=== PATIENT | female | born 1985 | race African-American/Black ===

== ENCOUNTER 2017-02-10 21:28 | Inpatient (IN) | payer SELFPAY ==
[2017-02-10] MEDS ORDERED: Ondansetron HCl/PF 4 MG/2 ML Vial ONE ×2 (21:55→22:58)
[2017-02-10 22:05] LABS: #Lymphocytes 1.9 thou/uL (1.20-3.40); #Monocytes 0.3 thou/uL (0.11-0.59); #Neutrophils 9.6 thou/uL (1.40-6.50); %Basophils 0.4 % (0.0-1.0); %Eosinophils 0.2 % (0.0-10.0); %Lymphocytes 15.8 % (21.0-51.0); %Monocytes 2.4 % (0.0-10.0); Hematocrit 43.2 % (36.0-47.0); Mean Platelet Volume 8.8 fL (7.4-10.4); White Blood Cell (WBC) Count 11.8 thou/uL (4.8-10.8)
[2017-02-10 22:34] LABS: Lactic Acid - Sepsis 1.8 mmol/L (0.5-2.2)
[2017-02-10 22:40] LABS: ALT (SGPT) 11 U/L (8-55); AST (SGOT) 12 U/L (5-34); Alkaline Phosphatase 147 U/L (40-150); Anion Gap 19 mmol/L (10-20); BUN (Urea Nitrogen) 19 mg/dL (7.0-18.7); Bilirubin, Total 0.5 mg/dL (0.2-1.2); Calc. Creatinine Clearance 0 mL/min (70-130); Calcium 10.4 mg/dL (7.8-10.44); Carbon Dioxide 27 mmol/L (22-29); Chloride 93 mmol/L (98-107); Estimated GFR-MDRD 40; Globulin 4.2 g/dL (2.4-3.5); Protein, Total 8.5 g/dL (6.0-8.3)
[2017-02-10 22:55] LABS: Bilirubin Negative (Negative); Blood, Urine Trace (Negative); Glucose, Urine (Dipstick) >=1000 mg/dL (Negative); Ketone, Urine 15 mg/dL (Negative); Nitrite Negative (Negative); Protein, Urine (Dipstick) 300 mg/dL (Neg-Trace); Urobilinogen 0.2 mg/dL (0.2-1.0)
[2017-02-10 22:57] LABS: Bacteria/HPF 4+ HPF (None Seen); Hyaline Casts/LPF 0-3 HYALINE CAST LPF (0-3 Hyaline); RBC/HPF 0-3 HPF (0-3); Squamous Epithelial 0-3 HPF (0-3)
[2017-02-10] MEDS ORDERED: Potassium Chloride 20 MEQ TAB ONE (22:58)
[2017-02-10 22:59] LABS: Anion Gap 7 mmol/L (-14-95); Critical Call POC Critical Value; T. Carbon Dioxide 31.2 mmol/L (1.0-85.0); pH (Venous) 7.448 (7.35-7.45); vO2 Saturation-calc 77.2 % (0.0-100.0)
[2017-02-10 23:11] LABS: Amphetamine Detected (NotDetected); Methadone Not Detected (NotDetected); Methamphetamine Detected (NotDetected)
[2017-02-10] MEDS ORDERED: Promethazine HCl 25 MG/ML VIAL ONE (23:43)
[2017-02-10] MEDS ORDERED: cefTRIAXone\\ROCEPHIN 1 GM, Syringe 0.4 ML in Sterile Water 9.6 ML SLOW IVP SCH (23:45)
[2017-02-10] MEDS ORDERED: NS 0.9% w/ 20 MEQ KCL 1,000 ML IV SCH (23:59)
[2017-02-11] MEDS ORDERED: Labetalol HCl 100 MG/20 ML VIAL ONE (00:34)
[2017-02-11] MEDS ORDERED: Lorazepam 2 MG/ML VIAL ONE (01:11)
[2017-02-11] MEDS ORDERED: Insulin Regular 300 UNITS/3 ML VIAL ONE (01:12)
[2017-02-11] MEDS ORDERED: hydrALAZINE 20 MG/ML VIAL ONE (01:46)
[2017-02-11] MEDS ORDERED: Nitroglycerin 2% Ointment 1 INCH/1 GM Packet ONE (02:37)
[2017-02-11] MEDS ORDERED: cloNIDine 0.1 MG TAB ONE (03:40)
[2017-02-11] MEDS ORDERED: Ondansetron ODT 4 MG TAB PO PRN (04:42)
[2017-02-11] MEDS ORDERED: HYDROcodone/Acetaminophen 5/325 mg Tablet PO PRN (04:42)
[2017-02-11] MEDS ORDERED: Labetalol HCl 100 MG/20 ML VIAL SLOW IVP PRN (04:42)
[2017-02-11] MEDS ORDERED: Ondansetron HCl/PF 4 MG/2 ML Vial IVP PRN (04:42)
[2017-02-11] MEDS ORDERED: Enoxaparin Sodium 30 MG/0.3 ML SYRINGE SC SCH (04:42)
[2017-02-11] MEDS ORDERED: HumaLOG 300 UNITS/3 ML VIAL SC PRN ×2 (04:42→12:18)
[2017-02-11] MEDS ORDERED: NS 0.9% w/ 20 MEQ KCL 1,000 ML/1,000 ML BAG IV SCH (04:42)
[2017-02-11] MEDS ORDERED: HYDROcodone/Acetaminophen 10/325 mg Tablet PO PRN (04:42)
[2017-02-11] MEDS ORDERED: Dextrose 50% Abboject 50 ML SYRINGE SLOW IVP PRN ×2 (04:42)
[2017-02-11] MEDS ORDERED: Dextrose 5% in Water 1,000 ML IV PRN (04:42)
[2017-02-11] MEDS ORDERED: Acetaminophen 325 MG TAB PO PRN (04:42)
--- NOTE | 2017-02-11 07:05 | HP ---
DATE OF ADMISSION: 02/11/2017 TIME OF SERVICE: 0113 hours CHIEF COMPLAINT: Intractable nausea and vomiting. HISTORY OF PRESENT ILLNESS: Ms. Green is a 31-year-old -Citizen Of [place] female, looks much older t salguero her stated age, who has had multiple admissions as recently as November of this year for hyperte nsive urgency and polysubstance abuse. The patient came in with intractable vomiting after using marijuana. She has been using meth, mariju elissa for the last couple of days. Per the ER note, she is not taking her medications and thus on a presentation, her blood pressure was extremely high in the 220s/160s. Her multiple doses of labetalol with some effect. She denies any chest pain, no shortness of breath. I did attempt to get her nausea under control, but she has been intolerant of any oral. She is going to be admitted for IV fluids, blood pressure control, and nause a control. The patient is very somnolent after medications and is difficult to arouse to get more information fr om. PAST MEDICAL HISTORY: 1. Diabetes mellitus type 2. 2. Medical noncompliance. 3. Hyperlipidemia. 4. Hypertension. 5. Polysubstance abuse with least methamphetamines, marijuana, and tobacco. PAST SURGICAL HISTORY: Includes; 1. 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 2. Tonsillectomy. 3. x3, remotely. 4. Appendectomy, remotely. HOME MEDICATIONS: Unclear. Per the chart, in the last few months, she has been on; 1. Procardia-XL 90 mg daily. 2. Metoprolol tartrate 50 mg p.o. b.i.d. 3. Insulin either Lantus b.i.d. or 70/30 with Humalog. 4. Labetalol 200 mg p.o. b.i.d. ALLERGIES: NKDA. FAMILY HISTORY: Unknown. Per prior notes, there is no history of premature coronary artery disease, history of immune system dysfunction, or hematologic disorders. SOCIAL HISTORY: The patient does continue to smoke. She also uses marijuana and methamphetamines pe r her urine drug screen. She is unable to wake up enough to give me further history. REVIEW OF SYSTEMS: Not obtainable due to decreased mental status. PHYSICAL EXAMINATION: VITAL SIGNS: Temperature current 97.5, pulse 113, blood pressure 225/163, respiratory rate 20, satti ng 100% on room air. GENERAL: She is sleeping. She arouses by opening her eyes with verbal stimuli, but quickly falls ba ck asleep. She is in no distress. HEENT: Normocephalic, atraumatic. Pupils are equal and reactive. Teeth are in horrible repair. Mu cous membranes are moist without lesions or thrush. NECK: Supple. There is no lymphadenopathy, JVD, or thyromegaly. LUNGS: Clear posteriorly. There are no wheezes, rales, or rhonchi. The patient is not taking deep breaths on command to get a better exam. CARDIOVASCULAR: She is tachycardic, but regular. She has a normal S1, S2. She does have an S4. No S3. No audible murmurs. ABDOMEN: Soft, nontender with good bowel sounds. EXTREMITIES: Show no signs of clubbing, no edema. SKIN: Warm, dry, and well perfused. There is no rash or lesions noted. NEUROLOGIC: Not testable. MUSCULOSKELETAL: Normal to inspection. There is no inflamed joints and no palpable joint effusions. LABORATORY DATA: CMP showed sodium 136, potassium low at 3.0, chloride 93, bicarbonate 27, BUN 19, c reatinine 1.78, baseline 0.89. Calcium was normal 10.4, glucose elevated at 371. Liver functions ar e normal. CBC showed white count 11.8, hemoglobin 14.5, hematocrit 43.2, platelets 420,000. She had 81% granulocytosis. RADIOGRAPHIC STUDIES: None. ASSESSMENT AND PLAN: 1. Hypertensive urgency. Blood pressures in the 220s/160s. P.r.n. labetalol. We will try to get h er back on Procardia and metoprolol tartrate. She may need to be on labetalol, we will get a better history when she is more awake. Placed on telemetry and expect to be more than 2 midnights. We will make her full admit. 2. Cannabis hyperemesis: The patient continues to smoke marijuana. We will treat symptoms. 3. Diabetes mellitus type 2 with hyperglycemia, she has some underlying underlying kidney defects. We will use a moderate sliding scale. She has been on insulin regimen before, but is unsure which on e she has been on most recently. 4. Hyperlipidemia. 5. Polysubstance abuse. 6. Acute kidney injury: Creatinine 1.78, has been less than 1 most recently. Suspect secondary to dehydration. We will give IV fluids with normal saline with 20 of KCl per liter at 125 an hour. We will follow her potassium very closely. We will recheck labs in the morning with CBC, BMP, and magnesium and replace as needed.
[2017-02-11] MEDS: NIFEdipine XL 90 MG TAB PO SCH (08:21)
[2017-02-11] MEDS: Famotidine 20 MG TAB PO SCH ×2 (08:21→21:14)
[2017-02-11] MEDS ORDERED: Carvedilol 6.25 MG TAB PO SCH ×2 (08:30→17:00)
[2017-02-11] MEDS ORDERED: Metoprolol Tartrate 50 MG TAB PO SCH (09:00)
[2017-02-11] MEDS ORDERED: FLU VACC QS2017-18 36 mo. & older 0.5 ML SYRINGE IM ONE (09:00)
[2017-02-11] MEDS ORDERED: cloNIDine 0.1 MG TAB PO PRN ×2 (09:24→12:19)
[2017-02-11] MEDS ORDERED: hydrALAZINE 20 MG/ML VIAL SLOW IVP PRN (09:25)
[2017-02-11] MEDS: NS 0.9% w/ 20 MEQ KCL 1,000 ML/1,000 ML BAG IV SCH ×2 (10:04→21:14)
[2017-02-11] MEDS ORDERED: Clopidogrel Bisulfate 75 MG TAB ONE ×4 (10:13→17:54)
--- NOTE | 2017-02-11 12:21 | PDOC.PN ---
- Subjective Encounter Start Date: 02/11/17 Encounter Start Time: 10:15 Patient seen and examined. Some nausea. Mentation slowly improving. Follows verbal commands - Somnolent. No overnight events. - Objective Resuscitation Status: Resuscitation Status FULL:Full Resuscitation MAR Reviewed: Yes Vital Signs & Weight: Vital Signs (12 hours) Temp Pulse Resp BP BP Pulse Ox 02/11/17 10:01 188/122 H 02/11/17 08:21 113 H 190/115 H 02/11/17 08:07 98.5 F 113 H 18 100 02/11/17 07:50 98.5 F 113 H 18 190/115 H 100 02/11/17 04:42 98.3 F 109 H 18 100 02/11/17 04:30 98.3 F 109 H 18 168/110 H 100 Weight Weight 130 lb 14.4 oz I&O: 02/10/17 02/11/17 02/12/17 06:59 06:59 06:59 Intake Total 125 Output Total 0 Balance 125 Result Diagrams: 02/10/17 21:53 02/10/17 21:53 Additional Labs: Accuchecks 02/11/17 02/11/17 11:02 05:32 POC Glucose 139 H 324 H Laboratory Tests 02/10/17 02/10/17 21:53 22:41 Ur Amphetamines Screen Detected H U Methamphetamines Scrn Detected H U Cannabinoids Screen Detected H B-Hydroxybutyrate 2.79 H EKG Reviewed by me: Yes (Tele SR) Phys Exam - Physical Examination Constitutional: NAD Respiratory: no wheezing, no rhonchi Cardiovascular: RRR, no rub Gastrointestinal: soft, no distention, positive bowel sounds mild gen tenderness Musculoskeletal: no edema Neurological: non-focal, normal sensation, moves all 4 limbs Psychiatric: A&O x 3 Deviation from normal: somnolent - easily arousable Dx/Plan - Plan DVT proph w/SCDs IMPRESSION: 1. Toxic Metabolic Encephalopathy - multifactorial 2. HTN crisis - prob due to med noncompliance/polysubstance abuse 3. DM 2 with DKA 4. Polysubstance abuse 5. NIRAJ 6. Hypokalemia 7. UTI PLAN: * Recheck labs today * Change Metoprolol to Coreg * AM labs * Change IVF to 50 ml due to uncontrolled BP * Counselled on drug abuse/med compliance * Add Clonidine PRN due to uncontrolled BP * Avoid benzos due to somnolence * Ketone level in AM * Add urine culture * Hold Atbx for now Review of Systems - Review of Systems Respiratory: negative: Cough, Dry, Shortness of Breath, Hemoptysis, SOB with Excertion, Pleuritic Pain, Sputum, Wheezing Cardiovascular: negative: Chest Pain, Palpitations, Orthopnea, Paroxysmal Noc. Dyspnea, Edema, Light Headedness Gastrointestinal: Nausea, Abdominal Pain (gen.). negative: Vomiting, Diarrhea, Constipation, Melena, Hematochezia - Medications/Allergies Allergies/Adverse Reactions: Allergies Allergy/AdvReac Type Severity Reaction Status Date / Time No Known Drug Allergies Allergy Verified 07/13/16 05:41 Medications: Current Medications Acetaminophen (Tylenol) 650 mg PO Q4H PRN PRN Reason: Headache/Fever or Pain Hydrocodone Bitart/Acetaminophen ([place] 5/325) 1 tab PO Q4H PRN PRN Reason: Moderate Pain (4-6) Carvedilol (Coreg) 25 mg PO BID[facility] Clonidine (Catapres) 0.1 mg PO Q4H PRN PRN Reason: Systolic BP > 180 Last Admin: 02/11/17 10:01 Dose: 0.1 mg Clonidine (Catapres) 0.1 mg PO Q4H PRN PRN Reason: Systolic BP > 180/ DBP >100 Dextrose/Water (Dextrose 50%) 25 gm SLOW IVP PRN PRN PRN Reason: Hypoglycemia Famotidine (Pepcid) 20 mg PO BID [facility] Last Admin: 02/11/17 08:21 Dose: 20 mg Glucagon (Glucagon) 1 mg IM PRN PRN PRN Reason: Hypoglycemia Hydralazine HCl (Apresoline) 10 mg SLOW IVP Q4H PRN PRN Reason: SBP Greater Than 180 Dextrose/Water (D5w) 1,000 mls @ 0 mls/hr IV .Q0M PRN; As Directed PRN Reason: Hypoglycemia Potassium Chloride/Sodium Chloride (Ns 0.9% W/ 20 Meq Kcl) 1,000 ml in 1,000 mls @ 50 mls/hr IV .Q20H [facility] Last Admin: 02/11/17 10:04 Dose: Not Given Insulin Human Lispro (Humalog) 0 units SC .MODERATE SLIDING SC PRN PRN Reason: Moderate Correctional Scale Insulin Human Lispro (Humalog) 0 units SC .BEDTIME SLIDING SC PRN PRN Reason: Bedtime Correctional Scale Nifedipine (Procardia Xl) 90 mg PO DAILY [facility] Last Admin: 02/11/17 08:21 Dose: 90 mg Nitroglycerin (Nitro-Bid 2% Ointment) 1 inch TOP Q8HR [facility] Ondansetron HCl (Zofran Odt) 4 mg PO Q6H PRN PRN Reason: Nausea/Vomiting Ondansetron HCl (Zofran) 4 mg IVP Q6H PRN PRN Reason: Nausea/Vomiting if unable po Last Admin: 02/11/17 07:58 Dose: 4 mg Potassium Chloride (Klor-Con 10) 10 meq PO TID-WM [facility] Sodium Chloride (Flush - Normal Saline) 10 ml IVF Q12HR [facility] Last Admin: 02/11/17 10:03 Dose: Not Given Sodium Chloride (Flush - Normal Saline) 10 ml IVF PRN PRN PRN Reason: Saline Flush
[2017-02-11] MEDS: Potassium Chloride 10 MEQ TAB PO SCH ×2 (12:45→17:04)
[2017-02-11 13:10] LABS: Anion Gap 14 mmol/L (10-20); BUN (Urea Nitrogen) 23 mg/dL (7.0-18.7); Calc. Creatinine Clearance 48 mL/min (70-130); Calcium 9.6 mg/dL (7.8-10.44); Carbon Dioxide 28 mmol/L (22-29); Chloride 102 mmol/L (98-107); Estimated GFR-MDRD 46
[2017-02-11] MEDS: Nitroglycerin 2% Ointment 1 INCH/1 GM Packet TOP SCH ×2 (14:55→21:13)
[2017-02-11] MEDS ORDERED: Carvedilol 25 MG TAB PO SCH (17:00)
[2017-02-11] MEDS: Carvedilol 6.25 MG TAB PO SCH (17:04)
[2017-02-11] MEDS: HumaLOG 300 UNITS/3 ML VIAL SC PRN (17:05)
[2017-02-12] MEDS: Nitroglycerin 2% Ointment 1 INCH/1 GM Packet TOP SCH (05:17)
[2017-02-12 05:37] LABS: #Basophils 0.1 thou/uL (0.0-0.2); #Eosinphils 0.1 thou/uL (0.0-0.7); #Lymphocytes 3.5 thou/uL (1.20-3.40); #Monocytes 0.5 thou/uL (0.11-0.59); #Neutrophils 7.7 thou/uL (1.40-6.50); %Eosinophils 0.6 % (0.0-10.0); %Lymphocytes 29.5 % (21.0-51.0); %Monocytes 4.5 % (0.0-10.0); Hematocrit 34.5 % (36.0-47.0); Red Blood Cell (RBC) Count 4.14 mill/uL (4.20-5.40)
[2017-02-12 05:38] LABS: Anion Gap 11 mmol/L (10-20); BUN (Urea Nitrogen) 26 mg/dL (7.0-18.7); Calc. Creatinine Clearance 45 mL/min (70-130); Calcium 8.8 mg/dL (7.8-10.44); Carbon Dioxide 26 mmol/L (22-29); Chloride 100 mmol/L (98-107); Estimated GFR-MDRD 43; Magnesium 1.9 mg/dL (1.6-2.6); Phosphorus 2.4 mg/dL (2.3-4.7)
[2017-02-12] MEDS ORDERED: NPH, Human Insulin Isophane 300 UNIT/3 ML VIAL SC SCH ×2 (06:45→21:00)
[2017-02-12] MEDS: Carvedilol 6.25 MG TAB PO SCH ×2 (08:53→17:21)
[2017-02-12] MEDS: NIFEdipine XL 90 MG TAB PO SCH (08:54)
[2017-02-12] MEDS: Famotidine 20 MG TAB PO SCH ×2 (08:54→21:00)
[2017-02-12] MEDS: Potassium Chloride 10 MEQ TAB PO SCH ×3 (08:54→17:21)
[2017-02-12] MEDS: HumaLOG 300 UNITS/3 ML VIAL SC PRN ×4 (08:55→20:59)
--- NOTE | 2017-02-12 18:03 | PDOC.PN ---
- Subjective Encounter Start Date: 02/12/17 Encounter Start Time: 10:00 Patient seen and examined. Mentation improving. Still somnolent. No overnight events - Objective Resuscitation Status: Resuscitation Status FULL:Full Resuscitation MAR Reviewed: Yes Vital Signs & Weight: Vital Signs (12 hours) Temp Pulse Pulse Pulse Resp BP BP 02/12/17 17:21 150/97 H 02/12/17 16:20 98.1 F 97 17 02/12/17 13:32 94 95 97/62 02/12/17 11:35 98.7 F 97 16 02/12/17 09:00 98.3 F 96 16 02/12/17 08:54 96 164/100 H 02/12/17 08:53 164/100 H 02/12/17 08:51 98.3 F 96 16 BP BP Pulse Ox 02/12/17 17:21 02/12/17 16:20 121/82 100 02/12/17 13:32 103/62 02/12/17 11:35 137/93 H 100 02/12/17 09:00 99 02/12/17 08:54 02/12/17 08:53 02/12/17 08:51 164/100 H 99 Weight Weight 136 lb I&O: 02/11/17 02/12/17 02/13/17 06:59 06:59 06:59 Intake Total 125 3043 1300 Output Total 0 1800 1200 Balance 125 1243 100 Result Diagrams: 02/12/17 04:28 02/12/17 04:28 Additional Labs: Accuchecks 02/12/17 02/12/17 02/12/17 17:08 11:31 05:36 POC Glucose 257 H 202 H 331 H 02/11/17 02/11/17 19:57 16:22 POC Glucose 175 H 294 H EKG Reviewed by me: Yes (Tele SR) Phys Exam - Physical Examination Constitutional: NAD Respiratory: no wheezing, no rales, no rhonchi, clear to auscultation bilateral Cardiovascular: RRR, no significant murmur, no rub no heaves/pulsations Gastrointestinal: soft, non-tender, no distention, positive bowel sounds Musculoskeletal: no edema Neurological: non-focal, normal sensation, moves all 4 limbs Psychiatric: A&O x 3 Dx/Plan - Plan DVT proph w/SCDs (no Heparin/Lovenox due to elevated BP) IMPRESSION: 1. Toxic Metabolic Encephalopathy - multifactorial - improving. 2. HTN crisis - prob due to med noncompliance/polysubstance abuse. 3. DM 2 with DKA - better controlled. Ketone improving. 4. Polysubstance abuse - Counselled 5. NIRAJ - improving 6. Hypokalemia - improving 7. UTI - culture pending PLAN: * Start Atbx * Cont current HTN meds * DC NTG patch * AM labs * Clonidine PRN * DC probably in AM if stable * DC IVF due to elevated BP Review of Systems - Review of Systems Respiratory: negative: Cough, Dry, Shortness of Breath, Hemoptysis, SOB with Excertion, Pleuritic Pain, Sputum, Wheezing Cardiovascular: negative: Chest Pain, Palpitations, Orthopnea, Paroxysmal Noc. Dyspnea, Edema, Light Headedness Gastrointestinal: negative: Nausea, Vomiting, Abdominal Pain, Diarrhea, Constipation, Melena, Hematochezia - Medications/Allergies Allergies/Adverse Reactions: Allergies Allergy/AdvReac Type Severity Reaction Status Date / Time No Known Drug Allergies Allergy Verified 07/13/16 05:41 Medications: Current Medications Acetaminophen (Tylenol) 650 mg PO Q4H PRN PRN Reason: Headache/Fever or Pain Hydrocodone Bitart/Acetaminophen ([place] 5/325) 1 tab PO Q4H PRN PRN Reason: Moderate Pain (4-6) Carvedilol (Coreg) 12.5 mg PO BID-[facility] Last Admin: 02/12/17 17:21 Dose: 12.5 mg Clonidine (Catapres) 0.1 mg PO Q4H PRN PRN Reason: Systolic BP > 180/ DBP >100 Last Admin: 02/12/17 05:17 Dose: 0.1 mg Dextrose/Water (Dextrose 50%) 25 gm SLOW IVP PRN PRN PRN Reason: Hypoglycemia Famotidine (Pepcid) 20 mg PO BID [facility] Last Admin: 02/12/17 08:54 Dose: 20 mg Glucagon (Glucagon) 1 mg IM PRN PRN PRN Reason: Hypoglycemia Hydralazine HCl (Apresoline) 10 mg SLOW IVP Q4H PRN PRN Reason: SBP Greater Than 180 Dextrose/Water (D5w) 1,000 mls @ 0 mls/hr IV .Q0M PRN; As Directed PRN Reason: Hypoglycemia Insulin Human Lispro (Humalog) 0 units SC .BEDTIME SLIDING SC PRN PRN Reason: Bedtime Correctional Scale Insulin Human Lispro (Humalog) 0 units SC .MILD SLIDING SCALE PRN PRN Reason: Mild Correctional Scale Last Admin: 02/12/17 17:21 Dose: 6 unit Insulin Human NPH (Humulin N) 15 unit SC 0645 [facility] Last Admin: 02/12/17 08:55 Dose: 15 unit Insulin Human NPH (Humulin N) 15 unit SC BID [facility] Nifedipine (Procardia Xl) 90 mg PO DAILY [facility] Last Admin: 02/12/17 08:54 Dose: 90 mg Ondansetron HCl (Zofran Odt) 4 mg PO Q6H PRN PRN Reason: Nausea/Vomiting Ondansetron HCl (Zofran) 4 mg IVP Q6H PRN PRN Reason: Nausea/Vomiting if unable po Last Admin: 02/11/17 07:58 Dose: 4 mg Potassium Chloride (Klor-Con 10) 10 meq PO TID-WM [facility] Last Admin: 02/12/17 17:21 Dose: 10 meq Sodium Chloride (Flush - Normal Saline) 10 ml IVF Q12HR [facility] Last Admin: 02/12/17 09:00 Dose: Not Given Sodium Chloride (Flush - Normal Saline) 10 ml IVF PRN PRN PRN Reason: Saline Flush
[2017-02-12] MEDS ORDERED: cefTRIAXone\\ROCEPHIN 1 GM in Sodium Chloride 0.9% 100 ML IVPB SCH (18:15)
[2017-02-12] MEDS ORDERED: cefTRIAXone\\ROCEPHIN 1 GM, Syringe 0.4 ML in Sterile Water 9.6 ML SLOW IVP SCH (21:00)
[2017-02-13] MEDS: Nitroglycerin 2% Ointment 1 INCH/1 GM Packet TOP SCH (00:05)
[2017-02-13 06:04] LABS: Anion Gap 8 mmol/L (10-20); BUN (Urea Nitrogen) 24 mg/dL (7.0-18.7); Calc. Creatinine Clearance 71 mL/min (70-130); Calcium 8.9 mg/dL (7.8-10.44); Carbon Dioxide 27 mmol/L (22-29); Chloride 103 mmol/L (98-107); Estimated GFR-MDRD 69
[2017-02-13 06:06] VITALS: BMI 22.6
[2017-02-13] MEDS ORDERED: Potassium Chloride 20 MEQ TAB PO SCH (08:00)
[2017-02-13] MEDS ORDERED: NPH, Human Insulin Isophane 300 UNIT/3 ML VIAL SC SCH (09:00)
[2017-02-13] MEDS: NIFEdipine XL 90 MG TAB PO SCH (09:15)
[2017-02-13] MEDS: Famotidine 20 MG TAB PO SCH (09:16)
[2017-02-13] MEDS: Carvedilol 6.25 MG TAB PO SCH (09:16)
[2017-02-13] MEDS: Potassium Chloride 10 MEQ TAB PO SCH (09:46)
[2017-02-13 12:25] VITALS: BP 133/85; TEMP 97.8
[2017-02-13] MEDS: HumaLOG 300 UNITS/3 ML VIAL SC PRN (12:27)
--- NOTE | 2017-02-13 17:21 | DIS ---
DATE OF ADMISSION: 02/11/2017 DATE OF DISCHARGE: 02/13/2017 DISCHARGE DISPOSITION: Home. FOLLOWUP: Follow up with primary care physician, [facility] in 1 week. ALLERGIES: No known drug allergies. The patient was seen and examined on the day of discharge. No chest pain, shortness of breath, palpi tations. Patient is ambulating in the hallway. Blood pressure at the time of discharge is 133/85. DISCHARGE MEDICATIONS: Procardia-XL 90 mg daily, carvedilol 12.5 mg b.i.d., clonidine as needed, Nov oLog 70/30 12 units b.i.d., amoxicillin 500 mg three times daily #14. BRIEF HOSPITAL COURSE: Patient is a 31-year-old -[place] female with diabetes mellitus type 2, hypertension, hyperlipidemia, and polysubstance abuse who presented to the hospital with intractab le nausea and vomiting. Please refer to the history and physical dated 02/11/2017 for further detail s. The patient was admitted to the hospital with diagnosis of intractable nausea and vomiting with hyper tensive urgency and acute kidney injury. Urine drug screen was positive for cannabinoid, amphetamine s and methamphetamines. Beta hydroxybutyrate was 2.79. Creatinine on admission was 1.78 with potass ium of 2.9 and blood sugar of 348. She showed good improvement with IV fluids. Blood pressure was m aintained with p.r.n. medications. Metoprolol has been changed to carvedilol due to methamphetamine abuse. Her blood pressure has stabilized. She was extensively counseled on drug abuse. The patient stated today that she has been not taking Lantus due to financial reason. For this reason, Lantus h as been changed to NovoLog 70/30. She appears stable for discharge. She is ambulating in the counts include [facility] beds at the [facility]. Her blood pressure has also stabilized. FINAL DIAGNOSES: 1. Nausea and vomiting secondary to diabetic ketoacidosis, resolved. 2. Toxic metabolic encephalopathy, multifactorial. Probably secondary to drug abuse. 3. Hypertensive crisis, resolved. 4. Polysubstance abuse. 5. Acute kidney injury. 6. Hypokalemia. 7. Group B urinary tract infection. 8. Chronic kidney disease stage 2. Plan of care was discussed with the patient in detail. She stated understanding. Total time coordinating the discharge of this patient was 35 minutes.
== END 2017-02-13 13:00 | disposition home or self-care (01) | DRG 637 ==
LOC: ERS 21:28 → 2NO 02-11 01:42
PROVIDERS: ADMIT Internal Medicine Infectious Disease; ATTEND Internal Medicine Infectious Disease
DX: E11.10 Type 2 diabetes mellitus with ketoacidosis without coma (principal); G92 Toxic encephalopathy; N17.9 Acute kidney failure, unspecified; N39.0 Urinary tract infection, site not specified; F15.10 Other stimulant abuse, uncomplicated; Z87.891 Personal history of nicotine dependence; I16.0 Hypertensive urgency; R11.2 Nausea with vomiting, unspecified; E78.5 Hyperlipidemia, unspecified; F19.10 Other psychoactive substance abuse, uncomplicated; F12.10 Cannabis abuse, uncomplicated; E87.6 Hypokalemia; B96.89 Other specified bacterial agents as the cause of diseases classified elsewhere; I12.9 Hypertensive chronic kidney disease with stage 1 through stage 4 chronic kidney disease, or unspecified chronic kidney disease; E11.22 Type 2 diabetes mellitus with diabetic chronic kidney disease; N18.2 Chronic kidney disease, stage 2 (mild); Z91.14 Patient's other noncompliance with medication regimen; E86.0 Dehydration
CPT/HCPCS: 36415; 36416; 80048; 80053; 80306; 81003; 81015; 81025; 82010; 82330; 82803; 83605; 83735; 83930; 84100; 85025; 87077; 87086; 90471; 90682; 93005; 94760; 96361; 96365; 96366; 96367; 96372; 96375; 96376; 99406; A4216; G0008; G8978-GP-CJ; G8979-GP-CJ; G8980-GP-CJ; G8987-GO-CH; G8988-GO-CH; G8989-GO-CH; J0360; J0696; J1650; J1815; J2060; J2405; J2550; Q2036

== ENCOUNTER 2017-02-24 21:55 | Inpatient (IN) | payer MEDICAID, SELFPAY ==
[2017-02-24] MEDS ORDERED: Ondansetron HCl/PF 4 MG/2 ML Vial ONE (22:01)
[2017-02-24] MEDS ORDERED: Pantoprazole 40 MG VIAL ONE (22:11)
[2017-02-24 22:22] LABS: #Basophils 0.1 thou/uL (0.0-0.2); #Eosinphils 0.1 thou/uL (0.0-0.7); #Lymphocytes 1.8 thou/uL (1.20-3.40); #Monocytes 0.4 thou/uL (0.11-0.59); #Neutrophils 8.8 thou/uL (1.40-6.50); %Basophils 0.8 % (0.0-1.0); %Eosinophils 0.7 % (0.0-10.0); %Lymphocytes 15.7 % (21.0-51.0); %Monocytes 3.7 % (0.0-10.0); Hematocrit 39.7 % (36.0-47.0); Mean Platelet Volume 9.1 fL (7.4-10.4); Red Blood Cell (RBC) Count 4.82 mill/uL (4.20-5.40); White Blood Cell (WBC) Count 11.2 thou/uL (4.8-10.8)
[2017-02-24] MEDS ORDERED: Promethazine HCl 25 MG/ML VIAL ONE (22:22)
[2017-02-24] MEDS ORDERED: Haloperidol Lactate 5 MG/ML VIAL ONE (22:22)
[2017-02-24] MEDS ORDERED: Fentanyl 100 MCG/2 ML VIAL ONE (22:22)
[2017-02-24 22:44] LABS: ALT (SGPT) 10 U/L (8-55); AST (SGOT) 15 U/L (5-34); Alkaline Phosphatase 125 U/L (40-150); Anion Gap 17 mmol/L (10-20); BUN (Urea Nitrogen) 23 mg/dL (7.0-18.7); Bilirubin, Total 0.6 mg/dL (0.2-1.2); Calc. Creatinine Clearance 0 mL/min (70-130); Calcium 10.1 mg/dL (7.8-10.44); Carbon Dioxide 27 mmol/L (22-29); Chloride 95 mmol/L (98-107); Estimated GFR-MDRD 49; Globulin 4.1 g/dL (2.4-3.5); Lipase 25 U/L (8-78); Protein, Total 8.2 g/dL (6.0-8.3)
[2017-02-24] MEDS ORDERED: Pantoprazole 80 MG in Sodium Chloride 0.9% 100 ML IVP SCH (22:45)
--- NOTE | 2017-02-24 23:17 | RAD ---
ACUTE ABDOMINAL SERIES: FRONTAL RADIOGRAPH CHEST AND TWO VIEWS OF ABDOMEN 02/24/17 COMPARISON: None. HISTORY: Pain. FINDINGS: Frontal radiograph chest demonstrates no pneumothorax or pleural fluid and no focal consolidation or alveolar edema. Upright and supine frontal imaging of abdomen and pelvis demonstrates stool throughou t the colon. No evidence for small bowel obstruction or free intraperitoneal air. IMPRESSION: Significant stool seen throughout the colon. No free intraperitoneal air, evidence of small bowel obs truction, or evidence of acute cardiopulmonary disease. POS: [facility]
[2017-02-24] MEDS ORDERED: niCARdipine 20MG In NaCl 20 MG/200 ML BAG ONE (23:26)
[2017-02-24] MEDS ORDERED: Insulin Regular 300 UNITS/3 ML VIAL ONE (23:29)
[2017-02-24] MEDS ORDERED: hydrALAZINE 20 MG/ML VIAL ONE (23:39)
[2017-02-24 23:46] LABS: Magnesium 2.1 mg/dL (1.6-2.6)
[2017-02-24 23:52] LABS: Bilirubin Negative (Negative); Blood, Urine Small (Negative); Glucose, Urine (Dipstick) >=1000 mg/dL (Negative); Ketone, Urine 15 mg/dL (Negative); Nitrite Negative (Negative); Protein, Urine (Dipstick) 100 mg/dL (Neg-Trace); Urobilinogen 0.2 mg/dL (0.2-1.0)
[2017-02-24 23:55] LABS: Bacteria/HPF None Seen HPF (None Seen); Hyaline Casts/LPF 0-3 HYALINE CAST LPF (0-3 Hyaline); RBC/HPF 0-3 HPF (0-3); Squamous Epithelial None Seen HPF (0-3); WBC/HPF None Seen HPF (0-3)
[2017-02-25] MEDS ORDERED: Labetalol HCl 100 MG/20 ML VIAL ONE (00:02)
[2017-02-25] MEDS ORDERED: Potassium Chloride 20 MEQ/100 ML PREMIX BAG ONE (00:17)
[2017-02-25] MEDS ORDERED: Dextrose 5% in Water 1,000 ML IV PRN (00:32)
[2017-02-25] MEDS ORDERED: Dextrose 50% Abboject 50 ML SYRINGE SLOW IVP PRN (00:32)
[2017-02-25] MEDS ORDERED: cloNIDine 0.1 MG TAB PO PRN (00:34)
[2017-02-25] MEDS ORDERED: Acetaminophen 650 MG Suppository PR PRN (00:35)
[2017-02-25] MEDS ORDERED: Nitroglycerin 0.4 MG TAB (25 Tab Bottle) PO PRN (00:35)
[2017-02-25] MEDS ORDERED: Ondansetron ODT 4 MG TAB PO PRN (00:35)
[2017-02-25] MEDS ORDERED: Fleet Enema 133 ML BOT PR PRN (00:37)
[2017-02-25] MEDS ORDERED: Labetalol HCl 100 MG/20 ML VIAL SLOW IVP PRN (00:38)
[2017-02-25] MEDS ORDERED: hydrALAZINE 20 MG/ML VIAL SLOW IVP PRN (00:38)
--- NOTE | 2017-02-25 00:54 | HP ---
DATE OF ADMISSION: 02/24/2017 The patient was seen and examined on 02/22/2017 REASON FOR CHIEF COMPLAINT: Abdominal pain with nausea and vomiting. HISTORY OF PRESENT ILLNESS: Patient is a 31-year-old -[place] female with diabetes mellitus type 2, hypertension, hyperlipidemia, and polysubstance abuse, who presented to the emergency room wi th intractable nausea, vomiting, and abdominal discomfort. She was discharged on 02/13/2017 with sim ilar complaints. Over the last three days, the patient has been out of her insulin and has not taken her blood pressur e medications. She developed generalized abdominal discomfort along with nausea and vomiting. The v omitus was coffee ground on and off. She denies any nonsteroidal anti-inflammatory use earlier. The abdominal pain was 10/10, generalized, without any aggravating or relieving factor. The above history was obtained from the ER report. At this time, patient is somnolent. Due to intra ctable nausea, vomiting, she received Phenergan, Haldol, and Zofran in the emergency room with IV flu ids. PAST MEDICAL HISTORY: 1. Recent hospitalization for nausea, vomiting with diabetic ketoacidosis. 2. Hypertension, labile due to medication noncompliance. 3. Hyperlipidemia. 4. Polysubstance abuse. 5. Chronic kidney disease, stage 2 with recent acute kidney injury. PAST SURGICAL HISTORY: 1. D and C. 2. Tonsillectomy. 3. . 4. Appendectomy. ALLERGIES: No known drug allergies. CURRENT HOME MEDICATIONS: Patient has not taken any of her home medications in the last 3-4 days. S he was discharged on Procardia-XL 90 mg daily, carvedilol 12.5 mg b.i.d., clonidine as needed, and No voLog 70/30 of 20 units b.i.d. SOCIAL HISTORY: Patient smokes on a daily basis. Her urine drug screen recently was positive for ca nnabis and methamphetamines. FAMILY HISTORY: Negative for premature coronary artery disease from recent records. REVIEW OF SYSTEMS: Cannot be reliably obtained due to current cognitive status. PHYSICAL EXAMINATION: VITAL SIGNS: In the emergency room showed temperature 97.9, respirations 18, pulse of 119 with blood pressure of 203/133 with O2 saturation 99% on room air. GENERAL: A 31-year-old female who was somnolent, probably secondary to the Haldol for nausea. HEENT: Head , atraumatic, normocephalic. Sclerae are anicteric. Dry mucous membrane. No oral lesi on. NECK: Supple. No JVD, no carotid bruit. LUNGS: Clear to auscultation bilaterally. No wheezing or rales. HEART: S1, S2 present. Tachycardic. No heaves, pulsation, or murmurs. ABDOMEN: There is diffuse tenderness without any guarding, rigidity. Bowel sounds present. No cost overtebral angle tenderness. EXTREMITIES: No edema or calf tenderness. NEUROLOGIC/PSYCHIATRIC: Limited due to current cognitive status. SKIN: Warm and dry. LYMPH NODES: No palpable lymph nodes in the neck. PERIPHERAL VASCULAR: Radial pulses palpable bilaterally. MUSCULOSKELETAL: No joint swelling or tenderness. LABORATORY FINDINGS: CBC showed WBC 11.2 with hemoglobin 13.5, platelet count 365. Chemistries show ed sodium 136, potassium 3.0 with chloride 95, bicarbonate 27, BUN 23, creatinine 1.5. Blood glucose was 358. Ketones was 1.64. Urine test was normal. Urine ketones was 15. KUB by my revi ew showed significant stool throughout the colon without any free air or evidence of small-bowel obst ruction. Telemetry by my review showed sinus tachycardia. IMPRESSION: 1. Intractable nausea and vomiting, multifactorial. 2. Toxic metabolic encephalopathy, multifactorial. 3. Hypertensive urgency secondary to medication noncompliance. 4. History of polysubstance abuse. 5. Diabetic ketoacidosis. 6. Hypokalemia. 7. Dehydration. 8. Acute kidney injury on chronic kidney disease, stage 2. 9. Medication noncompliance. 10. Recent group B strep urinary tract infection. 11. Vomiting with questionable hematemesis, probably secondary to gastritis. PLAN: The patient will be monitored on telemetry unit. Urine drug screen is pending at this time. Her blood pressure improved with hydralazine IV. We will monitor blood glucose closely. Gentle IV h ydration due to elevated blood pressure. Replace potassium. Recheck ketones in a.m. We will give a fleet enema in a.m. due to significant stool in the colon. GI will be consulted for possible GI ble eding, which is probably secondary to gastritis. Plan of care was discussed with the patient. We will discuss the plan with the family when they arri ve.
[2017-02-25] MEDS: 1/2 NS w/KCL 20 mEq 1,000 ML IV SCH ×2 (03:34→22:07)
[2017-02-25] MEDS: Ondansetron HCl/PF 4 MG/2 ML Vial IVP PRN ×3 (03:34→20:34)
[2017-02-25] MEDS: Nitroglycerin 2% Ointment 1 INCH/1 GM Packet TOP SCH ×3 (03:35→16:57)
[2017-02-25] MEDS: hydrALAZINE 25 MG TAB PO SCH ×3 (03:35→22:07)
[2017-02-25] MEDS ORDERED: NIFEdipine XL 30 MG TAB PO SCH ×2 (04:00→09:00)
[2017-02-25] MEDS ORDERED: NIFEdipine XL 90 MG TAB PO SCH (04:00)
[2017-02-25] MEDS: NIFEdipine XL 90 MG TAB PO SCH (04:16)
[2017-02-25 04:50] LABS: #Basophils 0.1 thou/uL (0.0-0.2); #Eosinphils 0.1 thou/uL (0.0-0.7); #Lymphocytes 2.1 thou/uL (1.20-3.40); #Monocytes 0.5 thou/uL (0.11-0.59); #Neutrophils 8.1 thou/uL (1.40-6.50); %Basophils 0.8 % (0.0-1.0); %Eosinophils 0.8 % (0.0-10.0); %Lymphocytes 19.2 % (21.0-51.0); %Monocytes 4.6 % (0.0-10.0); Hematocrit 37.1 % (36.0-47.0); Mean Platelet Volume 9.1 fL (7.4-10.4); Red Blood Cell (RBC) Count 4.46 mill/uL (4.20-5.40); White Blood Cell (WBC) Count 10.9 thou/uL (4.8-10.8)
[2017-02-25 05:02] LABS: ALT (SGPT) 10 U/L (8-55); AST (SGOT) 11 U/L (5-34); Alkaline Phosphatase 110 U/L (40-150); Anion Gap 14 mmol/L (10-20); BUN (Urea Nitrogen) 20 mg/dL (7.0-18.7); Bilirubin, Total 0.6 mg/dL (0.2-1.2); Calc. Creatinine Clearance 59 mL/min (70-130); Calcium 9.3 mg/dL (7.8-10.44); Carbon Dioxide 25 mmol/L (22-29); Chloride 98 mmol/L (98-107); Estimated GFR-MDRD 59; Globulin 3.4 g/dL (2.4-3.5); Magnesium 1.8 mg/dL (1.6-2.6); Phosphorus 4.4 mg/dL (2.3-4.7); Protein, Total 7.1 g/dL (6.0-8.3)
[2017-02-25] MEDS ORDERED: Promethazine HCl 25 MG in Sodium Chloride 0.9% 100 ML IVPB SCH (06:00)
[2017-02-25] MEDS: Carvedilol 25 MG TAB PO SCH ×2 (08:21→16:47)
[2017-02-25] MEDS: Senokot S 8.6-50 MG TAB PO SCH ×2 (08:21→20:33)
[2017-02-25] MEDS: Docusate 100 MG CAP PO SCH ×2 (08:21→20:33)
[2017-02-25] MEDS: Bisacodyl 10 MG SUPP PR SCH (08:22)
[2017-02-25] MEDS: Pantoprazole 40 MG VIAL IVP SCH ×2 (08:22→20:33)
[2017-02-25] MEDS: Insulin Regular 300 UNITS/3 ML VIAL SC PRN ×3 (08:41→16:34)
[2017-02-25] MEDS: NPH, Human Insulin Isophane 300 UNIT/3 ML VIAL SC SCH ×2 (08:43→22:07)
--- NOTE | 2017-02-25 09:54 | PDOC.PN ---
- Subjective Encounter Start Date: 02/25/17 Encounter Start Time: 07:00 Pt seen for followup re: nausea and vomiting. Pt reports vomiting three times today. has abdo pain. No fevers or chills. - Objective Resuscitation Status: Resuscitation Status FULL:Full Resuscitation MAR Reviewed: Yes Vital Signs & Weight: Vital Signs (12 hours) Temp Pulse Resp BP BP Pulse Ox 02/25/17 08:48 124 H 196/60 H 02/25/17 07:30 98.6 F 124 H 16 196/60 H 100 02/25/17 04:16 122 H 210/130 H 02/25/17 03:36 99.0 F 122 H 16 210/130 H 99 02/25/17 03:35 123 H 167/114 H 02/25/17 02:19 97.4 F L 123 H 18 167/114 H 99 02/25/17 00:35 99 Weight Weight 130 lb 4.8 oz I&O: 02/24/17 02/25/17 02/26/17 06:59 06:59 06:59 Intake Total 957 Output Total 100 Balance 857 Result Diagrams: 02/25/17 04:18 02/25/17 04:18 Additional Labs: Accuchecks 02/25/17 02/25/17 02/25/17 08:24 04:10 01:43 POC Glucose 295 H 287 H 274 H 02/25/17 00:13 POC Glucose 292 H EKG Reviewed by me: Yes (Tele: NSR) Phys Exam - Physical Examination Constitutional: NAD HEENT: PERRLA, sclera anicteric, oral pharynx no lesions Dry mucosae Neck: no nodes, no JVD, supple, full ROM Respiratory: no wheezing, no rales, no rhonchi, clear to auscultation bilateral Cardiovascular: RRR, no rub Gastrointestinal: soft, no distention, positive bowel sounds Mild diffuse tenderness, no guarding or rigidity Musculoskeletal: pulses present Neurological: moves all 4 limbs Lymphatic: no nodes Psychiatric: normal affect Deviation from normal: Oriented to person and place, not to time Skin: no rash, normal turgor, cap refill <2 seconds Dx/Plan (1) Nausea and vomiting Code(s): R11.2 - NAUSEA WITH VOMITING, UNSPECIFIED Status: Acute (2) Hypokalemia Code(s): E87.6 - HYPOKALEMIA Status: Acute (3) Hypertensive urgency Code(s): I10 - ESSENTIAL (PRIMARY) HYPERTENSION Status: Acute (4) Abdominal pain Code(s): R10.9 - UNSPECIFIED ABDOMINAL PAIN Status: Acute (5) DM2 (diabetes mellitus, type 2) Status: Chronic Qualifiers: Diabetes mellitus complication status: without complication (6) CKD (chronic kidney disease) Code(s): N18.9 - CHRONIC KIDNEY DISEASE, UNSPECIFIED Status: Chronic (7) Polysubstance abuse Code(s): F19.10 - OTHER PSYCHOACTIVE SUBSTANCE ABUSE, UNCOMPLICATED Status: Chronic - Plan DVT proph w/SCDs * . Check CT abdo /pelvis to r/o intraabdominal pathology. Add clonidine patch, monitor vital signs and titrate antihypertensives as needed. PRN IV Zofran. Renal insufficiency improving. Replace potassium. Review of Systems - Review of Systems Constitutional: negative: Fever, Chills, Sweats, Weakness, Malaise Respiratory: negative: Cough, Dry, Shortness of Breath, Hemoptysis, SOB with Excertion, Pleuritic Pain, Sputum, Wheezing Cardiovascular: negative: Chest Pain, Palpitations, Orthopnea, Paroxysmal Noc. Dyspnea, Edema, Light Headedness Gastrointestinal: Nausea, Vomiting, Abdominal Pain. negative: Diarrhea, Constipation, Melena, Hematochezia Genitourinary: negative: Dysuria, Frequency, Incontinence, Hematuria, Retention - Medications/Allergies Allergies/Adverse Reactions: Allergies Allergy/AdvReac Type Severity Reaction Status Date / Time No Known Drug Allergies Allergy Verified 02/25/17 02:36 Medications: Current Medications Acetaminophen (Tylenol) 650 mg PO Q4H PRN PRN Reason: Headache/Fever or Pain Acetaminophen (Tylenol) 650 mg NJ Q4H PRN PRN Reason: Headache/Fever or Pain Bisacodyl (Dulcolax) 10 mg NJ DAILY [facility] Last Admin: 02/25/17 08:22 Dose: 10 mg Carvedilol (Coreg) 25 mg PO BID-[facility] Last Admin: 02/25/17 08:21 Dose: 25 mg Clonidine (Catapres) 0.1 mg PO Q4H PRN PRN Reason: Systolic BP > 180/ DBP >100 Dextrose/Water (Dextrose 50%) 25 gm SLOW IVP PRN PRN PRN Reason: Hypoglycemia Docusate Sodium (Colace) 100 mg PO BID [facility] Last Admin: 02/25/17 08:21 Dose: 100 mg Glucagon (Glucagon) 1 mg IM PRN PRN PRN Reason: Hypoglycemia Hydralazine HCl (Apresoline) 10 mg SLOW IVP Q4H PRN PRN Reason: SBP Greater Than 180 Last Admin: 02/25/17 08:48 Dose: 10 mg Hydralazine HCl (Apresoline) 25 mg PO Q8HR [facility] Last Admin: 02/25/17 03:35 Dose: 25 mg Potassium Chloride/Sodium Chloride (1/2 Ns W/Kcl 20 Meq) 1,000 mls @ 50 mls/hr IV .Q20H [facility] Stop: 02/27/17 00:46 Last Admin: 02/25/17 03:34 Dose: 1,000 mls Dextrose/Water (D5w) 1,000 mls @ 0 mls/hr IV .Q0M PRN; As Directed PRN Reason: Hypoglycemia Insulin Human NPH (Humulin N) 8 unit SC BID [facility] Last Admin: 02/25/17 08:43 Dose: 8 unit Insulin Human Regular (Humulin R) 0 units SC .MILD SLIDING SCALE PRN PRN Reason: Mild Correctional Scale Last Admin: 02/25/17 08:41 Dose: 4 unit Labetalol HCl (Normodyne) 10 mg SLOW IVP Q4H PRN PRN Reason: Systolic BP > 180 Nifedipine (Procardia Xl) 90 mg PO DAILY [facility] Last Admin: 02/25/17 04:16 Dose: 90 mg Nitroglycerin (Nitrostat) 0.4 mg PO Q5MIN PRN PRN Reason: Chest Pain Nitroglycerin (Nitro-Bid 2% Ointment) 0.5 inch TOP 0100,0900,1700 [facility] Last Admin: 02/25/17 08:22 Dose: 0.5 inch Ondansetron HCl (Zofran Odt) 4 mg PO Q6H PRN PRN Reason: Nausea/Vomiting Ondansetron HCl (Zofran) 4 mg IVP Q6H PRN PRN Reason: Nausea/Vomiting Last Admin: 02/25/17 03:34 Dose: 4 mg Pantoprazole Sodium (Protonix) 40 mg IVP Q12HR [facility] Last Admin: 02/25/17 08:22 Dose: 40 mg Senna/Docusate Sodium (Senokot S) 2 tab PO BID [facility] Last Admin: 02/25/17 08:21 Dose: 2 tab Sodium Biphosphate/Sodium Phosphate (Fleet Enema) 133 ml NJ DAILY PRN PRN Reason: Constipation Sodium Chloride (Flush - Normal Saline) 10 ml IVF PRN PRN PRN Reason: Saline Flush Last Admin: 02/25/17 03:34 Dose: 10 ml
[2017-02-25] MEDS ORDERED: cloNIDine 0.2mg/24 Hour PATCH TD SCH (10:00)
[2017-02-25] MEDS ORDERED: Potassium Chloride 20 MEQ TAB PO SCH (10:00)
[2017-02-25] MEDS ORDERED: Promethazine HCl 25 MG/ML VIAL IM PRN (10:38)
[2017-02-25] MEDS ORDERED: Ondansetron HCl/PF 4 MG/2 ML Vial IVP PRN (10:38)
[2017-02-25] MEDS ORDERED: Promethazine HCl 25 MG/ML VIAL SLOW IVP PRN (10:38)
[2017-02-25] MEDS ORDERED: Lidocaine 1% PF 5 ML VIAL ONE (12:06)
[2017-02-25] MEDS ORDERED: Succinylcholine Chloride 20 MG/ML 10 ml SYRINGE FS ONE (12:06)
[2017-02-25] MEDS ORDERED: Propofol 200 MG/20 ML VIAL ONE (12:06)
[2017-02-25] MEDS ORDERED: PHENYLEPHRINE-NS 100 MCG/ML 10 ML SYRINGE ONE (12:06)
[2017-02-25] MEDS: Labetalol HCl 100 MG/20 ML VIAL SLOW IVP PRN ×2 (12:23→20:34)
[2017-02-25] MEDS ORDERED: Lorazepam 2 MG/ML VIAL SLOW IVP SCH (16:15)
[2017-02-25] MEDS ORDERED: hydrALAZINE 20 MG/ML VIAL SLOW IVP SCH (16:15)
[2017-02-25] MEDS ORDERED: Sodium Chloride 0.9% 1,000 ML IV SCH (17:45)
[2017-02-25 19:54] LABS: Amphetamine Detected (NotDetected); Methadone Not Detected (NotDetected); Methamphetamine Detected (NotDetected)
[2017-02-25] MEDS ORDERED: cloNIDine 0.1mg/24 Hour PATCH TD SCH (22:00)
[2017-02-26] MEDS: Nitroglycerin 2% Ointment 1 INCH/1 GM Packet TOP SCH ×3 (00:35→17:34)
--- NOTE | 2017-02-26 00:37 | OP ---
DATE OF PROCEDURE: 02/25/2017 OPERATIVE PROCEDURE: Esophagogastroduodenoscopy with biopsy. PREOPERATIVE DIAGNOSES: Abdominal pain, nausea, vomiting, history of coffee-ground emesis. POSTOPERATIVE DIAGNOSES: 1. Normal stomach and duodenum. 2. Small ulcer at the gastroesophageal junction with mild esophagitis. 3. Linear brownish streak mostly represent food material coating the esophageal mucosa. This could not be washed out. PROCEDURE IN DETAIL: The patient has been intubated and was given sedation by the Anesthesia Departm ent. This was done because of history of recurrent nausea and vomiting. A Pentax video gastroscope under direct vision was passed down the oropharynx. When I passed the scope down the posterior phary nx, I could see some blood in the throat. This is most likely from the intubation and caused retchin g. The underlying mucosa appeared normal. The scope was advanced past the upper esophageal sphincte r into the stomach and subsequently descending duodenum. The duodenal bulb and descending duodenum, no pathology seen. The fundus, cardia, gastric body, gastric antrum, no pathology seen. The endosco pe was withdrawn just above the GE junction, there was a small ulceration with mild inflammation. Al so, the mucosa has some linear streaks which do not appear to be any erosions. This represents most likely the food material coating the mucosa. The area was biopsied. The stomach was decompressed an d the scope removed. RECOMMENDATIONS: 1. Protonix 40 mg a day. 2. IV Reglan 10 mg every 8 hours. Overall, the exam is very benign. I do not see any reason for ab dominal pain, nausea, and vomiting. It is very much possible this could be gastroparesis.
--- NOTE | 2017-02-26 00:43 | CON ---
DATE OF CONSULTATION: 02/25/2017 REFERRING PHYSICIAN: Dr. Clifton Ochoa. REASON FOR CONSULTATION: Abdominal pain, nausea, vomiting, and history of coffee-ground emesis. HISTORY OF PRESENT ILLNESS: Ms. Jennie Green is a fragile-looking, young -[place] female with hypertension, diabetes mellitus, and hyperlipidemia. In the admitting history and physical, there is mention of polysubstance abuse. The patient came to the ER with acute abdominal pain that started yesterday morning. The pain was over the epigastric area with recurrent nausea and vomiting. The patient was constantly retching and throwing up. There is some mention of coffee-ground emesis. The patient had a CBC which is actually normal. The admitting CBC shows a normal hemoglobin and hematocrit. A repeat H&H showed the blood count to be normal. The admitting CBC shows WBC 11,200, hemoglobin 13.4, hematocrit 39.7. Today, hemoglobin 12.5 , which is actually normal, hematocrit 37.1. When I walked into her room to see her, she was lying in bed, moaning and groaning as she actually got abdominal pain. Abdominal exam is very very benign. The patient denies history of alcohol abuse. No history of drug abuse. She does use some drugs off and on a regular basis. Although she has a history of hypertension and diabetes mellitus, she does not have a family doctor. She says she buys her medicines over the counter , which appears to be somewhat difficult to believe. She has no other relevant history. ALLERGIES: None. SOCIAL HISTORY: The patient does not drink alcohol but does admit to using off and on but not on a regular basis. She does smoke. Her urine drug screen is positive for cannabis and methamphetamines. FAMILY HISTORY: No family history of any heart disease, CVA, diabetes, hypertension, and cancer. MENSTRUAL HISTORY: Appears regular. LMP 01/2017 and usually bleeds for 5 days. PAST SURGICAL HISTORY: She has had and she has 3 living children. 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 Constitutional: No history of fever, night sweats, weight loss. Respiratory System: No history of chronic cough, hemoptysis, dyspnea. Cardiovascular System: No chest pain, no palpitation, no dyspnea, orthopnea, or PND. Gastrointestinal: As in the history of present illness. Genitourinary: No dysuria, hematuria, or frequency of urination. Musculoskeletal: Unremarkable. Endocrine: Unremarkable. Psychiatric: Unremarkable. PHYSICAL EXAMINATION: GENERAL: The patient is thin built, appears in moderate discomfort, she is moaning and groaning. VITAL SIGNS: Temperature 98.6 degrees Fahrenheit, pulse is 124, blood pressure 196/60. HEENT: Conjunctivae clear. NECK: Supple. No adenitis or thyromegaly noted. CARDIOVASCULAR SYSTEM: First and second heart sounds normal. LUNGS: Clear to auscultation. ABDOMEN: Soft. Abdomen is nondistended. Abdomen exam is very benign, although , she moans and groans everytime her abdomen is palpated. EXTREMITIES: No edema. LABORATORY DATA: As mentioned earlier, she has a normal hemoglobin and hematocrit, WBC count is slightly high at 10,900, platelet count is 118,000, polymorphs 74, lymphocytes 19. Serum chemistries show a normal Chem-7 except for mild hypokalemia and hyponatremia. Her BUN is 20, creatinine 1.28, glucose 292, calcium 9.3, bilirubin 0.6, AST 11, ALT 10, alkaline phosphatase 110. Lipase was really not done. Abdominal series done showed basically a large amount of retained stool. CLINICAL IMPRESSION: A 31-year-old -[place] female with diabetes mellitus, hypertension, hyperlipidemia. Although she denies drug abuse, however , urine is positive for amphetamines and cannabis. Abdomen is very very benign. The belly is soft and nondistended; however, she complains of severe abdominal pain. Her lipase is normal at 725. Based on the history and physical exam, I do not see any evidence of acute abdomen. Her coffee ground vomiting may be due to her retching and maybe she tore some gastric mucosa. RECOMMENDATION: I did speak to Ms. Green about having an EGD. She agrees to have an EGD done as soon as possible and make further recommendations. MTDD
[2017-02-26 05:16] LABS: #Basophils 0.1 thou/uL (0.0-0.2); #Lymphocytes 2.8 thou/uL (1.20-3.40); #Monocytes 0.7 thou/uL (0.11-0.59); %Basophils 0.5 % (0.0-1.0); %Eosinophils 0.3 % (0.0-10.0); %Lymphocytes 22.1 % (21.0-51.0); %Monocytes 5.3 % (0.0-10.0); Hematocrit 33.3 % (36.0-47.0); Mean Platelet Volume 8.8 fL (7.4-10.4); Red Blood Cell (RBC) Count 4.01 mill/uL (4.20-5.40); White Blood Cell (WBC) Count 12.5 thou/uL (4.8-10.8)
[2017-02-26] MEDS: hydrALAZINE 25 MG TAB PO SCH ×3 (05:48→21:50)
[2017-02-26] MEDS: Insulin Regular 300 UNITS/3 ML VIAL SC PRN ×3 (06:33→17:35)
[2017-02-26 07:14] LABS: ALT (SGPT) 8 U/L (8-55); AST (SGOT) 11 U/L (5-34); Alkaline Phosphatase 94 U/L (40-150); Anion Gap 14 mmol/L (10-20); BUN (Urea Nitrogen) 25 mg/dL (7.0-18.7); Bilirubin, Total 0.5 mg/dL (0.2-1.2); Calc. Creatinine Clearance 33 mL/min (70-130); Calcium 8.8 mg/dL (7.8-10.44); Carbon Dioxide 26 mmol/L (22-29); Chloride 99 mmol/L (98-107); Estimated GFR-MDRD 37; Globulin 3.1 g/dL (2.4-3.5); Magnesium 1.7 mg/dL (1.6-2.6); Phosphorus 5.3 mg/dL (2.3-4.7); Protein, Total 6.3 g/dL (6.0-8.3)
[2017-02-26] MEDS: Docusate 100 MG CAP PO SCH ×2 (08:51→21:51)
[2017-02-26] MEDS: NIFEdipine XL 90 MG TAB PO SCH (08:52)
[2017-02-26] MEDS: Senokot S 8.6-50 MG TAB PO SCH ×2 (08:52→21:51)
[2017-02-26] MEDS: Carvedilol 25 MG TAB PO SCH ×2 (08:52→17:35)
[2017-02-26] MEDS: NPH, Human Insulin Isophane 300 UNIT/3 ML VIAL SC SCH ×2 (08:56→21:50)
[2017-02-26] MEDS: Bisacodyl 10 MG SUPP PR SCH (08:58)
[2017-02-26] MEDS: Pantoprazole 40 MG VIAL IVP SCH ×2 (09:06→21:50)
--- NOTE | 2017-02-26 12:17 | PDOC.PN ---
- Subjective Encounter Start Date: 02/26/17 Encounter Start Time: 07:20 Pt seen for followup re: hypokalemia. Denies chest pain, feels better. Had breakfast. - Objective Resuscitation Status: Resuscitation Status FULL:Full Resuscitation MAR Reviewed: Yes Vital Signs & Weight: Vital Signs (12 hours) Temp Pulse Resp BP BP Pulse Ox 02/26/17 11:40 98.3 F 103 H 16 122/77 98 02/26/17 08:52 99 F 114 H 16 98 02/26/17 07:38 99 F 114 H 16 158/108 H 98 02/26/17 05:48 120 H 161/103 H 02/26/17 04:00 99.9 F H 120 H 18 161/103 H 97 Weight Weight 108 lb 4.8 oz I&O: 02/25/17 02/26/17 02/27/17 06:59 06:59 06:59 Intake Total 957 1558 Output Total 100 Balance 857 1558 Result Diagrams: 02/26/17 04:48 02/26/17 04:48 Additional Labs: Accuchecks 02/26/17 02/26/17 02/26/17 09:31 04:49 00:40 POC Glucose 197 H 216 H 184 H 02/25/17 02/25/17 20:22 16:29 POC Glucose 211 H 240 H EKG Reviewed by me: Yes (Tele: sinus tachycardia) Phys Exam - Physical Examination Constitutional: NAD HEENT: PERRLA, sclera anicteric, oral pharynx no lesions Dry mucosae Neck: no nodes, no JVD, supple, full ROM Respiratory: no wheezing, no rales, no rhonchi, clear to auscultation bilateral Cardiovascular: RRR, no rub Gastrointestinal: soft, non-tender, no distention, positive bowel sounds Musculoskeletal: pulses present Neurological: moves all 4 limbs Lymphatic: no nodes Psychiatric: normal affect, A&O x 3 Skin: no rash Dx/Plan (1) Hypokalemia Code(s): E87.6 - HYPOKALEMIA Status: Acute (2) Sinus tachycardia Code(s): R00.0 - TACHYCARDIA, UNSPECIFIED Status: Acute (3) Dehydration Code(s): E86.0 - DEHYDRATION Status: Acute (4) DM2 (diabetes mellitus, type 2) Status: Chronic Qualifiers: Diabetes mellitus complication status: without complication (5) CKD (chronic kidney disease) Code(s): N18.9 - CHRONIC KIDNEY DISEASE, UNSPECIFIED Status: Chronic (6) Polysubstance abuse Code(s): F19.10 - OTHER PSYCHOACTIVE SUBSTANCE ABUSE, UNCOMPLICATED Status: Chronic (7) Nausea and vomiting Code(s): R11.2 - NAUSEA WITH VOMITING, UNSPECIFIED Status: Resolved (8) Abdominal pain Code(s): R10.9 - UNSPECIFIED ABDOMINAL PAIN Status: Resolved (9) Hypertensive urgency Code(s): I10 - ESSENTIAL (PRIMARY) HYPERTENSION Status: Resolved - Plan * . Advance diet. Replace potassium. Continue IV fluids, pt is clinically dehydrated. Monitor vital signs, titrate antihypertensives as needed. Review of Systems - Review of Systems Constitutional: negative: Fever, Chills, Sweats, Weakness, Malaise Respiratory: negative: Cough, Dry, Shortness of Breath, Hemoptysis, SOB with Excertion, Pleuritic Pain, Sputum, Wheezing Cardiovascular: negative: Chest Pain, Palpitations, Orthopnea, Paroxysmal Noc. Dyspnea, Edema, Light Headedness Gastrointestinal: Nausea, Abdominal Pain. negative: Vomiting, Diarrhea, Constipation, Melena, Hematochezia Genitourinary: negative: Dysuria, Frequency, Incontinence, Hematuria, Retention - Medications/Allergies Allergies/Adverse Reactions: Allergies Allergy/AdvReac Type Severity Reaction Status Date / Time No Known Drug Allergies Allergy Verified 02/25/17 02:36 Medications: Current Medications Acetaminophen (Tylenol) 650 mg PO Q4H PRN PRN Reason: Headache/Fever or Pain Acetaminophen (Tylenol) 650 mg IA Q4H PRN PRN Reason: Headache/Fever or Pain Bisacodyl (Dulcolax) 10 mg IA DAILY [facility] Last Admin: 02/26/17 08:58 Dose: Not Given Carvedilol (Coreg) 25 mg PO BID-[facility] Last Admin: 02/26/17 08:52 Dose: 25 mg Clonidine (Catapres) 0.1 mg PO Q4H PRN PRN Reason: Systolic BP > 180/ DBP >100 Last Admin: 02/25/17 20:32 Dose: 0.1 mg Clonidine (Latqtqkk-Dmi-0 Patch) 0.1 mg TD Q7D [facility] Last Admin: 02/25/17 22:05 Dose: 0.1 mg Dextrose/Water (Dextrose 50%) 25 gm SLOW IVP PRN PRN PRN Reason: Hypoglycemia Docusate Sodium (Colace) 100 mg PO BID [facility] Last Admin: 02/26/17 08:51 Dose: 100 mg Glucagon (Glucagon) 1 mg IM PRN PRN PRN Reason: Hypoglycemia Hydralazine HCl (Apresoline) 10 mg SLOW IVP Q4H PRN PRN Reason: SBP Greater Than 180 Last Admin: 02/25/17 08:48 Dose: 10 mg Hydralazine HCl (Apresoline) 25 mg PO Q8HR [facility] Last Admin: 02/26/17 05:48 Dose: 25 mg Potassium Chloride/Sodium Chloride (1/2 Ns W/Kcl 20 Meq) 1,000 mls @ 50 mls/hr IV .Q20H [facility] Stop: 02/27/17 00:46 Last Admin: 02/25/17 22:07 Dose: Not Given Dextrose/Water (D5w) 1,000 mls @ 0 mls/hr IV .Q0M PRN; As Directed PRN Reason: Hypoglycemia Insulin Human NPH (Humulin N) 8 unit SC BID [facility] Last Admin: 02/26/17 08:56 Dose: 8 unit Insulin Human Regular (Humulin R) 0 units SC .MILD SLIDING SCALE PRN PRN Reason: Mild Correctional Scale Last Admin: 02/26/17 11:55 Dose: 2 unit Labetalol HCl (Normodyne) 10 mg SLOW IVP Q6H PRN PRN Reason: Systolic BP > 170 Last Admin: 02/25/17 20:34 Dose: 10 mg Nifedipine (Procardia Xl) 90 mg PO DAILY [facility] Last Admin: 02/26/17 08:52 Dose: 90 mg Nitroglycerin (Nitrostat) 0.4 mg PO Q5MIN PRN PRN Reason: Chest Pain Nitroglycerin (Nitro-Bid 2% Ointment) 0.5 inch TOP 0100,0900,1700 [facility] Last Admin: 02/26/17 08:52 Dose: 0.5 inch Ondansetron HCl (Zofran Odt) 4 mg PO Q6H PRN PRN Reason: Nausea/Vomiting Last Admin: 02/26/17 05:48 Dose: 4 mg Ondansetron HCl (Zofran) 4 mg IVP Q6H PRN PRN Reason: Nausea/Vomiting Last Admin: 02/25/17 20:34 Dose: 4 mg Pantoprazole Sodium (Protonix) 40 mg IVP Q12HR [facility] Last Admin: 02/26/17 09:06 Dose: 40 mg Senna/Docusate Sodium (Senokot S) 2 tab PO BID [facility] Last Admin: 02/26/17 08:52 Dose: 2 tab Sodium Biphosphate/Sodium Phosphate (Fleet Enema) 133 ml [place] DAILY PRN PRN Reason: Constipation Last Admin: 02/25/17 16:08 Dose: 133 ml Sodium Chloride (Flush - Normal Saline) 10 ml IVF PRN PRN PRN Reason: Saline Flush Last Admin: 02/26/17 08:53 Dose: 10 ml
[2017-02-26 12:24] VITALS: BMI 21.1
[2017-02-26] MEDS: 1/2 NS w/KCL 20 mEq 1,000 ML IV SCH ×2 (15:14→18:06)
[2017-02-26] MEDS ORDERED: Magnesium Citrate 300 ML BOT PO SCH (17:30)
[2017-02-26] MEDS: Potassium Chloride 20 MEQ TAB PO SCH ×2 (17:34→21:50)
[2017-02-27] MEDS: Nitroglycerin 2% Ointment 1 INCH/1 GM Packet TOP SCH ×3 (01:57→19:00)
[2017-02-27] MEDS: Acetaminophen 325 MG TAB PO PRN ×3 (02:01→13:27)
[2017-02-27] MEDS: hydrALAZINE 25 MG TAB PO SCH ×2 (06:40→13:27)
[2017-02-27] MEDS: NPH, Human Insulin Isophane 300 UNIT/3 ML VIAL SC SCH (08:09)
[2017-02-27] MEDS: Carvedilol 25 MG TAB PO SCH ×2 (08:10→19:00)
[2017-02-27] MEDS: Pantoprazole 40 MG VIAL IVP SCH (08:10)
[2017-02-27] MEDS: NIFEdipine XL 90 MG TAB PO SCH (08:10)
[2017-02-27] MEDS: Bisacodyl 10 MG SUPP PR SCH (08:20)
[2017-02-27] MEDS: Senokot S 8.6-50 MG TAB PO SCH (08:20)
[2017-02-27] MEDS: Docusate 100 MG CAP PO SCH (08:20)
[2017-02-27] MEDS: Insulin Regular 300 UNITS/3 ML VIAL SC PRN ×2 (08:39→13:28)
[2017-02-27] MEDS: Sodium Chloride 0.9% 1,000 ML IV SCH ×2 (10:38→18:59)
--- NOTE | 2017-02-27 12:57 | PDOC.PN ---
- Subjective Encounter Start Date: 02/27/17 Encounter Start Time: 07:00 Pt seen for followup re: NIRAJ. Denies chest pain, shortness of breath, fevers or chills. No nausea or vomiting. - Objective Resuscitation Status: Resuscitation Status FULL:Full Resuscitation MAR Reviewed: Yes Vital Signs & Weight: Vital Signs (12 hours) Temp Pulse Resp BP BP Pulse Ox 02/27/17 11:53 98.8 F 91 20 115/71 99 02/27/17 08:10 99 F 90 20 100 02/27/17 08:00 99.0 F 90 20 168/122 H 100 02/27/17 06:40 94 152/105 H 02/27/17 03:20 98.9 F 94 16 152/105 H 99 Weight Admit Weight 130 lb 12.8 oz Weight 130 lb 12.8 oz I&O: 02/26/17 02/27/17 02/28/17 06:59 06:59 06:59 Intake Total 1558 1750 Output Total 400 Balance 1558 1350 Result Diagrams: 02/26/17 04:48 02/26/17 04:48 Additional Labs: Accuchecks 02/27/17 02/27/17 02/27/17 11:12 08:19 03:57 POC Glucose 225 H 258 H 273 H 02/27/17 02/26/17 02/26/17 01:05 20:32 16:38 POC Glucose 340 H 245 H 287 H 02/26/17 13:52 POC Glucose 255 H EKG Reviewed by me: Yes (Tele: NSR) Phys Exam - Physical Examination Constitutional: NAD Dry mucosae Neck: supple Respiratory: clear to auscultation bilateral Cardiovascular: RRR Gastrointestinal: soft Neurological: moves all 4 limbs Psychiatric: normal affect Skin: no rash Dx/Plan (1) NIRAJ (acute kidney injury) Code(s): N17.9 - ACUTE KIDNEY FAILURE, UNSPECIFIED Status: Acute (2) Hypokalemia Code(s): E87.6 - HYPOKALEMIA Status: Acute (3) Dehydration Code(s): E86.0 - DEHYDRATION Status: Acute (4) DM2 (diabetes mellitus, type 2) Status: Chronic Qualifiers: Diabetes mellitus complication status: without complication (5) CKD (chronic kidney disease) Code(s): N18.9 - CHRONIC KIDNEY DISEASE, UNSPECIFIED Status: Chronic (6) Polysubstance abuse Code(s): F19.10 - OTHER PSYCHOACTIVE SUBSTANCE ABUSE, UNCOMPLICATED Status: Chronic (7) Nausea and vomiting Code(s): R11.2 - NAUSEA WITH VOMITING, UNSPECIFIED Status: Resolved (8) Abdominal pain Code(s): R10.9 - UNSPECIFIED ABDOMINAL PAIN Status: Resolved (9) Sinus tachycardia Code(s): R00.0 - TACHYCARDIA, UNSPECIFIED Status: Resolved - Plan * . Hydrate pt, recheck creatinine. Check potassium level. Likely home later today or tomorrow. Review of Systems - Review of Systems Constitutional: negative: Fever, Chills, Sweats, Weakness, Malaise Respiratory: negative: Cough, Dry, Shortness of Breath, Hemoptysis, SOB with Excertion, Pleuritic Pain, Sputum, Wheezing Cardiovascular: negative: Chest Pain, Palpitations, Orthopnea, Paroxysmal Noc. Dyspnea, Edema, Light Headedness Gastrointestinal: negative: Nausea, Vomiting, Abdominal Pain, Diarrhea, Constipation, Melena, Hematochezia - Medications/Allergies Allergies/Adverse Reactions: Allergies Allergy/AdvReac Type Severity Reaction Status Date / Time No Known Drug Allergies Allergy Verified 02/25/17 02:36 Medications: Current Medications Acetaminophen (Tylenol) 650 mg PO Q4H PRN PRN Reason: Headache/Fever or Pain Last Admin: 02/27/17 08:09 Dose: 650 mg Acetaminophen (Tylenol) 650 mg [place] Q4H PRN PRN Reason: Headache/Fever or Pain Bisacodyl (Dulcolax) 10 mg NJ DAILY [facility] Last Admin: 02/27/17 08:20 Dose: Not Given Carvedilol (Coreg) 25 mg PO BID-[facility] Last Admin: 02/27/17 08:10 Dose: 25 mg Clonidine (Catapres) 0.1 mg PO Q4H PRN PRN Reason: Systolic BP > 180/ DBP >100 Last Admin: 02/25/17 20:32 Dose: 0.1 mg Clonidine (Pjgnpgbf-Blj-8 Patch) 0.1 mg TD Q7D [facility] Last Admin: 02/25/17 22:05 Dose: 0.1 mg Dextrose/Water (Dextrose 50%) 25 gm SLOW IVP PRN PRN PRN Reason: Hypoglycemia Docusate Sodium (Colace) 100 mg PO BID [facility] Last Admin: 02/27/17 08:20 Dose: Not Given Glucagon (Glucagon) 1 mg IM PRN PRN PRN Reason: Hypoglycemia Hydralazine HCl (Apresoline) 10 mg SLOW IVP Q4H PRN PRN Reason: SBP Greater Than 180 Last Admin: 02/25/17 08:48 Dose: 10 mg Hydralazine HCl (Apresoline) 25 mg PO Q8HR [facility] Last Admin: 02/27/17 06:40 Dose: 25 mg Dextrose/Water (D5w) 1,000 mls @ 0 mls/hr IV .Q0M PRN; As Directed PRN Reason: Hypoglycemia Sodium Chloride (Normal Saline 0.9%) 1,000 mls @ 150 mls/hr IV .Q6H40M [facility] Last Admin: 02/27/17 10:38 Dose: 1,000 mls Insulin Human NPH (Humulin N) 8 unit SC BID [facility] Last Admin: 02/27/17 08:09 Dose: 8 unit Insulin Human Regular (Humulin R) 0 units SC .MILD SLIDING SCALE PRN PRN Reason: Mild Correctional Scale Last Admin: 02/27/17 08:39 Dose: 4 unit Labetalol HCl (Normodyne) 10 mg SLOW IVP Q6H PRN PRN Reason: Systolic BP > 170 Last Admin: 02/25/17 20:34 Dose: 10 mg Nifedipine (Procardia Xl) 90 mg PO DAILY [facility] Last Admin: 02/27/17 08:10 Dose: 90 mg Nitroglycerin (Nitrostat) 0.4 mg PO Q5MIN PRN PRN Reason: Chest Pain Nitroglycerin (Nitro-Bid 2% Ointment) 0.5 inch TOP 0100,0900,1700 [facility] Last Admin: 02/27/17 08:09 Dose: 0.5 inch Ondansetron HCl (Zofran Odt) 4 mg PO Q6H PRN PRN Reason: Nausea/Vomiting Last Admin: 02/26/17 05:48 Dose: 4 mg Ondansetron HCl (Zofran) 4 mg IVP Q6H PRN PRN Reason: Nausea/Vomiting Last Admin: 02/25/17 20:34 Dose: 4 mg Pantoprazole Sodium (Protonix) 40 mg IVP Q12HR [facility] Last Admin: 02/27/17 08:10 Dose: Not Given Senna/Docusate Sodium (Senokot S) 2 tab PO BID [facility] Last Admin: 02/27/17 08:20 Dose: Not Given Sodium Biphosphate/Sodium Phosphate (Fleet Enema) 133 ml [place] DAILY PRN PRN Reason: Constipation Last Admin: 02/25/17 16:08 Dose: 133 ml Sodium Chloride (Flush - Normal Saline) 10 ml IVF PRN PRN PRN Reason: Saline Flush Last Admin: 02/26/17 08:53 Dose: 10 ml
[2017-02-27 16:13] VITALS: BP 153/101; TEMP 98.4
[2017-02-27] MEDS ORDERED: Metoclopramide HCl 10 MG TAB PO SCH (21:00)
--- NOTE | 2017-02-28 01:52 | DIS ---
DATE OF ADMISSION: 02/24/2017 DATE OF DISCHARGE: 02/27/2017 PRIMARY CARE PROVIDER: [facility]. DISCHARGE DIAGNOSES: 1. Acute on chronic renal insufficiency. 2. Probable gastroparesis. 3. Hypertensive urgency. CONDITION OF PATIENT AT THE TIME OF DISCHARGE: Stable. I assessed Ms. Green on the day of dischar ge. Please refer to my daily hospitalist progress note for further information. DISCHARGE MEDICATIONS: Metoclopramide 10 mg 3 times a day, trial for 1 week, patient to be reassesse d by her primary care provider. Coreg 12.5 mg 2 times a day, clonidine 0.1 mg 2 times a day as neede d, NovoLog insulin 70/30 twenty units 2 times a day, Procardia-XL 90 mg daily, and Protonix 40 mg cara ly. HOSPITAL COURSE: Ms. Green is a pleasant 31-year-old lady who was admitted to [facility] for hypertensive urgency and abdominal pain on 02/24/2017. Gastroenterology service wa s consulted. Dr. Fragoso saw her and did EGD on her on 02/25/2017. She had normal stomach and duo denum, small ulcer at the gastroesophageal junction with mild esophagitis. She has been started on P rotonix 40 mg daily and Reglan 10 mg 3 times a day. Her blood pressure improved. Her abdominal pain and vomiting resolved. She is being discharged home in a stable condition. She is advised to stop recreational drug use and to follow up with her [facility] care provider in 3-5 days. On the day of discharge, she has a creatinine of 1.60. Many thanks for allowing me to participate in your patient's care. Please feel free to contact me wi th any questions or concerns. DISCHARGE DESTINATION: Home. TOTAL AMOUNT OF TIME SPENT COORDINATING THIS DISCHARGE: 33 minutes.
== END 2017-02-27 18:21 | disposition home or self-care (01) | DRG 74 ==
LOC: ERS 21:55 → ERHOLD 23:56 → 2SE 02-25 02:22
PROVIDERS: ADMIT Internal Medicine; ATTEND Internal Medicine
PROC: 0DB48ZX Excision of Esophagogastric Junction, Via Natural or Artificial Opening Endoscopic, Diagnostic (ICD-10-PCS; principal; 2017-02-25)
DX: E11.43 Type 2 diabetes mellitus with diabetic autonomic (poly)neuropathy (principal); G92 Toxic encephalopathy; N17.9 Acute kidney failure, unspecified; E11.22 Type 2 diabetes mellitus with diabetic chronic kidney disease; I16.0 Hypertensive urgency; K31.84 Gastroparesis; E86.0 Dehydration; E87.6 Hypokalemia; K25.9 Gastric ulcer, unspecified as acute or chronic, without hemorrhage or perforation; K20.9 Esophagitis, unspecified; I12.9 Hypertensive chronic kidney disease with stage 1 through stage 4 chronic kidney disease, or unspecified chronic kidney disease; Z91.14 Patient's other noncompliance with medication regimen; N18.2 Chronic kidney disease, stage 2 (mild); E78.5 Hyperlipidemia, unspecified; Z79.4 Long term (current) use of insulin; F17.210 Nicotine dependence, cigarettes, uncomplicated; F19.10 Other psychoactive substance abuse, uncomplicated
CPT/HCPCS: 36415; 36416; 74022; 80053; 80306; 81003; 81015; 81025; 82010; 82565; 83690; 83735; 84100; 85025; 86850; 86900; 86901; 88305; 88312; 88313; 94760; 96361; 96365; 96375; 99406; A4216; C9113; J0360; J1630; J1815; J2001; J2060; J2405; J2550; J2704; J3010; J3480; J7050; Q0162

== ENCOUNTER 2017-03-05 22:17 | Emergency (ER) | payer MEDICAID ==
[2017-03-05] MEDS ORDERED: Ondansetron HCl/PF 4 MG/2 ML Vial ONE (23:01)
[2017-03-05 23:09] LABS: #Basophils 0.1 thou/uL (0.0-0.2); #Eosinphils 0.1 thou/uL (0.0-0.7); #Lymphocytes 2.3 thou/uL (1.20-3.40); #Monocytes 0.5 thou/uL (0.11-0.59); #Neutrophils 10.4 thou/uL (1.40-6.50); %Basophils 0.5 % (0.0-1.0); %Eosinophils 0.6 % (0.0-10.0); %Lymphocytes 17.1 % (21.0-51.0); %Monocytes 3.6 % (0.0-10.0); Hematocrit 40.6 % (36.0-47.0); Mean Platelet Volume 9.4 fL (7.4-10.4); Red Blood Cell (RBC) Count 4.93 mill/uL (4.20-5.40); White Blood Cell (WBC) Count 13.3 thou/uL (4.8-10.8)
[2017-03-05 23:33] LABS: ALT (SGPT) 13 U/L (8-55); AST (SGOT) 12 U/L (5-34); Alkaline Phosphatase 133 U/L (40-150); Anion Gap 16 mmol/L (10-20); BUN (Urea Nitrogen) 17 mg/dL (7.0-18.7); Bilirubin, Total 0.5 mg/dL (0.2-1.2); Calc. Creatinine Clearance 0 mL/min (70-130); Calcium 10.2 mg/dL (7.8-10.44); Carbon Dioxide 27 mmol/L (22-29); Chloride 96 mmol/L (98-107); Estimated GFR-MDRD 47; Globulin 4.2 g/dL (2.4-3.5); Lipase 11 U/L (8-78); Protein, Total 8.1 g/dL (6.0-8.3)
[2017-03-05 23:51] LABS: Troponin I Less than 0.010 ng/mL (< 0.028)
[2017-03-06] MEDS ORDERED: Promethazine HCl 25 MG/ML VIAL ONE (00:11)
[2017-03-06] MEDS ORDERED: Lorazepam 2 MG/ML VIAL ONE (00:11)
--- NOTE | 2017-03-06 07:20 | RAD ---
1 VIEW ABDOMEN: Date: 03/06/17 HISTORY: Nausea and vomiting. Abdominal pain. COMPARISON: None. FINDINGS: Portable supine abdomen radiograph demonstrates a nonspecific bowel gas pattern. Scattered fecal mate rial in a nondistended, nondilated colon. No evidence of small bowel distention or dilatation. No pne umoperitoneum on this supine projection. No suspicious density in the abdomen or pelvis. IMPRESSION: Nonspecific bowel gas pattern. POS: [facility]
--- NOTE | 2017-03-12 13:54 | EKG ---
Test Reason : Blood Pressure : / mmHG Vent. Rate : 107 BPM Atrial Rate : 107 BPM P-R Int : 146 ms QRS Dur : 084 ms QT Int : 350 ms P-R-T Axes : 071 028 067 degrees QTc Int : 467 ms Sinus tachycardia Possible Left atrial enlargement Borderline ECG Confirmed by IBRAHIMA MANLEY, BASSEM ([id number]), editor school photograph KRYSTA SOLORIO ([id number]) on 03/12/2017 1:52:41 PM Referred By: Confirmed By:BASSEM ALEXANDRA MD
== END 2017-03-06 01:19 | disposition home or self-care (01) ==
LOC: ERS 22:17
DX: R10.9 Unspecified abdominal pain (principal); R11.2 Nausea with vomiting, unspecified; E10.65 Type 1 diabetes mellitus with hyperglycemia; I10 Essential (primary) hypertension; E78.00 Pure hypercholesterolemia, unspecified; F31.9 Bipolar disorder, unspecified; F17.210 Nicotine dependence, cigarettes, uncomplicated
CPT/HCPCS: 36416; 74000; 80053; 82553; 83690; 84484; 84703; 85025; 93005; 96361; 96365; 96375; 99406; J2060; J2405; J2550

== ENCOUNTER 2017-03-12 14:59 | Emergency (ER) | payer MEDICAID, SELFPAY ==
[2017-03-12 15:36] LABS: #Basophils 0.1 thou/uL (0.0-0.2); #Eosinphils 0.1 thou/uL (0.0-0.7); #Lymphocytes 2.1 thou/uL (1.20-3.40); #Monocytes 0.4 thou/uL (0.11-0.59); #Neutrophils 9.5 thou/uL (1.40-6.50); %Basophils 0.5 % (0.0-1.0); %Eosinophils 0.9 % (0.0-10.0); %Lymphocytes 16.8 % (21.0-51.0); %Monocytes 3.5 % (0.0-10.0); Hematocrit 38.3 % (36.0-47.0); Mean Platelet Volume 8.8 fL (7.4-10.4); Red Blood Cell (RBC) Count 4.63 mill/uL (4.20-5.40); White Blood Cell (WBC) Count 12.2 thou/uL (4.8-10.8)
[2017-03-12 15:45] LABS: PTT 27.6 SEC (22.9-36.1)
[2017-03-12 15:55] LABS: ALT (SGPT) 10 U/L (8-55); AST (SGOT) 13 U/L (5-34); Alkaline Phosphatase 106 U/L (40-150); Anion Gap 14 mmol/L (10-20); BUN (Urea Nitrogen) 23 mg/dL (7.0-18.7); Bilirubin, Total 0.4 mg/dL (0.2-1.2); CK (CPK) 95 U/L (29-168); Calc. Creatinine Clearance 0 mL/min (70-130); Calcium 9.8 mg/dL (7.8-10.44); Carbon Dioxide 31 mmol/L (22-29); Chloride 97 mmol/L (98-107); Estimated GFR-MDRD 54; Globulin 3.6 g/dL (2.4-3.5); Lipase 13 U/L (8-78); Protein, Total 7.3 g/dL (6.0-8.3)
[2017-03-12 16:00] LABS: Troponin I 0.025 ng/mL (< 0.028)
[2017-03-12] MEDS ORDERED: Ondansetron HCl/PF 4 MG/2 ML Vial ONE (16:27)
[2017-03-12] MEDS ORDERED: Labetalol HCl 100 MG/20 ML VIAL ONE ×2 (16:39→20:06)
[2017-03-12] MEDS ORDERED: Pantoprazole 40 MG VIAL ONE (16:39)
[2017-03-12] MEDS ORDERED: Haloperidol Lactate 5 MG/ML VIAL ONE (16:40)
--- NOTE | 2017-03-12 16:41 | RAD ---
CHEST ONE VIEW PORTABLE: History: Chest pain. Abdominal pain. Comparison: 02-25-17 FINDINGS: Monitor leads overlie the chest. Heart size is normal. The lungs are clear. IMPRESSION: No acute intrathoracic disease. Stable from prior study. POS: [facility]
[2017-03-12] MEDS ORDERED: Furosemide 40 MG/4 ML VIAL ONE (17:14)
[2017-03-12 18:12] LABS: Bilirubin Negative (Negative); Blood, Urine Negative (Negative); Glucose, Urine (Dipstick) 250 mg/dL (Negative); Ketone, Urine Trace mg/dL (Negative); Nitrite Negative (Negative); Protein, Urine (Dipstick) 100 mg/dL (Neg-Trace); Urobilinogen 0.2 mg/dL (0.2-1.0)
[2017-03-12 18:14] LABS: Bacteria/HPF None Seen HPF (None Seen); Hyaline Casts/LPF 0-3 HYALINE CAST LPF (0-3 Hyaline); RBC/HPF 0-3 HPF (0-3); Squamous Epithelial None Seen HPF (0-3); WBC/HPF 0-3 HPF (0-3)
== END 2017-03-12 21:35 | disposition home or self-care (01) ==
LOC: ERS 14:59
DX: F12.10 Cannabis abuse, uncomplicated (principal); R11.2 Nausea with vomiting, unspecified; I16.0 Hypertensive urgency; E10.9 Type 1 diabetes mellitus without complications; I10 Essential (primary) hypertension; F31.9 Bipolar disorder, unspecified; F17.210 Nicotine dependence, cigarettes, uncomplicated; Z79.4 Long term (current) use of insulin; Z79.899 Other long term (current) drug therapy
CPT/HCPCS: 36415; 36416; 71010; 80053; 81003; 81015; 82553; 83690; 84484; 84703; 85025; 85610; 85730; 86850; 86900; 86901; 93005; 96361; 96374; 96375; 96376; 99406; C9113; J1630; J1940; J2405

== ENCOUNTER 2017-03-15 11:46 | Emergency (ER) | payer SELFPAY ==
[2017-03-15] MEDS ORDERED: Ondansetron ODT 8 MG TAB ONE (12:16)
[2017-03-15 12:32] LABS: #Basophils 0.1 thou/uL (0.0-0.2); #Lymphocytes 2.1 thou/uL (1.20-3.40); #Monocytes 0.4 thou/uL (0.11-0.59); #Neutrophils 6.4 thou/uL (1.40-6.50); %Eosinophils 0.5 % (0.0-10.0); %Lymphocytes 22.9 % (21.0-51.0); %Monocytes 4.1 % (0.0-10.0); %Neutrophils 71.5 % (42.0-75.0); Hemoglobin 13.6 g/dL (12.0-16.0); Mean Corpuscular HGB CONC 33.2 g/dL (32.0-36.0); Mean Corpuscular Hemoglobin 27.7 pg (27.0-31.0); Mean Corpuscular Volume 83.3 fl (81.0-99.0); Mean Platelet Volume 8.1 fL (7.4-10.4); Platelet Count 483 thou/uL (130-400); Red Blood Cell (RBC) Count 4.91 mill/uL (4.20-5.40)
[2017-03-15 12:54] LABS: ALT (SGPT) 9 U/L (8-55); AST (SGOT) 13 U/L (5-34); Albumin 3.8 g/dL (3.5-5.0); Alkaline Phosphatase 107 U/L (40-150); Anion Gap 15 mmol/L (10-20); BUN (Urea Nitrogen) 18 mg/dL (7.0-18.7); Bilirubin, Total 0.5 mg/dL (0.2-1.2); Calc. Creatinine Clearance 0 mL/min (70-130); Calcium 10.4 mg/dL (7.8-10.44); Carbon Dioxide 31 mmol/L (22-29); Chloride 93 mmol/L (98-107); Estimated GFR-MDRD 46; Glucose 140 mg/dL (70-105); Potassium 3.3 mmol/L (3.5-5.1); Protein, Total 7.8 g/dL (6.0-8.3); Sodium 136 mmol/L (136-145)
[2017-03-15] MEDS ORDERED: Promethazine HCl 25 MG/ML VIAL ONE (13:42)
[2017-03-15] MEDS ORDERED: Ondansetron HCl/PF 4 MG/2 ML Vial ONE (13:42)
[2017-03-15 13:56] LABS: Bilirubin Negative (Negative); Blood, Urine Negative (Negative); Clarity CLEAR (Clear); Glucose, Urine (Dipstick) 100 mg/dL (Negative); Leukocyte Negative (Negative); Nitrite Negative (Negative); Protein, Urine (Dipstick) 100 mg/dL (Neg-Trace); Specific Gravity, Urine 1.015 (1.002-1.036); Urobilinogen 0.2 mg/dL (0.2-1.0); pH, Urine 7.5 (5.0-9.0)
[2017-03-15 13:58] LABS: Pregnancy Test - Urine (BHCG) Negative (Negative); Pregu Control Background? CLEAR/WHITE (CLR/WHITE); Pregu Control Bar Appear? YES (CONTROL BAR); Specific Gravity 1.015 (1.002-1.036)
[2017-03-15 13:59] LABS: Bacteria/HPF None Seen HPF (None Seen); Hyaline Casts/LPF 0-3 HYALINE CAST LPF (0-3 Hyaline); Pathc Cast-AUWi Flag 0.13 (0-2.49); RBC/HPF 0-3 HPF (0-3); Squamous Epithelial 0-3 HPF (0-3); WBC/HPF 0-3 HPF (0-3)
[2017-03-15] MEDS ORDERED: Labetalol HCl 100 MG/20 ML VIAL ONE (15:17)
[2017-03-15] MEDS ORDERED: Pantoprazole 40 MG VIAL ONE (15:17)
--- NOTE | 2017-03-15 15:53 | RAD ---
CHEST ONE VIEW ABDOMEN TWO VIEWS 03/15/17 HISTORY: Abdominal pain. Fever. Nausea and vomiting. COMPARISON: 02/25/07. FINDINGS: The cardiac silhouette and pulmonary vasculature are unremarkable. Mediastinum is midline. There is n o confluent air space consolidation or evidence of free subdiaphragmatic gas. Radiopaque material is present throughout the colon. There are no differential air fluid levels or ev idence of free intraperitoneal gas. IMPRESSION: Nonspecific bowel gas pattern. No significant abnormalities are demonstrated. POS: [facility]
--- NOTE | 2017-03-16 12:19 | EKG ---
Test Reason : Blood Pressure : / mmHG Vent. Rate : 120 BPM Atrial Rate : 120 BPM P-R Int : 132 ms QRS Dur : 076 ms QT Int : 344 ms P-R-T Axes : 051 050 073 degrees QTc Int : 486 ms Sinus tachycardia Possible Left atrial enlargement Left ventricular hypertrophy Abnormal ECG Confirmed by EDWAR TRISTAN ([id number]), electronic news gathering editor KRYSTA SOLORIO ([id number]) on 03/16/2017 12:19:21 PM Referred By: Confirmed By:EDWAR TRISTAN
== END 2017-03-15 16:40 | disposition home or self-care (01) ==
LOC: ERS 11:46
DX: E86.0 Dehydration (principal); F12.188 Cannabis abuse with other cannabis-induced disorder; I10 Essential (primary) hypertension; E10.9 Type 1 diabetes mellitus without complications; E78.00 Pure hypercholesterolemia, unspecified; F17.210 Nicotine dependence, cigarettes, uncomplicated; F31.9 Bipolar disorder, unspecified; Z79.4 Long term (current) use of insulin; Z79.899 Other long term (current) drug therapy
CPT/HCPCS: 36415; 36416; 74022; 80053; 81003; 81015; 81025; 85025; 93005; 96365; 96366; 96375; 96376; C9113; J2405; J2550

== ENCOUNTER 2017-04-18 22:16 | Observation (INO) | payer OTHER, SELFPAY ==
[2017-04-18] MEDS ORDERED: Ondansetron HCl/PF 4 MG/2 ML Vial ONE (22:30)
[2017-04-18 22:38] LABS: #Lymphocytes 1.4 thou/uL (1.20-3.40); #Monocytes 0.1 thou/uL (0.11-0.59); #Neutrophils 14.2 thou/uL (1.40-6.50); %Basophils 0.1 % (0.0-1.0); %Eosinophils 0.1 % (0.0-10.0); %Lymphocytes 8.7 % (21.0-51.0); %Monocytes 0.7 % (0.0-10.0); %Neutrophils 90.4 % (42.0-75.0); Hemoglobin 13.1 g/dL (12.0-16.0); Mean Corpuscular HGB CONC 35.5 g/dL (32.0-36.0); Mean Corpuscular Hemoglobin 27.7 pg (27.0-31.0); Mean Corpuscular Volume 77.9 fl (81.0-99.0); Platelet Count 585 thou/uL (130-400); RBC Distribution Width 12.3 % (11.5-14.5); Red Blood Cell (RBC) Count 4.74 mill/uL (4.20-5.40); White Blood Cell (WBC) Count 15.7 thou/uL (4.8-10.8)
[2017-04-18 22:57] LABS: ALT (SGPT) 11 U/L (8-55); AST (SGOT) 12 U/L (5-34); Albumin 4.4 g/dL (3.5-5.0); Alkaline Phosphatase 155 U/L (40-150); Anion Gap 20 mmol/L (10-20); BUN (Urea Nitrogen) 21 mg/dL (7.0-18.7); Bilirubin, Total 0.5 mg/dL (0.2-1.2); Calc. Creatinine Clearance 0 mL/min (70-130); Calcium 10.4 mg/dL (7.8-10.44); Carbon Dioxide 22 mmol/L (22-29); Chloride 96 mmol/L (98-107); Estimated GFR-MDRD 45; Glucose 374 mg/dL (70-105); Potassium 3.2 mmol/L (3.5-5.1); Protein, Total 9.4 g/dL (6.0-8.3); Sodium 135 mmol/L (136-145)
[2017-04-18 23:14] LABS: BHCG - Serum Negative (NEGATIVE); Pregs Control Background? CLEAR/WHITE (CLR/WHITE); Pregs Control Bar Appear? YES (CONTROL BAR)
[2017-04-19] MEDS ORDERED: Ondansetron HCl/PF 4 MG/2 ML Vial ONE (00:22)
[2017-04-19] MEDS ORDERED: Ketorolac Tromethamine 30 MG/ML VIAL ONE (00:22)
[2017-04-19] MEDS ORDERED: Lorazepam 2 MG/ML VIAL ONE (00:55)
[2017-04-19] MEDS ORDERED: Labetalol HCl 100 MG/20 ML VIAL ONE (01:44)
[2017-04-19] MEDS ORDERED: Insulin Regular 300 UNITS/3 ML VIAL ONE (01:57)
[2017-04-19] MEDS ORDERED: Potassium Chloride 20 MEQ TAB ONE (01:57)
[2017-04-19 03:14] VITALS: BMI 20.8
[2017-04-19] MEDS ORDERED: Acetaminophen 325 MG TAB PO PRN (03:17)
[2017-04-19] MEDS ORDERED: Dextrose 5% in Water 1,000 ML IV PRN (03:17)
[2017-04-19] MEDS ORDERED: HumaLOG 300 UNITS/3 ML VIAL SC PRN (03:17)
[2017-04-19] MEDS ORDERED: hydrALAZINE 20 MG/ML VIAL SLOW IVP PRN (03:17)
[2017-04-19] MEDS ORDERED: Dextrose 50% Abboject 50 ML SYRINGE SLOW IVP PRN (03:17)
[2017-04-19] MEDS ORDERED: Ondansetron ODT 4 MG TAB PO PRN (03:17)
[2017-04-19] MEDS ORDERED: cloNIDine 0.1 MG TAB PO PRN (03:17)
[2017-04-19] MEDS: Sodium Chloride 0.9% 1,000 ML IV SCH ×3 (03:38→21:07)
[2017-04-19 05:04] LABS: Amphetamine Detected (NotDetected); Barbiturates Screen Not Detected (NotDetected); Benzodiazepine Screen Not Detected (NotDetected); Cocaine Metabolite Screen Detected (NotDetected); Medtox Reader # READER 4; Methadone Not Detected (NotDetected); Methamphetamine Detected (NotDetected); Opiate Screen Not Detected (NotDetected); Oxycodone Screen Not Detected (NotDetected); Phencyclidine (PCP) Not Detected (NotDetected); THC/Cannabinoid Screen Detected (NotDetected); Tricyclic Screen Not Detected (NotDetected)
[2017-04-19 05:05] LABS: Medtox Control Line Valid? VALID (VALID)
--- NOTE | 2017-04-19 05:27 | HP-2 ---
CODE STATUS: FULL. PRIMARY CARE PHYSICIAN: Artie martin. ATTENDING: Dr. Leonard Yañez RESIDENT: Dr. Noah Edge CHIEF COMPLAINT: Abdominal pain. HISTORY OF PRESENT ILLNESS: A 31-year-old female presents with a longstanding history of abdominal p ain. She said that it was acutely worse today. She also had associated heart palpitations, nausea, vomiting, and lightheadedness. She denies any recent illness, but has not felt well over the past mo nth. She has not seen regular physician in quite some time. She also admits to daily marijuana use. The patient states that she has not been very compliant with medications other than her insulin reg imen. No other complaints at this time. In the ER, she got 40 mEq of KCl. She got Ativan, 2 liter normal saline bolus, Toradol, labetalol an d 10 units of regular insulin. PAST MEDICAL HISTORY: Diabetes mellitus type 1, hyperlipidemia, hypertension, bipolar disorder. PAST SURGICAL HISTORY: Appendectomy, x3, tonsillectomy. ALLERGIES: No known drug allergies. MEDICATIONS: Procardia 90 mg, Lantus 30 units b.i.d. FAMILY HISTORY: Noncontributory. SOCIAL HISTORY: Patient is a current smoker, 2-3 cigarettes per day. She socially drinks alcohol an d she abuses marijuana. REVIEW OF SYSTEMS: GENERAL: Denies any fevers, chills. Does admit to a decreased appetite. ENT: Denies nasal congestion, rhinorrhea, or sore throat. RESPIRATORY: No cough, congestion or shortness of breath. CARDIOVASCULAR: Denies any chest pains. Does admit to palpitations. GASTROINTESTINAL: Denies any nausea. She does admit to vomiting and abdominal pain. GENITOURINARY: Denies incontinence, dysuria. SKIN: She does admit to a rash on her left forearm. NEUROLOGIC: She does admit to weakness. PHYSICAL EXAMINATION: VITAL SIGNS: Blood pressure 173/112, pulse 124, respiration 21, temperature max 98.2, pulse ox 100% on room air, current weight is 59 kilos. GENERAL: She is alert and oriented x4, appropriately interactive. EYES: PERRLA. Conjunctivae within normal limits. ENT: Tympanic membranes pearly tello without bulging or erythema. Nasal mucosa and oropharynx within normal limits. NECK: Supple, no lymphadenopathy, no thyromegaly. CARDIOVASCULAR: Tachycardic rate, regular rhythm, no murmurs. Radial and pedal pulses equal bilater ally. RESPIRATORY: Normal effort, no retractions. Clear lungs to auscultation bilaterally. SKIN: Warm and dry. No cyanosis. No lesions. ABDOMEN: Soft, it was tender to palpation. Bowel sounds are present x4. No mass or distention. No guarding or rebound was present. EXTREMITIES: No clubbing, cyanosis or edema. MUSCULOSKELETAL: Structure, tone, muscle strength and range of motion within normal limits. NEUROLOGIC: No focal neurologic deficits. Sensation within normal limits. Cranial nerves II-XII gr ossly intact. GCS 15. PSYCH: Psych was appropriate. LABORATORY DATA: White blood cell count 15.7, platelet count 585, hemoglobin 13.1, hematocrit 36.9, MCV 77.9, % neutrophils 90.4. Sodium 135, potassium 3.2, chloride 96, bicarbonate 22, BUN 21, creati nine 1.61, glucose 374, calcium 10.4, total protein 9.4, albumin 4.4, total bilirubin 0.5, AST 12, AL T 11, alkaline phosphatase 155. Beta hCG was negative. Mag was 2.0. Beta hydroxybutyrate was 1.96. Lipase was 14. EKG shows sinus tachycardia with LVH. Abdominal series was negative for any acute process. ASSESSMENT AND PLAN: A 31-year-old female who presents with: 1. Hyperglycemia, diabetes mellitus type 1. We will restart her on 70/30 insulin as well as insulin sliding scale, give her Accu-Cheks and consistent carbohydrate diet. 2. Hypertensive urgency. We will restart her on Coreg, Procardia and clonidine. We will also give her p.r.n. hydralazine. Going forward, we will consider working her up for secondary hypertension. 3. Chronic kidney disease, stage 3. We will monitor with BMP, optimize medical management and give gentle IV fluids. 4. Tachycardia. She was given labetalol in the ED. We will put her on tele monitoring and hopefull y with the addition with her blood pressure medications there will be a dual effect for the tachycard ia. 5. Leukocytosis, likely secondary to acute phase reactant, but will trend. No acute signs of infect ion at this time. 6. Thrombocytosis. We will trend that as well. 7. Polysubstance abuse. We have a UDS pending. We will monitor for signs and symptoms of withdrawa l. 8. Medication noncompliance. We will residence counselor on the importance of the medications as well as a sett ing up good PCP followup. 9. Hypokalemia that was repleted in the ED. We will follow that with BMPs going forward. DISPOSITION/LENGTH OF HOSPITAL STAY: Telemetry/1. Symptomatic medications will be provided. History and physical exam as well as management has been discussed with Dr. Yañez.
[2017-04-19 06:15] LABS: #Lymphocytes 1.3 thou/uL (1.20-3.40); #Monocytes 0.2 thou/uL (0.11-0.59); #Neutrophils 14.6 thou/uL (1.40-6.50); %Basophils 0.1 % (0.0-1.0); %Eosinophils 0.2 % (0.0-10.0); %Lymphocytes 8.1 % (21.0-51.0); %Monocytes 1.4 % (0.0-10.0); %Neutrophils 90.3 % (42.0-75.0); Hemoglobin 11.5 g/dL (12.0-16.0); Mean Corpuscular HGB CONC 33.5 g/dL (32.0-36.0); Mean Corpuscular Hemoglobin 26.8 pg (27.0-31.0); Mean Platelet Volume 9.6 fL (7.4-10.4); Platelet Count 487 thou/uL (130-400); RBC Distribution Width 12.5 % (11.5-14.5); Red Blood Cell (RBC) Count 4.29 mill/uL (4.20-5.40); White Blood Cell (WBC) Count 16.2 thou/uL (4.8-10.8)
[2017-04-19 06:44] LABS: Hemoglobin A1c 11.2 % (4.0-6.0)
[2017-04-19 06:55] LABS: Anion Gap 16 mmol/L (10-20); BUN (Urea Nitrogen) 19 mg/dL (7.0-18.7); Calc. Creatinine Clearance 58 mL/min (70-130); Calcium 8.8 mg/dL (7.8-10.44); Carbon Dioxide 20 mmol/L (22-29); Chloride 103 mmol/L (98-107); Estimated GFR-MDRD 58; Glucose 271 mg/dL (70-105); Potassium 3.3 mmol/L (3.5-5.1); Sodium 136 mmol/L (136-145)
[2017-04-19] MEDS: NIFEdipine XL 90 MG TAB PO SCH (08:16)
[2017-04-19] MEDS: Famotidine 20 MG TAB PO SCH ×2 (08:16→21:06)
[2017-04-19] MEDS: Metoclopramide HCl 10 MG TAB PO SCH ×3 (08:17→21:06)
--- NOTE | 2017-04-19 08:35 | RAD ---
FRONTAL RADIOGRAPH CHEST TWO VIEWS ABDOMEN: Date: 04-19-17 Comparison: 03-15-17 History: Vomiting, tachycardia. FINDINGS: Frontal radiograph chest demonstrates no pneumothorax, pleural fluid, focal consolidation or alveolar edema. Two views of abdomen demonstrate significant fluid in the colon. Upright imaging demonstrates no free intraperitoneal air or evidence of small bowel obstruction. IMPRESSION: No acute findings. POS: [facility]
[2017-04-19] MEDS ORDERED: Carvedilol 25 MG TAB PO SCH (09:00)
[2017-04-19] MEDS ORDERED: Potassium Chloride 20 MEQ TAB PO SCH (09:00)
[2017-04-19] MEDS ORDERED: Amlodipine 5 MG TAB PO SCH ×2 (10:15→10:30)
[2017-04-19] MEDS: Insulin NPH/Reg Insulin Hm 300 UNITS/3 ML VIAL SC SCH ×2 (10:21→22:44)
--- NOTE | 2017-04-19 13:25 | PDOC.EVN ---
Event Note - Event Note Event Note: 31 F who p/w abdominal pain and was found to have hypertensive urgency and poorly controlled DM. Acute abdomen series negative. Reports pain has resolved. Physical examination unremarkable. She is achieving better BP control with oral agents. Glycemic control also improving. UDS positive for multiple substances including cocaine and amphetamines. Will continue to ensure proper glycemic and adequate BP control.
[2017-04-19] MEDS ORDERED: Gabapentin 100 MG CAP PO SCH (21:00)
[2017-04-20] MEDS: Sodium Chloride 0.9% 1,000 ML IV SCH (04:51)
[2017-04-20 05:15] LABS: #Basophils 0.1 thou/uL (0.0-0.2); #Eosinphils 0.1 thou/uL (0.0-0.7); #Monocytes 0.5 thou/uL (0.11-0.59); #Neutrophils 6.9 thou/uL (1.40-6.50); %Basophils 0.9 % (0.0-1.0); %Eosinophils 0.8 % (0.0-10.0); %Lymphocytes 34.8 % (21.0-51.0); %Neutrophils 59.6 % (42.0-75.0); Hemoglobin 10.8 g/dL (12.0-16.0); Mean Corpuscular HGB CONC 32.4 g/dL (32.0-36.0); Mean Corpuscular Hemoglobin 26.1 pg (27.0-31.0); Mean Corpuscular Volume 80.6 fl (81.0-99.0); Mean Platelet Volume 8.7 fL (7.4-10.4); Platelet Count 440 thou/uL (130-400); RBC Distribution Width 12.5 % (11.5-14.5); Red Blood Cell (RBC) Count 4.14 mill/uL (4.20-5.40); White Blood Cell (WBC) Count 11.5 thou/uL (4.8-10.8)
[2017-04-20 05:39] LABS: Anion Gap 11 mmol/L (10-20); BUN (Urea Nitrogen) 10 mg/dL (7.0-18.7); Calc. Creatinine Clearance 63 mL/min (70-130); Calcium 8.5 mg/dL (7.8-10.44); Carbon Dioxide 24 mmol/L (22-29); Chloride 103 mmol/L (98-107); Estimated GFR-MDRD 63; Glucose 148 mg/dL (70-105); Potassium 3.3 mmol/L (3.5-5.1); Sodium 135 mmol/L (136-145)
[2017-04-20 08:10] VITALS: BP 169/114; TEMP 98
[2017-04-20] MEDS: NIFEdipine XL 90 MG TAB PO SCH (08:27)
[2017-04-20] MEDS: Famotidine 20 MG TAB PO SCH (08:28)
[2017-04-20] MEDS: Metoclopramide HCl 10 MG TAB PO SCH (08:28)
[2017-04-20] MEDS: Insulin NPH/Reg Insulin Hm 300 UNITS/3 ML VIAL SC SCH (08:33)
[2017-04-20] MEDS ORDERED: Amlodipine 5 MG TAB PO SCH (09:00)
--- NOTE | 2017-04-20 13:54 | PDOC.PN ---
- Subjective Encounter Start Date: 04/20/17 Encounter Start Time: 10:30 Subjective: no chest pain or palp or sob -: is amb in room - Objective Resuscitation Status: Resuscitation Status FULL:Full Resuscitation MAR Reviewed: Yes Vital Signs & Weight: Vital Signs (12 hours) Temp Pulse Resp BP Pulse Ox 04/20/17 08:00 98.0 F 106 H 16 04/20/17 07:40 98.0 F 106 H 16 169/114 H 98 04/20/17 04:28 98.1 F 105 H 18 168/113 H 99 Weight Admit Weight 129 lb 3.2 oz Weight 129 lb 11.2 oz I&O: 04/19/17 04/20/17 04/21/17 06:59 06:59 06:59 Intake Total 1014 2104 Output Total 900 2500 Balance 114 -396 Result Diagrams: 04/20/17 04:28 04/20/17 04:28 Additional Labs: Accuchecks 04/19/17 04/19/17 21:17 16:44 POC Glucose 112 H 342 H Phys Exam - Physical Examination HEENT: PERRLA, moist MMs Neck: no JVD, supple Respiratory: no wheezing, no rales Cardiovascular: RRR, no significant murmur Gastrointestinal: soft, non-tender, positive bowel sounds Musculoskeletal: no edema, pulses present Neurological: non-focal, moves all 4 limbs Psychiatric: A&O x 3 Dx/Plan (1) Intractable vomiting with nausea Code(s): R11.2 - NAUSEA WITH VOMITING, UNSPECIFIED Status: Resolved (2) Polysubstance abuse Code(s): F19.10 - OTHER PSYCHOACTIVE SUBSTANCE ABUSE, UNCOMPLICATED Status: Chronic (3) Hypertensive urgency Code(s): I10 - ESSENTIAL (PRIMARY) HYPERTENSION Status: Resolved (4) DM type 1 (diabetes mellitus, type 1) Status: Chronic Qualifiers: Diabetes mellitus complication status: with unspecified complications Qualified Code(s): E10.8 - Type 1 diabetes mellitus with unspecified complications - Plan hemostable -: counselled reg substance abuse -: dc pt home -: to f/u with PCP in 1 week * .
--- NOTE | 2017-04-20 21:54 | DIS ---
DATE OF ADMISSION: 04/19/2017 DATE OF DISCHARGE: 04/20/2017 DISCHARGE DISPOSITION: To home. PRIMARY DISCHARGE DIAGNOSES: Intractable nausea and vomiting with hypertensive urgency, all of which resolved; polysubstance abuse including amphetamine, methamphetamine, cocaine, and marijuana; diabet es mellitus, type 1. PROCEDURES DONE DURING HOSPITALIZATION: Urine drug screen was positive for amphetamine, methamphetam ine, cocaine, and cannabinoids. Discharge BUN and creatinine are 10 and 1.21. Serum test was negative. Initial serum glucose was 374. Hemoglobin A1c 11.2, H&H 10 and 33 with a platelet cou nt of 440. Blood cultures x2 preliminary results show no growth. Echo with 2D Doppler done showed m ild increase in LV wall thickness, ejection fraction was 60% to 65%. DISCHARGE MEDICATIONS: Norvasc 5 mg p.o. daily, gabapentin 100 mg p.o. at bedtime, NovoLog 70/30 of 20 units subcutaneously twice daily before meals, Lantus 30 units subcu twice daily, Procardia-XL 90 mg p.o. daily. ALLERGIES: No known drug allergies. DISCHARGE PLAN: The patient to follow up with primary care physician in 1 week. BRIEF COURSE DURING HOSPITALIZATION: The patient initially came to ER with complaints of abdominal p ain, nausea, vomiting, and dizzy feeling. She also had palpitations. Her serum sugar was also eleva jeimy. The patient had hypertensive urgency with blood pressures of 173/112 on arrival. Her urine kirk g screen was positive for multiple substances as mentioned above. She was gently hydrated and was pl aced on multiple medications to get her hypertension under control. She was kept briefly n.p.o. and was started back on solid diet. She was counseled regarding multiple substances that she is abusing. Prior to discharge, she is ambulating and eating well. She has no complaints of chest pain or naus ea or vomiting. She is hemodynamically stable and will be shortly discharged home. She was counsele d with regards to medication compliance with her hemoglobin A1c of 11. Please see a [id number] doc maribel for the day of discharge on [facility].
--- NOTE | 2017-04-21 16:46 | EKG ---
Test Reason : Blood Pressure : / mmHG Vent. Rate : 139 BPM Atrial Rate : 139 BPM P-R Int : 122 ms QRS Dur : 074 ms QT Int : 360 ms P-R-T Axes : 059 054 063 degrees QTc Int : 547 ms Sinus tachycardia Possible Left atrial enlargement Left ventricular hypertrophy Abnormal ECG Confirmed by RODGER GONZALEZ ([id number]), copy editor ERIKA FONSECA ([id number]) on 04/21/2017 4:46:00 PM Referred By: Confirmed By:RODGER GONZALEZ
== END 2017-04-20 13:28 | disposition home or self-care (01) ==
LOC: ERS 22:16 → 2SW 04-19 01:30
PROVIDERS: ADMIT Family Medicine; ATTEND Family Medicine
DX: R11.2 Nausea with vomiting, unspecified (principal); F19.10 Other psychoactive substance abuse, uncomplicated; F15.10 Other stimulant abuse, uncomplicated; F14.10 Cocaine abuse, uncomplicated; F12.10 Cannabis abuse, uncomplicated; I16.0 Hypertensive urgency; E10.65 Type 1 diabetes mellitus with hyperglycemia; I12.9 Hypertensive chronic kidney disease with stage 1 through stage 4 chronic kidney disease, or unspecified chronic kidney disease; E10.22 Type 1 diabetes mellitus with diabetic chronic kidney disease; N18.3 Chronic kidney disease, stage 3 (moderate); E78.5 Hyperlipidemia, unspecified; E87.6 Hypokalemia; R00.0 Tachycardia, unspecified; D72.829 Elevated white blood cell count, unspecified; D47.3 Essential (hemorrhagic) thrombocythemia; F31.9 Bipolar disorder, unspecified; F17.210 Nicotine dependence, cigarettes, uncomplicated; Z79.899 Other long term (current) drug therapy; Z91.14 Patient's other noncompliance with medication regimen; Z90.49 Acquired absence of other specified parts of digestive tract; Z98.890 Other specified postprocedural states
CPT/HCPCS: 36415; 36416; 74022; 80048; 80053; 80306; 82010; 83036; 83690; 83735; 84703; 85025; 87040; 93005; 93306; 96361; 96365; 96372; 96375; 96376; G0378; J1815; J1885; J2060; J2405; Q0162

== ENCOUNTER 2017-04-23 15:00 | Inpatient (IN) | payer SELFPAY ==
[2017-04-23] MEDS ORDERED: Ondansetron ODT 4 MG TAB ONE (15:03)
[2017-04-23 15:53] LABS: #Monocytes 0.4 thou/uL (0.11-0.59); #Neutrophils 9.3 thou/uL (1.40-6.50); %Basophils 0.3 % (0.0-1.0); %Eosinophils 0.4 % (0.0-10.0); %Lymphocytes 16.9 % (21.0-51.0); %Monocytes 3.6 % (0.0-10.0); %Neutrophils 78.8 % (42.0-75.0); Hemoglobin 13.2 g/dL (12.0-16.0); Mean Corpuscular Hemoglobin 26.8 pg (27.0-31.0); Mean Corpuscular Volume 78.8 fl (81.0-99.0); Mean Platelet Volume 8.7 fL (7.4-10.4); Platelet Count 528 thou/uL (130-400); RBC Distribution Width 12.4 % (11.5-14.5); Red Blood Cell (RBC) Count 4.91 mill/uL (4.20-5.40); White Blood Cell (WBC) Count 11.8 thou/uL (4.8-10.8)
[2017-04-23 16:22] LABS: ALT (SGPT) 9 U/L (8-55); AST (SGOT) 11 U/L (5-34); Albumin 4.4 g/dL (3.5-5.0); Alkaline Phosphatase 142 U/L (40-150); Anion Gap 19 mmol/L (10-20); BUN (Urea Nitrogen) 11 mg/dL (7.0-18.7); Bilirubin, Total 0.6 mg/dL (0.2-1.2); Calc. Creatinine Clearance 0 mL/min (70-130); Calcium 10.5 mg/dL (7.8-10.44); Carbon Dioxide 26 mmol/L (22-29); Chloride 91 mmol/L (98-107); Estimated GFR-MDRD 44; Globulin 4.4 g/dL (2.4-3.5); Glucose 359 mg/dL (70-105); Lipase 12 U/L (8-78); Protein, Total 8.8 g/dL (6.0-8.3); Sodium 133 mmol/L (136-145)
[2017-04-23 16:26] LABS: CKMB 1.4 ng/mL (0-6.6); Potassium 2.8 mmol/L (3.5-5.1); Troponin I 0.012 ng/mL (< 0.028)
[2017-04-23 16:32] LABS: BHCG - Serum Negative (NEGATIVE); Pregs Control Background? CLEAR/WHITE (CLR/WHITE); Pregs Control Bar Appear? YES (CONTROL BAR)
[2017-04-23] MEDS ORDERED: Promethazine HCl 25 MG/ML VIAL ONE (17:33)
[2017-04-23 17:36] LABS: Base Excess-Venous 3.8 mmol/L (-30.0-30.0); Bicarbonate (HCO3v) 27.6 mmol/L (1.0-85.0); CO2 Tension (PvCO2) 37.8 mmHg (41.0-51.0); Calcium, Ionized 0.97 mmol/L (1.12-1.32); Hemoglobin - Calc 14.7 g/dL (12.0-18.0); O2 Tension (PvO2) 149.8 mmHg (35.0-45.0); Potassium 3.5 mmol/L (3.4-4.7); T. Carbon Dioxide 28.7 mmol/L (1.0-85.0); pH (Venous) 7.472 (7.35-7.45); vO2 Saturation-calc 99.4 % (0.0-100.0)
[2017-04-23] MEDS ORDERED: Potassium Chloride 20 MEQ TAB ONE (17:54)
[2017-04-23 19:10] LABS: Acetaminophen Less than 6.0 mcg/mL (10.0-30.0); Alcohol Less than 10 mg/dL (Less than 10); Salicylate Less than 8.0 mg/dL (15.0-30.0)
--- NOTE | 2017-04-23 20:31 | RAD ---
SUPINE ABDOMEN: History: Abdominal pain. Nausea and vomiting. FINDINGS: Bowel gas pattern is unremarkable. Scattered stool and gas seen throughout the colon. No significant small bowel gas. No mass effect or abnormal calcification. IMPRESSION: Prominent stool throughout the colon. Otherwise unremarkable bowel gas pattern. POS: [facility]
[2017-04-23 20:36] LABS: Bilirubin Negative (Negative); Blood, Urine Trace (Negative); Clarity CLEAR (Clear); Glucose, Urine (Dipstick) >=1000 mg/dL (Negative); Leukocyte Negative (Negative); Nitrite Negative (Negative); Protein, Urine (Dipstick) 300 mg/dL (Neg-Trace); Specific Gravity, Urine 1.016 (1.002-1.036); Urobilinogen 0.2 mg/dL (0.2-1.0)
[2017-04-23 20:39] LABS: Bacteria/HPF None Seen HPF (None Seen); Hyaline Casts/LPF 0-3 HYALINE CAST LPF (0-3 Hyaline); RBC/HPF 0-3 HPF (0-3); Squamous Epithelial 0-3 HPF (0-3); WBC/HPF 0-3 HPF (0-3)
[2017-04-23 20:46] LABS: Amphetamine Detected (NotDetected); Barbiturates Screen Not Detected (NotDetected); Benzodiazepine Screen Not Detected (NotDetected); Cocaine Metabolite Screen Detected (NotDetected); Medtox Control Line Valid? VALID (VALID); Medtox Reader # READER 1; Methadone Not Detected (NotDetected); Methamphetamine Detected (NotDetected); Opiate Screen Not Detected (NotDetected); Oxycodone Screen Not Detected (NotDetected); Phencyclidine (PCP) Not Detected (NotDetected); THC/Cannabinoid Screen Detected (NotDetected); Tricyclic Screen Not Detected (NotDetected)
[2017-04-23] MEDS ORDERED: Ondansetron ODT 4 MG TAB SL PRN (21:27)
[2017-04-23] MEDS ORDERED: Ondansetron HCl/PF 4 MG/2 ML Vial IVP PRN (21:27)
[2017-04-23 21:29] VITALS: BMI 19.8
[2017-04-23] MEDS ORDERED: D5 1/2 NS w/20 mEq KCL 1,000 ML IV SCH (21:30)
[2017-04-23] MEDS ORDERED: Nitroglycerin 2% Ointment 1 INCH/1 GM Packet TOP SCH (22:30)
[2017-04-23] MEDS ORDERED: Lorazepam 2 MG/ML VIAL SLOW IVP SCH (22:30)
[2017-04-23] MEDS ORDERED: Guaifenesin DM 100-10/5 ML UDCUP PO PRN (22:32)
[2017-04-23] MEDS ORDERED: Fleet Enema 133 ML BOT PR PRN (22:32)
[2017-04-23] MEDS ORDERED: HumaLOG 300 UNITS/3 ML VIAL SC PRN (22:32)
[2017-04-23] MEDS ORDERED: Dextrose 5% in Water 1,000 ML IV PRN (22:32)
[2017-04-23] MEDS ORDERED: Dextrose 50% Abboject 50 ML SYRINGE SLOW IVP PRN (22:32)
[2017-04-23] MEDS ORDERED: Promethazine HCl 25 MG/ML VIAL IM/IV PRN (22:32)
[2017-04-23] MEDS ORDERED: Acetaminophen 325 MG TAB PO PRN (22:32)
[2017-04-23] MEDS ORDERED: Senokot 8.6 MG TAB PO PRN (22:32)
[2017-04-23] MEDS ORDERED: Insulin Detemir 100 UNITS/ML 25 UNITS in Pre-Filled Syringe 1 EACH SC SCH (22:33)
[2017-04-23] MEDS: Sodium Chloride 0.9% 1,000 ML IV SCH (22:55)
--- NOTE | 2017-04-24 02:03 | HP ---
REASON FOR ADMISSION: Intractable nausea and vomiting, hypertensive urgency, likely secondary to above, uncontrolled diabetes, polysubstance abuse, mild DKA. HISTORY OF PRESENT ILLNESS: Patient gives history of having stomach upset from yesterday. She states she has been having nauseous feeling and started throwing up from yesterday morning. She states she was still taking her insulin. Patient has retrosternal discomfort, but no palpitations, PND, or orthopnea. She was recently discharged on the after being hospitalized for abdominal pain here. Patient has history of polysubstance abuse and admits to using methamphetamine on Sunday. PAST MEDICAL AND SURGICAL HISTORY: History of diabetes mellitus type 1, hypertension, dyslipidemia, bipolar disorder, appendectomy, x3, tonsillectomy, upper endoscopy done in 02/2017 showed small ulcer in the gastroesophageal junction with mild esophagitis. CURRENT MEDICATIONS: Procardia-XL is 90 mg daily, Lantus 30 units twice daily, gabapentin 100 mg p.o. at bedtime, Norvasc 5 mg daily. ALLERGIES: No known drug allergies. PERSONAL HISTORY: Patient admits to abusing cocaine, marijuana, and methamphetamine. She in fact used it last on Sunday. She also smokes 2 to 3 cigarettes a day, drinks alcohol on social occasions. FAMILY HISTORY: No history of hematologic disorders or premature coronary artery disease. There is history of diabetes in the family. REVIEW OF SYSTEMS: The following complete review of systems was negative, unless otherwise mentioned in the HPI or below: Constitutional: Weight loss or gain, ability to conduct usual activities. Skin: Rash, itching. Eyes: Double vision, pain. ENT/Mouth: Nose bleeding, neck stiffness, pain, tenderness. Cardiovascular: Palpitations, dyspnea on exertion, orthopnea. Respiratory: Shortness of breath, wheezing, cough, hemoptysis, fever or night sweats. Gastrointestinal: Poor appetite, abdominal pain, heartburn, nausea, vomiting, constipation, or diarrhea. Genitourinary: Urgency, frequency, dysuria, nocturia. Musculoskeletal: Pain, swelling. Neurologic/Psychiatric: Anxiety, depression. Allergy/Immunologic: Skin rash, bleeding tendency. PHYSICAL EXAMINATION: GENERAL: The patient is a 31-year-old female who is currently in distress from nausea. VITAL SIGNS: Blood pressure 152/125, pulse 120 per minute, respiratory rate 18 per minute, temperature 97.7 degrees Fahrenheit, saturating 100% on room air. NECK: Supple, no elevated JVD. HEENT: Eyes: Extraocular muscles intact. Pupils are reacting to light. Oral cavity mucous membranes are dry. No exudates or congestion. CARDIOVASCULAR: S1, S2 heard. Regular rhythm. RESPIRATORY: Air entry 1+ bilateral. No rales or rhonchi. ABDOMEN: Soft, bowel sounds heard. There is generalized tenderness, but no rigidity or guarding. EXTREMITIES: No peripheral edema or calf tenderness. VASCULAR SYSTEM: Peripheral pulses 1+ bilateral, no ischemic ulcerations or gangrene. CENTRAL NERVOUS SYSTEM: No gross focal deficits seen. Patient is lethargic, but responds well to questions. PSYCHIATRIC: Patient's mood is a bit anxious, otherwise no hallucinations or delusions. LABORATORY AND X-RAY FINDINGS: White count 11, H&H 13 and 38, platelet count 528 with 78% neutrophils. Venous blood gas done shows a pH of 7.47, sodium 133 , potassium 2.8, chloride 91, but serum bicarbonate 26, BUN 11, creatinine 1.6, serum glucose 359. Albumin is 4.4, lipase is 12. Serum test is negative. TSH 0.56. Urine drug screen is positive for amphetamine, methamphetamine, cocaine, and cannabinoids. Beta hydroxybutyrate levels were 2.08. Abdominal x-ray done shows signs of constipation, otherwise no acute abnormality was seen. EKG done shows sinus tachycardia at 131 beats per minute. There are signs of LVH. CLINICAL IMPRESSION AND PLAN: Patient will be admitted to [facility] for intractable nausea, vomiting, and hypertensive urgency. The plan is to control her nausea and vomiting for her blood pressure to come down. She will be on Phenergan 25 mg IV q.6 hourly and nitro paste 1 inch 3 times daily. Patient has had recurrent hospitalizations here for polysubstance abuse. She will be on normal saline at 100 mL per hour. We will continue her on Levemir 30 units subcu twice daily and one dose now. Procardia-XL, home dose will be started now. She will be on aggressive sliding scale. We will continue to closely monitor her for any hemodynamic compromise. Please note I have seen and examined patient on 04/23/2017. ELZA
[2017-04-24 05:36] LABS: #Basophils 0.1 thou/uL (0.0-0.2); #Lymphocytes 3.3 thou/uL (1.20-3.40); #Monocytes 0.6 thou/uL (0.11-0.59); #Neutrophils 9.5 thou/uL (1.40-6.50); %Basophils 0.5 % (0.0-1.0); %Eosinophils 0.1 % (0.0-10.0); %Lymphocytes 24.4 % (21.0-51.0); %Monocytes 4.4 % (0.0-10.0); %Neutrophils 70.6 % (42.0-75.0); Hemoglobin 11.8 g/dL (12.0-16.0); Mean Corpuscular HGB CONC 32.3 g/dL (32.0-36.0); Mean Corpuscular Hemoglobin 25.9 pg (27.0-31.0); Mean Platelet Volume 8.7 fL (7.4-10.4); Platelet Count 484 thou/uL (130-400); RBC Distribution Width 12.7 % (11.5-14.5); Red Blood Cell (RBC) Count 4.58 mill/uL (4.20-5.40); White Blood Cell (WBC) Count 13.4 thou/uL (4.8-10.8)
[2017-04-24 05:55] LABS: Anion Gap 14 mmol/L (10-20); BUN (Urea Nitrogen) 14 mg/dL (7.0-18.7); Calc. Creatinine Clearance 45 mL/min (70-130); Calcium 9.6 mg/dL (7.8-10.44); Carbon Dioxide 27 mmol/L (22-29); Chloride 100 mmol/L (98-107); Estimated GFR-MDRD 48; Glucose 196 mg/dL (70-105); Potassium 3.2 mmol/L (3.5-5.1); Sodium 138 mmol/L (136-145)
[2017-04-24] MEDS: HumaLOG 300 UNITS/3 ML VIAL SC PRN ×2 (06:29→18:36)
[2017-04-24] MEDS: Sodium Chloride 0.9% 1,000 ML IV SCH (08:14)
[2017-04-24] MEDS: Enoxaparin Sodium 40 MG/0.4 ML SYRINGE SC SCH (08:14)
[2017-04-24] MEDS: Docusate 100 MG CAP PO SCH ×2 (08:14→20:25)
[2017-04-24] MEDS: Insulin Detemir 100 UNITS/ML 30 UNITS in Pre-Filled Syringe 1 EACH SC SCH ×2 (08:15→20:33)
[2017-04-24] MEDS: NIFEdipine XL 90 MG TAB PO SCH (08:15)
[2017-04-24] MEDS: Nitroglycerin 2% Ointment 1 INCH/1 GM Packet TOP SCH ×3 (08:16→20:26)
[2017-04-24] MEDS ORDERED: Eucerin (Mineral Oil/Petrolatum,White) 30 gm Jar TOP PRN (08:49)
[2017-04-24] MEDS ORDERED: HYDROcodone/Acetaminophen 5/325 mg Tablet PO PRN (08:49)
[2017-04-24] MEDS ORDERED: Milk Of Magnesia 30 ML UDCUP PO PRN (08:49)
[2017-04-24] MEDS ORDERED: Sodium Chloride 0.65% Nasal 44 ML BOT EA NARE PRN (08:49)
[2017-04-24] MEDS ORDERED: Chloraseptic Spray 180 ml Bottle PO PRN (08:49)
[2017-04-24] MEDS ORDERED: Diabetic Tussin 200 MG/10 ML UDCUP PO PRN (08:49)
[2017-04-24] MEDS ORDERED: Loratadine 10 MG TAB PO PRN (08:49)
[2017-04-24] MEDS ORDERED: Artificial Tear Sol 15 ML BOT EA EYE PRN (08:49)
[2017-04-24] MEDS ORDERED: Loperamide HCl 2 MG CAP PO PRN (08:49)
[2017-04-24] MEDS ORDERED: Bisacodyl 10 MG SUPP PR PRN (08:49)
[2017-04-24] MEDS ORDERED: Temazepam 15 MG CAP PO PRN (08:49)
[2017-04-24] MEDS ORDERED: Mag-Al 1200 mg/1200 mg/30 ML UDCUP PO PRN (08:49)
[2017-04-24] MEDS ORDERED: Famotidine/PF 20 mg/2ml Vial SLOW IVP SCH (09:00)
[2017-04-24] MEDS ORDERED: Non-Formulary Item 1 EACH (Insulin Glargine,Hum.Rec.Anlog [Lantus] 30 UNITS) SQ SCH (09:00)
--- NOTE | 2017-04-24 10:45 | PDOC.PN ---
- Subjective Encounter Start Date: 04/24/17 Encounter Start Time: 07:00 -: old records requested/rev her blood pressure still high, she is tachycardic, now she is able to eat and no vomiting - Objective Resuscitation Status: Resuscitation Status FULL:Full Resuscitation MAR Reviewed: Yes Vital Signs & Weight: Vital Signs (12 hours) Temp Pulse Resp BP BP BP Pulse Ox 04/24/17 08:15 126 H 193/132 H 04/24/17 07:35 98.7 F 126 H 18 151/116 H 98 04/24/17 04:00 97.9 F 130 H 20 168/120 H 97 04/24/17 00:27 98.6 F 131 H 20 166/123 H 97 Weight Weight 119 lb 7 oz I&O: 04/23/17 04/24/17 04/25/17 06:59 06:59 06:59 Intake Total 1300 Output Total 100 Balance 1200 Result Diagrams: 04/24/17 04:34 04/24/17 04:34 Additional Labs: Accuchecks 04/24/17 04/23/17 04/23/17 05:19 23:00 21:01 POC Glucose 189 H 303 H 262 H EKG Reviewed by me: Yes (sinus tachycardia) Phys Exam - Physical Examination Constitutional: NAD HEENT: PERRLA, moist MMs, sclera anicteric Neck: no JVD, supple Respiratory: no wheezing, no rales, no rhonchi Cardiovascular: RRR, no significant murmur, no rub tachycardia Gastrointestinal: soft, non-tender, no distention, positive bowel sounds Musculoskeletal: no edema, pulses present Neurological: non-focal, normal sensation, moves all 4 limbs Lymphatic: no nodes Psychiatric: normal affect, A&O x 3 Skin: no rash, normal turgor Dx/Plan (1) Dehydration Code(s): E86.0 - DEHYDRATION Status: Acute Comment: continue gentle slow IVF , encourge oral intake (2) Hypertensive urgency Code(s): I10 - ESSENTIAL (PRIMARY) HYPERTENSION Status: Acute Comment: due to symphathetic drive from cocaine (3) Hypokalemia Code(s): E87.6 - HYPOKALEMIA Status: Acute Comment: due to nausea and vomiting (4) Intractable vomiting with nausea Code(s): R11.2 - NAUSEA WITH VOMITING, UNSPECIFIED Status: Acute Qualifiers: Vomiting type: unspecified Qualified Code(s): R11.2 - Nausea with vomiting , unspecified (5) Sinus tachycardia Code(s): R00.0 - TACHYCARDIA, UNSPECIFIED Status: Acute Comment: due to symphathetic drive (6) Bipolar disorder Code(s): F31.9 - BIPOLAR DISORDER, UNSPECIFIED Status: Chronic (7) CKD (chronic kidney disease) stage 3, GFR 30-59 ml/min Code(s): N18.3 - CHRONIC KIDNEY DISEASE, STAGE 3 (MODERATE) Status: Chronic (8) DM type 1 (diabetes mellitus, type 1) Status: Chronic Qualifiers: (9) Polysubstance abuse Code(s): F19.10 - OTHER PSYCHOACTIVE SUBSTANCE ABUSE, UNCOMPLICATED Status: Chronic - Plan cont current plan of care, plan discussed w/ family * advance to diabetic diet * use ativan and clonidine as needed basis * medication reviewed as below * symptomatic treatment * counselled to avoid polysubstance * will monitor. Review of Systems - Review of Systems Constitutional: negative: fever, chills, sweats, weakness, malaise, other ENT: negative: Ear Pain, Ear Discharge, Nose Pain, Nose Discharge, Nose Congestion, Mouth Pain, Mouth Swelling, Throat Pain, Throat Swelling, Other Respiratory: negative: Cough, Dry, Shortness of Breath, Hemoptysis, SOB with Excertion, Pleuritic Pain, Sputum, Wheezing Cardiovascular: negative: chest pain, palpitations, orthopnea, paroxysmal nocturnal dyspnea, edema, light headedness, other Gastrointestinal: negative: Nausea, Vomiting, Abdominal Pain, Diarrhea, Constipation, Melena, Hematochezia, Other Genitourinary: negative: Dysuria, Frequency, Incontinence, Hematuria, Retention , Other Musculoskeletal: negative: Neck Pain, Shoulder Pain, Arm Pain, Back Pain, Hand Pain, Leg Pain, Foot Pain, Other Skin: negative: Rash, Lesions, [place], Bruising, Other - Medications/Allergies Allergies/Adverse Reactions: Allergies Allergy/AdvReac Type Severity Reaction Status Date / Time No Known Drug Allergies Allergy Verified 04/19/17 03:24 Medications: Current Medications Acetaminophen (Tylenol) 650 mg PO Q4H PRN PRN Reason: Headache/Fever or Pain Hydrocodone Bitart/Acetaminophen ([place] 5/325) 1 tab PO Q4H PRN PRN Reason: Moderate Pain (4-6) Al Hydroxide/Mg Hydroxide (Maalox) 15 ml PO Q4H PRN PRN Reason: Heartburn or Indigestion Artificial Tears (Tears Renewed 15ml Bottle) 0 drop EA EYE PRN PRN PRN Reason: Dry Eyes Bisacodyl (Dulcolax) 10 mg [place] DAILYPRN PRN PRN Reason: Constipation Clonidine (Catapres) 0.1 mg PO Q4H PRN PRN Reason: Systolic BP > 180 Dextrose/Water (Dextrose 50%) 25 gm SLOW IVP PRN PRN PRN Reason: Hypoglycemia Docusate Sodium (Colace) 100 mg PO BID [facility] Last Admin: 04/24/17 08:14 Dose: 100 mg Enoxaparin Sodium (Lovenox) 40 mg SC 0900 [facility] Last Admin: 04/24/17 08:14 Dose: 40 mg Famotidine (Pepcid) 20 mg SLOW IVP DAILY [facility] Last Admin: 04/24/17 08:15 Dose: 20 mg Gabapentin (Neurontin) 100 mg PO [facility] Glucagon (Glucagon) 1 mg IM PRN PRN PRN Reason: Hypoglycemia Guaifenesin (Robitussin Sf) 200 mg PO Q4H PRN PRN Reason: Cough Guaifenesin/Dextromethorphan (Robitussin Dm) 15 ml PO Q4H PRN PRN Reason: Cough Dextrose/Water (D5w) 1,000 mls @ 0 mls/hr IV .Q0M PRN; As Directed PRN Reason: Hypoglycemia Sodium Chloride (Normal Saline 0.9%) 1,000 mls @ 50 mls/hr IV .Q20H [facility] Last Admin: 04/24/17 08:14 Dose: 1,000 mls Insulin Detemir 30 units/ (Miscellaneous Medication) 0.3 mls @ 0 mls/hr SC BID [facility] Last Admin: 04/24/17 08:15 Dose: 0.3 mls Insulin Human Lispro (Humalog) 0 units SC .AGGRESSIVE SLIDING PRN PRN Reason: Aggressive Correctional Scale Last Admin: 04/24/17 06:29 Dose: 3 unit Insulin Human Lispro (Humalog) 0 units SC .BEDTIME SLIDING SC PRN PRN Reason: Bedtime Correctional Scale Loperamide HCl (Imodium) 2 mg PO PRN PRN PRN Reason: Diarrhea/Loose Stools Loratadine (Claritin) 10 mg PO DAILYPRN PRN PRN Reason: Sinus Symptoms Lorazepam (Ativan) 1 mg SLOW IVP Q4H PRN PRN Reason: Anxiety/Agitation Magnesium Hydroxide (Milk Of Magnesium) 30 ml PO DAILYPRN PRN PRN Reason: Constipation Mineral Oil/White Petrolatum (Eucerin Cream) 0 gm TOP BIDPRN PRN PRN Reason: Dry Skin Nifedipine (Procardia Xl) 90 mg PO DAILY [facility] Last Admin: 04/24/17 08:15 Dose: 90 mg Nitroglycerin (Nitro-Bid 2% Ointment) 1 inch TOP TID [facility] Last Admin: 04/24/17 08:16 Dose: 1 inch Phenol (Chloraseptic [place] 180 Ml Bot) 0 ml PO PRN PRN PRN Reason: Sore Throat Promethazine HCl (Phenergan) 25 mg IM/IV Q6H PRN PRN Reason: Nausea/Vomiting Senna (Senokot) 2 tab PO HSPRN PRN PRN Reason: Constipation Sodium Biphosphate/Sodium Phosphate (Fleet Enema) 133 ml [place] ONE PRN PRN Reason: Constipation Stop: 05/23/17 22:33 Sodium Chloride ([place] Nasal [place] 0.65%) 0 ml EA NARE QIDPRN PRN PRN Reason: Nasal Congestion Temazepam (Restoril) 15 mg PO HSPRN PRN PRN Reason: Insomnia
[2017-04-24] MEDS: Lorazepam 2 MG/ML VIAL SLOW IVP PRN (11:30)
[2017-04-24] MEDS: Gabapentin 100 MG CAP PO SCH (20:25)
--- NOTE | 2017-04-25 01:32 | CON ---
DATE OF CONSULTATION: 04/24/2017 Jennie Green is a 31-year-old female. She was admitted at 1:30 this morning with nausea, vomiting, and hypertension. She has diabetes. She also has a drug screen that is positive for street drugs. She did not really want to talk about this and was sleepy when I saw her, but easily arousable. She said she was feeling better than she felt last night when she came in. She has not thrown up anymore. PAST MEDICAL HISTORY: Remarkable for, 1. Type 1 diabetes since 2004. 2. Hypertension. 3. Lipid disorder. 4. Appendectomy. 5. Multiple C-sections. 6. Tonsillectomy. 7. History of ulcer disease and esophagitis. 8. History of reported bipolar disorder. MEDICATIONS: Prior to admission, she was on Procardia, Lantus, gabapentin, and Norvasc. SOCIAL HISTORY: She smokes. She does not drink on a daily basis. She uses cocaine, marijuana, methamphetamine. Has a drug screen positive for all of these, plus amphetamines. ALLERGIES: She has no drug allergies. FAMILY HISTORY: Negative for lung disease in early age. REVIEW OF SYSTEMS: Otherwise negative. PHYSICAL EXAMINATION: GENERAL: She is afebrile, heart rate is 118, respiratory rate 16, oximetry is 100% on room air. VITAL SIGNS: Blood pressure 147/97. HEENT: Pupils are equal. Sclerae are anicteric. NECK: Supple. LUNGS: Clear. HEART: Regular rhythm. No gallops heard. ABDOMEN: Soft and nontender. EXTREMITIES: Without asymmetry. LABORATORY AND X-RAY FINDINGS: White count 13.4, hemoglobin 11.8, platelets 484 ,000. Sodium 138, potassium 3.2, chloride 100, bicarbonate 27, BUN 14, creatinine 1.54. Blood gas pH 7.47, pCO2 of 37, pO2 of 149. Urinalysis was remarkable for 300 mg per deciliter of protein. Abdominal film showed just stool. IMPRESSION: 1. Severe intravascular volume depletion. 2. Probable constipation secondary to intravascular volume depletion and drug use. 3. Multiple street drug use. 4. Type 1 diabetes with mild diabetic ketoacidosis that is improving. 5. Resting tachycardia, most likely secondary to volume contraction. Her short-term prognosis is extremely poor. She has evidence of diabetic renal disease with massive proteinuria and renal insufficiency. Given her drug use, I doubt she is compliant at all with anything more than just the basic care. I do not see a hemoglobin A1c that has been ordered, but that would not exchange administrator. She should be stable to move out of the IMU by first thing in the morning. 50-minute consult, over greater than 50% of the time being spent on the unit coordinating care. ELZA
[2017-04-25] MEDS: Sodium Chloride 0.9% 1,000 ML IV SCH (04:14)
[2017-04-25 04:36] LABS: #Basophils 0.1 thou/uL (0.0-0.2); #Eosinphils 0.1 thou/uL (0.0-0.7); #Lymphocytes 3.9 thou/uL (1.20-3.40); #Monocytes 0.6 thou/uL (0.11-0.59); #Neutrophils 6.5 thou/uL (1.40-6.50); %Basophils 0.6 % (0.0-1.0); %Eosinophils 1.1 % (0.0-10.0); %Lymphocytes 35.1 % (21.0-51.0); %Neutrophils 58.4 % (42.0-75.0); Hemoglobin 10.5 g/dL (12.0-16.0); Mean Corpuscular HGB CONC 33.4 g/dL (32.0-36.0); Mean Corpuscular Hemoglobin 26.9 pg (27.0-31.0); Mean Corpuscular Volume 80.6 fl (81.0-99.0); Mean Platelet Volume 8.7 fL (7.4-10.4); Platelet Count 401 thou/uL (130-400); RBC Distribution Width 12.8 % (11.5-14.5); Red Blood Cell (RBC) Count 3.92 mill/uL (4.20-5.40); White Blood Cell (WBC) Count 11.2 thou/uL (4.8-10.8)
[2017-04-25 04:49] LABS: Anion Gap 11 mmol/L (10-20); BUN (Urea Nitrogen) 18 mg/dL (7.0-18.7); Calc. Creatinine Clearance 43 mL/min (70-130); Carbon Dioxide 28 mmol/L (22-29); Chloride 99 mmol/L (98-107); Estimated GFR-MDRD 44; Glucose 82 mg/dL (70-105); Phosphorus 3.3 mg/dL (2.3-4.7); Sodium 135 mmol/L (136-145)
[2017-04-25] MEDS: Docusate 100 MG CAP PO SCH ×2 (09:15→20:21)
[2017-04-25] MEDS: NIFEdipine XL 90 MG TAB PO SCH (09:15)
[2017-04-25] MEDS: Famotidine 20 MG TAB PO SCH (09:15)
[2017-04-25] MEDS: Enoxaparin Sodium 40 MG/0.4 ML SYRINGE SC SCH (09:16)
[2017-04-25] MEDS: Nitroglycerin 2% Ointment 1 INCH/1 GM Packet TOP SCH ×3 (09:16→20:22)
[2017-04-25] MEDS: Insulin NPH/Reg Insulin Hm 300 UNITS/3 ML VIAL SC SCH ×2 (09:25→17:42)
--- NOTE | 2017-04-25 10:38 | PDOC.PN ---
- Subjective Encounter Start Date: 04/25/17 Encounter Start Time: 07:00 this morning she is doing fine, her blood pressure coming down, she is less tachycardic, Patient seen and examined. No new complaints. No overnight events - Objective Resuscitation Status: Resuscitation Status FULL:Full Resuscitation MAR Reviewed: Yes Vital Signs & Weight: Vital Signs (12 hours) Temp Pulse Resp BP BP BP Pulse Ox 04/25/17 09:15 113 H 163/113 H 04/25/17 07:37 97.3 F L 107 H 17 100 04/25/17 07:30 97.3 F L 107 H 17 177/115 H 100 04/25/17 06:13 92 18 114/87 99 04/25/17 04:08 98.6 F 105 H 18 148/110 H 100 04/25/17 00:07 98.6 F 102 H 16 150/108 H 100 Weight Admit Weight 119 lb 7 oz Weight 119 lb 7 oz I&O: 04/24/17 04/25/17 04/26/17 06:59 06:59 06:59 Intake Total 1300 2822 Output Total 100 Balance 1200 2822 Result Diagrams: 04/25/17 03:32 04/25/17 03:32 Additional Labs: Accuchecks 04/25/17 04/25/17 04/25/17 06:29 06:09 00:12 POC Glucose 125 H 48 L* 62 L 04/24/17 04/24/17 04/24/17 20:26 18:02 12:05 POC Glucose 83 325 H 104 EKG Reviewed by me: Yes (sinus tachycardia) Phys Exam - Physical Examination Constitutional: NAD HEENT: PERRLA, moist MMs, sclera anicteric Neck: no JVD, supple Respiratory: no wheezing, no rales, no rhonchi Cardiovascular: RRR, no significant murmur, no rub Gastrointestinal: soft, non-tender, no distention, positive bowel sounds Musculoskeletal: no edema, pulses present Neurological: non-focal, normal sensation, moves all 4 limbs Lymphatic: no nodes Psychiatric: normal affect Skin: no rash, normal turgor Dx/Plan (1) Dehydration Code(s): E86.0 - DEHYDRATION Status: Resolved Comment: (2) Hypertensive urgency Code(s): I10 - ESSENTIAL (PRIMARY) HYPERTENSION Status: Acute Comment: due to symphathetic drive from cocaine (3) Hypokalemia Code(s): E87.6 - HYPOKALEMIA Status: Resolved Comment: due to nausea and vomiting (4) Intractable vomiting with nausea Code(s): R11.2 - NAUSEA WITH VOMITING, UNSPECIFIED Status: Resolved Qualifiers: Vomiting type: unspecified Qualified Code(s): R11.2 - Nausea with vomiting , unspecified (5) Sinus tachycardia Code(s): R00.0 - TACHYCARDIA, UNSPECIFIED Status: Acute Comment: due to symphathetic drive (6) Bipolar disorder Code(s): F31.9 - BIPOLAR DISORDER, UNSPECIFIED Status: Chronic (7) CKD (chronic kidney disease) stage 3, GFR 30-59 ml/min Code(s): N18.3 - CHRONIC KIDNEY DISEASE, STAGE 3 (MODERATE) Status: Chronic (8) DM type 1 (diabetes mellitus, type 1) Status: Chronic Qualifiers: (9) Polysubstance abuse Code(s): F19.10 - OTHER PSYCHOACTIVE SUBSTANCE ABUSE, UNCOMPLICATED Status: Chronic - Plan cont current plan of care, plan discussed w/ family * DC IVF * replace potassium chloride 20 meq IV * transfer to tele * today will adjust her BP meds and ambulate as tolerated * expecting discharge tomorrow * counselled to avoid polysubstance abuse. * medication reviewed as below * symptomatic treatment Review of Systems - Review of Systems ENT: negative: Ear Pain, Ear Discharge, Nose Pain, Nose Discharge, Nose Congestion, Mouth Pain, Mouth Swelling, Throat Pain, Throat Swelling, Other Respiratory: negative: Cough, Dry, Shortness of Breath, Hemoptysis, SOB with Excertion, Pleuritic Pain, Sputum, Wheezing Cardiovascular: negative: chest pain, palpitations, orthopnea, paroxysmal nocturnal dyspnea, edema, light headedness, other Gastrointestinal: negative: Nausea, Vomiting, Abdominal Pain, Diarrhea, Constipation, Melena, Hematochezia, Other Genitourinary: negative: Dysuria, Frequency, Incontinence, Hematuria, Retention , Other Musculoskeletal: negative: Neck Pain, Shoulder Pain, Arm Pain, Back Pain, Hand Pain, Leg Pain, Foot Pain, Other Skin: negative: Rash, Lesions, [place], Bruising, Other - Medications/Allergies Allergies/Adverse Reactions: Allergies Allergy/AdvReac Type Severity Reaction Status Date / Time No Known Drug Allergies Allergy Verified 04/19/17 03:24 Medications: Current Medications Acetaminophen (Tylenol) 650 mg PO Q4H PRN PRN Reason: Headache/Fever or Pain Hydrocodone Bitart/Acetaminophen ([place] 5/325) 1 tab PO Q4H PRN PRN Reason: Moderate Pain (4-6) Al Hydroxide/Mg Hydroxide (Maalox) 15 ml PO Q4H PRN PRN Reason: Heartburn or Indigestion Artificial Tears (Tears Renewed 15ml Bottle) 0 drop EA EYE PRN PRN PRN Reason: Dry Eyes Bisacodyl (Dulcolax) 10 mg [place] DAILYPRN PRN PRN Reason: Constipation Clonidine (Catapres) 0.1 mg PO Q4H PRN PRN Reason: Systolic BP > 180 Dextrose/Water (Dextrose 50%) 25 gm SLOW IVP PRN PRN PRN Reason: Hypoglycemia Docusate Sodium (Colace) 100 mg PO BID [facility] Last Admin: 04/25/17 09:15 Dose: 100 mg Enoxaparin Sodium (Lovenox) 40 mg SC 0900 [facility] Last Admin: 04/25/17 09:16 Dose: 40 mg Famotidine (Pepcid) 20 mg PO DAILY [facility] Last Admin: 04/25/17 09:15 Dose: 20 mg Gabapentin (Neurontin) 100 mg PO [facility] Last Admin: 04/24/17 20:25 Dose: 100 mg Glucagon (Glucagon) 1 mg IM PRN PRN PRN Reason: Hypoglycemia Guaifenesin (Robitussin Sf) 200 mg PO Q4H PRN PRN Reason: Cough Guaifenesin/Dextromethorphan (Robitussin Dm) 15 ml PO Q4H PRN PRN Reason: Cough Dextrose/Water (D5w) 1,000 mls @ 0 mls/hr IV .Q0M PRN; As Directed PRN Reason: Hypoglycemia Insulin Human Isoph/Insulin Regular (Humulin 70/30) 20 units SC BID[facility] Last Admin: 04/25/17 09:25 Dose: 20 units Insulin Human Lispro (Humalog) 0 units SC .AGGRESSIVE SLIDING PRN PRN Reason: Aggressive Correctional Scale Last Admin: 04/24/17 18:36 Dose: 11 unit Insulin Human Lispro (Humalog) 0 units SC .BEDTIME SLIDING SC PRN PRN Reason: Bedtime Correctional Scale Loperamide HCl (Imodium) 2 mg PO PRN PRN PRN Reason: Diarrhea/Loose Stools Loratadine (Claritin) 10 mg PO DAILYPRN PRN PRN Reason: Sinus Symptoms Lorazepam (Ativan) 1 mg SLOW IVP Q4H PRN PRN Reason: Anxiety/Agitation Last Admin: 04/24/17 11:30 Dose: 1 mg Magnesium Hydroxide (Milk Of Magnesium) 30 ml PO DAILYPRN PRN PRN Reason: Constipation Mineral Oil/White Petrolatum (Eucerin Cream) 0 gm TOP BIDPRN PRN PRN Reason: Dry Skin Nifedipine (Procardia Xl) 90 mg PO DAILY [facility] Last Admin: 04/25/17 09:15 Dose: 90 mg Nitroglycerin (Nitro-Bid 2% Ointment) 1 inch TOP TID [facility] Last Admin: 04/25/17 09:16 Dose: 1 inch Phenol (Chloraseptic [place] 180 Ml Bot) 0 ml PO PRN PRN PRN Reason: Sore Throat Promethazine HCl (Phenergan) 25 mg IM/IV Q6H PRN PRN Reason: Nausea/Vomiting Senna (Senokot) 2 tab PO HSPRN PRN PRN Reason: Constipation Sodium Biphosphate/Sodium Phosphate (Fleet Enema) 133 ml [place] ONE PRN PRN Reason: Constipation Stop: 05/23/17 22:33 Sodium Chloride ([place] Nasal [place] 0.65%) 0 ml EA NARE QIDPRN PRN PRN Reason: Nasal Congestion Temazepam (Restoril) 15 mg PO HSPRN PRN PRN Reason: Insomnia
[2017-04-25] MEDS ORDERED: Potassium Chloride 20 MEQ/100 ML PREMIX BAG IVPB SCH (10:45)
[2017-04-25] MEDS ORDERED: Potassium Chloride 20 MEQ in Sodium Chloride 0.9% 250 ML 250 ML IVPB SCH (18:00)
--- NOTE | 2017-04-25 18:32 | PRG ---
DATE OF SERVICE: 04/25/2017 SUBJECTIVE: Jennie Green is afebrile. OBJECTIVE: VITAL SIGNS: Heart rate 120, respiratory rate 20, oximetry is 98% on room air, blood pressure 124/94 . LUNGS: Clear. HEART: Regular rhythm. ABDOMEN: Soft. LABORATORY DATA: White count 11.2, hemoglobin 10.5, and platelets 401,000. Sodium 135, potassium 3, chloride 99, bicarbonate 28, BUN 18, creatinine 1.64. IMPRESSION: 1. Diabetic ketoacidosis. 2. Resting tachycardia. She should be adequately hydrated at this point, so I would wonder if she h as not developed a cardiomyopathy associated with her diabetes and her amphetamine/cocaine use. 3. Chronic kidney disease. PLAN: She is medically stable, but my opinion is probably needs further look at this resting tachyca rdia. I doubt she has thromboembolic disease. We will continue to follow with the other physicians caring for.
[2017-04-25] MEDS: Gabapentin 100 MG CAP PO SCH (20:21)
[2017-04-26] MEDS: cloNIDine 0.1 MG TAB PO PRN (04:23)
[2017-04-26] MEDS: Famotidine 20 MG TAB PO SCH (08:35)
[2017-04-26] MEDS: NIFEdipine XL 90 MG TAB PO SCH (08:36)
[2017-04-26] MEDS: Docusate 100 MG CAP PO SCH ×2 (08:36→20:37)
[2017-04-26] MEDS: Enoxaparin Sodium 40 MG/0.4 ML SYRINGE SC SCH (08:36)
[2017-04-26] MEDS: Insulin NPH/Reg Insulin Hm 300 UNITS/3 ML VIAL SC SCH ×2 (08:37→16:43)
--- NOTE | 2017-04-26 10:19 | PDOC.PN ---
- Subjective Encounter Start Date: 04/26/17 Encounter Start Time: 07:00 Patient seen and examined. No new complaints. No overnight events - Objective Resuscitation Status: Resuscitation Status FULL:Full Resuscitation MAR Reviewed: Yes Vital Signs & Weight: Vital Signs (12 hours) Temp Pulse Resp BP BP Pulse Ox 04/26/17 08:36 100 188/132 H 04/26/17 04:25 97.5 F L 105 H 16 188/135 H 100 04/26/17 04:23 188/135 H 04/26/17 00:30 97.4 F L 110 H 16 147/98 H 100 Weight Admit Weight 119 lb 7 oz Weight 119 lb 7 oz I&O: 04/25/17 04/26/17 04/27/17 06:59 06:59 06:59 Intake Total 2822 2630 Balance 2822 2630 Result Diagrams: 04/25/17 03:32 04/25/17 03:32 Additional Labs: Accuchecks 04/26/17 04/26/17 04/26/17 05:50 01:12 00:44 POC Glucose 238 H 75 57 L* 04/25/17 04/25/17 18:10 11:29 POC Glucose 172 H 241 H EKG Reviewed by me: Yes (sinus tachycardia) Phys Exam - Physical Examination Constitutional: NAD HEENT: PERRLA, moist MMs, sclera anicteric Neck: no JVD, supple Respiratory: no wheezing, no rales, no rhonchi Cardiovascular: RRR, no significant murmur, no rub Gastrointestinal: soft, non-tender, no distention, positive bowel sounds Musculoskeletal: no edema, pulses present Neurological: non-focal, normal sensation Lymphatic: no nodes Psychiatric: normal affect, A&O x 3 Skin: no rash, normal turgor Dx/Plan (1) Dehydration Code(s): E86.0 - DEHYDRATION Status: Resolved Comment: (2) Hypertensive urgency Code(s): I10 - ESSENTIAL (PRIMARY) HYPERTENSION Status: Acute Comment: due to symphathetic drive from cocaine (3) Hypokalemia Code(s): E87.6 - HYPOKALEMIA Status: Resolved Comment: due to nausea and vomiting (4) Intractable vomiting with nausea Code(s): R11.2 - NAUSEA WITH VOMITING, UNSPECIFIED Status: Resolved Qualifiers: Vomiting type: unspecified Qualified Code(s): R11.2 - Nausea with vomiting , unspecified (5) Sinus tachycardia Code(s): R00.0 - TACHYCARDIA, UNSPECIFIED Status: Acute Comment: due to symphathetic drive (6) Bipolar disorder Code(s): F31.9 - BIPOLAR DISORDER, UNSPECIFIED Status: Chronic (7) CKD (chronic kidney disease) stage 3, GFR 30-59 ml/min Code(s): N18.3 - CHRONIC KIDNEY DISEASE, STAGE 3 (MODERATE) Status: Chronic (8) DM type 1 (diabetes mellitus, type 1) Status: Chronic Qualifiers: (9) Polysubstance abuse Code(s): F19.10 - OTHER PSYCHOACTIVE SUBSTANCE ABUSE, UNCOMPLICATED Status: Chronic - Plan cont current plan of care, plan discussed w/ family * add coreg 25 mg po bid * clonidine as needed * DC Nitro patch * medication reviewed as below * symptomatic treatment. Review of Systems - Review of Systems ENT: negative: Ear Pain, Ear Discharge, Nose Pain, Nose Discharge, Nose Congestion, Mouth Pain, Mouth Swelling, Throat Pain, Throat Swelling, Other Respiratory: negative: Cough, Dry, Shortness of Breath, Hemoptysis, SOB with Excertion, Pleuritic Pain, Sputum, Wheezing Cardiovascular: negative: chest pain, palpitations, orthopnea, paroxysmal nocturnal dyspnea, edema, light headedness, other Gastrointestinal: negative: Nausea, Vomiting, Abdominal Pain, Diarrhea, Constipation, Melena, Hematochezia, Other Genitourinary: negative: Dysuria, Frequency, Incontinence, Hematuria, Retention , Other Musculoskeletal: negative: Neck Pain, Shoulder Pain, Arm Pain, Back Pain, Hand Pain, Leg Pain, Foot Pain, Other Skin: negative: Rash, Lesions, [place], Bruising, Other - Medications/Allergies Allergies/Adverse Reactions: Allergies Allergy/AdvReac Type Severity Reaction Status Date / Time No Known Drug Allergies Allergy Verified 04/19/17 03:24 Medications: Current Medications Acetaminophen (Tylenol) 650 mg PO Q4H PRN PRN Reason: Headache/Fever or Pain Last Admin: 04/26/17 01:14 Dose: 650 mg Hydrocodone Bitart/Acetaminophen ([place] 5/325) 1 tab PO Q4H PRN PRN Reason: Moderate Pain (4-6) Al Hydroxide/Mg Hydroxide (Maalox) 15 ml PO Q4H PRN PRN Reason: Heartburn or Indigestion Artificial Tears (Tears Renewed 15ml Bottle) 0 drop EA EYE PRN PRN PRN Reason: Dry Eyes Bisacodyl (Dulcolax) 10 mg [place] DAILYPRN PRN PRN Reason: Constipation [facility] Clonidine (Catapres) 0.1 mg PO Q4H PRN PRN Reason: Systolic BP > 180 Last Admin: 04/26/17 04:23 Dose: 0.1 mg Dextrose/Water (Dextrose 50%) 25 gm SLOW IVP PRN PRN PRN Reason: Hypoglycemia Docusate Sodium (Colace) 100 mg PO BID [facility] Last Admin: 04/26/17 08:36 Dose: 100 mg Enoxaparin Sodium (Lovenox) 40 mg SC 0900 [facility] Last Admin: 04/26/17 08:36 Dose: 40 mg Famotidine (Pepcid) 20 mg PO DAILY [facility] Last Admin: 04/26/17 08:35 Dose: 20 mg Gabapentin (Neurontin) 100 mg PO [facility] Last Admin: 04/25/17 20:21 Dose: 100 mg Glucagon (Glucagon) 1 mg IM PRN PRN PRN Reason: Hypoglycemia Guaifenesin (Robitussin Sf) 200 mg PO Q4H PRN PRN Reason: Cough Guaifenesin/Dextromethorphan (Robitussin Dm) 15 ml PO Q4H PRN PRN Reason: Cough Dextrose/Water (D5w) 1,000 mls @ 0 mls/hr IV .Q0M PRN; As Directed PRN Reason: Hypoglycemia Insulin Human Isoph/Insulin Regular (Humulin 70/30) [facility] Last Admin: 04/26/17 08:37 Dose: 20 units Insulin Human Lispro (Humalog) 0 units SC .AGGRESSIVE SLIDING PRN PRN Reason: Aggressive Correctional Scale Last Admin: 04/24/17 18:36 Dose: 11 unit Insulin Human Lispro (Humalog) 0 units SC .BEDTIME SLIDING SC PRN PRN Reason: Bedtime Correctional Scale Loperamide HCl (Imodium) 2 mg PO PRN PRN PRN Reason: Diarrhea/Loose Stools Loratadine (Claritin) 10 mg PO DAILYPRN PRN PRN Reason: Sinus Symptoms Lorazepam (Ativan) 1 mg SLOW IVP Q4H PRN PRN Reason: Anxiety/Agitation Last Admin: 04/24/17 11:30 Dose: 1 mg Magnesium Hydroxide (Milk Of Magnesium) 30 ml PO DAILYPRN PRN PRN Reason: Constipation Mineral Oil/White Petrolatum (Eucerin Cream) 0 gm TOP BIDPRN PRN PRN Reason: Dry Skin Nifedipine (Procardia Xl) 90 mg PO DAILY [facility] Last Admin: 04/26/17 08:36 Dose: 90 mg Phenol (Chloraseptic [place] 180 Ml Bot) 0 ml PO PRN PRN PRN Reason: Sore Throat Promethazine HCl (Phenergan) 25 mg IM/IV Q6H PRN PRN Reason: Nausea/Vomiting Senna (Senokot) 2 tab PO HSPRN PRN PRN Reason: Constipation Sodium Biphosphate/Sodium Phosphate (Fleet Enema) 133 ml [place] ONE PRN PRN Reason: Constipation Stop: 05/23/17 22:33 Sodium Chloride ([place] Nasal [place] 0.65%) 0 ml EA NARE QIDPRN PRN PRN Reason: Nasal Congestion Sodium Chloride (Flush - Normal Saline) 10 ml IVF Q12HR [facility] Last Admin: 04/26/17 08:38 Dose: 10 ml Sodium Chloride (Flush - Normal Saline) 10 ml IVF PRN PRN PRN Reason: Saline Flush Temazepam (Restoril) 15 mg PO HSPRN PRN PRN Reason: Insomnia Last Admin: 04/25/17 21:13 Dose: 15 mg
[2017-04-26] MEDS: Carvedilol 25 MG TAB PO SCH (16:44)
--- NOTE | 2017-04-26 19:03 | PRG ---
DATE OF SERVICE: 04/26/2017 SUBJECTIVE: Jennie Green said she is in absolutely no distress. Her boyfriend was in bed when I a round on her today. Her heart rate was between 95 and 100 when I saw her this morning. OBJECTIVE: GENERAL: She is afebrile, blood pressure is elevated with diastolics over 100 all day long, oximetry is 99% to 100% on room air. LUNGS: Completely clear. HEART: Regular rhythm. ABDOMEN: Soft. IMPRESSION: 1. Hypertension, poorly controlled. 2. Type [address] drug use, all of which are life threatening. 4. Poorly controlled hypertension. 5. Resting tachycardia. An echocardiogram is pending. There is no clear reason for her to stay on the telemetry unit. She will be transferred to a medical bed. We will sign off.
[2017-04-26] MEDS: Gabapentin 100 MG CAP PO SCH (20:37)
[2017-04-27] MEDS: cloNIDine 0.1 MG TAB PO PRN (00:53)
[2017-04-27] MEDS ORDERED: Nitroglycerin 2% Ointment 1 INCH/1 GM Packet TOP PRN (02:10)
[2017-04-27] MEDS: Lorazepam 2 MG/ML VIAL SLOW IVP PRN (02:14)
[2017-04-27] MEDS ORDERED: cloNIDine 0.1 MG TAB PO SCH (02:15)
[2017-04-27] MEDS ORDERED: Lorazepam 1 MG TAB PO SCH ×2 (02:15→05:00)
[2017-04-27] MEDS: HumaLOG 300 UNITS/3 ML VIAL SC PRN ×2 (05:14→11:53)
[2017-04-27] MEDS: Famotidine 20 MG TAB PO SCH (08:30)
[2017-04-27] MEDS: Docusate 100 MG CAP PO SCH (08:30)
[2017-04-27] MEDS: Carvedilol 25 MG TAB PO SCH (08:30)
[2017-04-27] MEDS: NIFEdipine XL 90 MG TAB PO SCH (08:31)
[2017-04-27] MEDS: Enoxaparin Sodium 40 MG/0.4 ML SYRINGE SC SCH (08:31)
[2017-04-27] MEDS: Insulin NPH/Reg Insulin Hm 300 UNITS/3 ML VIAL SC SCH ×2 (08:49→09:20)
--- NOTE | 2017-04-27 09:33 | PDOC.PN ---
- Subjective Encounter Start Date: 04/27/17 Encounter Start Time: 08:30 Patient seen and examined. No new complaints. No overnight events - Objective Resuscitation Status: Resuscitation Status FULL:Full Resuscitation MAR Reviewed: Yes Vital Signs & Weight: Vital Signs (12 hours) Temp Pulse Resp BP BP BP BP 04/27/17 08:31 91 04/27/17 08:00 94.4 F L 91 16 04/27/17 07:26 94.4 F L 91 16 138/86 04/27/17 05:17 90 20 179/116 H 04/27/17 04:50 90 184/118 H 04/27/17 03:58 96 198/121 H 04/27/17 02:19 206/122 H 04/27/17 01:42 99 199/119 H 04/27/17 00:53 212/139 H Pulse Ox 04/27/17 08:31 04/27/17 08:00 04/27/17 07:26 98 04/27/17 05:17 04/27/17 04:50 04/27/17 03:58 04/27/17 02:19 04/27/17 01:42 04/27/17 00:53 Weight Admit Weight 119 lb 7 oz Weight 119 lb 7 oz I&O: 04/26/17 04/27/17 04/28/17 06:59 06:59 06:59 Intake Total 2630 500 Balance 2630 500 Result Diagrams: 04/25/17 03:32 04/25/17 03:32 Additional Labs: Accuchecks 04/27/17 04/26/17 04/26/17 04:34 23:55 20:54 POC Glucose 271 H 131 H 286 H 04/26/17 04/26/17 16:46 12:09 POC Glucose 248 H 180 H Phys Exam - Physical Examination Constitutional: NAD HEENT: moist MMs, sclera anicteric Neck: no JVD, supple Respiratory: no wheezing, no rales, no rhonchi Cardiovascular: RRR, no significant murmur, no rub Gastrointestinal: soft, non-tender, no distention Musculoskeletal: no edema, pulses present Neurological: non-focal, normal sensation, moves all 4 limbs Psychiatric: normal affect, A&O x 3 Skin: no rash, normal turgor Dx/Plan (1) Dehydration Code(s): E86.0 - DEHYDRATION Status: Resolved Comment: (2) Hypertensive urgency Code(s): I10 - ESSENTIAL (PRIMARY) HYPERTENSION Status: Acute Comment: due to symphathetic drive from cocaine (3) Hypokalemia Code(s): E87.6 - HYPOKALEMIA Status: Resolved Comment: due to nausea and vomiting (4) Intractable vomiting with nausea Code(s): R11.2 - NAUSEA WITH VOMITING, UNSPECIFIED Status: Resolved Qualifiers: Vomiting type: unspecified Qualified Code(s): R11.2 - Nausea with vomiting , unspecified (5) Sinus tachycardia Code(s): R00.0 - TACHYCARDIA, UNSPECIFIED Status: Acute Comment: due to symphathetic drive (6) Bipolar disorder Code(s): F31.9 - BIPOLAR DISORDER, UNSPECIFIED Status: Chronic (7) CKD (chronic kidney disease) stage 3, GFR 30-59 ml/min Code(s): N18.3 - CHRONIC KIDNEY DISEASE, STAGE 3 (MODERATE) Status: Chronic (8) DM type 1 (diabetes mellitus, type 1) Status: Chronic Qualifiers: (9) Polysubstance abuse Code(s): F19.10 - OTHER PSYCHOACTIVE SUBSTANCE ABUSE, UNCOMPLICATED Status: Chronic - Plan cont current plan of care, plan discussed w/ family * medication reviewed as below * symptomatic treatment * stable for discharge * see discharge summery * outpt follow up advised. Review of Systems - Review of Systems ENT: negative: Ear Pain, Ear Discharge, Nose Pain, Nose Discharge, Nose Congestion, Mouth Pain, Mouth Swelling, Throat Pain, Throat Swelling, Other Respiratory: negative: Cough, Dry, Shortness of Breath, Hemoptysis, SOB with Excertion, Pleuritic Pain, Sputum, Wheezing Cardiovascular: negative: chest pain, palpitations, orthopnea, paroxysmal nocturnal dyspnea, edema, light headedness, other Gastrointestinal: negative: Nausea, Vomiting, Abdominal Pain, Diarrhea, Constipation, Melena, Hematochezia, Other Genitourinary: negative: Dysuria, Frequency, Incontinence, Hematuria, Retention , Other Musculoskeletal: negative: Neck Pain, Shoulder Pain, Arm Pain, Back Pain, Hand Pain, Leg Pain, Foot Pain, Other - Medications/Allergies Allergies/Adverse Reactions: Allergies Allergy/AdvReac Type Severity Reaction Status Date / Time No Known Drug Allergies Allergy Verified 04/19/17 03:24 Medications: Current Medications Acetaminophen (Tylenol) 650 mg PO Q4H PRN PRN Reason: Headache/Fever or Pain Last Admin: 04/26/17 01:14 Dose: 650 mg Hydrocodone Bitart/Acetaminophen ([place] 5/325) 1 tab PO Q4H PRN PRN Reason: Moderate Pain (4-6) Al Hydroxide/Mg Hydroxide (Maalox) 15 ml PO Q4H PRN PRN Reason: Heartburn or Indigestion Artificial Tears (Tears Renewed 15ml Bottle) 0 drop EA EYE PRN PRN PRN Reason: Dry Eyes Bisacodyl (Dulcolax) 10 mg OR DAILYPRN PRN PRN Reason: Constipation [facility] Last Admin: 04/27/17 08:30 Dose: 25 mg Clonidine (Catapres) 0.1 mg PO Q4H PRN PRN Reason: Systolic BP > 180 Last Admin: 04/27/17 00:53 Dose: 0.1 mg Dextrose/Water (Dextrose 50%) 25 gm SLOW IVP PRN PRN PRN Reason: Hypoglycemia Docusate Sodium (Colace) 100 mg PO BID [facility] Last Admin: 04/27/17 08:30 Dose: 100 mg Enoxaparin Sodium (Lovenox) 40 mg SC 0900 [facility] Last Admin: 04/27/17 08:31 Dose: 40 mg Famotidine (Pepcid) 20 mg PO DAILY [facility] Last Admin: 04/27/17 08:30 Dose: 20 mg Gabapentin (Neurontin) 100 mg PO [facility] Last Admin: 04/26/17 20:37 Dose: 100 mg Glucagon (Glucagon) 1 mg IM PRN PRN PRN Reason: Hypoglycemia Guaifenesin (Robitussin Sf) 200 mg PO Q4H PRN PRN Reason: Cough Guaifenesin/Dextromethorphan (Robitussin Dm) 15 ml PO Q4H PRN PRN Reason: Cough Dextrose/Water (D5w) 1,000 mls @ 0 mls/hr IV .Q0M PRN; As Directed PRN Reason: Hypoglycemia Insulin Human Isoph/Insulin Regular (Humulin 70/30) [facility] Last Admin: 04/27/17 09:20 Dose: 20 units Insulin Human Lispro (Humalog) 0 units SC .AGGRESSIVE SLIDING PRN PRN Reason: Aggressive Correctional Scale Last Admin: 04/27/17 05:14 Dose: 9 unit Insulin Human Lispro (Humalog) 0 units SC .BEDTIME SLIDING SC PRN PRN Reason: Bedtime Correctional Scale Last Admin: 04/26/17 21:43 Dose: 3 unit Loperamide HCl (Imodium) 2 mg PO PRN PRN PRN Reason: Diarrhea/Loose Stools Loratadine (Claritin) 10 mg PO DAILYPRN PRN PRN Reason: Sinus Symptoms Lorazepam (Ativan) 1 mg SLOW IVP Q4H PRN PRN Reason: Anxiety/Agitation Last Admin: 04/27/17 02:14 Dose: 1 mg Magnesium Hydroxide (Milk Of Magnesium) 30 ml PO DAILYPRN PRN PRN Reason: Constipation Last Admin: 04/26/17 20:37 Dose: 30 ml Mineral Oil/White Petrolatum (Eucerin Cream) 0 gm TOP BIDPRN PRN PRN Reason: Dry Skin Nifedipine (Procardia Xl) 90 mg PO DAILY [facility] Last Admin: 04/27/17 08:31 Dose: 90 mg Nitroglycerin (Nitro-Bid 2% Ointment) 0.5 inch TOP Q8H PRN PRN Reason: SBP Greater Than 180 Last Admin: 04/27/17 03:53 Dose: 0.5 inch Phenol (Chloraseptic [place] 180 Ml Bot) 0 ml PO PRN PRN PRN Reason: Sore Throat Promethazine HCl (Phenergan) 25 mg IM/IV Q6H PRN PRN Reason: Nausea/Vomiting Senna (Senokot) 2 tab PO HSPRN PRN PRN Reason: Constipation Sodium Biphosphate/Sodium Phosphate (Fleet Enema) 133 ml OR ONE PRN PRN Reason: Constipation Stop: 05/23/17 22:33 Sodium Chloride ([place] Nasal [place] 0.65%) 0 ml EA NARE QIDPRN PRN PRN Reason: Nasal Congestion Sodium Chloride (Flush - Normal Saline) 10 ml IVF Q12HR [facility] Last Admin: 04/27/17 08:33 Dose: 10 ml Sodium Chloride (Flush - Normal Saline) 10 ml IVF PRN PRN PRN Reason: Saline Flush Temazepam (Restoril) 15 mg PO HSPRN PRN PRN Reason: Insomnia Last Admin: 04/25/17 21:13 Dose: 15 mg
--- NOTE | 2017-04-27 10:49 | DIS ---
DATE OF ADMISSION: 04/23/2017 DATE OF DISCHARGE: 04/27/2017 PRIMARY CARE PHYSICIAN: [facility] call admission. DISCHARGE DISPOSITION: Home. PRIMARY DISCHARGE DIAGNOSES: Hypertensive urgency; sinus tachycardia; intractable nausea and vomitin g, resolved; hypokalemia, corrected; dehydration, corrected; polysubstance abuse. SECONDARY DISCHARGE DIAGNOSES: Diabetes type 1, chronic kidney stage 3, bipolar disorder, hypertensi on. PRIMARY PROCEDURE/OPERATION: None. RADIOLOGICAL INVESTIGATION: Abdomen x-ray normal. Echocardiography showed normal EF and LVH. SIGNIFICANT LABORATORY DATA: WBC 11.2, hemoglobin 10.5, platelets 401, sodium 135, potassium 3.0, BU N 18, creatinine 1.64, calcium 9.0. Urinalysis; glucosuria and proteinuria. Urine drug screen [facility] [place] for amphetamine, methamphetamine, cocaine, cannabinoids. DISCHARGE MEDICATIONS: Coreg 25 mg p.o. b.i.d., clonidine 0.1 mg q.4 hours p.r.n. for systolic blood pressure more than 160, Pepcid 20 mg p.o. daily, gabapentin 100 mg p.o. at bedtime, NovoLog 70/30 20 units subcu b.i.d., Procardia-XL 90 mg p.o. daily. CONTRAINDICATIONS: None. CODE STATUS: FULL CODE. INPATIENT PORCELAIN ENAMEL SPRAYER: Dr. Gonzales was following while in hospital. TEST RESULTS PENDING ON DISCHARGE: None. ALLERGIES: No known drug allergies. DISCHARGE PLAN: Post hospital, the patient will follow up with primary care physician in 1 week. HOSPITAL COURSE: A 31-year-old female who has above-mentioned medical problems. She had intractable nausea and vomiting. She was tachycardic. She was clinically appeared dehydrated. She was not abl e to keep anything down, that is why we kept in hospital for hydration. Initially, she was severely tachycardic and hypertensive required IMCU admission and her blood pressure was controlled with paren teral medication. Subsequently, we changed to above-mentioned medication. Her tachycardia and hyper tension was related with sympathetic drive from drugs. During this admission, we treated symptomatically for nausea, vomiting, and when nausea and vomiting resolved, at that time, we started oral medication. We started diet and she was tolerating very well . We provided counseling to avoid illicit drugs. Echocardiography was obtained, which was also normal. At this point, the patient is medically stable for discharge. Her blood pressure is improving. As long as if she takes her blood pressure medicin e, we are expecting that her blood pressure will be better controlled, but compliance is an issue wit h this particular patient. The patient is seen and examined at bedside today. Please see my progress note from today for furthe r details.
[2017-04-27 11:37] VITALS: BP 118/78; TEMP 98
--- NOTE | 2017-06-20 15:08 | EKG ---
Test Reason : EPIGASTRIC PAIN Blood Pressure : / mmHG Vent. Rate : 131 BPM Atrial Rate : 131 BPM P-R Int : 124 ms QRS Dur : 082 ms QT Int : 340 ms P-R-T Axes : 060 051 070 degrees QTc Int : 502 ms Sinus tachycardia Possible Left atrial enlargement Borderline ECG Confirmed by CARLOS JAIN D.O. ([id number]), multimedia editor KRYSTA SOLORIO ([id number]) on 06/20/2017 3:07:14 PM Referred By: Confirmed By:CARLOS JAIN D.O.
== END 2017-04-27 12:06 | disposition home or self-care (01) | DRG 304 ==
LOC: ERS 15:00 → IMCU/EMU 18:29 → 2NO 04-26 17:01 → T4-A 04-26 20:05
PROVIDERS: ADMIT Family Medicine; ATTEND Family Medicine
DX: I16.0 Hypertensive urgency (principal); E10.10 Type 1 diabetes mellitus with ketoacidosis without coma; E10.22 Type 1 diabetes mellitus with diabetic chronic kidney disease; N18.3 Chronic kidney disease, stage 3 (moderate); E78.5 Hyperlipidemia, unspecified; F31.9 Bipolar disorder, unspecified; F14.10 Cocaine abuse, uncomplicated; F12.10 Cannabis abuse, uncomplicated; F15.10 Other stimulant abuse, uncomplicated; F17.210 Nicotine dependence, cigarettes, uncomplicated; I12.9 Hypertensive chronic kidney disease with stage 1 through stage 4 chronic kidney disease, or unspecified chronic kidney disease; E87.6 Hypokalemia; E86.0 Dehydration; R00.0 Tachycardia, unspecified
CPT/HCPCS: 36415; 36416; 74018; 80048; 80053; 80306; 80307; 81003; 81015; 82010; 82330; 82553; 82803; 83690; 83735; 84100; 84443; 84484; 84703; 85025; 93005; 93306; 96374; 96375; 96376; 99406; A4216; J1650; J1815; J2060; J2550; J3480; J7050; Q0162

== ENCOUNTER 2017-05-01 04:38 | Emergency (ER) | payer SELFPAY ==
[2017-05-01] MEDS ORDERED: Ketorolac Tromethamine 30 MG/ML VIAL ONE (05:17)
[2017-05-01] MEDS ORDERED: Metoclopramide HCl 10 MG/2 ML VIAL ONE (05:17)
[2017-05-01] MEDS ORDERED: diphenhydrAMINE 50 MG/ML VIAL ONE (05:17)
[2017-05-01] MEDS ORDERED: hydrALAZINE 20 MG/ML VIAL ONE ×2 (05:46→06:57)
[2017-05-01 06:20] LABS: Acetaminophen Less than 6.0 mcg/mL (10.0-30.0); Alcohol Less than 10 mg/dL (Less than 10); Salicylate Less than 8.0 mg/dL (15.0-30.0)
[2017-05-01 06:54] LABS: #Basophils 0.1 thou/uL (0.0-0.2); #Lymphocytes 2.8 thou/uL (1.20-3.40); #Monocytes 0.8 thou/uL (0.11-0.59); #Neutrophils 12.3 thou/uL (1.40-6.50); %Basophils 0.7 % (0.0-1.0); %Eosinophils 0.2 % (0.0-10.0); %Lymphocytes 17.5 % (21.0-51.0); %Monocytes 4.8 % (0.0-10.0); %Neutrophils 76.7 % (42.0-75.0); Hemoglobin 13.5 g/dL (12.0-16.0); Mean Corpuscular HGB CONC 33.4 g/dL (32.0-36.0); Mean Corpuscular Hemoglobin 26.7 pg (27.0-31.0); Mean Corpuscular Volume 80.1 fl (81.0-99.0); Mean Platelet Volume 8.8 fL (7.4-10.4); Platelet Count 479 thou/uL (130-400); RBC Distribution Width 13.1 % (11.5-14.5); Red Blood Cell (RBC) Count 5.05 mill/uL (4.20-5.40); White Blood Cell (WBC) Count 16.1 thou/uL (4.8-10.8)
[2017-05-01 07:09] LABS: ALT (SGPT) 12 U/L (8-55); AST (SGOT) 8 U/L (5-34); Albumin 3.9 g/dL (3.5-5.0); Alkaline Phosphatase 111 U/L (40-150); Anion Gap 17 mmol/L (10-20); BUN (Urea Nitrogen) 41 mg/dL (7.0-18.7); Bilirubin, Total 0.4 mg/dL (0.2-1.2); Calc. Creatinine Clearance 0 mL/min (70-130); Calcium 9.7 mg/dL (7.8-10.44); Carbon Dioxide 31 mmol/L (22-29); Chloride 88 mmol/L (98-107); Estimated GFR-MDRD 32; Glucose 282 mg/dL (70-105); Protein, Total 7.9 g/dL (6.0-8.3); Sodium 133 mmol/L (136-145)
[2017-05-01 07:18] LABS: CK (CPK) 43 U/L (29-168); CKMB 1.2 ng/mL (0-6.6)
--- NOTE | 2017-05-01 07:41 | RAD ---
SINGLE VIEW OF THE CHEST: COMPARISON: 03/12/17. HISTORY: Fall with chest trauma. FINDINGS: Single view of the chest shows a normal sized cardiomediastinal silhouette. There is no evidence of c onsolidation, mass, or pleural effusion. The bones are unremarkable. IMPRESSION: No evidence of acute cardiopulmonary disease. POS: [facility]
--- NOTE | 2017-05-01 07:41 | CT ---
PRELIMINARY REPORT/[facility]/EMERGENCY AFTER HOURS PROCEDURE: EXAM: CT Head Without Intravenous Contrast CLINICAL HISTORY: 31 years old, female; Injury or trauma; Fall; Initial encounter; Abrasion; Not specified; Patient HX: Pt fell at home, hit head and neck. C/O head and neck pain. Unk loc. Unk reason for fall. TECHNIQUE: Axial computed tomography images of the head/brain without intravenous contrast. COMPARISON: No relevant prior studies available. FINDINGS: Brain: Mild volume loss No hemorrhage. No significant white matter disease. No edema. Ventricles: Unremarkable. No ventriculomegaly. Bones/joints: Unremarkable. No acute fracture. Soft tissues: Mild left occipital scalp swelling Sinuses: Unremarkable as visualized. No acute sinusitis. Mastoid air cells: Unremarkable as visualized. No mastoid effusion. IMPRESSION: No intracranial hemorrhage.Please see discussion above. Thank you for allowing us to participate in the care of your patient. Dictated and Authenticated by: Axel Narayan MD 05/01/2017 5:48 AM Central Time ([place] & [place]) FINAL REPORT CT OF THE BRAIN WITHOUT CONTRAST: FINDINGS/IMPRESSION: I agree with the findings and impression given in the preliminary report per [facility] physician. No jonas dence of acute intracranial abnormality. POS: [facility]
--- NOTE | 2017-05-01 07:48 | CT ---
PRELIMINARY REPORT/[facility]/EMERGENCY AFTER HOURS PROCEDURE: EXAM: CT Cervical Spine Without Intravenous Contrast CLINICAL HISTORY: 31 years old, female; Injury or trauma; Fall; Initial encounter; Abrasion; Patient HX: Pt [place], hit head and neck. C/O head and neck pain. Unk loc. Unk reason for fall. TECHNIQUE: Axial computed tomography images of the cervical spine without intravenous contrast. Coronal and sagittal reformatted images were created and reviewed. COMPARISON: No relevant prior studies available. FINDINGS: Vertebrae: Unremarkable. No acute fracture. Discs/spinal canal/neural foramina: No acute findings. No spinal canal stenosis. Soft tissues: Unremarkable. Lung apices: Unremarkable as visualized. IMPRESSION: No definite acute cervical fracture Thank you for allowing us to participate in the care of your patient. Dictated and Authenticated by: Axel Narayan MD 05/01/2017 5:43 AM Central Time ([place] & [place]) FINAL REPORT EMERGENT AFTER HOURS CT CERVICAL SPINE WITHOUT CONTRAST: FINDINGS/IMPRESSION: I agree with the findings and impression given in the preliminary report per [facility] physician. No jonas dence of acute osseous abnormality of the cervical spine. POS: [facility]
[2017-05-01] MEDS ORDERED: Potassium Chloride 20 MEQ TAB ONE (07:56)
[2017-05-01 08:02] LABS: Bilirubin Negative (Negative); Blood, Urine Negative (Negative); Clarity CLOUDY (Clear); Glucose, Urine (Dipstick) 500 mg/dL (Negative); Leukocyte Negative (Negative); Nitrite Negative (Negative); Protein, Urine (Dipstick) 300 mg/dL (Neg-Trace); Specific Gravity, Urine 1.021 (1.002-1.036); Urobilinogen 0.2 mg/dL (0.2-1.0)
[2017-05-01 08:04] LABS: RBC/HPF 0-3 HPF (0-3)
--- NOTE | 2017-05-01 08:04 | ULT ---
BILATERAL LOWER EXTREMITY VENOUS DOPPLER: History Fall. Elevated D-dimer. COMPARISON: 10/18/11. FINDINGS: The bilateral common femoral, femoral, proximal portion of greater saphenous and deep femoral vein as well as the popliteal and posterior tibial veins were interrogated. Normal flow, augmentation, and compression. No deep venous thrombosis. IMPRESSION: No deep venous thrombosis. POS: [facility]
[2017-05-01 08:15] LABS: Pathc Cast-AUWi Flag 2.57 (0-2.49)
[2017-05-01 08:16] LABS: Pregnancy Test - Urine (BHCG) Negative (Negative); Pregu Control Background? CLEAR/WHITE (CLR/WHITE); Pregu Control Bar Appear? YES (CONTROL BAR); Specific Gravity 1.021 (1.002-1.036)
[2017-05-01 08:17] LABS: Amphetamine Detected (NotDetected); Barbiturates Screen Not Detected (NotDetected); Benzodiazepine Screen Detected (NotDetected); Cocaine Metabolite Screen Not Detected (NotDetected); Medtox Control Line Valid? VALID (VALID); Medtox Reader # READER 1; Methadone Not Detected (NotDetected); Methamphetamine Detected (NotDetected); Opiate Screen Not Detected (NotDetected); Oxycodone Screen Not Detected (NotDetected); Phencyclidine (PCP) Not Detected (NotDetected); THC/Cannabinoid Screen Detected (NotDetected); Tricyclic Screen Not Detected (NotDetected)
[2017-05-01 08:42] LABS: Manual Microscopic Reviewed? No Path Casts Seen
[2017-05-01 08:43] LABS: Bacteria/HPF 1+ HPF (None Seen); Hyaline Casts/LPF 4-6 HYALINE CAST LPF (0-3 Hyaline); Renal Epithelial None Seen HPF (0-3)
== END 2017-05-01 09:00 | disposition home or self-care (01) ==
LOC: ERS 04:38
DX: S16.1XXA Strain of muscle, fascia and tendon at neck level, initial encounter (principal); E87.6 Hypokalemia; E86.0 Dehydration; F19.10 Other psychoactive substance abuse, uncomplicated; E10.9 Type 1 diabetes mellitus without complications; E78.5 Hyperlipidemia, unspecified; F41.9 Anxiety disorder, unspecified; F31.9 Bipolar disorder, unspecified; Z71.6 Tobacco abuse counseling; F17.210 Nicotine dependence, cigarettes, uncomplicated; W19.XXXA Unspecified fall, initial encounter
CPT/HCPCS: 36415; 51701; 70450; 71045; 72125; 80053; 80306; 80307; 81003; 81015; 81025; 82553; 83690; 84443; 84484; 85025; 85379; 87086; 93005; 93970; 96361; 96374; 96375; 96376; 99406; J0360; J1200; J1885; J2765

== ENCOUNTER 2017-05-03 16:50 | Inpatient (IN) | payer SELFPAY ==
[2017-05-03] MEDS ORDERED: Ondansetron HCl/PF 4 MG/2 ML Vial ONE (16:58)
[2017-05-03 17:18] LABS: #Basophils 0.1 thou/uL (0.0-0.2); #Lymphocytes 1.6 thou/uL (1.20-3.40); #Monocytes 0.5 thou/uL (0.11-0.59); #Neutrophils 11.5 thou/uL (1.40-6.50); %Basophils 0.4 % (0.0-1.0); %Eosinophils 0.2 % (0.0-10.0); %Lymphocytes 11.5 % (21.0-51.0); %Monocytes 3.5 % (0.0-10.0); %Neutrophils 84.4 % (42.0-75.0); Hemoglobin 13.3 g/dL (12.0-16.0); Mean Corpuscular HGB CONC 32.2 g/dL (32.0-36.0); Mean Corpuscular Hemoglobin 25.7 pg (27.0-31.0); Mean Corpuscular Volume 79.8 fl (81.0-99.0); Mean Platelet Volume 8.9 fL (7.4-10.4); Platelet Count 465 thou/uL (130-400); Red Blood Cell (RBC) Count 5.17 mill/uL (4.20-5.40); White Blood Cell (WBC) Count 13.6 thou/uL (4.8-10.8)
[2017-05-03] MEDS ORDERED: hydrALAZINE 20 MG/ML VIAL ONE ×2 (17:26→18:26)
[2017-05-03 17:41] LABS: ALT (SGPT) 12 U/L (8-55); AST (SGOT) 12 U/L (5-34); Albumin 4.4 g/dL (3.5-5.0); Alkaline Phosphatase 131 U/L (40-150); Anion Gap 19 mmol/L (10-20); BUN (Urea Nitrogen) 20 mg/dL (7.0-18.7); Bilirubin, Total 0.5 mg/dL (0.2-1.2); CK (CPK) 55 U/L (29-168); Calc. Creatinine Clearance 0 mL/min (70-130); Calcium 10.6 mg/dL (7.8-10.44); Carbon Dioxide 30 mmol/L (22-29); Chloride 89 mmol/L (98-107); Estimated GFR-MDRD 44; Globulin 4.4 g/dL (2.4-3.5); Glucose 368 mg/dL (70-105); Lipase 15 U/L (8-78); Protein, Total 8.8 g/dL (6.0-8.3); Sodium 135 mmol/L (136-145)
[2017-05-03 17:44] LABS: CKMB 2.3 ng/mL (0-6.6); Troponin I 0.252 ng/mL (< 0.028)
[2017-05-03 17:53] LABS: Potassium 2.9 mmol/L (3.5-5.1)
[2017-05-03] MEDS ORDERED: Promethazine HCl 25 MG/ML VIAL ONE (17:55)
[2017-05-03 18:08] LABS: BHCG - Serum Negative (NEGATIVE); Pregs Control Background? CLEAR/WHITE (CLR/WHITE); Pregs Control Bar Appear? YES (CONTROL BAR)
[2017-05-03 18:25] LABS: Acetaminophen Less than 6.0 mcg/mL (10.0-30.0); Alcohol Less than 10 mg/dL (Less than 10); Salicylate Less than 8.0 mg/dL (15.0-30.0)
--- NOTE | 2017-05-03 18:30 | RAD ---
PORTABLE AP CHEST X-RAY 05/03/17 HISTORY: Nausea and vomiting. Patient vomiting blood. COMPARISON: 05/01/17 FINDINGS: The cardiac silhouette and pulmonary vasculature are within normal limits. The lungs remain clear. th ere has been no interval change from prior study. IMPRESSION: No acute cardiopulmonary process. POS: [facility]
[2017-05-03] MEDS ORDERED: Potassium Chloride 40 MEQ in Sodium Chloride 0.9% 500 ML IVPB SCH (18:45)
[2017-05-03] MEDS ORDERED: Pantoprazole 40 MG VIAL ONE (18:49)
[2017-05-03] MEDS ORDERED: Acetaminophen 325 MG TAB PO PRN (20:05)
[2017-05-03] MEDS ORDERED: Ondansetron ODT 4 MG TAB SL PRN (20:05)
[2017-05-03] MEDS ORDERED: cloNIDine 0.1 MG TAB PO PRN (20:13)
[2017-05-03] MEDS ORDERED: Dextrose 50% Abboject 50 ML SYRINGE SLOW IVP PRN (20:18)
[2017-05-03] MEDS ORDERED: Dextrose 5% in Water 1,000 ML IV PRN (20:18)
[2017-05-03] MEDS ORDERED: hydrALAZINE 20 MG/ML VIAL SLOW IVP PRN (20:28)
[2017-05-03] MEDS ORDERED: Lorazepam 2 MG/ML VIAL SLOW IVP PRN (20:28)
[2017-05-03] MEDS ORDERED: NIFEdipine XL 90 MG TAB PO SCH (20:30)
[2017-05-03] MEDS ORDERED: Famotidine 20 MG TAB PO SCH (20:30)
[2017-05-03] MEDS ORDERED: Carvedilol 25 MG TAB PO SCH (20:30)
[2017-05-03] MEDS: Heparin 5,000 UNITS/ML VIAL SC SCH (20:35)
[2017-05-03] MEDS: Pantoprazole 40 MG VIAL IVP SCH (20:35)
[2017-05-03] MEDS: Gabapentin 100 MG CAP PO SCH (20:35)
[2017-05-03 20:51] VITALS: BMI 20.2
[2017-05-03 20:55] LABS: Acetaminophen Less than 6.0 mcg/mL (10.0-30.0); Albumin 3.9 g/dL (3.5-5.0); Alcohol Less than 10 mg/dL (Less than 10); Anion Gap 18 mmol/L (10-20); BUN (Urea Nitrogen) 19 mg/dL (7.0-18.7); BUN/Creatinine Ratio 13.48; Calc. Creatinine Clearance 52 mL/min (70-130); Calcium 9.5 mg/dL (7.8-10.44); Carbon Dioxide 26 mmol/L (22-29); Chloride 95 mmol/L (98-107); Estimated GFR-MDRD 53; Glucose 363 mg/dL (70-105); Phosphorus 2.8 mg/dL (2.3-4.7); Potassium 3.1 mmol/L (3.5-5.1); Salicylate Less than 8.0 mg/dL (15.0-30.0); Sodium 136 mmol/L (136-145)
[2017-05-03 20:59] LABS: Troponin I 0.154 ng/mL (< 0.028)
[2017-05-03] MEDS: Sodium Chloride 0.9% 1,000 ML IV SCH (21:08)
[2017-05-03] MEDS: HumaLOG 300 UNITS/3 ML VIAL SC PRN (21:14)
[2017-05-03] MEDS: Ondansetron HCl/PF 4 MG/2 ML Vial IVP PRN (23:27)
[2017-05-03 23:47] LABS: CO2 Tension 38.1 mmHg (35.0-45.0); O2 Tension (PaO2) 101.3 mmHg (80.0-100.0); pH, Arterial 7.48 (7.35-7.45)
[2017-05-03 23:48] LABS: Base Excess (BEa) 4.3 mEq/L (0 (+/-) 2.5); Hematocrit-ABG 32.9 % (36.0-47.0); Hemoglobin (Hb) 9.1 g/dL (12.0-16.0)
[2017-05-03 23:49] LABS: Calcium, Ionized 1.2 mmol/L (1.12-1.30)
[2017-05-03 23:50] LABS: Puncture Site RR
[2017-05-04 00:20] LABS: Troponin I 0.194 ng/mL (< 0.028)
[2017-05-04 02:51] LABS: Hemoglobin 11.3 g/dL (12.0-16.0); Lymphocytes 7 % (21-51); MDiff Complete? YES; Mean Corpuscular HGB CONC 34.2 g/dL (32.0-36.0); Mean Corpuscular Hemoglobin 27.6 pg (27.0-31.0); Mean Corpuscular Volume 80.7 fl (81.0-99.0); Mean Platelet Volume 8.6 fL (7.4-10.4); Monocytes 3 % (0-10); Neutrophil 90 % (42-75); Platelet Count 374 thou/uL (130-400); RBC Distribution Width 12.8 % (11.5-14.5); Red Blood Cell (RBC) Count 4.11 mill/uL (4.20-5.40)
[2017-05-04 02:53] LABS: Anion Gap 14 mmol/L (10-20); BUN (Urea Nitrogen) 20 mg/dL (7.0-18.7); Calc. Creatinine Clearance 54 mL/min (70-130); Calcium 9.2 mg/dL (7.8-10.44); Carbon Dioxide 26 mmol/L (22-29); Chloride 100 mmol/L (98-107); Estimated GFR-MDRD 55; Glucose 214 mg/dL (70-105); Potassium 3.5 mmol/L (3.5-5.1); Sodium 136 mmol/L (136-145)
[2017-05-04 02:58] LABS: Troponin I 0.249 ng/mL (< 0.028)
[2017-05-04] MEDS: Ondansetron HCl/PF 4 MG/2 ML Vial IVP PRN (06:25)
[2017-05-04] MEDS: Sodium Chloride 0.9% 1,000 ML IV SCH ×2 (06:31→12:58)
[2017-05-04] MEDS: Carvedilol 25 MG TAB PO SCH ×2 (08:04→17:28)
[2017-05-04] MEDS: Heparin 5,000 UNITS/ML VIAL SC SCH ×3 (08:04→20:03)
[2017-05-04] MEDS: Pantoprazole 40 MG VIAL IVP SCH ×2 (08:04→20:04)
[2017-05-04] MEDS: NIFEdipine XL 90 MG TAB PO SCH (08:04)
[2017-05-04 08:31] LABS: Anion Gap 11 mmol/L (10-20); BUN (Urea Nitrogen) 18 mg/dL (7.0-18.7); Calc. Creatinine Clearance 53 mL/min (70-130); Carbon Dioxide 25 mmol/L (22-29); Chloride 102 mmol/L (98-107); Estimated GFR-MDRD 54; Glucose 247 mg/dL (70-105); Potassium 3.3 mmol/L (3.5-5.1); Sodium 135 mmol/L (136-145)
[2017-05-04 08:32] LABS: Troponin I 0.212 ng/mL (< 0.028)
[2017-05-04 08:45] LABS: #Basophils 0.1 thou/uL (0.0-0.2); #Lymphocytes 2.6 thou/uL (1.20-3.40); #Monocytes 0.6 thou/uL (0.11-0.59); #Neutrophils 13.4 thou/uL (1.40-6.50); %Basophils 0.4 % (0.0-1.0); %Eosinophils 0.2 % (0.0-10.0); %Lymphocytes 15.6 % (21.0-51.0); %Monocytes 3.4 % (0.0-10.0); %Neutrophils 80.4 % (42.0-75.0); Hemoglobin 10.9 g/dL (12.0-16.0); Mean Corpuscular HGB CONC 33.2 g/dL (32.0-36.0); Mean Corpuscular Volume 81.5 fl (81.0-99.0); Mean Platelet Volume 8.8 fL (7.4-10.4); PLT Morphology Comment Appears Adequate; Platelet Count 359 thou/uL (130-400); RBC Morphology Normal; Red Blood Cell (RBC) Count 4.02 mill/uL (4.20-5.40); White Blood Cell (WBC) Count 16.7 thou/uL (4.8-10.8)
[2017-05-04] MEDS ORDERED: Famotidine 20 MG TAB PO SCH (09:00)
[2017-05-04] MEDS: HumaLOG 300 UNITS/3 ML VIAL SC PRN ×3 (09:36→20:05)
[2017-05-04] MEDS ORDERED: Ondansetron HCl/PF 4 MG/2 ML Vial IVP PRN (10:20)
--- NOTE | 2017-05-04 11:26 | PDOC.PN ---
- Subjective Encounter Start Date: 05/04/17 Encounter Start Time: 11:21 Subjective: nsg notes rev, ev ovn, pt states she feels better but she is angry because -: she is hungry and not eating. she state sshe was vomiting blood yesterday -: prior to ER visit - Objective Resuscitation Status: Resuscitation Status FULL:Full Resuscitation Vital Signs & Weight: Vital Signs (12 hours) Temp Pulse Resp BP BP Pulse Ox 05/04/17 08:04 116 H 05/04/17 07:33 98.5 F 116 H 16 97 05/04/17 07:32 98.5 F 116 H 16 123/79 97 05/04/17 03:20 98.2 F 112 H 18 120/75 99 05/03/17 23:57 98.2 F 114 H 20 111/77 99 Weight Admit Weight 125 lb 4 oz Weight 125 lb 4 oz I&O: 05/03/17 05/04/17 05/05/17 06:59 06:59 06:59 Intake Total 1425 Balance 1425 Result Diagrams: 05/04/17 07:51 05/04/17 07:51 Additional Labs: Accuchecks 05/04/17 05/04/17 05/04/17 09:50 06:03 02:13 POC Glucose 239 H 252 H 192 H 05/04/17 05/03/17 00:05 21:03 POC Glucose 167 H 341 H Phys Exam - Physical Examination Constitutional: NAD HEENT: PERRLA, sclera anicteric, oral pharynx no lesions slightly dry mm Respiratory: no wheezing, no rales, no rhonchi, clear to auscultation bilateral Cardiovascular: RRR, no significant murmur, no rub Gastrointestinal: soft, positive bowel sounds Musculoskeletal: no edema, pulses present Psychiatric: A&O x 3 Deviation from normal: tearful affect during visit Skin: normal turgor, cap refill <2 seconds Dx/Plan - Plan * concern for upper GIB * known hx of esophagitis * had been having nausea and retching * serial CBC, IVF NS @150cc/hr, close I/O, protonix 40mg IV BID * apprec GI c/s elevated troponins in the setting of polysub abuse * apprec cardiology c/s * has been hemodynamically stable * d/w pt need for medication compliance with her outpt regimen polysub abuse * cessation counseling provided; pt is pre-contemplative DM1 concern for hyperglycemia continue SSI while variable PO intake continue IVF diet: NPO activity: as tracee Greater than 30 minutes spent at bedside including reviewing POC and risk for leaving AMA without complete medical attention. Also d/w w/ pt our concern regarding her continued self neglect of medications and polysubstance abuse. Review of Systems - Medications/Allergies Allergies/Adverse Reactions: Allergies Allergy/AdvReac Type Severity Reaction Status Date / Time No Known Drug Allergies Allergy Verified 04/19/17 03:24 Medications: Current Medications Carvedilol (Coreg) 25 mg PO BID-[facility] Last Admin: 05/04/17 08:04 Dose: 25 mg Clonidine (Catapres) 0.1 mg PO Q4H PRN PRN Reason: Systolic BP > 160 Dextrose/Water (Dextrose 50%) 25 gm SLOW IVP PRN PRN PRN Reason: Hypoglycemia Gabapentin (Neurontin) 100 mg PO HS [facility] Last Admin: 05/03/17 20:35 Dose: 100 mg Glucagon (Glucagon) 1 mg IM PRN PRN PRN Reason: Hypoglycemia Heparin Sodium (Porcine) (Heparin) 5,000 units SC TID [facility] Last Admin: 05/04/17 08:04 Dose: 5,000 units Hydralazine HCl (Apresoline) 10 mg SLOW IVP Q4H PRN PRN Reason: Hypertension Dextrose/Water (D5w) 1,000 mls @ 0 mls/hr IV .Q0M PRN; As Directed PRN Reason: Hypoglycemia Sodium Chloride (Normal Saline 0.9%) 1,000 mls @ 150 mls/hr IV .Q6H40M [facility] Last Admin: 05/04/17 06:31 Dose: 1,000 mls Meropenem 1 gm/ Sterile Water 20 mls @ 240 mls/hr SLOW IVP 0400,1200,2000 [facility] Insulin Human Lispro (Humalog) 0 units SC .MODERATE SLIDING SC PRN PRN Reason: Moderate Correctional Scale Last Admin: 05/04/17 09:36 Dose: 6 unit Lorazepam (Ativan) 0.5 mg SLOW IVP Q6H PRN PRN Reason: Anxiety/Agitation Nifedipine (Procardia Xl) 90 mg PO DAILY [facility] Last Admin: 05/04/17 08:04 Dose: 90 mg Ondansetron HCl (Zofran) 4 mg IVP Q6H PRN PRN Reason: Nausea/Vomiting Pantoprazole Sodium (Protonix) 40 mg IVP Q12HR [facility] Last Admin: 05/04/17 08:04 Dose: 40 mg Sodium Chloride (Flush - Normal Saline) 10 ml IV Q12HR [facility] Last Admin: 05/04/17 08:04 Dose: 10 ml
--- NOTE | 2017-05-04 12:28 | CON ---
DATE OF CONSULTATION: 05/04/2017 HISTORY OF PRESENT ILLNESS: The patient is a 31-year-old woman who presents for evaluation of nausea, vomiting, and hematemesis. The patient has no previous cardiac history. She states that she has a long history of hypertension. The patient has a history of noncompliance and substance abuse. She presented with nausea and vomiting. She reports having substernal chest pain whenever she nauseated and dehydrated PAST MEDICAL HISTORY: 1. Diabetes mellitus. 2. Hypertension. 3. Bipolar disorder. PAST SURGICAL HISTORY: Appendectomy and . SOCIAL HISTORY: Long history of drug abuse and uses tobacco. MEDICATIONS: Noncompliant. ALLERGIES: None. PHYSICAL EXAMINATION: GENERAL: Thin woman, in mild distress. VITAL SIGNS: Blood pressure 123/79. NECK: No jugular venous distention. LUNGS: Clear to auscultation. HEART: Regular rate and rhythm, normal S1, S2, no murmurs. ABDOMEN: Nondistended. EXTREMITIES: No edema. NEUROLOGIC: Nonfocal. VASCULAR: Radial pulses 2+. LABORATORY RESULTS: Sodium 135, potassium 3.3, chloride 102, bicarbonate 25, BUN 18, creatinine 1.37. White blood cell count 16.7, hemoglobin 10.9, hematocrit 32.8 and her troponin is 0.212. Her EKG revealed her to have sinus tachycardia, voltage criteria for LVH, nonspecific ST abnormality. IMPRESSION: 1. Hypertensive crisis. 2. Diabetes mellitus. 3. Renal insufficiency. 4. Hematemesis. 5. Drug abuse. 6. Noncompliance. This patient presents with hypertensive crisis. Her troponin is indeterminate. The life threatening consequences of the patient continuing to use drugs has been explained to her. The consequences of her noncompliance with medications also have been explained. The patient is undergoing a GI evaluation and the patient is agreeable. I would recommend outpatient stress testing after she is released from the hospital. We will follow this patient with you. ELZA
[2017-05-04] MEDS: Meropenem 1 GM in Sterile Water 20 ML SLOW IVP SCH ×2 (12:41→20:03)
[2017-05-04] MEDS: Dextrose 5 % And 0.9 % NaCl 1,000 ML IV SCH ×2 (12:58→17:29)
[2017-05-04] MEDS ORDERED: Meropenem 1 GM in Sodium Chloride 0.9% 100 ML IVPB SCH (14:00)
[2017-05-04 17:47] LABS: Bilirubin Negative (Negative); Blood, Urine Negative (Negative); Clarity CLEAR (Clear); Glucose, Urine (Dipstick) >=1000 mg/dL (Negative); Leukocyte Small (Negative); Nitrite Negative (Negative); Protein, Urine (Dipstick) 100 mg/dL (Neg-Trace); Specific Gravity, Urine 1.024 (1.002-1.036); Urobilinogen 0.2 mg/dL (0.2-1.0); pH, Urine 5.5 (5.0-9.0)
[2017-05-04 17:48] LABS: Bacteria/HPF Rare-Few HPF (None Seen); Hyaline Casts/LPF 0-3 HYALINE CAST LPF (0-3 Hyaline); RBC/HPF 0-3 HPF (0-3); Squamous Epithelial 0-3 HPF (0-3)
--- NOTE | 2017-05-04 17:48 | HP ---
PRIMARY CARE PHYSICIAN: The patient has no PCP. CHIEF COMPLAINT: Abdominal pain. HISTORY OF PRESENT ILLNESS: This is a 31-year-old female with a known history of frequent admissions due to medication noncompliance for her known type 1 diabetes, and active history of drug use, who complains of acute onset of abdominal pain earlier today after breakfast. The patient is otherwise reluctant to give a history despite family members at bedside and so the ability to obtain a history is very fragmented. The patient does not voluntarily provide a history and only answers part of the review of systems as below. The patient is oriented x3. REVIEW OF SYSTEMS: As noted above, limited ability to obtain a physical examination. The patient is reluctant to converse, repeatedly states that her abdomen hurts. After several requests, she finally localizes the abdominal pain to her generalized epigastrium area. The patient denies any diarrhea or constipation issues. She endorses having vomited earlier this morning with material, possibly including some blood. The patient endorses significant amount of nausea as well. PAST MEDICAL HISTORY: As per above includes the following: Type 1 diabetes, hypertension, hyperlipidemia, bipolar disorder, drug abuse. PAST SURGICAL HISTORY: 1. EGD in 02/2017 demonstrating small ulcer with mild esophagitis. 2. Status post appendectomy. 3. Status post . 4. Status post tonsillectomy. This was all obtained from prior records as the patient is not able to provide much of a history. HOME MEDICATIONS: Please see the EMR for full details. Of note, the patient was recently discharged approximately 1 week ago and has a known history of medication noncompliance unfortunately. ALLERGIES: No known drug allergies. FAMILY HISTORY: No known family history of gastrointestinal issues including cancer, recurrent gastritis, ulcers, or any ulcerative process. The patient was unable to provide this history. This was discussed with her mother and grandmother at bedside. SOCIAL HISTORY: The patient has known history of abuse of multiple illegal substances. The patient denies any alcohol, denies any history of withdrawals, and denies any tobacco use at this point. PHYSICAL EXAMINATION: GENERAL: The patient is awake, oriented x3. HEENT: Slightly dry mucous membranes. Equal ocular motions are intact. No posterior oropharyngeal erythema or exudate noted. Full examination is difficult to obtain as the patient is not particularly cooperative and frequently turns and is not compliant with directional request. CARDIOVASCULAR: S1, S2. No overt murmurs, rubs, or gallops. Pulses 2+ bilaterally. EXTREMITIES: No pitting pedal edema. RESPIRATORY: Clear to auscultation, but as noted above the patient is not participating with examination at this point in time. ABDOMEN: Positive bowel sounds. Soft. The patient does not particularly appear to be tender to palpation in any particular quadrants. MUSCULOSKELETAL: Moving all 4 extremities. LABORATORY DATA AND IMAGING: WBC 16.7, hemoglobin 10.9, hematocrit 32.8, platelets 359, neutrophil percentage 80. Sodium 135, potassium 2.9, chloride 89 , carbon dioxide 30, BUN 20, creatinine 1.64, glucose 360, calcium 10.6, troponin 0.252, serum total protein 8.8. Beta-hydroxybutyrate 1.21. ASSESSMENT AND PLAN: 1. This is a 31-year-old female who presents with abdominal pain. Differential also include hyperglycemia versus unknown gastrointestinal process. The patient recently had an EGD as noted above. We will continue to trend the patient's hemoglobin along with hydrating the patient for possibility of an upper gastrointestinal bleed. In regards to the patient's diabetes, this patient has a known history of medication noncompliance. We will obtain ABG to determine degree of acidosis. Otherwise, continue with IV fluid hydration, insulin regimen, and close monitoring of her serum glucose levels. If there is failure of resolution of abdominal pain with empiric treatment of hyperglycemia , I will consider CT of the abdomen as well. 2. Known polysubstance abuse, unclear if this could be related to any overt ingestions. Pending drug screen. 3. Hypokalemia. On repletion as well as monitoring as the patient will be given insulin with expected hypokalemia from insulin administration. 4. Elevated troponin, likely type 2 in nature. We will trend the troponin and obtain an EKG. 5. Concern for self-reported episode of blood in emesis earlier today. 6. Gastrointestinal consultation. Protonix for her known history of esophagitis. The patient is FULL CODE admitted to inpatient telemetry. Thank you for asking me to participate in the care of this patient. Questions or concerns, contact me at [facility]– [place]. ELZA
[2017-05-04] MEDS ORDERED: Metoclopramide HCl 10 MG/2 ML VIAL IVP SCH (18:15)
--- NOTE | 2017-05-04 18:51 | CON ---
DATE OF CONSULTATION: 05/04/2017 HISTORY OF PRESENT ILLNESS: The patient is a 31-year-old -[place] female, who was in her [facility] state of health until yesterday when she developed severe nausea and vomiting. This was soon fol lowed by some streaked emesis and she sought treatment in the emergency room. She has lost a large a mount of weight, approximately 15-20 pounds. She denies any melena or hematochezia. She underwent a n endoscopy by Dr. Fragoso on 02/26/2017 that showed an esophageal ulcer. Biopsies showed changes of esophagitis. She does report a previous gastric emptying scan, but I do not see any record of thi s. She is unsure whether she has been on Reglan in the past. PAST MEDICAL HISTORY: Includes diabetes since 2004, hypertension, and bipolar disorder. PAST SURGICAL HISTORY: Includes , appendectomy. SOCIAL HISTORY: She does smoke. No alcohol. Previous drug screens have been positive for opiates a nd cannabinoids. ALLERGIES: No known medical allergies. HOME MEDICATIONS: Include nifedipine 90 mg p.o. daily, metoprolol 50 mg p.o. b.i.d., insulin, hydroc hlorothiazide 25 mg p.o. daily, gabapentin 900 mg p.o. at bedtime, Pepcid 20 mg p.o. every day, and C oreg 25 mg p.o. b.i.d. FAMILY HISTORY: Negative. REVIEW OF SYSTEMS: Negative except for above. PHYSICAL EXAMINATION: GENERAL: Shows a thin -[place]ian female, in no acute distress. HEENT: Unremarkable. NECK: Supple. CHEST: Clear. CARDIOVASCULAR: Regular rate and rhythm. ABDOMEN: Soft and nontender without organomegaly or masses. Bowel sounds present and normoactive. RECTAL: Deferred. EXTREMITIES: Normal. NEUROLOGIC: Nonfocal. LABORATORY DATA: Shows a white blood cell count of 20.0, hemoglobin 11.3, hematocrit 33.2. Repeat h emoglobin showed 10.9, hematocrit was 32.8. Chemistry shows sodium 135, potassium 3.3, creatinine 1. 37, glucose 247. Serum is negative. Urinalysis showed greater than 50 wbc's. ASSESSMENT: 1. Persistent nausea and vomiting. 2. History of esophageal ulcer. 3. Hematemesis - suspect the patient had a large amount of blood loss from her blood tinge emesis. 4. Diabetes mellitus. 5. Substance abuse. RECOMMENDATIONS: 1. Continue PPIs. 2. Short course of Reglan while in the hospital. 3. Begin diet. 4. Outpatient gastric emptying scan. 5. Avoid narcotics and marijuana use as outpatient.
[2017-05-04] MEDS: Gabapentin 100 MG CAP PO SCH (20:04)
[2017-05-04 20:53] LABS: #Lymphocytes 2.1 thou/uL (1.20-3.40); #Monocytes 0.5 thou/uL (0.11-0.59); #Neutrophils 7.4 thou/uL (1.40-6.50); %Basophils 0.4 % (0.0-1.0); %Eosinophils 0.2 % (0.0-10.0); %Lymphocytes 21.1 % (21.0-51.0); %Monocytes 4.9 % (0.0-10.0); %Neutrophils 73.4 % (42.0-75.0); Hemoglobin 9.2 g/dL (12.0-16.0); Mean Corpuscular HGB CONC 32.8 g/dL (32.0-36.0); Mean Corpuscular Hemoglobin 27.1 pg (27.0-31.0); Mean Corpuscular Volume 82.5 fl (81.0-99.0); Mean Platelet Volume 8.8 fL (7.4-10.4); Platelet Count 291 thou/uL (130-400); RBC Distribution Width 12.8 % (11.5-14.5); Red Blood Cell (RBC) Count 3.38 mill/uL (4.20-5.40); White Blood Cell (WBC) Count 10.1 thou/uL (4.8-10.8)
[2017-05-04 21:11] LABS: Anion Gap 10 mmol/L (10-20); BUN (Urea Nitrogen) 14 mg/dL (7.0-18.7); Calc. Creatinine Clearance 49 mL/min (70-130); Calcium 7.9 mg/dL (7.8-10.44); Carbon Dioxide 23 mmol/L (22-29); Chloride 101 mmol/L (98-107); Estimated GFR-MDRD 49; Glucose 488 mg/dL (70-105); Potassium 3.3 mmol/L (3.5-5.1); Sodium 131 mmol/L (136-145)
[2017-05-04] MEDS: Metoclopramide HCl 10 MG/2 ML VIAL IVP SCH (23:51)
[2017-05-05 02:30] LABS: #Lymphocytes 2.5 thou/uL (1.20-3.40); #Monocytes 0.6 thou/uL (0.11-0.59); %Basophils 0.5 % (0.0-1.0); %Eosinophils 0.5 % (0.0-10.0); %Lymphocytes 26.8 % (21.0-51.0); %Neutrophils 66.2 % (42.0-75.0); Hemoglobin 9.6 g/dL (12.0-16.0); Mean Corpuscular HGB CONC 33.2 g/dL (32.0-36.0); Mean Corpuscular Hemoglobin 27.3 pg (27.0-31.0); Mean Corpuscular Volume 82.3 fl (81.0-99.0); Mean Platelet Volume 8.3 fL (7.4-10.4); Platelet Count 308 thou/uL (130-400); RBC Distribution Width 12.8 % (11.5-14.5); Red Blood Cell (RBC) Count 3.51 mill/uL (4.20-5.40); White Blood Cell (WBC) Count 9.1 thou/uL (4.8-10.8)
[2017-05-05 02:57] LABS: Anion Gap 9 mmol/L (10-20); BUN (Urea Nitrogen) 15 mg/dL (7.0-18.7); Calc. Creatinine Clearance 51 mL/min (70-130); Calcium 8.5 mg/dL (7.8-10.44); Carbon Dioxide 27 mmol/L (22-29); Chloride 102 mmol/L (98-107); Estimated GFR-MDRD 52; Glucose 170 mg/dL (70-105); Potassium 3.5 mmol/L (3.5-5.1); Sodium 134 mmol/L (136-145)
[2017-05-05] MEDS: Meropenem 1 GM in Sterile Water 20 ML SLOW IVP SCH ×2 (04:56→12:35)
[2017-05-05] MEDS: Metoclopramide HCl 10 MG/2 ML VIAL IVP SCH ×3 (04:57→16:03)
[2017-05-05] MEDS: Carvedilol 25 MG TAB PO SCH ×2 (08:00→16:03)
[2017-05-05] MEDS: NIFEdipine XL 90 MG TAB PO SCH (08:00)
[2017-05-05] MEDS: Heparin 5,000 UNITS/ML VIAL SC SCH ×2 (08:01→14:01)
[2017-05-05] MEDS: HumaLOG 300 UNITS/3 ML VIAL SC PRN ×2 (08:02→12:36)
[2017-05-05] MEDS: Pantoprazole 40 MG VIAL IVP SCH (08:02)
[2017-05-05 09:05] LABS: #Basophils 0.1 thou/uL (0.0-0.2); #Eosinphils 0.1 thou/uL (0.0-0.7); #Lymphocytes 2.6 thou/uL (1.20-3.40); #Monocytes 0.5 thou/uL (0.11-0.59); #Neutrophils 4.6 thou/uL (1.40-6.50); %Basophils 1.3 % (0.0-1.0); %Eosinophils 0.8 % (0.0-10.0); %Lymphocytes 33.3 % (21.0-51.0); %Monocytes 5.8 % (0.0-10.0); %Neutrophils 58.7 % (42.0-75.0); Hemoglobin 9.3 g/dL (12.0-16.0); Mean Corpuscular HGB CONC 33.1 g/dL (32.0-36.0); Mean Corpuscular Hemoglobin 27.1 pg (27.0-31.0); Mean Corpuscular Volume 81.8 fl (81.0-99.0); Mean Platelet Volume 8.5 fL (7.4-10.4); Platelet Count 325 thou/uL (130-400); RBC Distribution Width 12.9 % (11.5-14.5); Red Blood Cell (RBC) Count 3.45 mill/uL (4.20-5.40); White Blood Cell (WBC) Count 7.9 thou/uL (4.8-10.8)
[2017-05-05 09:18] LABS: Anion Gap 8 mmol/L (10-20); BUN (Urea Nitrogen) 14 mg/dL (7.0-18.7); Calc. Creatinine Clearance 54 mL/min (70-130); Calcium 8.5 mg/dL (7.8-10.44); Carbon Dioxide 27 mmol/L (22-29); Chloride 104 mmol/L (98-107); Estimated GFR-MDRD 56; Glucose 209 mg/dL (70-105); Potassium 3.4 mmol/L (3.5-5.1); Sodium 136 mmol/L (136-145)
--- NOTE | 2017-05-05 11:36 | PRG ---
DATE OF SERVICE: 05/05/2017 SUBJECTIVE: The patient is on full liquids and seems to be tolerating that well without any further vomiting. She has not had any bowel movements as of today. OBJECTIVE: VITAL SIGNS: Temperature 98.4, pulse 98, respiratory rate 16, and blood pressure 174/104. CHEST: Clear. CARDIOVASCULAR: Regular rate and rhythm. ABDOMEN: Soft, nontender. LABORATORY DATA: Shows hemoglobin 9.3, hematocrit 28.2. Chemistries significant for glucose 209. C reatinine 1.34, potassium 3.4. ASSESSMENT: 1. Hematemesis - resolved. 2. History of esophageal ulcer. 3. Diabetes mellitus with neuropathy. 4. History of substance abuse. RECOMMENDATIONS: 1. Continue PPI. 2. Short course of Reglan. 3. Advance diet. 4. Outpatient gastric emptying scan. 5. Discussed narcotic and marijuana avoidance with the patient.
[2017-05-05 14:46] LABS: #Basophils 0.1 thou/uL (0.0-0.2); #Eosinphils 0.1 thou/uL (0.0-0.7); #Monocytes 0.5 thou/uL (0.11-0.59); #Neutrophils 5.9 thou/uL (1.40-6.50); %Basophils 0.9 % (0.0-1.0); %Eosinophils 0.9 % (0.0-10.0); %Lymphocytes 23.6 % (21.0-51.0); %Monocytes 6.1 % (0.0-10.0); %Neutrophils 68.5 % (42.0-75.0); Hemoglobin 9.9 g/dL (12.0-16.0); Mean Corpuscular HGB CONC 33.6 g/dL (32.0-36.0); Mean Corpuscular Hemoglobin 27.4 pg (27.0-31.0); Mean Corpuscular Volume 81.7 fl (81.0-99.0); Platelet Count 296 thou/uL (130-400); RBC Distribution Width 12.8 % (11.5-14.5); Red Blood Cell (RBC) Count 3.62 mill/uL (4.20-5.40); White Blood Cell (WBC) Count 8.6 thou/uL (4.8-10.8)
[2017-05-05 15:04] LABS: Anion Gap 10 mmol/L (10-20); BUN (Urea Nitrogen) 13 mg/dL (7.0-18.7); Calc. Creatinine Clearance 57 mL/min (70-130); Calcium 8.5 mg/dL (7.8-10.44); Carbon Dioxide 25 mmol/L (22-29); Chloride 101 mmol/L (98-107); Estimated GFR-MDRD 58; Glucose 111 mg/dL (70-105); Potassium 3.3 mmol/L (3.5-5.1); Sodium 133 mmol/L (136-145)
[2017-05-05 16:01] VITALS: BP 118/84; TEMP 98
== END 2017-05-05 18:02 | disposition home or self-care (01) | DRG 378 ==
LOC: ERS 16:50 → 2NO 18:36
PROVIDERS: ADMIT Internal Medicine; ATTEND Internal Medicine
DX: K92.0 Hematemesis (principal); I16.9 Hypertensive crisis, unspecified; E10.42 Type 1 diabetes mellitus with diabetic polyneuropathy; Z91.14 Patient's other noncompliance with medication regimen; I10 Essential (primary) hypertension; E78.5 Hyperlipidemia, unspecified; F31.9 Bipolar disorder, unspecified; F19.10 Other psychoactive substance abuse, uncomplicated; E87.6 Hypokalemia; F17.210 Nicotine dependence, cigarettes, uncomplicated; R11.2 Nausea with vomiting, unspecified; F41.9 Anxiety disorder, unspecified; Z79.4 Long term (current) use of insulin
CPT/HCPCS: 36415; 36416; 71045; 80048; 80053; 80307; 82010; 82550; 82553; 82805; 83605; 83690; 84484; 84703; 85007; 85025; 85027; 87040; 87086; 93005; A4216; C9113; G8978-GP-CH; G8979-GP-CH; G8980-GP-CH; J0360; J1644; J2185; J2405; J2550; J2765; J3480; J7050

== ENCOUNTER 2017-05-07 14:13 | Emergency (ER) | payer SELFPAY ==
[2017-05-07 14:50] LABS: Bilirubin Negative (Negative); Blood, Urine Negative (Negative); Clarity CLEAR (Clear); Glucose, Urine (Dipstick) >=1000 mg/dL (Negative); Leukocyte Negative (Negative); Nitrite Negative (Negative); Protein, Urine (Dipstick) 100 mg/dL (Neg-Trace); Specific Gravity, Urine 1.022 (1.002-1.036); Urobilinogen 0.2 mg/dL (0.2-1.0)
[2017-05-07 14:52] LABS: Bacteria/HPF None Seen HPF (None Seen); Hyaline Casts/LPF 0-3 HYALINE CAST LPF (0-3 Hyaline); RBC/HPF 0-3 HPF (0-3); Squamous Epithelial None Seen HPF (0-3); WBC/HPF 0-3 HPF (0-3)
[2017-05-07 14:53] LABS: Pregnancy Test - Urine (BHCG) Negative (Negative); Pregu Control Background? CLEAR/WHITE (CLR/WHITE); Pregu Control Bar Appear? YES (CONTROL BAR); Specific Gravity 1.022 (1.002-1.036)
[2017-05-07 14:56] LABS: #Basophils 0.1 thou/uL (0.0-0.2); #Eosinphils 0.1 thou/uL (0.0-0.7); #Lymphocytes 1.9 thou/uL (1.20-3.40); #Monocytes 0.4 thou/uL (0.11-0.59); #Neutrophils 9.1 thou/uL (1.40-6.50); %Basophils 0.6 % (0.0-1.0); %Eosinophils 0.5 % (0.0-10.0); %Lymphocytes 16.4 % (21.0-51.0); %Monocytes 3.1 % (0.0-10.0); %Neutrophils 79.3 % (42.0-75.0); Hemoglobin 12.1 g/dL (12.0-16.0); Mean Corpuscular HGB CONC 33.5 g/dL (32.0-36.0); Mean Corpuscular Volume 80.7 fl (81.0-99.0); Mean Platelet Volume 8.6 fL (7.4-10.4); Platelet Count 379 thou/uL (130-400); RBC Distribution Width 12.9 % (11.5-14.5); Red Blood Cell (RBC) Count 4.47 mill/uL (4.20-5.40); White Blood Cell (WBC) Count 11.5 thou/uL (4.8-10.8)
[2017-05-07 15:13] LABS: ALT (SGPT) 11 U/L (8-55); AST (SGOT) 9 U/L (5-34); Albumin 3.9 g/dL (3.5-5.0); Alkaline Phosphatase 121 U/L (40-150); Anion Gap 10 mmol/L (10-20); BUN (Urea Nitrogen) 23 mg/dL (7.0-18.7); Bilirubin, Total 0.2 mg/dL (0.2-1.2); Calc. Creatinine Clearance 0 mL/min (70-130); Calcium 9.6 mg/dL (7.8-10.44); Carbon Dioxide 31 mmol/L (22-29); Chloride 95 mmol/L (98-107); Estimated GFR-MDRD 45; Globulin 3.8 g/dL (2.4-3.5); Glucose 411 mg/dL (70-105); Lipase 44 U/L (8-78); Protein, Total 7.7 g/dL (6.0-8.3); Sodium 132 mmol/L (136-145)
[2017-05-07] MEDS ORDERED: Metoclopramide HCl 10 MG/2 ML VIAL ONE (15:18)
[2017-05-07] MEDS ORDERED: Insulin Regular 300 UNITS/3 ML VIAL ONE (16:20)
== END 2017-05-07 16:34 | disposition home or self-care (01) ==
LOC: ERS 14:13
DX: E10.65 Type 1 diabetes mellitus with hyperglycemia (principal); F12.10 Cannabis abuse, uncomplicated; E78.5 Hyperlipidemia, unspecified; F41.9 Anxiety disorder, unspecified; F31.9 Bipolar disorder, unspecified; F17.210 Nicotine dependence, cigarettes, uncomplicated
CPT/HCPCS: 36415; 36416; 80053; 81003; 81015; 81025; 83690; 85025; 93005; 94760; 96361; 96374; J1815; J2765

== ENCOUNTER 2017-05-09 19:54 | Emergency (ER) | payer MEDICAID, SELFPAY ==
[2017-05-09] MEDS ORDERED: Haloperidol Lactate 5 MG/ML VIAL ONE (20:07)
[2017-05-09 20:41] LABS: #Basophils 0.1 thou/uL (0.0-0.2); #Eosinphils 0.1 thou/uL (0.0-0.7); #Lymphocytes 1.5 thou/uL (1.20-3.40); #Monocytes 0.8 thou/uL (0.11-0.59); #Neutrophils 11.9 thou/uL (1.40-6.50); %Basophils 0.6 % (0.0-1.0); %Eosinophils 0.5 % (0.0-10.0); %Lymphocytes 10.7 % (21.0-51.0); %Monocytes 5.3 % (0.0-10.0); Hemoglobin 10.8 g/dL (12.0-16.0); Mean Corpuscular HGB CONC 34.1 g/dL (32.0-36.0); Mean Corpuscular Hemoglobin 27.2 pg (27.0-31.0); Mean Corpuscular Volume 79.6 fl (81.0-99.0); Platelet Count 318 thou/uL (130-400); RBC Distribution Width 12.8 % (11.5-14.5); Red Blood Cell (RBC) Count 3.99 mill/uL (4.20-5.40); White Blood Cell (WBC) Count 14.4 thou/uL (4.8-10.8)
[2017-05-09 21:00] LABS: ALT (SGPT) 10 U/L (8-55); AST (SGOT) 11 U/L (5-34); Albumin 3.5 g/dL (3.5-5.0); Alkaline Phosphatase 114 U/L (40-150); Anion Gap 14 mmol/L (10-20); BUN (Urea Nitrogen) 21 mg/dL (7.0-18.7); Bilirubin, Total 0.3 mg/dL (0.2-1.2); Calc. Creatinine Clearance 0 mL/min (70-130); Calcium 8.9 mg/dL (7.8-10.44); Carbon Dioxide 26 mmol/L (22-29); Chloride 96 mmol/L (98-107); Estimated GFR-MDRD 45; Globulin 3.3 g/dL (2.4-3.5); Glucose 351 mg/dL (70-105); Protein, Total 6.8 g/dL (6.0-8.3); Sodium 133 mmol/L (136-145)
[2017-05-09 21:05] LABS: Potassium 2.9 mmol/L (3.5-5.1)
[2017-05-09] MEDS ORDERED: Potassium Chloride 20 MEQ TAB ONE (21:52)
[2017-05-09 21:58] LABS: Bilirubin Negative (Negative); Blood, Urine Trace (Negative); Clarity CLEAR (Clear); Glucose, Urine (Dipstick) 500 mg/dL (Negative); Leukocyte Negative (Negative); Nitrite Negative (Negative); Protein, Urine (Dipstick) 100 mg/dL (Neg-Trace); Specific Gravity, Urine 1.019 (1.002-1.036); Urobilinogen 0.2 mg/dL (0.2-1.0)
[2017-05-09 21:59] LABS: Pregnancy Test - Urine (BHCG) Negative (Negative); Pregu Control Background? CLEAR/WHITE (CLR/WHITE); Pregu Control Bar Appear? YES (CONTROL BAR); Specific Gravity 1.019 (1.002-1.036)
[2017-05-09 22:07] LABS: Bacteria/HPF None Seen HPF (None Seen); Hyaline Casts/LPF 0-3 HYALINE CAST LPF (0-3 Hyaline); Pathc Cast-AUWi Flag 0.67 (0-2.49); RBC/HPF 0-3 HPF (0-3); Squamous Epithelial 0-3 HPF (0-3); WBC/HPF 0-3 HPF (0-3)
== END 2017-05-09 22:53 | disposition home or self-care (01) ==
LOC: ERS 19:54
DX: F12.10 Cannabis abuse, uncomplicated (principal); I10 Essential (primary) hypertension; R11.2 Nausea with vomiting, unspecified; E10.43 Type 1 diabetes mellitus with diabetic autonomic (poly)neuropathy; K31.84 Gastroparesis; E78.5 Hyperlipidemia, unspecified; F41.9 Anxiety disorder, unspecified; F31.9 Bipolar disorder, unspecified; F17.210 Nicotine dependence, cigarettes, uncomplicated; Z91.14 Patient's other noncompliance with medication regimen
CPT/HCPCS: 36415; 36416; 51701; 80053; 81003; 81015; 81025; 85025; 93005; 96361; 96374; A4353; J1630

== ENCOUNTER 2017-05-19 03:14 | Emergency (ER) | payer MEDICAID, SELFPAY ==
[2017-05-19] MEDS ORDERED: Haloperidol Lactate 5 MG/ML VIAL ONE (03:33)
[2017-05-19 04:01] LABS: #Lymphocytes 1.4 thou/uL (1.20-3.40); #Monocytes 0.5 thou/uL (0.11-0.59); #Neutrophils 15.8 thou/uL (1.40-6.50); %Eosinophils 0.2 % (0.0-10.0); %Monocytes 2.8 % (0.0-10.0); Hemoglobin 11.5 g/dL (12.0-16.0); Mean Corpuscular HGB CONC 33.3 g/dL (32.0-36.0); Mean Corpuscular Hemoglobin 26.2 pg (27.0-31.0); Mean Corpuscular Volume 78.6 fl (81.0-99.0); Mean Platelet Volume 8.1 fL (7.4-10.4); Platelet Count 540 thou/uL (130-400); RBC Distribution Width 12.6 % (11.5-14.5); Red Blood Cell (RBC) Count 4.39 mill/uL (4.20-5.40); White Blood Cell (WBC) Count 17.7 thou/uL (4.8-10.8)
[2017-05-19 04:32] LABS: ALT (SGPT) 8 U/L (8-55); AST (SGOT) 11 U/L (5-34); Albumin 3.6 g/dL (3.5-5.0); Alkaline Phosphatase 150 U/L (40-150); Anion Gap 20 mmol/L (10-20); BUN (Urea Nitrogen) 16 mg/dL (7.0-18.7); Bilirubin, Total 0.3 mg/dL (0.2-1.2); Calc. Creatinine Clearance 0 mL/min (70-130); Calcium 9.8 mg/dL (7.8-10.44); Carbon Dioxide 24 mmol/L (22-29); Chloride 94 mmol/L (98-107); Estimated GFR-MDRD 55; Globulin 4.4 g/dL (2.4-3.5); Glucose 275 mg/dL (70-105); Lipase 6 U/L (8-78); Potassium 3.1 mmol/L (3.5-5.1); Sodium 135 mmol/L (136-145)
[2017-05-19] MEDS ORDERED: Metoprolol Tartrate 5 MG/5 ML VIAL ONE (04:54)
[2017-05-19 07:36] LABS: Bilirubin Negative (Negative); Blood, Urine Negative (Negative); Clarity CLOUDY (Clear); Glucose, Urine (Dipstick) >=1000 mg/dL (Negative); Leukocyte Negative (Negative); Nitrite Negative (Negative); Protein, Urine (Dipstick) 300 mg/dL (Neg-Trace)
[2017-05-19 07:38] LABS: Bacteria/HPF 4+ HPF (None Seen); Hyaline Casts/LPF 0-3 HYALINE CAST LPF (0-3 Hyaline); Pathc Cast-AUWi Flag 0.13 (0-2.49)
[2017-05-19 07:40] LABS: Pregnancy Test - Urine (BHCG) Negative (Negative); Pregu Control Background? CLEAR/WHITE (CLR/WHITE); Pregu Control Bar Appear? YES (CONTROL BAR)
[2017-05-19 07:45] LABS: Amphetamine Detected (NotDetected); Barbiturates Screen Not Detected (NotDetected); Benzodiazepine Screen Not Detected (NotDetected); Cocaine Metabolite Screen Not Detected (NotDetected); Medtox Control Line Valid? VALID (VALID); Medtox Reader # READER 1; Methadone Not Detected (NotDetected); Methamphetamine Detected (NotDetected); Opiate Screen Not Detected (NotDetected); Oxycodone Screen Not Detected (NotDetected); Phencyclidine (PCP) Not Detected (NotDetected); THC/Cannabinoid Screen Detected (NotDetected); Tricyclic Screen Not Detected (NotDetected)
[2017-05-19 07:48] LABS: RBC/HPF 0-3 HPF (0-3); Renal Epithelial 0-3 HPF (0-3); Transitional Epithelial 0-3 HPF (0-3)
[2017-05-19 07:49] LABS: Yeast-All Forms 1+ HPF (None Seen)
== END 2017-05-19 09:50 | disposition home or self-care (01) ==
LOC: ERS 03:14
DX: R10.9 Unspecified abdominal pain (principal); R11.10 Vomiting, unspecified; E78.5 Hyperlipidemia, unspecified; I10 Essential (primary) hypertension; E10.43 Type 1 diabetes mellitus with diabetic autonomic (poly)neuropathy; K31.84 Gastroparesis; F41.9 Anxiety disorder, unspecified; F31.9 Bipolar disorder, unspecified; F17.210 Nicotine dependence, cigarettes, uncomplicated; Z79.4 Long term (current) use of insulin
CPT/HCPCS: 36415; 80053; 80306; 81003; 81015; 81025; 82010; 83690; 85025; 96361; 96374; 96375; J1630

== ENCOUNTER 2017-05-22 08:50 | Inpatient (IN) | payer SELFPAY ==
[~2017-05-22 08:50] MED LIST: ISOVUE-370 76%-LOCM 1 ML ONE
[2017-05-22] MEDS ORDERED: Ondansetron HCl/PF 4 MG/2 ML Vial ONE (09:16)
[2017-05-22] MEDS ORDERED: Famotidine/PF 20 mg/2ml Vial ONE (09:17)
[2017-05-22 09:27] LABS: Hemoglobin 11.7 g/dL (12.0-16.0); Mean Corpuscular HGB CONC 32.7 g/dL (32.0-36.0); Mean Corpuscular Hemoglobin 25.4 pg (27.0-31.0); Mean Corpuscular Volume 77.8 fl (81.0-99.0); Mean Platelet Volume 8.1 fL (7.4-10.4); Platelet Count 823 thou/uL (130-400); RBC Distribution Width 13.8 % (11.5-14.5); White Blood Cell (WBC) Count 23.4 thou/uL (4.8-10.8)
[2017-05-22 09:29] LABS: INR-International Normal Ratio 0.9; Prothrombin Time 12.6 SEC (12.0-14.7)
[2017-05-22 09:33] LABS: Base Excess-Venous 6.6 mmol/L (-30.0-30.0); Bicarbonate (HCO3v) 33.1 mmol/L (1.0-85.0); CO2 Tension (PvCO2) 53.6 mmHg (41.0-51.0); Calcium, Ionized 0.75 mmol/L (1.12-1.32); Hemoglobin - Calc 14.5 g/dL (12.0-18.0); O2 Tension (PvO2) 176.5 mmHg (35.0-45.0); Potassium 10.6 mmol/L (3.4-4.7); T. Carbon Dioxide 34.7 mmol/L (1.0-85.0); pH (Venous) 7.398 (7.35-7.45); vO2 Saturation-calc 99.5 % (0.0-100.0)
[2017-05-22 09:34] LABS: BHCG - Serum Negative (NEGATIVE); Pregs Control Background? CLEAR/WHITE (CLR/WHITE); Pregs Control Bar Appear? YES (CONTROL BAR)
--- NOTE | 2017-05-22 09:39 | RAD ---
SINGLE VIEW OF THE CHEST: Indication: History of gastroparesis and abdominal pain. Comparison: 05-03-17 FINDINGS: Visualized lungs are clear. Right chest wall is incompletely included in the field of view. Heart siz e is within normal limits. No definite pneumothorax. No acute osseous abnormality is evident. IMPRESSION: Limitations to the exam. No definite acute abnormality. POS: [facility]
[2017-05-22 09:45] LABS: Band 3 % (5-11); Lymphocytes 15 % (21-51); MDiff Complete? YES; Microcytosis SLIGHT = 6-15 cells (100X) (0-5/hpf); Monocytes 4 % (0-10); Neutrophil 78 % (42-75); Ovalocytes SLIGHT = 2-5 cells (100X) (0-1/hpf); PLT Morphology Comment Appears Increased; Polychromasia SLIGHT = 2-3 cells (100X) (0-2/hpf); Rouleaux Formation SLIGHT = 1-5 cells (100X) (None Seen)
[2017-05-22 09:52] LABS: ALT (SGPT) Less than 7 U/L (8-55); AST (SGOT) 13 U/L (5-34); Albumin 3.7 g/dL (3.5-5.0); Alkaline Phosphatase 156 U/L (40-150); Anion Gap 16 mmol/L (10-20); BUN (Urea Nitrogen) 10 mg/dL (7.0-18.7); Bilirubin, Total 0.2 mg/dL (0.2-1.2); Calc. Creatinine Clearance 0 mL/min (70-130); Calcium 10.2 mg/dL (7.8-10.44); Carbon Dioxide 30 mmol/L (22-29); Chloride 94 mmol/L (98-107); Estimated GFR-MDRD 51; Glucose 171 mg/dL (70-105); Lipase 7 U/L (8-78); Potassium 3.7 mmol/L (3.5-5.1); Protein, Total 8.7 g/dL (6.0-8.3); Sodium 136 mmol/L (136-145)
[2017-05-22] MEDS ORDERED: hydrALAZINE 20 MG/ML VIAL ONE (10:00)
[2017-05-22 10:11] LABS: Bilirubin Negative (Negative); Blood, Urine Trace (Negative); Clarity CLOUDY (Clear); Glucose, Urine (Dipstick) 100 mg/dL (Negative); Leukocyte Large (Negative); Nitrite Negative (Negative); Protein, Urine (Dipstick) 100 mg/dL (Neg-Trace); Specific Gravity, Urine 1.014 (1.002-1.036); Urobilinogen 0.2 mg/dL (0.2-1.0); pH, Urine 7.5 (5.0-9.0)
[2017-05-22 10:15] LABS: Bacteria/HPF 3+ HPF (None Seen); Hyaline Casts/LPF 0-3 HYALINE CAST LPF (0-3 Hyaline); RBC/HPF 0-3 HPF (0-3); Squamous Epithelial None Seen HPF (0-3)
[2017-05-22 10:18] LABS: Yeast-AUWi Flag 439.3 (0-25.0)
[2017-05-22 10:22] LABS: Amphetamine Not Detected (NotDetected); Barbiturates Screen Not Detected (NotDetected); Benzodiazepine Screen Not Detected (NotDetected); Cocaine Metabolite Screen Not Detected (NotDetected); Medtox Control Line Valid? VALID (VALID); Medtox Reader # READER 4; Methadone Not Detected (NotDetected); Methamphetamine Not Detected (NotDetected); Opiate Screen Not Detected (NotDetected); Oxycodone Screen Not Detected (NotDetected); Phencyclidine (PCP) Not Detected (NotDetected); THC/Cannabinoid Screen Detected (NotDetected); Tricyclic Screen Not Detected (NotDetected)
[2017-05-22 10:30] LABS: Yeast-All Forms None Seen HPF (None Seen)
--- NOTE | 2017-05-22 10:35 | CT ---
CT ABDOMEN AND PELVIS WITH IV CONTRAST: Date: 05/22/17 HISTORY: Left upper quadrant abdominal pain and vomiting. FINDINGS: Comparison made with exam of 01/10/16. There are patchy infiltrates in the lung bases, left greater than right. The liver, spleen, pancreas, adrenal glands, and kidneys are normal. No calcified gallstones are seen. No free air, free fluid, o r lymphadenopathy seen in the abdomen or pelvis. There are vascular calcifications without evidence of aneurysmal dilatation of the abdominal aorta. T here are degenerative changes in the spine. There is fecal material in the colon. Uterus and ovaries are present. There is a 2.0 cm cyst in the right adnexa, likely ovarian. IMPRESSION: 1. Findings are suspicious for pneumonia. 2. 2.0 cm right adnexal cyst, likely ovarian. POS: [facility]
[2017-05-22] MEDS ORDERED: Ondansetron ODT 4 MG TAB PO PRN (11:10)
[2017-05-22] MEDS ORDERED: Milk Of Magnesia 30 ML UDCUP PO PRN (11:10)
[2017-05-22] MEDS ORDERED: Dextrose 50% Abboject 50 ML SYRINGE SLOW IVP PRN (11:12)
[2017-05-22] MEDS ORDERED: Dextrose 5% in Water 1,000 ML IV PRN (11:12)
[2017-05-22] MEDS ORDERED: HumaLOG 300 UNITS/3 ML VIAL SC PRN (11:12)
[2017-05-22 11:39] LABS: CKMB 0.9 ng/mL (0-6.6); Troponin I 0.014 ng/mL (< 0.028)
[2017-05-22] MEDS ORDERED: Morphine 2 MG/ML SYRINGE ONE (11:41)
[2017-05-22] MEDS ORDERED: Labetalol HCl 100 MG/20 ML VIAL ONE (11:44)
[2017-05-22] MEDS ORDERED: Azithromycin 500 MG VIAL ONE (11:51)
[2017-05-22 12:55] VITALS: BMI 19.5
[2017-05-22] MEDS ORDERED: Simethicone Chewable 80 MG TAB PO PRN (13:03)
[2017-05-22] MEDS ORDERED: Labetalol HCl 100 MG/20 ML VIAL SLOW IVP PRN (13:05)
[2017-05-22] MEDS ORDERED: Morphine 5 MG/ML SYRINGE SLOW IVP PRN (13:10)
[2017-05-22] MEDS ORDERED: Pantoprazole 40 MG VIAL IVP SCH ×2 (13:15→21:00)
[2017-05-22] MEDS: Sodium Chloride 0.9% 1,000 ML IV SCH ×2 (13:26→20:07)
[2017-05-22] MEDS: Heparin 5,000 UNITS/ML VIAL SC SCH ×2 (13:48→20:06)
[2017-05-22] MEDS ORDERED: Prevnar 13-Val Conj/PF 0.5 ML SYRINGE IM ONE (14:15)
--- NOTE | 2017-05-22 14:44 | HP ---
PRIMARY CARE PHYSICIAN: None. PRESENTING COMPLAINT: Abdominal pain. HISTORY OF PRESENT ILLNESS: A 31-year-old female with a past medical history of hypertension, bipolar disorder, gastroparesis, and type 1 diabetes mellitus, who presented to the emergency room due to epigastric pain described as "pulling ", nonradiating, 12/26 with no aggravating or relieving factors. It started yesterday and has been intermittent ever since. She also had some nausea and vomiting, at least 5-6 episodes which consisted of recently ingested food earlier and then later became bilious because she was not tolerating anything p.o. She denies fevers, chills, shortness of breath, chest pain, diarrhea, or constipation. She has no urinary symptoms. At the emergency room, labs revealed elevated glucose level with elevated WBC count of 23,000 and platelet count of 800,000. Chest x-ray was unremarkable, but a CT abdomen/pelvis caught pneumonia, which was seen as patchy infiltrates in the lung bases on the left greater than the right. She was then admitted for lower lobe pneumonia and started on IV antibiotics, as well as IV fluids. PAST MEDICAL HISTORY: Hypertension, gastroparesis, type 1 diabetes mellitus, hyperlipidemia, bipolar disorder, multi-substance drug abuse. PAST SURGICAL HISTORY: Status post appendectomy, 3 sections, tonsillectomy. She also had an EGD in 02/2017 demonstrating small ulcer with mild esophagitis. FAMILY HISTORY: Reviewed and noncontributory. SOCIAL HISTORY: Former smoker. Denies using alcohol, only recent drug use per patient was marijuana. ALLERGIES: None. PRIMARY CARE PHYSICIAN: None. CODE STATUS: FULL. REVIEW OF SYSTEMS: Ten-point review of systems was done and negative apart from as stated in HPI. PHYSICAL EXAMINATION: GENERAL: In moderate distress from pain. HEENT: Dry mucous membranes. PERRLA, EOMI, normocephalic, atraumatic. Not pale, anicteric. NECK: Supple, full range of movement. CARDIOVASCULAR: S1, S2, only with no murmurs, rubs, or gallops. RESPIRATORY: Clear to auscultation bilaterally. EXTREMITIES: No edema. ABDOMEN: Positive bowel sounds with tenderness in the epigastric and around the umbilical region. MUSCULOSKELETAL: Moves all extremities spontaneously. NEUROLOGIC: Alert and well oriented. No focal deficits. PSYCHIATRIC: Normal mood and affect. SKIN: Warm, dry, well perfused with no rashes or lesions. LABORATORY DATA: As stated in HPI. IMAGING: As stated in HPI. ASSESSMENT AND PLAN: 1. Abdominal/epigastric pain. Patient has a history of mild esophagitis and a small ulcer has seen an EGD in 02/2012. This might be an exacerbation of peptic ulcer disease. We will start on q.12 hours Protonix intravenously and continue IV fluids. Obtain GI consult. 2. Hyperglycemia, likely due to noncompliance with medications. We will start on a sliding scale insulin. Maintain on diabetic diet, fingerstick glucose before meals and at bedtime and hypoglycemia protocol. 3. Type 1 diabetes mellitus. Management as above. 4. Hypertension/hypertensive urgency. The patient has markedly elevated blood pressure on arrival, but no signs of any end-organ damage. We will bring blood pressure down gradually with her p.o. medications. We will also introduce labetalol IV p.r.n. for systolic blood pressure greater than 180. 5. Lower lobe pneumonia as seen on CT scan. The patient has been started on IV Rocephin and Zithromax. We will monitor. In addition, we will ensure adequate pain control and monitor the patient's vital signs closely. [facility]
[2017-05-22 15:12] LABS: Lactic Acid 1.3 mmol/L (0.5-2.2)
[2017-05-22] MEDS ORDERED: Promethazine 25 MG TAB PO PRN (18:04)
[2017-05-22] MEDS ORDERED: Promethazine HCl 25 MG/ML VIAL SLOW IVP PRN (18:04)
[2017-05-22] MEDS: Acetaminophen 325 MG TAB PO PRN ×2 (18:08→20:08)
[2017-05-22] MEDS: Carvedilol 25 MG TAB PO SCH (18:08)
[2017-05-22] MEDS: Docusate 100 MG CAP PO SCH (20:05)
[2017-05-22] MEDS: Famotidine 20 MG TAB PO SCH (20:06)
[2017-05-22] MEDS ORDERED: Gabapentin 100 MG CAP PO SCH (21:00)
--- NOTE | 2017-05-23 01:00 | CON ---
DATE OF SERVICE: 05/22/2017 GI INPATIENT CONSULTATION NOTE REQUESTING PHYSICIAN: Magy Latif MD REASON FOR CONSULTATION: Nausea, vomiting, and abdominal pain. HISTORY OF PRESENT ILLNESS: Jennie Green is a 31-year-old -[place] woman with a prior hist ory of bipolar disorder, polysubstance abuse, and type 1 diabetes. Over the past year, she has been clinically diagnosed with gastroparesis, though does not appear she has had a formal gastric emptying study. I met her about a year ago when she was hospitalized at [facility] for similar symptoms of naus ea, vomiting, and abdominal pain. At that time, she was found to be in early . Unfortunate ly, she tells me that she miscarried soon thereafter. At any rate, she has been dealing with these i ssues for over a year now off and on. She was hospitalized here back in 02/2017 and underwent EGD wi Dr. Fragoso and this demonstrated a small ulceration in the distal esophagus, but was otherwise negative. She tells me that she takes Prilosec or Zantac on a p.r.n. basis at home. She was admitte d to the hospital earlier today with what appears to be a left lower lobe pneumonia, but which presen jeimy not only as cough, but also severe epigastric pain, nausea, and repeated emesis over the past cou ple of days. She denies any fever. She has been started on antibiotics. LFTs are essentially unrem arkable and lipase has been normal and an abdominal CT scan was basically unrevealing with regards to her symptoms. She does have a leukocytosis with WBC count of 23,000 and elevated platelets stay at 100,000. PAST MEDICAL HISTORY: Hypertension, gastroparesis, type 1 diabetes, hyperlipidemia, bipolar disorder , multi-substance drug abuse, x3, appendectomy, spontaneous in 2017, esophagitis w ith ulceration in 02/2017, gastroparesis is a clinical diagnosis. FAMILY HISTORY: Noncontributory. SOCIAL HISTORY: She is a former smoker. She denies alcohol use, says she still uses marijuana occas ionally, but not a lot recently. She denies any other current drug abuse, though there were multiple substances in the past. ALLERGIES: None. OUTPATIENT MEDICATIONS: Lantus 30 units subcu b.i.d., Coreg, gabapentin, nifedipine, Protonix 40 mg b.i.d. is on her medication list, but she states she only uses Prilosec or Zantac on a p.r.n. basis. PHYSICAL EXAMINATION: VITAL SIGNS: Temperature 98.4, pulse 105, blood pressure 166/106, 97% oxygen saturation on room air. GENERAL: A 31-year-old -[place] woman lying in bed in mild to moderate distress from abdomin al pain and nausea, disheveled appearance. SKIN: No jaundice, no rash visible or palpable. EYES: No scleral icterus. Extraocular movements are intact. ENT: Mucous membranes moist, no oral lesions. LYMPH: No submandibular, supraclavicular lymphadenopathy. THYROID: Nontender to palpation. HEART: Regular tachycardia. LUNGS: Clear to auscultation bilaterally. ABDOMEN: Bowel sounds are present, soft, tender to palpation in the upper abdomen. No guarding, emigdio ound tenderness. EXTREMITIES: No peripheral edema. VESSELS: Radial pulses 2+ bilaterally. NEUROLOGICAL: Cranial nerves II-XII intact bilaterally. No focal deficits. LABORATORY STUDIES: Sodium 136, potassium 3.7, chloride 94, carbon dioxide 30, anion gap 16, BUN 10, creatinine 1.45, glucose 171. Lactic acid only 1.3, total bilirubin 0.2, alkaline phosphatase 156, AST 13, ALT less than 7, lipase only 7. Serum test is negative. Albumin 3.7, troponin neg ative. UA shows greater than 50 wbc's and large amount of leukocyte esterase. Urine drug screen is positive for cannabinoids. Beta hydroxybutyrate is only 0.07. She has a leukocytosis with WBC 23.4, hemoglobin 11.7, platelets 823. INR is normal at 0.9. IMAGING STUDIES: Chest x-ray on admission showed no definite acute abnormality. CT of the abdomen a nd pelvis also from today showed patchy infiltrates in the lung bases on the left greater than on the right. Normal appearing liver, spleen, pancreas, and kidneys 2 cm cyst in the right adnexa and feca l material in the colon. ASSESSMENT AND PLAN: 1. Epigastric pain, chronic with acute exacerbation. 2. Nausea and vomiting, recurrent. 3. Left lower lobe pneumonia. I suspect the patient does indeed have gastroparesis, though she has not had a formal gastric emptying scan. Her gastroparesis seems to become more symptomatic in associ ation with other illnesses as they occur. Given the severity of her symptoms and finding of esophage al ulceration on prior EGD, it would be reasonable to repeat EGD this admission to rule out gastritis or worsening ulcer disease. We will plan to perform EGD tomorrow. If negative, we could still cons ider formal gastric emptying study on an outpatient basis going forward, and give her a trial of Regl an. For now, Continue the PPI. Continue the supportive care including antiemetics. Continue treatm ent of her pneumonia and what appears to be urinary tract infection as well. Thank you for the consultation. Please call back with questions or concerns.
[2017-05-23] MEDS: Sodium Chloride 0.9% 1,000 ML IV SCH ×2 (05:14→16:41)
[2017-05-23] MEDS: Carvedilol 25 MG TAB PO SCH ×2 (05:16→16:29)
[2017-05-23 05:43] LABS: #Basophils 0.1 thou/uL (0.0-0.2); #Eosinphils 0.2 thou/uL (0.0-0.7); #Lymphocytes 3.9 thou/uL (1.20-3.40); #Monocytes 0.5 thou/uL (0.11-0.59); #Neutrophils 8.3 thou/uL (1.40-6.50); %Basophils 0.5 % (0.0-1.0); %Eosinophils 1.2 % (0.0-10.0); %Lymphocytes 30.1 % (21.0-51.0); %Neutrophils 64.1 % (42.0-75.0); Hemoglobin 8.4 g/dL (12.0-16.0); Mean Corpuscular HGB CONC 32.3 g/dL (32.0-36.0); Mean Corpuscular Hemoglobin 25.5 pg (27.0-31.0); Mean Platelet Volume 7.5 fL (7.4-10.4); Platelet Count 556 thou/uL (130-400); RBC Distribution Width 13.1 % (11.5-14.5)
[2017-05-23 05:51] LABS: Anion Gap 9 mmol/L (10-20); BUN (Urea Nitrogen) 8 mg/dL (7.0-18.7); Calc. Creatinine Clearance 63 mL/min (70-130); Calcium 8.7 mg/dL (7.8-10.44); Carbon Dioxide 27 mmol/L (22-29); Chloride 103 mmol/L (98-107); Estimated GFR-MDRD 68; Glucose 98 mg/dL (70-105); Potassium 3.3 mmol/L (3.5-5.1); Sodium 136 mmol/L (136-145)
[2017-05-23] MEDS ORDERED: cefTRIAXone\\ROCEPHIN 1 GM in Sodium Chloride 0.9% 100 ML IVPB SCH (08:00)
[2017-05-23] MEDS ORDERED: Azithromycin 500 MG in Sodium Chloride 0.9% 250 ML 250 ML IVPB SCH (08:00)
[2017-05-23] MEDS: Famotidine 20 MG TAB PO SCH (08:50)
[2017-05-23] MEDS: Docusate 100 MG CAP PO SCH (08:50)
[2017-05-23] MEDS: Heparin 5,000 UNITS/ML VIAL SC SCH ×2 (08:50→16:29)
[2017-05-23] MEDS ORDERED: NIFEdipine XL 90 MG TAB PO SCH (09:00)
[2017-05-23] MEDS ORDERED: cefTRIAXone\\ROCEPHIN 1 GM, Syringe 0.4 ML in Sterile Water 9.6 ML SLOW IVP SCH (11:00)
[2017-05-23 17:23] VITALS: BP 167/113; TEMP 98.6
--- NOTE | 2017-05-24 01:17 | DIS ---
DATE OF ADMISSION: 05/22/2017 DATE OF DISCHARGE: 05/23/2017 DISCHARGE DIAGNOSES: Abdominal pain. SECONDARY DIAGNOSES: Hyperglycemia, type 1 diabetes mellitus, hypertension/hypertensive urgency, low er lobe pneumonia, urinary tract infection. HOSPITAL COURSE/HISTORY OF PRESENT ILLNESS: A 31-year-old female with a past medical history of hype rtension, bipolar disorder, ? gastroparesis and type 1 diabetes mellitus who presented to the emergen cy room due to epigastric pain described as "pulling" nonradiating, 12/26, with no aggravating or rel ieving factors. It started the day before presentation and has occurred intermittently ever since. She also had some nausea and vomiting, which was at least 6 episodes consisting of recently ingested food and was nonbilious and nonbloody. She denies fevers, chills, shortness of breath, chest pain, d iarrhea or constipation. She has no urinary symptoms. At the emergency room, labs revealed elevated glucose levels with elevated WBC count of 23,000 and platelet count of 800,000. She had a chest x-r ay, which was unremarkable, but a CT abdomen/pelvis caught a lower lobe pneumonia seen as patchy infi ltrates in the lung bases on the left greater than on the right. She was admitted for lower lobe pne umonia, abdominal pain and possible UTI. She received IV fluids and was started on IV levofloxacin i n the emergency room. During her stay, she was started on IV Protonix because she was found to have epigastric abdominal pain on examination. She had an EGD in February of last year, which showed a sm all ulcer and mild esophagitis. GI was consulted and they recommended getting an EGD and to continue on IV Protonix. However, on day #2, she reported that she was feeling well and declined getting the EGD. She states that she wanted to be discharged as she felt much better. She was therefore discha rged and encouraged to return to the emergency room if her abdominal pains return or if she had any o ther symptoms. GI had assessed that she might have gastroparesis and will probably benefit from a ga stric emptying study on an outpatient basis. DISCHARGE MEDICATIONS: Levofloxacin 75 daily, nifedipine 90 mg daily, gabapentin 100 mg at bedtime, carvedilol 25 mg twice a day, pantoprazole 40 mg twice a day, insulin Glargine 30 units subcutaneousl y twice a day. PHYSICAL EXAMINATION: VITAL SIGNS: Stable. Blood pressure 147/86, oxygen saturation 96% on room air, respiratory rate 18, pulse rate 94, temperature 98.1 degree Fahrenheit. GENERAL: Not in acute distress, sitting comfortably in bed. HEENT: Moist mucous membranes. PERRLA, EOMI. Normocephalic, atraumatic. Not pale, anicteric. NECK: Supple, with full range of movement. CARDIOVASCULAR: S1 and S2 only, with no murmurs, rubs or gallops. RESPIRATORY: Clear to auscultation bilaterally with no wheezes or rales. EXTREMITIES: Showed no edema. ABDOMEN: Positive bowel sounds, nondistended, not tender. No organomegaly. MUSCULOSKELETAL: Moves all extremities spontaneously. No skeletal abnormalities. NEUROLOGIC: Alert and well oriented with no focal deficits. PSYCHIATRIC: Normal mood and affect. SKIN: Warm, dry, well perfused with no rashes or lesions. LABORATORY DATA: WBC 13,000, hemoglobin 8.4, platelet count 556. Sodium 136, potassium 3.3, chlorid e 103, carbon dioxide 27, anion gap 9, creatinine 1.13, glucose 107. IMAGING: Chest x-ray, CT abdomen and pelvis, results as stated in hospital course. CONSULTS: Gastroenterology. CONDITION AT DISCHARGE: Stable, improved. PROCEDURES: None. DIET: Heart healthy, diabetic. CARE GOALS: The patient is to follow up with her primary care physician within 1 week of discharge t o arrange a gastric emptying study. Plan to have repeat labs. ACTIVITIES: To resume as tolerated. Discharge time 65 minutes including chart review and documentation.
--- NOTE | 2017-06-02 14:23 | EKG ---
Test Reason : ABD PAIN Blood Pressure : / mmHG Vent. Rate : 108 BPM Atrial Rate : 108 BPM P-R Int : 140 ms QRS Dur : 084 ms QT Int : 366 ms P-R-T Axes : 064 021 065 degrees QTc Int : 490 ms Sinus tachycardia Otherwise normal ECG Confirmed by KEITH Laughlin, PATRICK ([id number]), editor school photograph KRYSTA SOLORIO ([id number]) on 06/02/2017 2:21:41 PM Referred By: KEITH Confirmed By:PATRICK PARKER M.D.
== END 2017-05-23 17:34 | disposition home or self-care (01) | DRG 194 ==
LOC: ERS 08:50 → T4-B 11:21
PROVIDERS: ADMIT Internal Medicine; ATTEND Internal Medicine
DX: J18.9 Pneumonia, unspecified organism (principal); N39.0 Urinary tract infection, site not specified; E10.65 Type 1 diabetes mellitus with hyperglycemia; R10.13 Epigastric pain; K31.84 Gastroparesis; I16.0 Hypertensive urgency; I10 Essential (primary) hypertension; F31.9 Bipolar disorder, unspecified; Z87.891 Personal history of nicotine dependence; Z79.4 Long term (current) use of insulin; Z79.899 Other long term (current) drug therapy
CPT/HCPCS: 36415; 36416; 71045; 74177; 80048; 80053; 80306; 81003; 81015; 82010; 82330; 82553; 82803; 83605; 83690; 84484; 84703; 85025; 85610; 87804; 90471; 90670; 93005; 96361; 96365; 96375; J2270; A4216; C9113; G0009; J0360; J0456; J0696; J1644; J2405; J7050; Q0162; S0028

== ENCOUNTER 2018-10-24 16:09 | Inpatient (IN) | payer SELFPAY ==
[2018-10-24] MEDS ORDERED: Ondansetron PF 4 MG/2 ML Vial ONE ×2 (16:28→18:57)
[2018-10-24] MEDS ORDERED: Morphine 4 MG/ML VIAL ONE ×3 (16:28→18:57)
[2018-10-24 17:16] LABS: Hemoglobin 10.7 g/dL (12.0-16.0); Mean Corpuscular HGB CONC 31.9 g/dL (32.0-36.0); Mean Corpuscular Hemoglobin 25.4 pg (27.0-31.0); Mean Corpuscular Volume 79.8 fL (78.0-98.0); Mean Platelet Volume 9.4 fL (7.4-10.4); Platelet Count 341 thou/uL (130-400); RBC Distribution Width 13.5 % (11.5-14.5); Red Blood Cell (RBC) Count 4.21 mill/uL (4.20-5.40); White Blood Cell (WBC) Count 22.4 thou/uL (4.8-10.8)
[2018-10-24 17:25] LABS: BHCG - Serum Negative (NEGATIVE); Pregs Control Background? CLEAR/WHITE (CLR/WHITE); Pregs Control Bar Appear? YES (CONTROL BAR)
[2018-10-24 17:37] LABS: Eosinophils 1 % (0-10); Hypochromia SLIGHT = 6-15 cells (100X) (0-5/hpf); Lymphocytes 9 % (21-51); MDiff Complete? YES; Monocytes 5 % (0-10); Neutrophil 85 % (42-75); Platelet Morphology Comment Appears Adequate; Polychromasia SLIGHT = 2-3 cells (100X) (0-2/hpf)
[2018-10-24 17:43] LABS: ALT (SGPT) 8 U/L (8-55); AST (SGOT) 10 U/L (5-34); Albumin 3.8 g/dL (3.5-5.0); Alkaline Phosphatase 113 U/L (40-150); Anion Gap 15 mmol/L (10-20); BUN (Urea Nitrogen) 34 mg/dL (7.0-18.7); Bilirubin, Total 0.3 mg/dL (0.2-1.2); Calc. Creatinine Clearance 0 mL/min (70-130); Calcium 8.9 mg/dL (7.8-10.44); Carbon Dioxide 19 mmol/L (22-29); Chloride 101 mmol/L (98-107); Estimated GFR-MDRD 27; Globulin 3.7 g/dL (2.4-3.5); Glucose 332 mg/dL (70-105); Lipase 23 U/L (8-78); Potassium 4.2 mmol/L (3.5-5.1); Protein, Total 7.5 g/dL (6.0-8.3); Sodium 131 mmol/L (136-145)
[2018-10-24 18:19] LABS: Bilirubin Negative (Negative); Blood, Urine Large (Negative); Clarity Turbid (Clear); Glucose, Urine (Dipstick) >=1000 mg/dL (Negative); Leukocyte Small (Negative); Nitrite Positive (Negative); Protein, Urine (Dipstick) 100 mg/dL (Neg-Trace); Urobilinogen 0.2 mg/dL (Less than 2)
[2018-10-24] MEDS ORDERED: cefTRIAXone\\ROCEPHIN 1 GM VIAL ONE (18:27)
[2018-10-24 18:42] LABS: WBC/HPF Greater Than 50 HPF (0-3)
[2018-10-24 18:43] LABS: Bacteria/HPF 1+ HPF (None Seen); Squamous Epithelial 0-3 HPF (0-3); Transitional Epithelial 0-3 HPF (None Seen)
--- NOTE | 2018-10-24 18:57 | CT ---
CT ABDOMEN AND PELVIS WITHOUT CONTRAST: 10/24/2018 HISTORY: Left upper arm pain. Assess for renal stone disease. COMPARISON: 05/22/2017 TECHNIQUE: Axial CT imaging at 5 mm intervals, from the lung bases through the pubic symphysis, without contrast . Coronal reformatted imaging obtained. FINDINGS: The lack of contrast media limits assessment of the viscera, bowel, and vascular structures, and for lymphadenopathy. The imaged lung bases are unremarkable. No free intraperitoneal air. The liver, spleen, gallbladder, pancreas, and adrenal glands are grossly unremarkable. No hydronephrosis or nephrolithiasis is apparent on either side. There is a punctate calcification i n the region of the right renal hilum, on image 33, likely arterial in nature. There is no evidence for obstructive uropathy appreciated on either side. Evaluation of the bowel is limited without oral contrast media and demonstrates no focal area of infl ammatory change or evidence of obstruction. A suture line in the region of the cecal apex suggests a prior appendectomy. No right lower quadrant inflammatory change is noted. Mild scattered atheroscl erotic calcification of the infrarenal abdominal aorta is noted. Review of the osseous structures de monstrates multilevel lower lumbar spine facet hypertrophy. There is disk space narrowing and degene rative endplate change at the lumbosacral junction. There is also degenerative change involving the sacroiliac joint on the right. No acute osseous abnormality. IMPRESSION: No evidence for nephrolithiasis or obstructive uropathy. POS: XIAO
[2018-10-24] MEDS ORDERED: HYDROcodone/Acetaminophen 5/325 mg Tablet ONE (20:59)
[2018-10-24] MEDS ORDERED: Ondansetron PF 4 MG/2 ML Vial IVP PRN (21:42)
[2018-10-24] MEDS ORDERED: HYDROcodone/Acetaminophen 5/325 mg Tablet PO PRN ×2 (21:42)
[2018-10-24] MEDS ORDERED: Ondansetron ODT 4 MG TAB SL PRN (21:42)
[2018-10-24] MEDS ORDERED: Acetaminophen 325 MG TAB PO PRN (21:42)
[2018-10-24 21:45] VITALS: BMI 28.8
[2018-10-24] MEDS ORDERED: Dextrose 50% Abboject 50 ML SYRINGE SLOW IVP PRN (22:39)
[2018-10-24] MEDS ORDERED: Dextrose 5% in Water 1,000 ML IV PRN (22:39)
[2018-10-24] MEDS ORDERED: Ondansetron PF 4 MG/2 ML Vial SLOW IVP PRN (22:58)
[2018-10-24] MEDS ORDERED: Ondansetron ODT 4 MG TAB PO PRN (22:59)
[2018-10-24] MEDS ORDERED: Ondansetron PF 4 MG/2 ML Vial SLOW IVP SCH (23:00)
--- NOTE | 2018-10-24 23:25 | HP ---
CODE STATUS: Full code. TIME OF EVALUATION: 10 p.m. CHIEF COMPLAINT: Abdominal pain. HISTORY OF PRESENT ILLNESS: A 33-year-old female patient with past medical history of diabetes, hyperlipidemia, high cholesterol, and hypertension, came to the hospital after having severe left upper quadrant and flank pain with no clear triggers, no alleviating factors. Symptoms started at 7:00 a.m. No fever. REVIEW OF SYSTEMS: CONSTITUTIONAL: The patient has no fever, chills, or generalized weakness. RESPIRATORY: No cough, sputum production, or shortness of breath. CARDIOVASCULAR: No chest pain or palpitation. GASTROINTESTINAL: No nausea, vomiting, diarrhea, or abdominal pain. 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 GENITOURINARY: The patient has severe left flank pain as reported in HPI. EXTREMITIES: No leg swelling. All other systems were reviewed and negative except for the findings mentioned above. PAST MEDICAL HISTORY: As mentioned in the HPI. PAST SURGICAL HISTORY: Tonsillectomy, appendectomy, and x3. PSYCHIATRIC HISTORY: No significant history. SOCIAL HISTORY: No alcohol. The patient uses marijuana. Tobacco, half a pack per day. KNOWN ALLERGIES: No known drug allergies. FAMILY HISTORY: Reviewed and noncontributory to current presentation. REPORTED MEDICATIONS: 1. Lisinopril/hydrochlorothiazide. 2. Novolin 70/30. 3. Verapamil. 4. Gabapentin. PHYSICAL EXAMINATION: VITAL SIGNS: On presentation, blood pressure 176/129 with heart rate 132, respiratory rate was 35, temperature 99.5, pain 10/10, and oxygen saturation 100% on room air. The vital signs got better once the pain was improved. GENERAL APPEARANCE: The patient is alert, oriented, in no acute distress. HEENT: Eyes, normal conjunctivae. Moist oral mucosa. Anicteric. No JVD. RESPIRATORY: Bilateral air entry. No rales. No wheezes. Symmetric expansion. CARDIOVASCULAR: Normal rate. Regular rhythm. No murmurs. No gallop. No edema. ABDOMEN: Soft. Normal bowel sounds. MUSCULOSKELETAL: Baseline range of motion and strength. SKIN: Warm, intact. No pallor. No rash. No redness. Capillary refill seems to be intact. NEURO: No evidence of any new focal weakness. Cranial nerves seem to be intact. PSYCH: The patient is in good mood. No anxiety. Optimal judgment. GENITOURINARY: The patient has left flank pain. DIAGNOSTIC DATA: Abdomen and pelvis CT was done. It showed no evidence of nephrolithiasis or obstructive uropathy. LABORATORY DATA: Reviewed. The patient has white count 22.4, hemoglobin 10.7, MCV 79.8, and platelet count 341. Chemistry; sodium 131, potassium 4.2, chloride 101, carbon dioxide 19, anion gap 15, BUN 34, creatinine 2.52 and previous creatinine was 1.13, GFR 27, glucose 332, calcium 8.9, and total bilirubin 0.3. LFTs were negative. Urine was done and was positive with white count greater than 50. ASSESSMENT AND PLAN: The patient will be placed in the hospital with following medical problems; 1. Urinary tract infection with severe left flank pain. The patient got IV antibiotics, we will continue for now. Follow sensitivity. We will treat accordingly. 2. Sepsis. The patient has tachycardia and elevated white count. Source is urinary tract infection. Treatment as above. 3. Normocytic anemia. This is likely secondary to chronic kidney disease, can be followed as outpatient. 4. Hyponatremia, sodium 131. The sodium will be monitored and will be replaced as needed. 5. Acute on chronic kidney injury, this is likely secondary to infection and also the patient may be in the dry side. We will hydrate and monitor kidney function. If not improving, may need Nephrology for assistance. 6. Uncontrolled diabetes with blood sugar 332. We will place the patient on sliding scale for optimal control. 7. Deep venous thrombosis prophylaxis. 8. Uncontrolled hypertension. Might be worsened by pain. We will not treat aggressively since the patient has sepsis. 9. Hyperlipidemia. Low-cholesterol diet is advised. Reconcile home medications. Job ID: [id number]
[2018-10-24] MEDS: HumaLOG 300 UNITS/3 ML VIAL SC PRN (23:50)
[2018-10-25] MEDS: Promethazine HCl 12.5 MG in Sodium Chloride 0.9% 50 ML IVPB PRN ×3 (00:24→18:03)
[2018-10-25] MEDS: Sodium Chloride 0.9% 1,000 ML IV SCH ×3 (01:41→20:54)
[2018-10-25 02:21] LABS: #Basophils 0.1 thou/uL (0.0-0.2); #Eosinphils 0.1 thou/uL (0.0-0.7); #Lymphocytes 2.5 thou/uL (1.20-3.40); #Monocytes 1.1 thou/uL (0.11-0.59); #Neutrophils 14.7 thou/uL (1.40-6.50); %Basophils 0.4 % (0.0-1.0); %Eosinophils 0.5 % (0.0-10.0); %Lymphocytes 13.4 % (21.0-51.0); %Monocytes 6.2 % (0.0-10.0); %Neutrophils 79.5 % (42.0-75.0); Hemoglobin 9.7 g/dL (12.0-16.0); Mean Corpuscular HGB CONC 32.1 g/dL (32.0-36.0); Mean Corpuscular Hemoglobin 25.3 pg (27.0-31.0); Mean Corpuscular Volume 78.9 fL (78.0-98.0); Mean Platelet Volume 8.9 fL (7.4-10.4); Platelet Count 414 thou/uL (130-400); RBC Distribution Width 13.5 % (11.5-14.5); Red Blood Cell (RBC) Count 3.84 mill/uL (4.20-5.40); White Blood Cell (WBC) Count 18.6 thou/uL (4.8-10.8)
[2018-10-25 02:44] LABS: Anion Gap 12 mmol/L (10-20); BUN (Urea Nitrogen) 32 mg/dL (7.0-18.7); Calc. Creatinine Clearance 47 mL/min (70-130); Calcium 8.9 mg/dL (7.8-10.44); Carbon Dioxide 22 mmol/L (22-29); Chloride 103 mmol/L (98-107); Estimated GFR-MDRD 31; Glucose 265 mg/dL (70-105); Potassium 4.1 mmol/L (3.5-5.1); Sodium 133 mmol/L (136-145)
[2018-10-25] MEDS: HumaLOG 300 UNITS/3 ML VIAL SC PRN ×4 (06:25→20:52)
[2018-10-25] MEDS: Enoxaparin Sodium 30 MG/0.3 ML SYRINGE SC SCH (08:11)
[2018-10-25 12:03] LABS: Lactic Acid 1.1 mmol/L (0.5-2.2)
--- NOTE | 2018-10-25 13:25 | PDOC.HOSPP ---
- Subjective Encounter Date: 10/25/18 Encounter Time: 11:23 Subjective: Patient reports mild nausea and persisting bilateral flank pain. Feeling slightly better than yesterday. Denies any fevers overnight but was feverish at home before coming in. Has not noted any hematuria. She states she was told in the past she had an enlarged heart and has had tachycardia for a long time. Denies any associated SOB, cough/hemoptysis. - Objective Vital Signs & Weight: Vital Signs (12 hours) Temp Pulse Resp BP Pulse Ox 10/25/18 11:29 98.1 F 98 20 162/89 H 98 10/25/18 07:44 97.9 F 105 H 16 139/82 98 10/25/18 04:58 98.2 F 101 H 16 139/86 97 Weight Weight 178 lb 6.4 oz I&O: 10/24/18 10/25/18 10/26/18 06:59 06:59 06:59 Intake Total 2159 Output Total 400 Balance 1759 Result Diagrams: 10/25/18 02:13 10/25/18 02:13 Additional Labs: Accuchecks 10/25/18 10/25/18 10/24/18 11:33 05:38 23:26 POC Glucose 364 H 252 H 369 H 10/24/18 16:22 POC Glucose 319 H ROS - Review of Systems Constitutional: reports: malaise. denies: fever, chills, sweats, weakness, other Eyes: denies: pain, vision change, conjunctivae inflammation, eyelid inflammation, redness, other ENT: denies: ear pain, ear discharge, nose pain, nose discharge, nose congestion , mouth pain, mouth swelling, throat pain, throat swelling, other Respiratory: denies: cough, dry, shortness of breath, hemoptysis, SOB with excertion, pleuritic pain, sputum, wheezing, other Cardiovascular: denies: chest pain, palpitations, orthopnea, paroxysmal noc. dyspnea, edema, light headedness, other Gastrointestinal: reports: nausea, abdominal pain (Suprapubic discomfort and bilateral flank pain). denies: vomitting, diarrhea, constipation, melena, hematochezia, other Genitourinary: reports: frequency Musculoskeletal: reports: back pain. denies: neck pain, shoulder pain, arm pain , hand pain, leg pain, foot pain, other Skin: denies: rash, lesions, alex, bruising, other Neurological: denies: weakness, numbness, incoordination, change in speech, confusion, seizures, other - Medication Medications: Active Medications Generic Name Dose Route Start Last Admin Trade Name Freq PRN Reason Stop Dose Admin Enoxaparin Sodium 30 mg 10/25/18 09:00 10/25/18 08:11 Lovenox SC 30 mg 0900 MAUREEN Administration Promethazine HCl 12.5 mg/ 50.5 mls @ 151.5 mls/hr 10/24/18 22:59 10/25/18 12: 03 Sodium Chloride IVPB 50.5 mls Q6H PRN Administration Nausea Sodium Chloride 1,000 mls @ 100 mls/hr 10/25/18 01:15 10/25/18 12:03 Normal Saline 0.9% IV 1,000 mls .Q10H MAUREEN Administration Insulin Human Lispro 0 units 10/24/18 22:39 10/25/18 12:06 Humalog SC 6 unit .MILD SLIDING SCALE PRN Administration Mild Correctional Scale Insulin Human Lispro 0 units 10/24/18 23:36 10/24/18 23:50 Humalog SC 5 unit .BEDTIME SLIDING SC PRN Administration Bedtime Correctional Scale Sodium Chloride 10 ml 10/24/18 21:42 10/25/18 01:41 Flush - Normal Saline IVF 10/29/18 07:00 10 ml PRN PRN Administration Saline Flush - Exam NAD, awake alert Eye: PERRL, anicteric sclera ENT: normocephalic atraumatic, no oropharyngeal lesions, moist mucosa Neck: supple, no lymphadenopathy Heart: RRR Respiratory: CTAB Gastrointestinal: soft, non-distended, normal bowel sounds, no palpable masses, no guarding, no rigidity, tender to palpation (suprapubic discomfort with palpation) Gastrointestinal - other findings: CVA tenderness Extremities: no cyanosis, no clubbing, no edema Skin: normal turgor, no lesions Neurological: CN's grossly intact Musculoskeletal: normal tone, normal strength, no muscle wasting Psychiatric: normal affect, normal behavior, A&O x 3 Hosp A/P (1) Pyelonephritis Code(s): N12 - TUBULO-INTERSTITIAL NEPHRITIS, NOT SPCF ACUTE OR CHRONIC Status: Acute Plan: Continue IV Abx, culture pending. (2) Acute kidney injury superimposed on CKD Code(s): N17.9 - ACUTE KIDNEY FAILURE, UNSPECIFIED; N18.9 - CHRONIC KIDNEY DISEASE, UNSPECIFIED Status: Acute Plan: Continue fluids, slowly improving. Consider nephrology consult. (3) Sinus tachycardia Code(s): R00.0 - TACHYCARDIA, UNSPECIFIED Status: Acute Plan: Add on d-dimer and BNP, patient reports hx of cardiomegaly. Asymptomatic. Obtain Chest Xray. Continue to monitor. (4) DM type 1 (diabetes mellitus, type 1) Status: Chronic Plan: Hgb A1c with am labs. - Plan Inpatient status per [facility].
--- NOTE | 2018-10-25 14:43 | RAD ---
Chest 2 views HISTORY: Tachycardia. COMPARISON: 05/22/2017. FINDINGS: Cardiac silhouette and pulmonary vasculature are unremarkable. Mediastinum is midline. Shal low inspiration accentuates pulmonary markings. No confluent space consolidation, pneumothorax, or pleural fluid. IMPRESSION: No active cardiopulmonary abnormalities are demonstrated
[2018-10-25] MEDS: HYDROcodone/Acetaminophen 5/325 mg Tablet PO PRN (16:36)
[2018-10-25] MEDS ORDERED: cefTRIAXone\\ROCEPHIN 1 GM in Sodium Chloride 0.9% 100 ML IVPB SCH (18:00)
[2018-10-25] MEDS ORDERED: cloNIDine 0.1 MG TAB PO SCH (19:00)
[2018-10-25] MEDS: Gabapentin 300 MG CAP PO SCH (20:51)
[2018-10-25] MEDS: HumuLIN 70/30 (300 UNITS/3 ML VIAL) SC SCH (20:52)
[2018-10-26] MEDS: HumuLIN 70/30 (300 UNITS/3 ML VIAL) SC SCH ×2 (08:17→19:49)
[2018-10-26] MEDS: HYDROcodone/Acetaminophen 5/325 mg Tablet PO PRN ×3 (08:22→23:40)
[2018-10-26] MEDS: Sodium Chloride 0.9% 1,000 ML IV SCH ×2 (08:23→17:51)
[2018-10-26] MEDS: Enoxaparin Sodium 30 MG/0.3 ML SYRINGE SC SCH (08:24)
[2018-10-26] MEDS ORDERED: Lisinopril/Hydrochlorothiazide 10 mg/12.5 mg Tablet PO SCH (09:00)
[2018-10-26 10:52] LABS: #Eosinphils 0.1 thou/uL (0.0-0.7); #Lymphocytes 2.9 thou/uL (1.20-3.40); #Monocytes 0.7 thou/uL (0.11-0.59); #Neutrophils 9.4 thou/uL (1.40-6.50); %Basophils 0.2 % (0.0-1.0); %Eosinophils 1.1 % (0.0-10.0); %Monocytes 5.1 % (0.0-10.0); %Neutrophils 71.7 % (42.0-75.0); Anion Gap 11 mmol/L (10-20); BUN (Urea Nitrogen) 22 mg/dL (7.0-18.7); Calc. Creatinine Clearance 61 mL/min (70-130); Calcium 8.6 mg/dL (7.8-10.44); Carbon Dioxide 23 mmol/L (22-29); Chloride 103 mmol/L (98-107); Estimated GFR-MDRD 41; Glucose 303 mg/dL (70-105); Hemoglobin 9.2 g/dL (12.0-16.0); Mean Corpuscular HGB CONC 32.3 g/dL (32.0-36.0); Mean Corpuscular Hemoglobin 25.4 pg (27.0-31.0); Mean Corpuscular Volume 78.6 fL (78.0-98.0); Mean Platelet Volume 9.2 fL (7.4-10.4); Platelet Count 388 thou/uL (130-400); Potassium 4.3 mmol/L (3.5-5.1); RBC Distribution Width 13.1 % (11.5-14.5); Red Blood Cell (RBC) Count 3.62 mill/uL (4.20-5.40); Sodium 133 mmol/L (136-145); White Blood Cell (WBC) Count 13.1 thou/uL (4.8-10.8)
[2018-10-26] MEDS ORDERED: Amlodipine 10 MG TAB PO SCH (11:30)
[2018-10-26] MEDS ORDERED: Ciprofloxacin 500 MG TAB PO SCH ×2 (11:30→20:00)
[2018-10-26] MEDS ORDERED: Cefdinir 300 MG CAP PO SCH (12:00)
[2018-10-26] MEDS: Ondansetron PF 4 MG/2 ML Vial IVP PRN ×2 (12:03→23:41)
[2018-10-26] MEDS: HumaLOG 300 UNITS/3 ML VIAL SC PRN ×3 (12:04→19:49)
--- NOTE | 2018-10-26 16:40 | PDOC.HOSPP ---
- Subjective Encounter Date: 10/26/18 Encounter Time: 08:20 Subjective: Pt seen for followup re; pyelonephritis. Says she feels slightly better. - Objective Vital Signs & Weight: Vital Signs (12 hours) Temp Pulse Resp BP BP Pulse Ox 10/26/18 12:03 95 162/99 H 10/26/18 08:22 95 162/99 H 10/26/18 07:49 98.1 F 95 18 162/99 H 94 L Weight Weight 185 lb 3 oz I&O: 10/25/18 10/26/18 10/27/18 06:59 06:59 06:59 Intake Total 2159 730 Output Total 400 Balance 1759 730 Result Diagrams: 10/26/18 10:05 10/26/18 10:05 Additional Labs: Accuchecks 10/26/18 10/26/18 10/26/18 15:53 11:12 04:59 POC Glucose 213 H 327 H 66 L 10/25/18 10/25/18 20:25 16:27 POC Glucose 299 H 247 H labs and MARs reviewed by me ROS - Review of Systems Constitutional: denies: fever, chills, sweats, weakness, malaise Gastrointestinal: reports: nausea, vomitting, abdominal pain. denies: diarrhea , constipation, melena, hematochezia - Medication Medications: Active Medications Generic Name Dose Route Start Last Admin Trade Name Freq PRN Reason Stop Dose Admin Hydrocodone Bitart/Acetaminophen 2 tab 10/25/18 08:12 10/26/18 08:22 [place] 5/325 PO 2 tab Q6H PRN Administration Moderate Pain (4-6) Gabapentin 300 mg 10/25/18 21:00 10/25/18 20:51 Neurontin PO 300 mg HS MAUREEN Administration Lisinopril/HCTZ 1 tab 10/26/18 09:00 10/26/18 08:22 Prinizide 10-12.5 PO 1 tab DAILY MAUREEN Administration Promethazine HCl 12.5 mg/ 50.5 mls @ 151.5 mls/hr 10/24/18 22:59 10/25/18 18: 03 Sodium Chloride IVPB 50.5 mls Q6H PRN Administration Nausea Sodium Chloride 1,000 mls @ 100 mls/hr 10/25/18 01:15 10/26/18 08:23 Normal Saline 0.9% IV 1,000 mls .Q10H MAUREEN Administration Insulin Human Isoph/Insulin Regular 40 units 10/25/18 21:00 10/25/18 20:52 Humulin 70/30 SC 40 unit QPM MAUREEN Administration Insulin Human Isoph/Insulin Regular 50 units 10/26/18 09:00 10/26/18 08:17 Humulin 70/30 SC Not Given QAM MAUREEN Insulin Human Lispro 0 units 10/24/18 22:39 10/26/18 12:04 Humalog SC 5 unit .MILD SLIDING SCALE PRN Administration Mild Correctional Scale Insulin Human Lispro 0 units 10/24/18 23:36 10/25/18 20:52 Humalog SC 3 unit .BEDTIME SLIDING SC PRN Administration Bedtime Correctional Scale Ondansetron HCl 4 mg 10/26/18 11:47 10/26/18 12:03 Zofran IVP 4 mg Q6H PRN Administration Nausea/Vomiting Sodium Chloride 10 ml 10/26/18 09:00 10/26/18 08:27 Flush - Normal Saline IVF Not Given Q12HR MAUREEN Verapamil HCl 180 mg 10/26/18 09:00 10/26/18 08:22 Calan Er PO 180 mg DAILY MAUREEN Administration - Exam NAD Eye: anicteric sclera ENT: normocephalic atraumatic Neck: supple Heart: RRR Respiratory: CTAB Gastrointestinal: soft Gastrointestinal - other findings: left CVA tenderness Extremities: no cyanosis Psychiatric: normal affect Hosp A/P (1) Pyelonephritis Code(s): N12 - TUBULO-INTERSTITIAL NEPHRITIS, NOT SPCF ACUTE OR CHRONIC Status: Acute (2) DM type 1 (diabetes mellitus, type 1) Status: Chronic (3) Acute worsening of stage 3 chronic kidney disease Code(s): N18.3 - CHRONIC KIDNEY DISEASE, STAGE 3 (MODERATE) Status: Chronic - Plan continue antibiotics, out of bed/ambulate Swith to oral antibiotics (cefdinir). Discontinue lisinopril/HCTZ given acute on chronic renal failure, start hydralazine 25 mg PO QID. Continue accuchecks and insulin sliding scale. BP still high, start hydralazine.
[2018-10-26] MEDS: hydrALAZINE 25 MG TAB PO SCH ×2 (16:56→19:52)
[2018-10-26] MEDS: Promethazine HCl 12.5 MG in Sodium Chloride 0.9% 50 ML IVPB PRN (19:45)
[2018-10-26] MEDS: Gabapentin 300 MG CAP PO SCH (19:52)
[2018-10-26] MEDS: Cefdinir 300 MG CAP PO SCH (19:52)
[2018-10-27] MEDS: Sodium Chloride 0.9% 1,000 ML IV SCH ×3 (03:39→20:18)
[2018-10-27 05:07] LABS: #Basophils 0.1 thou/uL (0.0-0.2); #Eosinphils 0.2 thou/uL (0.0-0.7); #Lymphocytes 3.3 thou/uL (1.20-3.40); #Monocytes 0.6 thou/uL (0.11-0.59); #Neutrophils 7.2 thou/uL (1.40-6.50); %Basophils 0.6 % (0.0-1.0); %Lymphocytes 28.6 % (21.0-51.0); %Monocytes 5.6 % (0.0-10.0); %Neutrophils 63.2 % (42.0-75.0); Hemoglobin 9.1 g/dL (12.0-16.0); Mean Corpuscular HGB CONC 32.7 g/dL (32.0-36.0); Mean Corpuscular Hemoglobin 25.7 pg (27.0-31.0); Mean Corpuscular Volume 78.6 fL (78.0-98.0); Mean Platelet Volume 8.5 fL (7.4-10.4); Platelet Count 418 thou/uL (130-400); Red Blood Cell (RBC) Count 3.55 mill/uL (4.20-5.40); White Blood Cell (WBC) Count 11.4 thou/uL (4.8-10.8)
[2018-10-27] MEDS: HYDROcodone/Acetaminophen 5/325 mg Tablet PO PRN ×3 (05:07→20:15)
[2018-10-27] MEDS: Ondansetron PF 4 MG/2 ML Vial IVP PRN ×3 (05:11→20:18)
[2018-10-27 05:42] LABS: Anion Gap 11 mmol/L (10-20); BUN (Urea Nitrogen) 22 mg/dL (7.0-18.7); Calc. Creatinine Clearance 56 mL/min (70-130); Carbon Dioxide 23 mmol/L (22-29); Chloride 106 mmol/L (98-107); Estimated GFR-MDRD 37; Glucose 234 mg/dL (70-105); Sodium 136 mmol/L (136-145)
[2018-10-27] MEDS: Cefdinir 300 MG CAP PO SCH ×2 (08:58→20:15)
[2018-10-27] MEDS: Enoxaparin Sodium 40 MG/0.4 ML SYRINGE SC SCH (08:58)
[2018-10-27] MEDS: hydrALAZINE 25 MG TAB PO SCH ×4 (08:58→20:15)
[2018-10-27] MEDS: HumuLIN 70/30 (300 UNITS/3 ML VIAL) SC SCH ×2 (08:59→20:21)
[2018-10-27] MEDS ORDERED: Cefdinir 300 MG CAP PO SCH (09:00)
[2018-10-27] MEDS ORDERED: Amlodipine 5 MG TAB PO SCH ×2 (09:00→10:45)
[2018-10-27] MEDS ORDERED: Amlodipine 10 MG TAB PO SCH (10:45)
[2018-10-27] MEDS: HumaLOG 300 UNITS/3 ML VIAL SC PRN ×2 (11:27→20:26)
[2018-10-27] MEDS: Promethazine HCl 12.5 MG in Sodium Chloride 0.9% 50 ML IVPB PRN ×2 (14:17→22:37)
--- NOTE | 2018-10-27 15:30 | PDOC.HOSPP ---
- Subjective Encounter Date: 10/27/18 Encounter Time: 12:20 Subjective: Pt seen for followup re: pyelonephritis. c/o nausea. No fevers. - Objective Vital Signs & Weight: Vital Signs (12 hours) Temp Pulse Resp BP BP Pulse Ox 10/27/18 11:28 92 159/97 H 10/27/18 08:58 92 163/105 H 10/27/18 07:39 98.2 F 92 16 163/105 H 98 10/27/18 04:00 98.2 F 89 18 165/104 H 97 Weight Weight 185 lb 3 oz I&O: 10/26/18 10/27/18 10/28/18 06:59 06:59 06:59 Intake Total 730 Balance 730 Result Diagrams: 10/27/18 04:55 10/27/18 04:54 Additional Labs: Accuchecks 10/27/18 10/27/18 10/26/18 11:19 05:03 19:51 POC Glucose 330 H 296 H 271 H 10/26/18 15:53 POC Glucose 213 H labs and MARs reviewed by ROS - Review of Systems Gastrointestinal: reports: nausea. denies: vomitting, abdominal pain, diarrhea , constipation, melena, hematochezia Genitourinary: denies: dysuria, frequency, incontinence, hematuria, retention - Medication Medications: Active Medications Generic Name Dose Route Start Last Admin Trade Name Freq PRN Reason Stop Dose Admin Hydrocodone Bitart/Acetaminophen 2 tab 10/25/18 08:12 10/27/18 11:32 [place] 5/325 PO 2 tab Q6H PRN Administration Moderate Pain (4-6) Cefdinir 300 mg 10/26/18 21:00 10/27/18 08:58 Omnicef PO 300 mg BID AMUREEN Administration Enoxaparin Sodium 40 mg 10/27/18 09:00 10/27/18 08:58 Lovenox SC 40 mg 0900 MAUREEN Administration Gabapentin 300 mg 10/25/18 21:00 10/26/18 19:52 Neurontin PO 300 mg HS MAUREEN Administration Hydralazine HCl 50 mg 10/27/18 13:00 10/27/18 11:28 Apresoline PO 50 mg QID MAUREEN Administration Promethazine HCl 12.5 mg/ 50.5 mls @ 151.5 mls/hr 10/24/18 22:59 08/11/19 14: 17 Sodium Chloride IVPB 50.5 mls Q6H PRN Administration Nausea Sodium Chloride 1,000 mls @ 100 mls/hr 10/25/18 01:15 10/27/18 13:21 Normal Saline 0.9% IV 1,000 mls .Q10H MAUREEN Administration Insulin Human Isoph/Insulin Regular 40 units 10/25/18 21:00 10/26/18 19:49 Humulin 70/30 SC 40 unit QPM MAUREEN Administration Insulin Human Isoph/Insulin Regular 50 units 10/26/18 09:00 10/27/18 08:59 Humulin 70/30 SC 50 unit QAM MAUREEN Administration Insulin Human Lispro 0 units 10/24/18 22:39 10/27/18 11:27 Humalog SC 5 unit .MILD SLIDING SCALE PRN Administration Mild Correctional Scale Insulin Human Lispro 0 units 10/24/18 23:36 10/26/18 19:49 Humalog SC 3 unit .BEDTIME SLIDING SC PRN Administration Bedtime Correctional Scale Ondansetron HCl 4 mg 10/26/18 11:47 10/27/18 08:57 Zofran IVP 4 mg Q6H PRN Administration Nausea/Vomiting Sodium Chloride 10 ml 10/26/18 09:00 10/27/18 08:59 Flush - Normal Saline IVF Not Given Q12HR MAUREEN Verapamil HCl 180 mg 10/26/18 09:00 10/27/18 08:58 Calan Er PO 180 mg DAILY MAUREEN Administration - Exam NAD Eye: anicteric sclera ENT: normocephalic atraumatic Neck: supple Heart: RRR Respiratory: CTAB Gastrointestinal: soft Gastrointestinal - other findings: L CVA tenderness Extremities: no cyanosis Skin: normal turgor Musculoskeletal: normal tone Psychiatric: normal affect Hosp A/P (1) Pyelonephritis Code(s): N12 - TUBULO-INTERSTITIAL NEPHRITIS, NOT SPCF ACUTE OR CHRONIC Status: Acute (2) DM type 1 (diabetes mellitus, type 1) Status: Chronic (3) Acute worsening of stage 3 chronic kidney disease Code(s): N18.3 - CHRONIC KIDNEY DISEASE, STAGE 3 (MODERATE) Status: Chronic - Plan continue antibiotics, out of bed/ambulate Continue cefdinir. BP high, increase hydralazine to 50 mg PO QID, increase amlodipine to 10 mg PO daily. Continue accuchecks and insulin sliding scale. Check CT brain for intractable nausea.
--- NOTE | 2018-10-27 16:24 | CT ---
CT Brain WO Con History: Intractable nausea Comparison: CT brain 2018 Findings: No acute hemorrhage or infarct. No midline shift or mass effect. Ventricular size and extra -axial CSF spaces are normal. Calvarium is intact. Paranasal sinuses and mastoids are clear. Subtle right basal ganglia senile calcification. Impression: No acute intracranial abnormality.
[2018-10-27] MEDS: Gabapentin 300 MG CAP PO SCH (20:16)
[2018-10-28] MEDS: Ondansetron PF 4 MG/2 ML Vial IVP PRN ×4 (04:40→23:49)
[2018-10-28] MEDS: HYDROcodone/Acetaminophen 5/325 mg Tablet PO PRN ×4 (04:40→23:47)
[2018-10-28] MEDS: Sodium Chloride 0.9% 1,000 ML IV SCH ×2 (04:43→18:12)
[2018-10-28 06:38] LABS: #Basophils 0.1 thou/uL (0.0-0.2); #Eosinphils 0.3 thou/uL (0.0-0.7); #Lymphocytes 3.3 thou/uL (1.20-3.40); #Monocytes 0.7 thou/uL (0.11-0.59); %Basophils 0.7 % (0.0-1.0); %Eosinophils 2.4 % (0.0-10.0); %Lymphocytes 26.4 % (21.0-51.0); %Monocytes 5.5 % (0.0-10.0); %Neutrophils 64.9 % (42.0-75.0); Hemoglobin 9.3 g/dL (12.0-16.0); Mean Corpuscular HGB CONC 32.5 g/dL (32.0-36.0); Mean Corpuscular Hemoglobin 25.7 pg (27.0-31.0); Mean Platelet Volume 8.5 fL (7.4-10.4); Platelet Count 445 thou/uL (130-400); Red Blood Cell (RBC) Count 3.63 mill/uL (4.20-5.40); White Blood Cell (WBC) Count 12.4 thou/uL (4.8-10.8)
[2018-10-28 06:54] LABS: Anion Gap 11 mmol/L (10-20); BUN (Urea Nitrogen) 24 mg/dL (7.0-18.7); Calc. Creatinine Clearance 59 mL/min (70-130); Calcium 8.9 mg/dL (7.8-10.44); Carbon Dioxide 25 mmol/L (22-29); Chloride 103 mmol/L (98-107); Estimated GFR-MDRD 39; Glucose 136 mg/dL (70-105); Potassium 3.9 mmol/L (3.5-5.1); Sodium 135 mmol/L (136-145)
[2018-10-28] MEDS: hydrALAZINE 25 MG TAB PO SCH ×4 (08:38→20:15)
[2018-10-28] MEDS: Amlodipine 10 MG TAB PO SCH (08:38)
[2018-10-28] MEDS: Enoxaparin Sodium 40 MG/0.4 ML SYRINGE SC SCH (08:38)
[2018-10-28] MEDS: Cefdinir 300 MG CAP PO SCH ×2 (08:39→20:15)
[2018-10-28] MEDS: HumuLIN 70/30 (300 UNITS/3 ML VIAL) SC SCH ×2 (08:42→20:17)
[2018-10-28] MEDS: Promethazine HCl 12.5 MG in Sodium Chloride 0.9% 50 ML IVPB PRN (09:38)
--- NOTE | 2018-10-28 18:15 | PDOC.HOSPP ---
- Subjective Encounter Date: 10/28/18 Encounter Time: 08:20 Subjective: Pt seen for followup re: pyelonephritis. Continues to have significant nausea. - Objective Vital Signs & Weight: Vital Signs (12 hours) Temp Pulse Resp BP BP Pulse Ox 10/28/18 17:54 88 162/105 H 10/28/18 16:00 97.4 F L 88 18 148/94 H 99 10/28/18 12:24 94 128/84 10/28/18 11:00 98.6 F 97 18 125/80 98 10/28/18 08:38 91 146/89 H 10/28/18 08:00 98.1 F 88 20 146/98 H 98 Weight Weight 185 lb 3 oz Result Diagrams: 10/28/18 06:16 10/28/18 06:16 Additional Labs: Accuchecks 10/28/18 10/28/18 10/28/18 16:48 11:49 04:38 POC Glucose 202 H 202 H 72 10/27/18 20:27 POC Glucose 384 H Labs and MARs reviewed by me ROS - Review of Systems Respiratory: denies: cough, shortness of breath, SOB with excertion, pleuritic pain, wheezing Cardiovascular: denies: chest pain, palpitations, orthopnea, paroxysmal noc. dyspnea, edema, light headedness Gastrointestinal: reports: nausea, abdominal pain. denies: vomitting, diarrhea , constipation, melena, hematochezia - Medication Medications: Active Medications Generic Name Dose Route Start Last Admin Trade Name Freq PRN Reason Stop Dose Admin Hydrocodone Bitart/Acetaminophen 2 tab 10/25/18 08:12 10/28/18 12:18 [place] 5/325 PO 2 tab Q6H PRN Administration Moderate Pain (4-6) Amlodipine Besylate 10 mg 10/28/18 09:00 10/28/18 08:38 Norvasc PO 10 mg DAILY MAUREEN Administration Cefdinir 300 mg 10/26/18 21:00 10/28/18 08:39 Omnicef PO 300 mg BID MAUREEN Administration Enoxaparin Sodium 40 mg 10/27/18 09:00 10/28/18 08:38 Lovenox SC 40 mg 0900 MAUREEN Administration Gabapentin 300 mg 10/25/18 21:00 10/27/18 20:16 Neurontin PO 300 mg HS MAUREEN Administration Hydralazine HCl 50 mg 10/27/18 13:00 10/28/18 17:54 Apresoline PO 50 mg QID MAUREEN Administration Promethazine HCl 12.5 mg/ 50.5 mls @ 151.5 mls/hr 10/24/18 22:59 10/28/18 09: 38 Sodium Chloride IVPB 50.5 mls Q6H PRN Administration Nausea Sodium Chloride 1,000 mls @ 100 mls/hr 10/25/18 01:15 10/28/18 04:43 Normal Saline 0.9% IV 1,000 mls .Q10H MAUREEN Administration Insulin Human Isoph/Insulin Regular 40 units 10/25/18 21:00 10/27/18 20:21 Humulin 70/30 SC 40 unit QPM MAUREEN Administration Insulin Human Isoph/Insulin Regular 50 units 10/26/18 09:00 10/28/18 08:42 Humulin 70/30 SC 50 unit QAM MAUREEN Administration Insulin Human Lispro 0 units 10/24/18 22:39 10/27/18 11:27 Humalog SC 5 unit .MILD SLIDING SCALE PRN Administration Mild Correctional Scale Insulin Human Lispro 0 units 10/24/18 23:36 10/27/18 20:26 Humalog SC 5 unit .BEDTIME SLIDING SC PRN Administration Bedtime Correctional Scale Ondansetron HCl 4 mg 10/26/18 11:47 10/28/18 17:54 Zofran IVP 4 mg Q6H PRN Administration Nausea/Vomiting Sodium Chloride 10 ml 10/26/18 09:00 10/28/18 08:36 Flush - Normal Saline IVF Not Given Q12HR [facility] Verapamil HCl 180 mg 10/26/18 09:00 10/28/18 08:38 Calan Er PO 180 mg DAILY MAUREEN Administration - Exam NAD Eye: PERRL, anicteric sclera ENT: normocephalic atraumatic Neck: supple, no JVD Heart: RRR, normal peripheral pulses Respiratory: no wheezes, no rales Gastrointestinal: soft Gastrointestinal - other findings: left CVA less tender Musculoskeletal: no muscle wasting Psychiatric: normal affect, normal behavior Hosp A/P (1) Pyelonephritis Code(s): N12 - TUBULO-INTERSTITIAL NEPHRITIS, NOT SPCF ACUTE OR CHRONIC Status: Acute (2) DM type 1 (diabetes mellitus, type 1) Status: Chronic (3) Acute worsening of stage 3 chronic kidney disease Code(s): N18.3 - CHRONIC KIDNEY DISEASE, STAGE 3 (MODERATE) Status: Chronic - Plan out of bed/ambulate Continue oral cefdinir. BP readings have improved Continue accuchecks and insulin sliding scale. Anti-emetics PRN. Home when nausea improves. Creatinine improved to 1.81.
[2018-10-28] MEDS: Gabapentin 300 MG CAP PO SCH (20:15)
[2018-10-28] MEDS: HumaLOG 300 UNITS/3 ML VIAL SC PRN (20:16)
[2018-10-29] MEDS: Sodium Chloride 0.9% 1,000 ML IV SCH (03:49)
[2018-10-29 06:26] LABS: #Basophils 0.1 thou/uL (0.0-0.2); #Eosinphils 0.3 thou/uL (0.0-0.7); #Lymphocytes 2.9 thou/uL (1.20-3.40); #Monocytes 0.6 thou/uL (0.11-0.59); #Neutrophils 6.7 thou/uL (1.40-6.50); %Basophils 0.5 % (0.0-1.0); %Eosinophils 2.8 % (0.0-10.0); %Lymphocytes 27.3 % (21.0-51.0); %Monocytes 5.5 % (0.0-10.0); %Neutrophils 63.9 % (42.0-75.0); Hemoglobin 9.3 g/dL (12.0-16.0); Mean Corpuscular HGB CONC 32.6 g/dL (32.0-36.0); Mean Corpuscular Hemoglobin 25.6 pg (27.0-31.0); Mean Corpuscular Volume 78.5 fL (78.0-98.0); Mean Platelet Volume 8.4 fL (7.4-10.4); Platelet Count 452 thou/uL (130-400); Red Blood Cell (RBC) Count 3.64 mill/uL (4.20-5.40); White Blood Cell (WBC) Count 10.5 thou/uL (4.8-10.8)
[2018-10-29 06:50] LABS: Anion Gap 12 mmol/L (10-20); BUN (Urea Nitrogen) 21 mg/dL (7.0-18.7); Calc. Creatinine Clearance 60 mL/min (70-130); Calcium 8.6 mg/dL (7.8-10.44); Carbon Dioxide 21 mmol/L (22-29); Chloride 106 mmol/L (98-107); Estimated GFR-MDRD 40; Glucose 103 mg/dL (70-105); Sodium 135 mmol/L (136-145)
[2018-10-29] MEDS: Cefdinir 300 MG CAP PO SCH (08:10)
[2018-10-29] MEDS: hydrALAZINE 25 MG TAB PO SCH (08:10)
[2018-10-29] MEDS: Enoxaparin Sodium 40 MG/0.4 ML SYRINGE SC SCH (08:11)
[2018-10-29] MEDS: Amlodipine 10 MG TAB PO SCH (08:11)
[2018-10-29] MEDS: HumuLIN 70/30 (300 UNITS/3 ML VIAL) SC SCH (08:20)
[2018-10-29] MEDS: HYDROcodone/Acetaminophen 5/325 mg Tablet PO PRN (09:31)
[2018-10-29 11:44] VITALS: TEMP 98.1
[2018-10-29] MEDS: Promethazine HCl 12.5 MG in Sodium Chloride 0.9% 50 ML IVPB PRN (12:31)
[2018-10-29] MEDS ORDERED: hydrALAZINE 25 MG TAB PO SCH (15:00)
[2018-10-29] MEDS ORDERED: Verapamil 80 MG TAB PO SCH (15:00)
[2018-10-29 16:29] VITALS: BP 145/97
--- NOTE | 2018-10-29 21:26 | DIS ---
DATE OF ADMISSION: 10/24/2018 DATE OF DISCHARGE: 10/29/2018 PRIMARY CARE PROVIDER: Unknown. DISCHARGE DIAGNOSES: 1. Pyelonephritis. 2. Nausea and vomiting. 3. Acute on chronic stage 3 renal failure. CONDITION OF PATIENT ON THE DAY OF DISCHARGE: Stable. I assessed Ms. Green on the day of discharge. She denies any chest pain or shortness of breath. Nausea has improved. Vital signs are stable. S1 and S2 are heard, regular. Lungs are clear to auscultation bilaterally. DISCHARGE MEDICATIONS: 1. Gabapentin 100 mg at bedtime. 2. Novolin 70/30 insulin 40 units in the evening and 50 units in the morning. 3. Omnicef 300 mg 2 times a day for 10 days. 4. Hydralazine 75 mg 3 times a day. 5. Verapamil ER 180 mg daily. FOLLOWUP APPOINTMENTS: The patient is advised to follow up with her primary care provider in 3 to 5 days time. She is also advised to have her renal function checked through her primary care provider's office. HOSPITAL COURSE: Ms. Green is a pleasant 33-year-old lady, who was admitted to [facility] on October 24, 2018, for acute pyelonephritis. She was treated with intravenous antibiotics and was stepped down to oral antibiotics. She also had nausea and vomiting during this hospitalization, which resolved. Final urine cultures grew pansensitive Escherichia coli. She is being discharged home on cefdinir. Her creatinine at the time of admission was 2.52. Her last known creatinine in our system was 1.13 in May 2017. Creatinine improved to 1.76 on the day of discharge. On the day of discharge, she has sodium 135, potassium 4.0, creatinine 1.76, blood urea nitrogen 21, white count 99208, hemoglobin 9.3, and platelet count 452,000. Many thanks for allowing me to participate in your patient's care. Please feel free to contact me with any questions or concerns. DISCHARGE DESTINATION: Home. TIME SPENT: Total amount of time spent coordinating this discharge: 33 minutes. Job ID: [id number]
--- NOTE | 2018-10-31 09:04 | PQF ---
SAP Hide Examiner Crystal Reports Winform Viewer KEL ISIDRO DAVID [id number] CLINICAL DOCUMENTATION CLARIFICATION FORM: POST DISCHARGE Addendum to original discharge summary date: ____ Late entry note date: 10/31/2018 DATE: 10-31-2018 ATTN:Claudio Clemens Please exercise your independent, professional judgment in responding to the clarification form. Clinical indicators are provided on the bottom of this form for your review Can you please specify whether Sepsis is ruled in or ruled out during this encounter? Please check appropriate box(s) to clarify if the following diagnosis has been ruled in or ruled out: Sepsis [ ] Ruled in diagnosis [ ] Continue to treat [ ] Resolved [ ] Ruled out diagnosis [ ] Cannot rule out diagnosis [ ] Other diagnosis please specify: [ ] Unable to determine For continuity of documentation, please document condition throughout progress notes and discharge summary. Thank You. CLINICAL INDICATORS: H&P / pg1 Dr. Chang having severe left upper quadrant and flank pain with no clear trigger H&P 10/[address] Chang Urinary tract infection with severe flank pain H&P 10/[address] Chang Sepsis- the patient has tachycardia and elevated white count. Source is urinary tract infection H&P 10/[address] Chang Acute on chronic kidney injury, this is likely secondary to infection PN 10/[address] Cardozo She states she was told in the past had an enlarged heart and has had tachycardia for a long time DS 10/[address] Murrell Pyelonephritis DS 10/[address] Murrell Urine cultures grew pansensitive escherichia coli ED 10/24 Vitals signs EM=640/129, 131/100, 178/121 Evyas=152, 104, 117, 132 Respi=14, 18, 24, 24,35 Temp=98.7, 98.7, 99.5 Laboratory WBC=22.4, 18.6, 13.1, 11.4, 12.4 RISK FACTOR: H&P 10/24 Dr. Chang- UTI H&P 10/24 Dr. Chang- NIRAJ H&P 10/24 Dr. Chang- HTN H&P 10/24 Dr. Chang- Hyperlipidemia TREATMENTS: Imaging 10/[address] Microbiology 10/24- Urine cultures MAY 24- Ceftriaxone IV 1 gm MAY 24- IV fluids (This form is maintained as a part of the permanent medical record) 2014 [employer]. All Rights Reserved Adilene [email or web address] [not provided] MTDD
--- NOTE | 2018-10-31 12:33 | PDOC.EVN ---
Event Note - Event Note Event Note: late Entry: Patient's discharge diagnoses also include: 1. sepsis secondary to pyelonephritis, present on admission.
== END 2018-10-29 16:49 | disposition home or self-care (01) | DRG 872 ==
LOC: ERS 16:09 → OBSVTOIN 21:31 → 2SW 21:31 → T4-B 10-25 16:20
PROVIDERS: ADMIT Hospitalist; ATTEND Hospitalist
DX: A41.9 Sepsis, unspecified organism (principal); N17.9 Acute kidney failure, unspecified; E87.1 Hypo-osmolality and hyponatremia; N10 Acute pyelonephritis; E78.00 Pure hypercholesterolemia, unspecified; E78.5 Hyperlipidemia, unspecified; E10.43 Type 1 diabetes mellitus with diabetic autonomic (poly)neuropathy; K31.84 Gastroparesis; F41.9 Anxiety disorder, unspecified; F31.9 Bipolar disorder, unspecified; F17.210 Nicotine dependence, cigarettes, uncomplicated; R00.0 Tachycardia, unspecified; N18.3 Chronic kidney disease, stage 3 (moderate); I12.9 Hypertensive chronic kidney disease with stage 1 through stage 4 chronic kidney disease, or unspecified chronic kidney disease; B96.20 Unspecified Escherichia coli [E. coli] as the cause of diseases classified elsewhere; Z79.899 Other long term (current) drug therapy; Z79.4 Long term (current) use of insulin; E10.22 Type 1 diabetes mellitus with diabetic chronic kidney disease; D63.1 Anemia in chronic kidney disease; E10.65 Type 1 diabetes mellitus with hyperglycemia
CPT/HCPCS: 36415; 36416; 70450; 71046; 74176; 80048; 80053; 81003; 81015; 83605; 83690; 83735; 83880; 84443; 84703; 85025; 87040; 87077; 87086; 87186; 96361; 96365; 96375; 96376; J0696; J1650; J1815; J2270; J2405; J2550; J3490

== ENCOUNTER 2019-01-10 12:48 | Inpatient (IN) | payer SELFPAY ==
[2019-01-10 13:29] LABS: Mean Corpuscular HGB CONC 31.4 g/dL (32.0-36.0); Mean Corpuscular Hemoglobin 22.8 pg (27.0-31.0); Mean Platelet Volume 9.4 fL (7.4-10.4); Platelet Count 473 thou/uL (130-400); Red Blood Cell (RBC) Count 4.41 mill/uL (4.20-5.40)
[2019-01-10] MEDS ORDERED: Ondansetron PF 4 MG/2 ML Vial ONE (13:37)
[2019-01-10 13:52] LABS: #Basophils 0.1 thou/uL (0.0-0.2); #Eosinphils 0.1 thou/uL (0.0-0.7); #Lymphocytes 3.2 thou/uL (1.20-3.40); #Monocytes 0.6 thou/uL (0.11-0.59); #Neutrophils 11.9 thou/uL (1.40-6.50); %Basophils 0.6 % (0.0-1.0); %Eosinophils 0.9 % (0.0-10.0); %Neutrophils 74.5 % (42.0-75.0); ALT (SGPT) 10 U/L (8-55); AST (SGOT) 26 U/L (5-34); Albumin 3.6 g/dL (3.5-5.0); Alkaline Phosphatase 118 U/L (40-110); Anion Gap 15 mmol/L (10-20); BUN (Urea Nitrogen) 46 mg/dL (7.0-18.7); Bilirubin, Total 0.2 mg/dL (0.2-1.2); Calc. Creatinine Clearance 0 mL/min (70-130); Carbon Dioxide 20 mmol/L (22-29); Chloride 99 mmol/L (98-107); Estimated GFR-MDRD 21; Globulin 4.4 g/dL (2.4-3.5); Glucose 362 mg/dL (70-105); Hypochromia SLIGHT = 6-15 cells (100X) (0-5/hpf); Lipase 38 U/L (8-78); MDiff Complete? YES; Magnesium 2.2 mg/dL (1.6-2.6); Mean Corpuscular Volume 72.4 fL (78.0-98.0); Microcytosis SLIGHT = 6-15 cells (100X) (0-5/hpf); Platelet Morphology Comment Appears Increased; Potassium 4.4 mmol/L (3.5-5.1); Sodium 130 mmol/L (136-145)
[2019-01-10 13:57] LABS: Phosphorus 3.7 mg/dL (2.3-4.7)
[2019-01-10 14:03] LABS: BHCG - Serum Negative (NEGATIVE); Pregs Control Background? CLEAR/WHITE (CLR/WHITE); Pregs Control Bar Appear? YES (CONTROL BAR)
[2019-01-10 14:27] LABS: Bilirubin Negative (Negative); Blood, Urine Negative (Negative); Clarity Clear (Clear); Glucose, Urine (Dipstick) Greater than 1000 mg/dL (Negative); Leukocyte 75 Leu/uL (Negative); Nitrite Negative (Negative); Protein, Urine (Dipstick) 100 mg/dL (Neg-Trace); RBC/HPF 0-3 HPF (0-3); Squamous Epithelial 0-3 HPF (0-3); Urobilinogen Normal mg/dL (Less than 2); WBC/HPF Greater than 50 HPF (0-3)
[2019-01-10 14:29] LABS: Bacteria/HPF 1+ HPF (None Seen)
--- NOTE | 2019-01-10 14:37 | RAD ---
XR Chest 1 View Portable HISTORY: Hyperglycemia, chest pain, headache, nausea COMPARISON: 10/25/2018 FINDINGS: The heart size is normal. The lungs are well expanded without focal areas of consolidation, pneumothorax or pleural effusions. IMPRESSION: No radiographic evidence of acute cardiopulmonary process.
[2019-01-10] MEDS ORDERED: cefTRIAXone\\ROCEPHIN 2 GM VIAL ONE (15:39)
[2019-01-10] MEDS ORDERED: Aspirin Chewable 81 MG TAB ONE (16:13)
[2019-01-10 16:46] LABS: Troponin I 0.013 ng/mL (< 0.028)
[2019-01-10] MEDS ORDERED: Guaifenesin DM 100-10/5 ML UDCUP PO PRN (16:53)
[2019-01-10] MEDS ORDERED: Senokot S 8.6-50 MG TAB PO PRN (16:53)
[2019-01-10] MEDS ORDERED: Bisacodyl 10 MG SUPP PR PRN (16:53)
[2019-01-10] MEDS ORDERED: Dextrose 50% Abboject 50 ML SYRINGE SLOW IVP PRN (16:53)
[2019-01-10] MEDS ORDERED: Dextrose 5% in Water 1,000 ML IV PRN (16:53)
[2019-01-10 17:21] LABS: Acetaminophen Less than 6.0 mcg/mL (10.0-30.0); Alcohol Less than 10 mg/dL (Less than 10); Salicylate Less than 8.0 mg/dL (15.0-30.0)
--- NOTE | 2019-01-10 17:27 | HP ---
REASON FOR ADMISSION: Diabetes, uncontrolled; acute kidney injury; epigastric pain; urinary tract infection. HISTORY OF PRESENTING ILLNESS: The patient gives history of having gone for a routine checkup to see her primary care physician at [facility]. This was around 11 in the morning. They found her fingerstick glucose to be 518. The patient also mentioned that she had epigastric pain with no radiation. She also felt like her kidneys were hurting, saying it is her lower back both sides. She felt a bit nauseous when this happened, but none after that. No vomiting. She has had nasal congestion and postnasal drip. No fever as such. No complaints of chest pain as such. No cough or expectoration, although she has some dry coughing with her smoking. PAST MEDICAL AND SURGICAL HISTORY: 1. History of bipolar disorder. 2. Appendectomy. 3. Tonsillectomy. 4. x3. 5. Diabetes mellitus, type 1. 6. Dyslipidemia. 7. Peripheral neuropathy. 8. Hypertension. 9. CKD. CURRENT MEDICATIONS: The patient takes; 1. Hydralazine 25 mg 3 times daily. 2. Novolin 70/30 at 50 units q.a.m. and 40 at bedtime. 3. Verapamil extended release 180 mg p.o. daily. 4. Remeron 7.5 mg p.o. daily. 5. Wellbutrin sustained release 100 mg p.o. daily. 6. Lamictal 25 mg every other day. ALLERGIES: NO KNOWN DRUG ALLERGIES. PERSONAL HISTORY: Admits to smoking 2 to 3 cigarettes a day. Does not abuse alcohol. Denies drug abuse. FAMILY HISTORY: Both parents are living. Mother has history of hypertension. Father has history of DC, hypertension, and diabetes. CODE STATUS: Full. Power of district attorney is her . REVIEW OF SYSTEMS: CONSTITUTIONAL: Negative for weight loss or gain, ability to conduct usual activities. SKIN: Negative for rash, itching. EYES: Negative for double vision, pain. ENT/MOUTH: Negative for nose bleeding, neck stiffness, pain, tenderness. CARDIOVASCULAR: Negative for palpitations, dyspnea on exertion, orthopnea. RESPIRATORY: Negative for shortness of breath, wheezing, hemoptysis, fever or night sweats. GASTROINTESTINAL: Negative for poor appetite, heartburn, nausea, vomiting, constipation, or diarrhea. GENITOURINARY: Negative for urgency, frequency, dysuria, nocturia. MUSCULOSKELETAL: Negative for pain, swelling. NEUROLOGIC/PSYCHIATRIC: Negative for anxiety, depression. ALLERGY/IMMUNOLOGIC: Negative for skin rash, bleeding tendency. PHYSICAL EXAMINATION: GENERAL: The patient is a 33-year-old female, who is currently not in any acute distress. VITAL SIGNS: Blood pressure 160/96, pulse 114 per minute, respiratory rate 18 per minute, temperature 98.8 degrees Fahrenheit, and saturating 100% on room air. NECK: Supple. No elevated JVP. EYES: Extraocular muscles intact. Pupils reacting to light. ORAL CAVITY: Mucous membranes are dry. No exudates or congestion. CARDIOVASCULAR SYSTEM: S1 and S2 heard. Regular rhythm. RESPIRATORY: Air entry 1+ bilateral. No rales or rhonchi. ABDOMEN: Soft. Bowel sounds heard. Questionable lower back pain. No CV angle tenderness as such, but has pain in the generalized area in the lower back. Mild tenderness in the epigastric area. No rigidity or guarding. EXTREMITIES: No peripheral edema or calf tenderness. VASCULAR SYSTEM: Peripheral pulses 1+ bilateral. No ischemic ulcerations or gangrene. CENTRAL NERVOUS SYSTEM: No gross focal deficits noted. The patient is alert, awake, and oriented well. PSYCHIATRIC SYSTEM: The patient's mood is euthymic. No hallucinations or delusions. LABORATORY DATA: White count of 16, hemoglobin and hematocrit 10 and 31, platelet count 473, MCV 72 with 74% neutrophils. Sodium 130, serum bicarb 20, BUN 46, creatinine 3.0, serum glucose 362. Liver enzymes are within normal limits. Total bilirubin 0.2, albumin is 3.6. Serum test is negative. Total lipase is 38. Troponin x2 negative. UA is positive for UTI. Chest x-ray, no acute cardiopulmonary abnormalities. Beta-hydroxybutyrate is 0.12 mmol/L. EKG done shows normal sinus rhythm at 99 beats per minute. There are changes of LVH seen. She has had an echo done in 04/2017, which showed EF of 55% to 60% with mild LVH. CLINICAL IMPRESSION AND PLAN: The patient will be admitted under observation on telemetry for diabetes mellitus, type 1, uncontrolled; metabolic acidosis; acute kidney injury; moderate dehydration; urinary tract infection. She also had a temperature of 99 degrees on arrival. We will gently hydrate the patient with normal saline at 100 mL/hour. She has received 2 L of IV fluids in the ER. She has had 2 g of ceftriaxone in the ER and we will continue her on 1 g IV daily. Urine and blood cultures have been obtained. We will continue her home dose of 70/30 Novolin at 50 units in the morning and 40 at night, hydralazine 25 mg 3 times daily, and continue Remeron, Wellbutrin, and Lamictal at home doses along with verapamil. A urine drug screen will also be obtained. She has been positive for methamphetamine in the past. The patient's baseline creatinine runs around 1.5 to 1.6 and it is around 3 at present. We will obtain a metabolic panel in the morning. Also, the patient's white count is 16 as well. We will continue to closely monitor her on telemetry. If needed, she will be switched over to inpatient status if the cultures do not arrive on time. We will also obtain a right upper quadrant ultrasound to rule out acute cholecystitis. Job ID: [id number]
[2019-01-10 19:36] LABS: Troponin I 0.036 ng/mL (< 0.028)
[2019-01-10 20:03] VITALS: BMI 31.8
[2019-01-10] MEDS: Mirtazapine 15 MG TAB PO SCH (20:25)
[2019-01-10] MEDS: hydrALAZINE 25 MG TAB PO SCH (20:25)
[2019-01-10] MEDS: Acetaminophen 325 MG TAB PO PRN (20:25)
[2019-01-10] MEDS: Sodium Chloride 0.9% 1,000 ML IV SCH (20:37)
[2019-01-10] MEDS: HumuLIN 70/30 (300 UNITS/3 ML VIAL) SC SCH (20:38)
[2019-01-10] MEDS ORDERED: FLU VACC QS2019-20(6MOS UP)/PF 60 MCG/0.5 ML SYRINGE IM ONE (21:00)
[2019-01-10 21:06] LABS: Amphetamine Not Detected (NotDetected); Barbiturates Screen Not Detected (NotDetected); Benzodiazepine Screen Not Detected (NotDetected); Cocaine Metabolite Screen Not Detected (NotDetected); Medtox Control Line Valid? VALID (VALID); Medtox Reader # READER 4; Methadone Not Detected (NotDetected); Methamphetamine Not Detected (NotDetected); Opiate Screen Not Detected (NotDetected); Oxycodone Screen Not Detected (NotDetected); Phencyclidine (PCP) Not Detected (NotDetected); THC/Cannabinoid Screen Not Detected (NotDetected); Tricyclic Screen Not Detected (NotDetected)
[2019-01-11] MEDS: Acetaminophen 325 MG TAB PO PRN ×3 (03:44→20:06)
[2019-01-11 03:59] LABS: #Basophils 0.1 thou/uL (0.0-0.2); #Eosinphils 0.2 thou/uL (0.0-0.7); #Lymphocytes 3.6 thou/uL (1.20-3.40); #Monocytes 0.7 thou/uL (0.11-0.59); #Neutrophils 6.9 thou/uL (1.40-6.50); %Basophils 0.5 % (0.0-1.0); %Eosinophils 1.5 % (0.0-10.0); %Lymphocytes 31.6 % (21.0-51.0); %Monocytes 6.4 % (0.0-10.0); Hemoglobin 8.2 g/dL (12.0-16.0); Mean Corpuscular HGB CONC 31.8 g/dL (32.0-36.0); Mean Corpuscular Hemoglobin 23.1 pg (27.0-31.0); Mean Corpuscular Volume 72.7 fL (78.0-98.0); Platelet Count 389 thou/uL (130-400); RBC Distribution Width 13.7 % (11.5-14.5); Red Blood Cell (RBC) Count 3.54 mill/uL (4.20-5.40); White Blood Cell (WBC) Count 11.5 thou/uL (4.8-10.8)
[2019-01-11 04:20] LABS: Albumin 2.8 g/dL (3.5-5.0); Anion Gap 12 mmol/L (10-20); BUN (Urea Nitrogen) 38 mg/dL (7.0-18.7); BUN/Creatinine Ratio 16.96; Calc. Creatinine Clearance 51 mL/min (70-130); Calcium 8.1 mg/dL (7.8-10.44); Carbon Dioxide 20 mmol/L (22-29); Chloride 107 mmol/L (98-107); Estimated GFR-MDRD 30; Glucose 111 mg/dL (70-105); Phosphorus 3.8 mg/dL (2.3-4.7); Potassium 3.2 mmol/L (3.5-5.1); Sodium 136 mmol/L (136-145)
[2019-01-11] MEDS: Sodium Chloride 0.9% 1,000 ML IV SCH ×3 (09:03→20:09)
[2019-01-11] MEDS: Bupropion 100 MG SR TAB PO SCH (09:04)
[2019-01-11] MEDS: Enoxaparin Sodium 30 MG/0.3 ML SYRINGE SC SCH (09:04)
[2019-01-11] MEDS: hydrALAZINE 25 MG TAB PO SCH ×3 (09:05→20:06)
[2019-01-11] MEDS: lamoTRIgine 25 MG TAB PO SCH (09:05)
--- NOTE | 2019-01-11 09:52 | ULT ---
GALLBLADDER ULTRASOUND: Date: 01/11/19 HISTORY: Right upper quadrant pain. Abdominal pain. FINDINGS: The liver, pancreas, gallbladder, and right kidney appear normal. The common duct measures 4.0 mm in diameter. No free fluid is seen in Morison's pouch. IMPRESSION: Normal exam. POS: OFF
[2019-01-11] MEDS: HumuLIN 70/30 (300 UNITS/3 ML VIAL) SC SCH ×2 (11:24→20:07)
--- NOTE | 2019-01-11 12:28 | PDOC.HOSPP ---
- Subjective Encounter Date: 01/11/19 Encounter Time: 10:00 Subjective: back pain is better no nausea now no sob or palp - Objective Vital Signs & Weight: Vital Signs (12 hours) Temp Pulse Resp BP Pulse Ox 01/11/19 11:04 98.1 F 97 20 175/101 H 96 01/11/19 07:16 98.1 F 98 16 172/97 H 96 01/11/19 03:39 98.6 F 94 16 168/92 H 96 Weight Weight 198 lb 1.6 oz I&O: 01/10/19 01/11/19 01/12/19 06:59 06:59 06:59 Intake Total 2476 Output Total 1700 Balance 776 Result Diagrams: 01/11/19 03:35 01/11/19 03:35 Additional Labs: Accuchecks 01/11/19 01/11/19 01/10/19 10:37 05:25 20:31 POC Glucose 127 H 144 H 275 H 01/10/19 13:14 POC Glucose 384 H Hospitalist ROS - Medication Medications: Active Medications Generic Name Dose Route Start Last Admin Trade Name Freq PRN Reason Stop Dose Admin Acetaminophen 650 mg 01/10/19 16:53 01/11/19 03:44 Tylenol PO 650 mg Q4H PRN Administration Headache/Fever/Mild Pain (1-3) Bupropion HCl 100 mg 01/11/19 09:00 01/11/19 09:04 Wellbutrin Sr PO 100 mg DAILY MAUREEN Administration Enoxaparin Sodium 30 mg 01/11/19 09:00 01/11/19 09:04 Lovenox SC 30 mg 0900 MAUREEN Administration Hydralazine HCl 25 mg 01/10/19 21:00 01/11/19 09:05 Apresoline PO 25 mg TID MAUREEN Administration Sodium Chloride 1,000 mls @ 100 mls/hr 01/10/19 17:00 01/11/19 09:03 Normal Saline 0.9% IV 1,000 mls .Q10H MAUREEN Administration Insulin Human Isoph/Insulin Regular 40 units 01/10/19 21:00 01/10/19 20:38 Humulin 70/30 SC 40 unit QPM MAUREEN Administration Insulin Human Isoph/Insulin Regular 50 units 01/11/19 09:00 01/11/19 11:24 Humulin 70/30 SC 50 unit QAM MAUREEN Administration Lamotrigine 25 mg 01/11/19 09:00 01/11/19 09:05 Lamictal PO 25 mg Q2D@0900 MAUREEN Administration Mirtazapine 7.5 mg 01/10/19 21:00 01/10/19 20:25 Remeron PO 7.5 mg HS MAUREEN Administration Verapamil HCl 180 mg 01/11/19 09:00 01/11/19 11:24 Calan Er PO 180 mg DAILY MAUREEN Administration - Exam General Appearance: NAD, awake alert Eye: PERRL, anicteric sclera ENT: no oropharyngeal lesions, moist mucosa Neck: supple, no JVD Heart: RRR, no murmur Respiratory: no wheezes, no rales Gastrointestinal: soft, non-tender, non-distended, normal bowel sounds Extremities: no cyanosis, no edema Neurological: cranial nerve grossly intact, no focal deficits Psychiatric: normal affect, A&O x 3 Hosp A/P (1) Acute worsening of stage 3 chronic kidney disease Code(s): N18.3 - CHRONIC KIDNEY DISEASE, STAGE 3 (MODERATE) Status: Chronic (2) UTI (urinary tract infection) Status: Acute Qualifiers: Urinary tract infection type: acute cystitis Hematuria presence: without hematuria Qualified Code(s): N30.00 - Acute cystitis without hematuria (3) Anemia Code(s): D64.9 - ANEMIA, UNSPECIFIED Status: Chronic Qualifiers: Anemia type: iron deficiency (4) Obesity Code(s): E66.9 - OBESITY, UNSPECIFIED Status: Chronic (5) HTN (hypertension) Code(s): I10 - ESSENTIAL (PRIMARY) HYPERTENSION Status: Chronic Qualifiers: Hypertension type: essential hypertension Qualified Code(s): I10 - Essential (primary) hypertension (6) Bipolar disorder Code(s): F31.9 - BIPOLAR DISORDER, UNSPECIFIED Status: Chronic Qualifiers: Active/Remission status: in full remission (7) DM type 1 (diabetes mellitus, type 1) Status: Chronic Qualifiers: Diabetes mellitus complication status: with hyperglycemia Qualified Code(s) : E10.65 - Type 1 diabetes mellitus with hyperglycemia (8) Dehydration Code(s): E86.0 - DEHYDRATION Status: Resolved - Plan continue iv hydration renal function is slightly better than yesterday likely has underlying ckd await cultures, is on ceftriaxone renal consultation iron studies diabetes is better controlled this am continue humulin 70/30, hydralazine, calan er, remeron, wellbutrin and lamictal to ambulate as tolerated change status to inpt, may tx to med floor
--- NOTE | 2019-01-11 15:54 | CON ---
DATE OF CONSULTATION: REASON FOR CONSULTATION: Elevated creatinine. HISTORY OF PRESENT ILLNESS: This is a very pleasant 33-year-old female presented to the hospital with a baseline creatinine of 3.07, which improved to 2.2. Prior baseline was anywhere from 1.1 to 2.5 since 2018. She has had known CKD since 2017 with episodes of acute kidney injury as far as 2013. The patient also has history of diabetes mellitus and hypertension. PAST MEDICAL HISTORY: Hypertension, bipolar disorder, tonsillectomy, , diabetes mellitus, peripheral neuropathy, hypertension, and CKD. HOME MEDICATIONS: List reviewed. HOSPITAL MEDICATION: List reviewed. ALLERGIES: REVIEWED. REVIEW OF SYSTEMS: A 15-point review of system was performed and negative except for positive noted above. GENERAL: HEAD: NECK: No swelling or lumps. NOSE: No epistaxis or discharge. EYES: No diplopia or pain. RESPIRATORY: CARDIOVASCULAR: GASTROINTESTINAL: /MAC ARTIST: MUSCULOSKELETAL: No joint pain. NEUROPSYCHIATRIC SYSTEMS: No suicidal ideation. No ideation. SKIN: Denies any rash or ulcer. CONSTITUTIONAL: No fever or chills. FAMILY HISTORY: Negative for ESRD. PHYSICAL EXAMINATION: GENERAL: The patient awake and alert. VITAL SIGNS: Afebrile, pulse 97, breathing 16, and blood pressure 168/92. GENERAL APPEARANCE AND MENTAL STATUS: Fair. HEAD/NECK: Normocephalic. Atraumatic. EYES: EOMI. No deformity. EARS: Clear. No ulcers. NOSE: Intact. No lesions. MOUTH: Clear. No discharge. THROAT: Clear. No exudate. LUNGS: Clear. No crackles. CARDIAC: S1, S2. No rub. ABDOMEN: Benign. Bowel sounds positive. GENITALIA/RECTUM: Day absent. BACK/EXTREMITIES: Edema 0+. NEUROLOGICAL: Alert and motor intact. SKIN: LYMPHATICS: LABORATORY DATA: Labs reviewed. ASSESSMENT AND PLAN: 1. Acute kidney injury with chronic kidney disease, most likely due to decreased effective arterial blood volume. 2. Proteinuria. We will order random urine protein-creatinine ratio. 3. Hypokalemia. We would recommend checking renin and aldosterone level. 4. Anemia, stable. Medication based on GFR appropriate. No indication for dialysis. Renal function has improved. Job ID: [id number]
[2019-01-11] MEDS ORDERED: cefTRIAXone\\ROCEPHIN 1 GM in Sodium Chloride 0.9% 100 ML IVPB SCH (16:00)
[2019-01-11] MEDS: HumaLOG 300 UNITS/3 ML VIAL SC PRN ×2 (17:44→20:08)
[2019-01-11 18:02] LABS: Creatinine, Urine 30.71 mg/dL (47-110)
[2019-01-11] MEDS: Mirtazapine 15 MG TAB PO SCH (20:06)
[2019-01-12] MEDS ORDERED: hydrALAZINE 25 MG TAB PO SCH (04:30)
[2019-01-12] MEDS: Acetaminophen 325 MG TAB PO PRN ×2 (04:35→21:29)
[2019-01-12] MEDS: cloNIDine 0.1 MG TAB PO PRN (06:23)
[2019-01-12 06:52] LABS: Anion Gap 12 mmol/L (10-20); BUN (Urea Nitrogen) 32 mg/dL (7.0-18.7); Calc. Creatinine Clearance 51 mL/min (70-130); Calcium 8.7 mg/dL (7.8-10.44); Carbon Dioxide 22 mmol/L (22-29); Chloride 105 mmol/L (98-107); Estimated GFR-MDRD 31; Glucose 327 mg/dL (70-105); Iron 20 ug/dL (50-170); Iron Binding Capacity, Total 310 mcg/dL (265-497); Potassium 3.4 mmol/L (3.5-5.1); Sodium 136 mmol/L (136-145)
[2019-01-12 07:13] LABS: Ferritin 12.27 ng/mL (10-291)
[2019-01-12] MEDS: Bupropion 100 MG SR TAB PO SCH (08:55)
[2019-01-12] MEDS: Enoxaparin Sodium 30 MG/0.3 ML SYRINGE SC SCH (08:55)
[2019-01-12] MEDS: hydrALAZINE 25 MG TAB PO SCH ×3 (08:55→21:29)
[2019-01-12] MEDS: HumuLIN 70/30 (300 UNITS/3 ML VIAL) SC SCH ×2 (08:56→21:30)
[2019-01-12] MEDS: HumaLOG 300 UNITS/3 ML VIAL SC PRN ×3 (11:26→21:31)
--- NOTE | 2019-01-12 12:27 | PRG ---
DATE OF SERVICE: 01/12/2019 SUBJECTIVE: This is a 33-year-old female being seen for acute kidney injury. The patient denies any nausea, vomiting, or chest pain. OBJECTIVE: See above. The patient is awake and alert, in no acute distress. VITAL SIGNS: Afebrile, pulse 75, breathing 16, blood pressure 157/90. GENERAL APPEARANCE AND MENTAL STATUS: Fair. HEAD/NECK: Normocephalic. Atraumatic. EYES: EOMI. No deformity. EARS: Clear. No ulcers. NOSE: Intact. No lesions. MOUTH: Clear. No discharge. THROAT: Clear. No exudate. LUNGS: Clear. No crackles. CARDIAC: S1, S2. No rub. ABDOMEN: Benign. Bowel sounds positive. GENITALIA/RECTUM: Day absent. BACK/EXTREMITIES: Edema 0+. NEUROLOGICAL: Alert and motor intact. SKIN: LYMPHATICS: LABORATORY DATA: Labs reviewed. ASSESSMENT AND PLAN: 1. Acute kidney injury, improved. 2. Hypertension, stable. 3. Anemia, stable. 4. Hypokalemia. Recommend 20 mEq of potassium p.o. No indication for dialysis. Job ID: [id number]
--- NOTE | 2019-01-12 16:57 | PDOC.HOSPP ---
- Subjective Encounter Date: 01/12/19 Encounter Time: 09:00 Subjective: no sob, feels better no headache or any weakness says she will ambulate more today - Objective Vital Signs & Weight: Vital Signs (12 hours) Temp Pulse Resp BP BP Pulse Ox 01/12/19 15:46 98.2 F 96 18 149/99 H 96 01/12/19 15:44 96 01/12/19 11:20 98.0 F 104 H 20 147/93 H 97 01/12/19 08:55 101 H 01/12/19 08:00 98 01/12/19 07:19 98.0 F 100 20 174/116 H 98 01/12/19 06:23 188/120 H 01/12/19 06:21 182/100 H Weight Weight 198 lb 1.6 oz I&O: 01/11/19 01/12/19 01/13/19 06:59 06:59 06:59 Intake Total 2476 1830 1200 Output Total 1700 Balance 776 1830 1200 Result Diagrams: 01/11/19 03:35 01/12/19 05:35 Additional Labs: Accuchecks 01/12/19 01/11/19 01/11/19 11:20 19:20 17:12 POC Glucose 481 H 232 H 291 H Hospitalist ROS - Medication Medications: Active Medications Generic Name Dose Route Start Last Admin Trade Name Freq PRN Reason Stop Dose Admin Acetaminophen 650 mg 01/10/19 16:53 01/12/19 04:35 Tylenol PO 650 mg Q4H PRN Administration Headache/Fever/Mild Pain (1-3) Bupropion HCl 100 mg 01/11/19 09:00 01/12/19 08:55 Wellbutrin Sr PO 100 mg DAILY MAUREEN Administration Clonidine 0.1 mg 01/12/19 04:24 01/12/19 06:23 Catapres PO 0.1 mg Q4H PRN Administration SBP Greater Than 180 Enoxaparin Sodium 30 mg 01/11/19 09:00 01/12/19 08:55 Lovenox SC 30 mg 0900 MAUREEN Administration Hydralazine HCl 75 mg 01/12/19 09:00 01/12/19 15:44 Apresoline PO 75 mg TID MAUREEN Administration Insulin Human Isoph/Insulin Regular 40 units 01/10/19 21:00 01/11/19 20:07 Humulin 70/30 SC 40 unit QPM MAUREEN Administration Insulin Human Isoph/Insulin Regular 50 units 01/11/19 09:00 01/12/19 08:56 Humulin 70/30 SC 50 unit QAM MAUREEN Administration Insulin Human Lispro 0 units 01/10/19 16:53 01/12/19 15:45 Humalog SC 6 unit .AGGRESSIVE SLIDING PRN Administration Aggressive Correctional Scale Insulin Human Lispro 0 units 01/10/19 16:53 01/11/19 20:08 Humalog SC 2 unit .BEDTIME SLIDING SC PRN Administration Bedtime Correctional Scale Lamotrigine 25 mg 01/11/19 09:00 01/11/19 09:05 Lamictal PO 25 mg Q2D@0900 MAUREEN Administration Mirtazapine 7.5 mg 01/10/19 21:00 01/11/19 20:06 Remeron PO 7.5 mg HS MAUREEN Administration Verapamil HCl 180 mg 01/11/19 09:00 01/12/19 11:12 Calan Er PO 180 mg DAILY MAUREEN Administration - Exam General Appearance: NAD, awake alert Eye: PERRL, anicteric sclera ENT: no oropharyngeal lesions, moist mucosa Neck: supple, no JVD Heart: RRR, no murmur Respiratory: no wheezes, no rales Gastrointestinal: soft, non-tender, non-distended, normal bowel sounds Extremities: no cyanosis, no edema Neurological: cranial nerve grossly intact, no focal deficits Psychiatric: normal affect, A&O x 3 Hosp A/P (1) Acute worsening of stage 3 chronic kidney disease Code(s): N18.3 - CHRONIC KIDNEY DISEASE, STAGE 3 (MODERATE) Status: Chronic (2) UTI (urinary tract infection) Status: Acute Qualifiers: Urinary tract infection type: acute cystitis Hematuria presence: without hematuria Qualified Code(s): N30.00 - Acute cystitis without hematuria (3) Anemia Code(s): D64.9 - ANEMIA, UNSPECIFIED Status: Chronic Qualifiers: Anemia type: iron deficiency (4) Obesity Code(s): E66.9 - OBESITY, UNSPECIFIED Status: Chronic (5) HTN (hypertension) Code(s): I10 - ESSENTIAL (PRIMARY) HYPERTENSION Status: Chronic Qualifiers: Hypertension type: essential hypertension Qualified Code(s): I10 - Essential (primary) hypertension (6) Bipolar disorder Code(s): F31.9 - BIPOLAR DISORDER, UNSPECIFIED Status: Chronic Qualifiers: Active/Remission status: in full remission (7) DM type 1 (diabetes mellitus, type 1) Status: Chronic Qualifiers: Diabetes mellitus complication status: with hyperglycemia Qualified Code(s) : E10.65 - Type 1 diabetes mellitus with hyperglycemia (8) Dehydration Code(s): E86.0 - DEHYDRATION Status: Resolved - Plan renal function is getting better, dc iv fluids likely has underlying ckd urine cs are contaminated, change to po cipro bid iron def anemia, oral feso4 diabetes still uncontrolled, strict 1800 kcal diet continue humulin 70/30, hydralazine, calan er, remeron, wellbutrin and lamictal to ambulate as tolerated dc plan in am if stable
[2019-01-12] MEDS: Cipro 250 MG TAB PO SCH (21:28)
[2019-01-12] MEDS: Mirtazapine 15 MG TAB PO SCH (21:28)
[2019-01-13] MEDS: cloNIDine 0.1 MG TAB PO PRN (00:34)
[2019-01-13] MEDS: Acetaminophen 325 MG TAB PO PRN ×2 (00:35→05:45)
[2019-01-13 04:17] VITALS: TEMP 97.9
[2019-01-13] MEDS ORDERED: Labetalol HCl 100 MG/20 ML VIAL SLOW IVP SCH (04:45)
[2019-01-13] MEDS ORDERED: cloNIDine 0.2 MG TAB PO SCH (05:30)
[2019-01-13] MEDS: Cipro 250 MG TAB PO SCH (05:45)
[2019-01-13] MEDS: HumaLOG 300 UNITS/3 ML VIAL SC PRN ×2 (05:46→11:56)
[2019-01-13] MEDS: Bupropion 100 MG SR TAB PO SCH (08:29)
[2019-01-13] MEDS: hydrALAZINE 25 MG TAB PO SCH (08:29)
[2019-01-13] MEDS: lamoTRIgine 25 MG TAB PO SCH (08:29)
[2019-01-13] MEDS: HumuLIN 70/30 (300 UNITS/3 ML VIAL) SC SCH (08:30)
[2019-01-13] MEDS: Enoxaparin Sodium 30 MG/0.3 ML SYRINGE SC SCH (08:30)
[2019-01-13 10:01] LABS: Anion Gap 11 mmol/L (10-20); BUN (Urea Nitrogen) 31 mg/dL (7.0-18.7); Calc. Creatinine Clearance 49 mL/min (70-130); Calcium 8.5 mg/dL (7.8-10.44); Carbon Dioxide 24 mmol/L (22-29); Chloride 102 mmol/L (98-107); Estimated GFR-MDRD 30; Glucose 340 mg/dL (70-105); Potassium 3.8 mmol/L (3.5-5.1); Sodium 133 mmol/L (136-145)
[2019-01-13 12:31] VITALS: BP 136/88
--- NOTE | 2019-01-13 17:52 | PRG ---
DATE OF SERVICE: 01/13/2019 SUBJECTIVE: Patient was seen and examined at bedside and overnight events noted. Patient denies any shortness of breath or chest pain or palpitation. No history of nausea or vomiting or diarrhea or fever or chills or cramps. OBJECTIVE: GENERAL: This is a well-built female, in no apparent distress. VITAL SIGNS: Temperature 97.9. Heart rate 83. Respiratory rate 16. Blood pressure 136/88. HEENT: Atraumatic, normocephalic. Oral mucosa is moist NECK: Supple. CARDIOVASCULAR: S1, S2 heard. Rate and rhythm regular. RESPIRATORY: Clear to auscultation. GASTROINTESTINAL: Abdomen is soft. MUSCULOSKELETAL: No tenderness. No edema. DERMATOLOGIC: No skin rash. NEUROLOGIC: Alert and awake and oriented X3. No focal neurologic deficits. Moving all the extremities. PSYCHIATRIC: Mood and affect normal. LABORATORY DATA: Potassium 3.8; BUN is 31; creatinine is 2.3, from 2.2. ASSESSMENT AND PLAN: 1. Acute kidney injury on chronic kidney disease, stage 3, with stable creatinine. 2. Edema, controlled. 3. History of hypertension, stable. 4. Anemia of chronic disease. 5. Proteinuria and glucosuria. Avoid nephrotoxins. Follow up with the clinic in 1 to 2 weeks. We will follow. Job ID: [id number]
--- NOTE | 2019-01-13 18:25 | DIS ---
DATE OF ADMISSION: 01/10/2019 DATE OF DISCHARGE: 01/13/2019 DISCHARGE DISPOSITION: Home. PRIMARY DISCHARGE DIAGNOSES: Acute kidney injury on top of chronic kidney disease stage 3, urinary tract infection, chronic anemia, obesity, hypertension, bipolar disorder, diabetes mellitus type 2, and moderate dehydration. PROCEDURES DONE DURING HOSPITALIZATION: Chest x-ray done showed no acute cardiopulmonary abnormalities. Right upper quadrant ultrasound was normal. Blood cultures x2, no growth. Urine culture was contaminated. Had a white count of 16 on the day of admission. Discharge H and H of 8 and 25, platelet count 389, and MCV 72. Discharge BUN and creatinine are 31 and 2.3. Admitting creatinine was 3.0. Admitting BUN was 46. Folic acid 4.5, vitamin B12 of 723, ferritin 12.2, serum iron 20, TIBC 310, percent saturation 6. Albumin 3.6. Troponin x2 negative. Serum test negative. Urine drug screen was negative. Beta-hydroxybutyrate was normal. INPATIENT NETWORK SECURITY CONSULTANT: Dr. Feliz from Nephrology. DISCHARGE MEDICATIONS: 1. Ciprofloxacin 250 mg p.o. twice daily for another 4 days. 2. Glipizide 5 mg p.o. twice daily. 3. Novolin 70/30, 50 units subcu q.a.m. and 40 units subcu q.p.m. 4. Bupropion extended release 100 mg p.o. daily. 5. Lamictal 25 mg p.o. on alternate days. 6. Mirtazapine 7.5 mg p.o. at bedtime. 7. Omeprazole 40 mg p.o. daily. 8. Verapamil extended release 180 mg twice daily. 9. Hydralazine 75 mg p.o. three times daily. ALLERGIES: NO KNOWN DRUG ALLERGIES. DISCHARGE PLAN: The patient to follow up with her primary care physician in 1 week. She also needs to follow up with Dr. Feliz as advised. The patient initially came after she was sent over from primary care physician at [facility]. She was found to have had a fingerstick glucose of more than 500. The patient also had uncontrolled hypertension along with signs of urinary tract infection and abdominal pain. She had acute kidney injury on top of her chronic kidney disease and was moderately dehydrated as well on arrival. She was gently hydrated during her stay. The patient has had slow correction of her fingerstick glucose. She was placed on glipizide. She did not want metformin to be added as it has caused gastric side effects for her. Her urine culture was contaminated. She was on IV antibiotics, which has been switched over to ciprofloxacin based on creatinine clearance. Her hypertensive medications were slowly titrated up. She has had consultation with Dr. Feliz for chronic kidney disease, likely diabetic nephropathy. She was counseled with regard to medication and dietary compliance. She was also counseled to check fingerstick glucose twice daily and record for 10 days to follow up with her primary care physician at [facility] clinic. She is hemodynamically stable and will be shortly discharged home. Please note, I have seen and examined the patient on the day of discharge. Job ID: [id number]
== END 2019-01-13 17:09 | disposition home or self-care (01) | DRG 683 ==
LOC: ERS 12:48 → 2SW 16:19 → OBSVTOIN 16:19 → T4-B 01-11 14:59
PROVIDERS: ADMIT Internal Medicine; ATTEND Internal Medicine
DX: N17.9 Acute kidney failure, unspecified (principal); N30.00 Acute cystitis without hematuria; E10.65 Type 1 diabetes mellitus with hyperglycemia; F31.9 Bipolar disorder, unspecified; E78.5 Hyperlipidemia, unspecified; E10.22 Type 1 diabetes mellitus with diabetic chronic kidney disease; I12.9 Hypertensive chronic kidney disease with stage 1 through stage 4 chronic kidney disease, or unspecified chronic kidney disease; F17.210 Nicotine dependence, cigarettes, uncomplicated; E86.0 Dehydration; N18.3 Chronic kidney disease, stage 3 (moderate); D64.9 Anemia, unspecified; E66.9 Obesity, unspecified; E87.6 Hypokalemia; Z68.32 Body mass index [BMI] 32.0-32.9, adult; Z90.49 Acquired absence of other specified parts of digestive tract; Z90.89 Acquired absence of other organs; Z79.899 Other long term (current) drug therapy
CPT/HCPCS: 36415; 36416; 71045; 76705; 80048; 80053; 80069; 80306; 80307; 81003; 81015; 82010; 82570; 82607; 82728; 82746; 83540; 83550; 83690; 83735; 84100; 84156; 84484; 84703; 85025; 87040; 87086; 90471; 90686; 93005; G0008; J0696; J1650; J1815; J2405; J3490

== ENCOUNTER 2019-01-19 16:09 | Inpatient (IN) | payer MEDICAID, SELFPAY ==
[2019-01-19] MEDS ORDERED: Promethazine HCl 25 MG/ML VIAL ONE (17:01)
[2019-01-19 17:02] LABS: #Lymphocytes 0.4 thou/uL (1.20-3.40); #Monocytes 0.5 thou/uL (0.11-0.59); #Neutrophils 17.7 thou/uL (1.40-6.50); %Basophils 0.1 % (0.0-1.0); %Eosinophils 0.1 % (0.0-10.0); %Lymphocytes 2.2 % (21.0-51.0); %Monocytes 2.4 % (0.0-10.0); %Neutrophils 95.1 % (42.0-75.0); Hemoglobin 10.3 g/dL (12.0-16.0); Mean Corpuscular HGB CONC 31.7 g/dL (32.0-36.0); Mean Corpuscular Hemoglobin 22.7 pg (27.0-31.0); Mean Corpuscular Volume 71.6 fL (78.0-98.0); Mean Platelet Volume 8.8 fL (7.4-10.4); Platelet Count 572 thou/uL (130-400); RBC Distribution Width 14.7 % (11.5-14.5); Red Blood Cell (RBC) Count 4.54 mill/uL (4.20-5.40); White Blood Cell (WBC) Count 18.6 thou/uL (4.8-10.8)
[2019-01-19] MEDS ORDERED: Morphine 2 MG/ML SYRINGE ONE (17:07)
[2019-01-19] MEDS ORDERED: Metoclopramide HCl 10 MG/2 ML VIAL ONE (17:07)
--- NOTE | 2019-01-19 17:11 | RAD ---
PORTABLE CHEST: HISTORY: Epigastric pain. COMPARISON: 01/10/2019 FINDINGS: Heart size and mediastinum are within normal limits. Lungs are clear of infiltrates. No significant b irene findings. IMPRESSION: No active intrathoracic disease. POS: [facility]
[2019-01-19] MEDS ORDERED: Insulin Regular 300 UNITS/3 ML VIAL ONE (17:15)
[2019-01-19 17:44] LABS: ALT (SGPT) 19 U/L (8-55); AST (SGOT) 14 U/L (5-34); Alkaline Phosphatase 119 U/L (40-110); Anion Gap 20 mmol/L (10-20); BUN (Urea Nitrogen) 32 mg/dL (7.0-18.7); Bilirubin, Total 0.4 mg/dL (0.2-1.2); Calc. Creatinine Clearance 0 mL/min (70-130); Calcium 9.3 mg/dL (7.8-10.44); Carbon Dioxide 21 mmol/L (22-29); Chloride 97 mmol/L (98-107); Estimated GFR-MDRD 26; Globulin 4.3 g/dL (2.4-3.5); Glucose 454 mg/dL (70-105); Lipase 25 U/L (8-78); Potassium 3.8 mmol/L (3.5-5.1); Protein, Total 8.3 g/dL (6.0-8.3); Sodium 134 mmol/L (136-145)
[2019-01-19 18:10] LABS: Base Excess-Venous -4.5 mmol/L (-2.0 to 3.0); Bicarbonate (HCO3v) 20.6 mmol/L (22.0-28.0); CO2 Tension (PvCO2) 37.4 mmHg (40.0-50.0); Calcium, Ionized 1.06 mmol/L (See Comments:); Chloride 103 mmol/L (98-107); Hemoglobin - Calc 11.6 g/dL (12.0-16.0); Potassium 3.9 mmol/L (3.5-5.1); Sodium 136 mmol/L (138-145); T. Carbon Dioxide 21.8 mmol/L (22.0-28.0); vO2 Saturation-calc 84.3 % (60.0-85.0)
[2019-01-19] MEDS ORDERED: HUMULIN R 100 UNITS in Sodium Chloride 0.9% 100 ML IVPB SCH ×2 (20:00→23:07)
[2019-01-19 20:17] LABS: Bacteria/HPF None Seen HPF (None Seen); Bilirubin Negative (Negative); Blood, Urine 1+ (Negative); Clarity Clear (Clear); Glucose, Urine (Dipstick) Greater than 1000 mg/dL (Negative); Leukocyte Negative Leu/uL (Negative); Nitrite Negative (Negative); Protein, Urine (Dipstick) 200 mg/dL (Neg-Trace); Squamous Epithelial 0-3 HPF (0-3); Urobilinogen Normal mg/dL (Less than 2); WBC/HPF 0-3 HPF (0-3); Yeast-Hyphae Rare HPF (None Seen)
[2019-01-19 20:18] LABS: Pregnancy Test - Urine (BHCG) POSITIVE (Negative); Pregu Control Background? CLEAR/WHITE (CLR/WHITE); Pregu Control Bar Appear? YES (CONTROL BAR)
--- NOTE | 2019-01-19 22:37 | ULT ---
US Pelvic Transvag W Doppler HISTORY: Abdomen and pelvic pain nausea and vomiting. Positive test. COMPARISON: None. FINDINGS: Real-time imaging of the pelvis was obtained transvaginally. This shows a slightly irregula rly-shaped left ovarian cyst measuring 2.4 cm. Small follicles are seen involving the right ovary. The uterus is retroverted. The endometrium is thickened at 1.5 cm. Doppler evaluation with spectral analysis: Normal flow shown to the adnexa. There is a mild amount of free fluid noted. IMPRESSION: No signs of intrauterine or ectopic . A slightly irregular left ovarian cyst is identified with some free fluid.
[2019-01-19] MEDS ORDERED: Sodium Chloride 0.9% 1,000 ML IV SCH (22:50)
[2019-01-19] MEDS ORDERED: Potassium Chloride 40 MEQ in Sodium Chloride 0.9% 250 ML 250 ML IVPB PRN ×2 (22:52→23:09)
[2019-01-19] MEDS ORDERED: Potassium Phosphate 12 MMOL in Sodium Chloride 0.9% 250 ML 250 ML IV PRN ×2 (22:52→23:09)
[2019-01-19] MEDS ORDERED: Dextrose 5 %-0.45 % NaCl 1,000 ML IV PRN ×2 (22:52→23:07)
[2019-01-19] MEDS ORDERED: PHOS-NAK 1 PKT PACK PO PRN ×4 (22:52→23:09)
[2019-01-19] MEDS ORDERED: Potassium Phosphate 15 MMOL in Sodium Chloride 0.9% 250 ML 250 ML IV PRN ×2 (22:52→23:09)
[2019-01-19] MEDS ORDERED: Magnesium Oxide 400 MG TAB PO PRN ×4 (22:52→23:09)
[2019-01-19] MEDS ORDERED: NS 0.9% w/ 20 MEQ KCL 1,000 ML/1,000 ML BAG IV PRN ×2 (22:52)
[2019-01-19] MEDS ORDERED: Sodium Chloride 0.9% 1,000 ML IV PRN ×8 (22:52→23:07)
[2019-01-19] MEDS ORDERED: Potassium Chloride 20 MEQ TAB PO PRN ×2 (22:52→23:09)
[2019-01-19] MEDS ORDERED: Potassium Phosphate 9 MMOL in Sodium Chloride 0.9% 100 ML IVPB PRN ×2 (22:52→23:09)
[2019-01-19] MEDS ORDERED: Magnesium 2 GM/50 ML 2 GM in Premix Bag 1 BAG IVPB PRN ×2 (22:52→23:09)
[2019-01-19] MEDS ORDERED: CCU ELECTROLYTE REPLACEMENT PROTOCOL FS PRN ×2 (22:52→23:09)
[2019-01-19] MEDS ORDERED: Dextrose 50% Abboject 50 ML SYRINGE SLOW IVP PRN (22:52)
[2019-01-19] MEDS ORDERED: Potassium Chloride 40 MEQ in Premix Bag 1 BAG IVPB PRN ×2 (22:52→23:09)
[2019-01-19] MEDS ORDERED: Dextrose 5% in Water 1,000 ML IV PRN (22:52)
[2019-01-19] MEDS ORDERED: D5 1/2 NS w/20 mEq KCL 1,000 ML IV PRN (22:52)
[2019-01-19] MEDS ORDERED: ADD ELECTROLYTE REPLACEMENT SET TO PROFILE FS SCH (23:00)
[2019-01-19] MEDS ORDERED: NS 0.9% w/ 20 MEQ KCL 1,000 ML IV PRN ×2 (23:07)
[2019-01-19] MEDS ORDERED: CCU Electrolyte Replacement 1 EACH IVPB SCH (23:07)
[2019-01-19 23:22] VITALS: BMI 30.4
[2019-01-20] MEDS: D5 1/2 NS w/20 mEq KCL 1,000 ML IV PRN ×2 (00:02→03:55)
[2019-01-20] MEDS: Metoclopramide HCl 10 MG/2 ML VIAL IVP PRN ×2 (00:04→13:04)
[2019-01-20 00:09] LABS: Anion Gap 15 mmol/L (10-20); BUN (Urea Nitrogen) 26 mg/dL (7.0-18.7); Calc. Creatinine Clearance 52 mL/min (70-130); Carbon Dioxide 22 mmol/L (22-29); Chloride 103 mmol/L (98-107); Estimated GFR-MDRD 33; Glucose 88 mg/dL (70-105); Potassium 3.3 mmol/L (3.5-5.1); Sodium 137 mmol/L (136-145)
[2019-01-20] MEDS: Acetaminophen 500 MG TAB PO PRN ×2 (01:08→22:41)
[2019-01-20 03:44] LABS: Anion Gap 12 mmol/L (10-20); BUN (Urea Nitrogen) 22 mg/dL (7.0-18.7); Calc. Creatinine Clearance 57 mL/min (70-130); Carbon Dioxide 20 mmol/L (22-29); Chloride 102 mmol/L (98-107); Estimated GFR-MDRD 37; Glucose 174 mg/dL (70-105); Potassium 3.4 mmol/L (3.5-5.1); Sodium 131 mmol/L (136-145)
[2019-01-20 03:45] LABS: Anion Gap 11 mmol/L (10-20); BUN (Urea Nitrogen) 22 mg/dL (7.0-18.7); Calc. Creatinine Clearance 58 mL/min (70-130); Calcium 7.9 mg/dL (7.8-10.44); Carbon Dioxide 21 mmol/L (22-29); Chloride 102 mmol/L (98-107); Estimated GFR-MDRD 38; Glucose 175 mg/dL (70-105); Potassium 3.4 mmol/L (3.5-5.1); Sodium 131 mmol/L (136-145)
[2019-01-20 03:49] LABS: Hemoglobin 8.6 g/dL (12.0-16.0); Lymphocytes 6 % (21-51); MDiff Complete? YES; Mean Corpuscular HGB CONC 32.8 g/dL (32.0-36.0); Mean Corpuscular Hemoglobin 23.5 pg (27.0-31.0); Mean Corpuscular Volume 71.8 fL (78.0-98.0); Mean Platelet Volume 8.5 fL (7.4-10.4); Monocytes 3 % (0-10); Neutrophil 91 % (42-75); Platelet Count 439 thou/uL (130-400); Platelet Morphology Comment Appears Increased; RBC Distribution Width 14.4 % (11.5-14.5); Red Blood Cell (RBC) Count 3.65 mill/uL (4.20-5.40); White Blood Cell (WBC) Count 13.3 thou/uL (4.8-10.8)
--- NOTE | 2019-01-20 05:21 | HP ---
PRIMARY CARE PROVIDER: Lamont Goff. CHIEF COMPLAINT: Nausea and vomiting. HISTORY OF PRESENT ILLNESS: This is a 33-year-old female, who presented to [facility] Emergency Department complaining of 2-3 day history of persistent nausea with emesis. The patient states her last oral intake was approximately at 3:00 a.m. on 01/19/2019. The patient admitted two dry heaves as well as some emesis with light-colored bile. The patient denied any trauma, injury, recent travel history, or family members with similar symptoms. The patient states she was recently admitted from 01/10/2019 to 01/13/[address] [facility] for acute kidney injury and urinary tract infection, placed on ciprofloxacin and released home on 01/13/2019. The patient was also noted with dehydration, receiving IV fluids during her hospital stay. The patient denied any recent ingestion, change to her chronic medication regimen or exposure history. In the emergency room, the patient underwent general evaluation with metabolic screening concerning for diabetic ketoacidosis. Beta hydroxybutyrate level was elevated to 2.4 and creatinine at 2.54. The patient was also discovered with elevated total beta HCG of 271. The patient underwent transvaginal ultrasound imaging showing no evidence of intrauterine or ectopic . The patient received IV Zofran in addition to Reglan, normal saline, and morphine sulfate. The patient was also initiated on Humulin infusion at 8.9 units/hour. The patient was referred to hospitalist service for DKA and admission. PAST MEDICAL HISTORY: 1. Diabetes mellitus type 1, insulin requiring. 2. Diabetic gastroparesis. 3. Hyperlipidemia. 4. Hypertension. 5. Chronic kidney disease stage 3. 6. Bipolar disorder. PAST SURGICAL HISTORY: 1. Status post appendectomy. 2. Status post tonsillectomy. 3. Status post section x3. CURRENT MEDICATIONS: 1. Hydralazine 25 mg p.o. t.i.d. 2. Novolin 70/30, 50 units subcutaneously q.a.m. and 40 units subcutaneously at bedtime. 3. Verapamil extended release 180 mg p.o. daily. 4. Remeron 7.5 mg p.o. daily. 5. Wellbutrin sustained release 100 mg p.o. daily. 6. Lamictal 25 mg p.o. every other day. ALLERGIES: NO KNOWN DRUG ALLERGIES. FAMILY HISTORY: Both parents are living. Mother and father with hypertension. SOCIAL HISTORY: . Smokes up to 2-3 cigarettes a day. No alcohol or illicit drug use. Children of 10, 8, and 6 years of age. REVIEW OF SYSTEMS: CONSTITUTIONAL: Negative for weight loss or gain, ability to conduct usual activities. SKIN: Negative for rash, itching. EYES: Negative for double vision, pain. ENT/MOUTH: Negative for nose bleeding, neck stiffness, pain, tenderness. CARDIOVASCULAR: Negative for palpitations, dyspnea on exertion, orthopnea. RESPIRATORY: Negative for shortness of breath, wheezing, cough, hemoptysis, fever or night sweats. GASTROINTESTINAL: Negative for poor appetite, abdominal pain, heartburn, nausea, vomiting, constipation, or diarrhea. GENITOURINARY: Negative for urgency, frequency, dysuria, nocturia. MUSCULOSKELETAL: Negative for pain, swelling. NEUROLOGIC/PSYCHIATRIC: Negative for anxiety, depression. ALLERGY/IMMUNOLOGIC: Negative for skin rash, bleeding tendency. Otherwise, negative except as stated per HPI. PHYSICAL EXAMINATION: VITAL SIGNS: On admission; blood pressure 181/123, pulse 128, respiratory rate 24, temperature 99.1 degrees Fahrenheit, and O2 saturation 99% on room air. GENERAL APPEARANCE: This is a 33-year-old female, alert and oriented x3, pleasant, responsive, in no acute distress. HEENT: Pupils are equal, round, and reactive to light and accommodation. Extraocular muscles are intact. No scleral icterus. No conjunctival injection. Nares patent. OP is clear. Teeth in fair repair. Oral mucosa dry. NECK: Supple. No cervical adenopathy. No thyromegaly. No carotid bruits. No JVD appreciated. Cervical spine with full active and passive range of motion. No meningeal signs noted. CHEST: Lungs are clear to auscultation bilaterally. CARDIOVASCULAR: S1 and S2 with tachycardia. No murmur, rub, or gallop appreciated. ABDOMEN: Obese, soft, nontender, and nondistended. Bowel sounds are positive in all 4 quadrants. There is no hepatosplenomegaly. No abdominal bruits. No rebound or guarding appreciated. EXTREMITIES: Warm and dry with fair turgor. No clubbing, cyanosis, or asymmetric edema appreciated. Pulses palpable distally at the dorsalis pedis, posterior tibial, and popliteal arteries bilaterally. Capillary refill less than 2 seconds. NEUROLOGIC: Cranial nerves 2 through 12 are grossly intact. No focal or lateralizing signs appreciated. PERTINENT LABORATORY AND X-RAY FINDINGS: Sodium 134, potassium 3.8, chloride 97, CO2 of 21, BUN 32, creatinine 2.54, estimated GFR of 26, glucose 454, calcium 9.3, alkaline phosphatase 119, albumin 4.0, and beta HCG 271. Lipase 25. CBC showed a white blood cell count 18.6, hemoglobin 10, hematocrit 33, MCV 72, and platelet count 572 with 95% neutrophils. Venous blood gas dated 01/19/2019 showed a pH of 7.35, pCO2 of 37, PO2 of 51, and bicarb of 21. Urinalysis dated 01/19/2019, showed specific gravity 1.020, protein 200, glucose greater than 1000, positive ketones with 4 to 6 rbc's per high-power field. Urine beta-hCG positive. Beta-hydroxybutyrate level 2.40. Portable chest x-ray dated 01/19/2019, showed no acute cardiopulmonary process. Pelvic ultrasound dated 01/19/2019, showed no evidence of intrauterine or ectopic . Slightly irregular left ovarian cyst. ASSESSMENT/PLAN: 1. Diabetic ketoacidosis. The patient will be admitted to the intermediate care unit. We will continue aggressive IV fluid hydration per DKA protocol. Serial Accu-Cheks. Repeat beta hydroxybutyrate level in the a.m. Continue insulin infusion with serial Accu-Cheks. 2. Nausea and vomiting. Suspect secondary to diabetic ketoacidosis in addition to positive . Continue Reglan 5 mg IV q.4 hours p.r.n. Continue IV fluids as outlined previously. 3. Positive beta HCG. We will continue serial monitoring and consult Obstetrics service. Serial beta HCG monitoring. 4. Vuwip-nf-iaqpfwn kidney disease. Continue IV fluids as outlined previously. Avoid nephrotoxic agents and limit contrast exposure. 5. Baytkk-ls-zdpyiqp kidney disease. Stable currently. Continue serial H and H monitoring. 6. Hypertension, labile. Suspect labile due to inability to take oral medication. Resume home regimen to include hydralazine and verapamil. 7. Prophylaxis. SCDs while in bed. Pepcid 20 mg IV b.i.d. CODE STATUS: Full. Surrogate medical decision maker is the patient's spouse. Job ID: [id number]
[2019-01-20] MEDS ORDERED: glipiZIDE 5 MG TAB PO SCH (07:30)
[2019-01-20 07:36] LABS: Anion Gap 10 mmol/L (10-20); BUN (Urea Nitrogen) 19 mg/dL (7.0-18.7); Calc. Creatinine Clearance 58 mL/min (70-130); Calcium 7.8 mg/dL (7.8-10.44); Carbon Dioxide 23 mmol/L (22-29); Chloride 101 mmol/L (98-107); Estimated GFR-MDRD 38; Glucose 189 mg/dL (70-105); Potassium 3.2 mmol/L (3.5-5.1); Sodium 131 mmol/L (136-145)
[2019-01-20] MEDS ORDERED: hydrALAZINE 25 MG TAB PO SCH (09:00)
--- NOTE | 2019-01-20 09:15 | PDOC.HOSPP ---
- Subjective Encounter Date: 01/20/19 Encounter Time: 09:13 Subjective: nausea, vomiting resolved - Objective Vital Signs & Weight: Vital Signs (12 hours) Temp Pulse Resp BP Pulse Ox 01/20/19 07:50 97 01/20/19 07:17 99.0 F 01/19/19 22:45 100 01/19/19 22:40 99.9 F H 129 H 18 177/114 H 100 Weight Weight 189 lb Most Recent Monitor Data Heart Rate from ECG 111 NIBP 193/120 NIBP BP-Mean 144 Respiration from ECG 16 SpO2 97 I&O: 01/19/19 01/20/19 01/21/19 06:59 06:59 06:59 Intake Total 2641.1 Output Total 800 Balance 1841.1 Result Diagrams: 01/20/19 03:20 01/20/19 06:59 Additional Labs: Accuchecks 01/20/19 01/20/19 01/20/19 06:54 06:06 05:02 POC Glucose 186 H 192 H 174 H 01/20/19 01/20/19 01/20/19 04:00 03:13 02:17 POC Glucose 186 H 163 H 145 H 01/20/19 01/20/19 01/19/19 01:26 00:15 22:53 POC Glucose 135 H 129 H 81 01/19/19 01/19/19 19:35 16:59 POC Glucose 330 H 427 H Hospitalist ROS - Medication Medications: Active Medications Generic Name Dose Route Start Last Admin Trade Name Freq PRN Reason Stop Dose Admin Acetaminophen 1,000 mg 01/19/19 23:07 01/20/19 01:08 Tylenol PO 1,000 mg Q6H PRN Administration Mild Pain (1-3) Glipizide 5 mg 01/20/19 07:30 01/20/19 06:49 Glucotrol PO 5 mg BID-AC MAUREEN Administration Metoclopramide HCl 5 mg 01/19/19 23:07 01/20/19 00:04 Reglan IVP 5 mg Q4H PRN Administration Nausea - Exam Neck: no JVD Heart: RRR, no murmur Respiratory: CTAB, no wheezes Gastrointestinal: soft, normal bowel sounds Extremities: no edema Hosp A/P (1) DKA (diabetic ketoacidoses) Code(s): E11.10 - TYPE 2 DIABETES MELLITUS WITH KETOACIDOSIS WITHOUT COMA Status: Acute Qualifiers: Diabetes mellitus type: type 1 Diabetes mellitus complication detail: without coma Qualified Code(s): E10.10 - Type 1 diabetes mellitus with ketoacidosis without coma (2) Anemia Code(s): D64.9 - ANEMIA, UNSPECIFIED Status: Chronic Qualifiers: Anemia type: iron deficiency (3) CKD (chronic kidney disease) stage 3, GFR 30-59 ml/min Code(s): N18.3 - CHRONIC KIDNEY DISEASE, STAGE 3 (MODERATE) Status: Chronic (4) Intractable vomiting with nausea Code(s): R11.2 - NAUSEA WITH VOMITING, UNSPECIFIED Status: Resolved (5) HTN (hypertension) Code(s): I10 - ESSENTIAL (PRIMARY) HYPERTENSION Status: Chronic Qualifiers: Hypertension type: essential hypertension (6) Sinus tachycardia Code(s): R00.0 - TACHYCARDIA, UNSPECIFIED Status: Acute - Plan DC iv insulin accu/mod SS/ restart novolin 70/30 consult OB hospitalist Lin/ GAIL to confirm VICKIE Hx polysubstance abuse- UDS
[2019-01-20] MEDS ORDERED: Dextrose 50% Abboject 50 ML SYRINGE SLOW IVP PRN (09:16)
[2019-01-20] MEDS ORDERED: Dextrose 5% in Water 1,000 ML IV PRN (09:16)
[2019-01-20 09:48] LABS: Cocaine Metabolite Screen Not Detected (NotDetected); Medtox Reader # READER 4; Methamphetamine Detected (NotDetected); Phencyclidine (PCP) Not Detected (NotDetected); THC/Cannabinoid Screen Detected (NotDetected)
[2019-01-20 09:49] LABS: Amphetamine Detected (NotDetected); Barbiturates Screen Not Detected (NotDetected); Benzodiazepine Screen Not Detected (NotDetected); Medtox Control Line Valid? VALID (VALID); Methadone Not Detected (NotDetected); Opiate Screen Detected (NotDetected); Oxycodone Screen Not Detected (NotDetected); Tricyclic Screen Not Detected (NotDetected)
[2019-01-20 10:35] LABS: Hemoglobin A1c 12.2 % (4.0-6.0)
[2019-01-20 10:41] LABS: Iron 12 ug/dL (50-170); Iron Binding Capacity, Total 324 mcg/dL (265-497)
[2019-01-20] MEDS ORDERED: NIFEdipine 10 MG CAP PO SCH ×2 (10:45→21:00)
[2019-01-20] MEDS: Bupropion 100 MG SR TAB PO SCH (11:17)
[2019-01-20] MEDS: Famotidine/PF 20 mg/2ml Vial SLOW IVP SCH (11:17)
--- NOTE | 2019-01-20 16:00 | CON ---
DATE OF CONSULTATION: 01/20/2019 CHIEF COMPLAINT: Newly-diagnosed in the setting of DKA and hypertensive emergency. HISTORY OF PRESENT ILLNESS: The patient is a 33-year-old diabetic female, who presented to the emergency room with persistent nausea and vomiting. The patient in her evaluation was noted to be in DKA and in hypertensive emergency. The patient was admitted into the ICU for treatment and during her workup, was noted to have a positive test with a quantitative hCG of 271. Ultrasound evaluation did not show any evidence of intrauterine at this time. BREAKDOWN WORKER was consulted to help assist in management of her blood pressures and diabetes in the setting of . The patient reports this morning at time of evaluation that she has regular monthly periods and is a day late with the last menstrual period being December 18. She also reports her last was 6 years ago. She reports that she has not had the best blood sugar control with her last A1c being 11. She also reports that she is not very consistent in taking her blood pressure medications. She works nights from about 8 p.m. to 4 a.m. In discussing the patient her management, she reports that she probably needs to make some changes to her diet. She also has not been checking her blood sugars. The patient reports that she was [facility] from [facility] earlier in the year for drug-related charges. She has a history of drug abuse and has been free of drug use since discharge last June. The patient has expressed some frustration as she believes that she has been getting sick more frequently since she has been trying to get her blood sugars under control. The patient denies any vaginal bleeding or cramping. She denies any chest pain or shortness of breath. She does report she has gained about 5 pounds in a last couple of weeks. She denies any rashes or itching, any nose bleeds, cough, diarrhea, vomiting, constipation, or other illness. The patient reports that she has cravings for cornstarch. PAST MEDICAL HISTORY: Diabetes, diabetic gastroparesis, hyperlipidemia, chronic hypertension, chronic kidney disease stage 3, and bipolar disorder. PAST SURGICAL HISTORY: Appendectomy, tonsillectomy, and prior x3. MEDICATIONS: 1. Hydralazine 25 mg 3 times a day. 2. Levemir 20 units in the morning and at night. 3. Verapamil 180 mg daily. 4. Remeron 7.5 mg in the morning to help sleep. 5. Wellbutrin 100 mg daily. 6. Lamictal 25 mg every other day. 7. Glipizide 5 mg. HOSPITALIZATION MEDICATIONS: 1. Pepcid 20 mg IV daily. 2. Glipizide 5 mg b.i.d. 3. 70/30 insulin 40 units at night with Humalog sliding scale. 4. Metoclopramide 5 mg IV q.4 hours p.r.n. for nausea. 5. Mirtazapine 7.5 mg p.o. at bedtime. 6. Nifedipine (Procardia XL) 60 mg daily, starting at 9 o'clock tonight. 7. Scheduled potassium replacement. ALLERGIES: NO KNOWN DRUG ALLERGIES. SOCIAL HISTORY: The patient smokes 2 to 3 cigarettes a day. Denies drug or alcohol use. She has 3 children; 6, 8, and 10. REVIEW OF SYSTEMS: Per HPI. PHYSICAL EXAMINATION: VITAL SIGNS: Most recent blood pressure is 125/69, pulse of 127, respiratory rate of 15, saturating 99% on room air, and temperature 98.2. This is in the setting of recently being dosed with 30 mg of nifedipine and 75 mg of hydralazine. Blood pressure this morning more in the 180s to 190 systolic. GENERAL: She appears to be in no acute distress. She is alert, oriented, cooperative, and pleasant to interact with. HEAD: Normocephalic and atraumatic. LABORATORY DATA: Hemoglobin A1c is 12.2. Blood sugars today have been 186, 167 , and 173. Iron level is 12 with a TIBC of 324. Creatinine 1.87 most recent. Potassium 3.2. Quantitative hCG again was 271. ASSESSMENT/PLAN: The patient is a 33-year-old female with a presumed intrauterine [id number] based on her lmp admitted for diabetic ketoacidosis and hypertensive emergency. The patient's blood sugars have been brought down into a more reasonable levels with insulin drip and with aggressive antihypertensive agents. I would recommend a blood sugar goal of fasting blood sugars of under 95 and 2-hour postprandial blood sugars of under 125. Recommend blood sugar monitoring when she is off the drip fasting and 2 hours postprandial. The patient most recently was taken off 70/30 in the outpatient setting and has been on Levemir 20 units in the morning and at night and would recommend supplementing that with Humalog prior to her meals. Dosing can be adjusted according to her insulin requirements while in the hospital with 2/3 of her insulin requirements being placed in her Levemir divided over 2 doses and the remaining insulin requirements divided with her meals. From a blood pressure standpoint, I would recommend Procardia XL. I have started her on 60 mg beginning tonight. I have held her hydralazine at this time. Goals for her would be maintaining a blood pressure under 160 systolic and 100 diastolic. It is recommended not to be aggressive with her blood pressure control as maintaining blood pressures in the 140s to 150s have benefit for growth and perfusion. I have asked the nursing staff to give us a call with the current regimen of her blood pressures do exceed 160 systolic over 100 diastolic. The patient has been counseled about the importance of consistent diet. We discussed the need for iron supplementation with her vitamins and to take that iron way several hours apart from any dairy or calcium-containing foods and to take it with vitamin C of 1 to 2 g to assist with iron absorption. Given the concern with extremely high A1c, that this is not a viable . I have repeated hCG for tomorrow night to compare to look for appropriate rise. The patient has been counseled to the increased risk of failure and teratogenicity of elevated blood sugars. The patient's prior pregnancies have been managed by Dr. Polo at the [facility]. We have encouraged her to make an appointment with him as soon as possible. Her medication of Wellbutrin is safe to continue. We would also continue her Lamictal and Remeron at this time, hydralazine if necessary to add back if okay or can complement the calcium channel shira with labetalol. Thank you for the opportunity to participate in Ms. Green' care. We will be closely following her during this hospitalization to assist and medication adjustments. Job ID: [id number] MTDD
[2019-01-20] MEDS: HumaLOG 300 UNITS/3 ML VIAL SC PRN ×3 (16:54→22:41)
[2019-01-20 19:41] LABS: Anion Gap 12 mmol/L (10-20); BUN (Urea Nitrogen) 18 mg/dL (7.0-18.7); Calc. Creatinine Clearance 52 mL/min (70-130); Calcium 8.2 mg/dL (7.8-10.44); Carbon Dioxide 22 mmol/L (22-29); Chloride 99 mmol/L (98-107); Estimated GFR-MDRD 33; Glucose 345 mg/dL (70-105); Potassium 3.4 mmol/L (3.5-5.1); Sodium 130 mmol/L (136-145)
[2019-01-20] MEDS: Mirtazapine 15 MG TAB PO SCH (20:46)
[2019-01-20] MEDS ORDERED: HumuLIN 70/30 (300 UNITS/3 ML VIAL) SC SCH (21:00)
[2019-01-20] MEDS ORDERED: NIFEdipine XL 60 MG TAB PO SCH (22:30)
[2019-01-21 05:16] LABS: Anion Gap 13 mmol/L (10-20); BUN (Urea Nitrogen) 20 mg/dL (7.0-18.7); Calc. Creatinine Clearance 56 mL/min (70-130); Calcium 8.3 mg/dL (7.8-10.44); Carbon Dioxide 22 mmol/L (22-29); Chloride 103 mmol/L (98-107); Estimated GFR-MDRD 36; Glucose 129 mg/dL (70-105); Potassium 3.4 mmol/L (3.5-5.1); Sodium 135 mmol/L (136-145)
[2019-01-21] MEDS ORDERED: HumuLIN 70/30 (300 UNITS/3 ML VIAL) SC SCH ×2 (07:30)
--- NOTE | 2019-01-21 08:20 | PDOC.HOSPP ---
- Subjective Encounter Date: 01/21/19 Encounter Time: 08:17 Subjective: no nausea, etc - Objective Vital Signs & Weight: Vital Signs (12 hours) Temp Pulse BP Pulse Ox 01/21/19 08:00 100 01/21/19 07:45 98.5 F 01/21/19 03:00 98.3 F 01/20/19 23:00 98.8 F 01/20/19 22:40 118 H 159/109 H Weight Admit Weight 189 lb Weight 193 lb 11.2 oz Most Recent Monitor Data Heart Rate from ECG 118 NIBP 166/100 NIBP BP-Mean 122 Respiration from ECG 14 SpO2 100 I&O: 01/20/19 01/21/19 01/22/19 06:59 06:59 06:59 Intake Total 2641.1 2200 Output Total 800 2050 Balance 1841.1 150 Result Diagrams: 01/20/19 03:20 01/21/19 04:19 Additional Labs: Accuchecks 01/21/19 01/21/19 01/20/19 03:59 00:07 22:08 POC Glucose 141 H 140 H 209 H 01/20/19 01/20/19 01/20/19 20:27 18:28 16:39 POC Glucose 161 H 365 H 387 H 01/20/19 01/20/19 01/19/19 11:02 08:02 20:25 POC Glucose 173 H 167 H 290 H Hospitalist ROS - Medication Medications: Active Medications Generic Name Dose Route Start Last Admin Trade Name Freq PRN Reason Stop Dose Admin Acetaminophen 1,000 mg 01/19/19 23:07 01/20/19 22:41 Tylenol PO 1,000 mg Q6H PRN Administration Mild Pain (1-3) Bupropion HCl 100 mg 01/20/19 09:00 01/20/19 11:17 Wellbutrin Sr PO 100 mg DAILY MAUREEN Administration Famotidine 20 mg 01/20/19 09:00 01/20/19 11:17 Pepcid SLOW IVP 20 mg QAM MAUREEN Administration Insulin Human Lispro 0 units 01/20/19 18:40 01/20/19 22:41 Humalog SC 6 unit .AGGRESSIVE SLIDING PRN Administration AGGRESSIVE SLIDING SCALE Protocol Metoclopramide HCl 5 mg 01/19/19 23:07 01/20/19 13:04 Reglan IVP 5 mg Q4H PRN Administration Nausea Mirtazapine 7.5 mg 01/20/19 21:00 01/20/19 20:46 Remeron PO 7.5 mg HS MAUREEN Administration Sodium Chloride 10 ml 01/20/19 09:00 01/20/19 20:47 Flush - Normal Saline IVF 10 ml Q12HR MAUREEN Administration - Exam General Appearance: NAD Neck: no JVD Heart: RRR, no murmur Respiratory: CTAB Gastrointestinal: soft, normal bowel sounds Extremities: no edema Hosp A/P (1) DKA (diabetic ketoacidoses) Code(s): E11.10 - TYPE 2 DIABETES MELLITUS WITH KETOACIDOSIS WITHOUT COMA Status: Acute Qualifiers: Diabetes mellitus type: type 1 Diabetes mellitus complication detail: without coma Qualified Code(s): E10.10 - Type 1 diabetes mellitus with ketoacidosis without coma (2) Anemia Code(s): D64.9 - ANEMIA, UNSPECIFIED Status: Chronic Qualifiers: Anemia type: iron deficiency (3) CKD (chronic kidney disease) stage 3, GFR 30-59 ml/min Code(s): N18.3 - CHRONIC KIDNEY DISEASE, STAGE 3 (MODERATE) Status: Chronic (4) HTN (hypertension) Code(s): I10 - ESSENTIAL (PRIMARY) HYPERTENSION Status: Chronic Qualifiers: Hypertension type: essential hypertension (5) Sinus tachycardia Code(s): R00.0 - TACHYCARDIA, UNSPECIFIED Status: Acute - Plan iv iron cont po and parenteral antihypertensives accu/ss/ LA insulin move to medical
[2019-01-21] MEDS ORDERED: Iron, Sodium Ferric Gluconate 250 MG in Sodium Chloride 0.9% 100 ML IVPB SCH (08:30)
[2019-01-21] MEDS: HumaLOG 300 UNITS/3 ML VIAL SC SCH ×3 (08:46→16:37)
[2019-01-21] MEDS: Labetalol 100 MG TAB PO SCH ×2 (08:46→20:49)
[2019-01-21] MEDS: Bupropion 100 MG SR TAB PO SCH (08:46)
[2019-01-21] MEDS: Famotidine/PF 20 mg/2ml Vial SLOW IVP SCH (08:46)
[2019-01-21] MEDS: NIFEdipine XL 30 MG TAB PO SCH (08:46)
--- NOTE | 2019-01-21 08:46 | PRG ---
DATE OF SERVICE: 01/21/2019 HISTORY: Ms. Green is a 33-year-old female, admitted for diabetic ketoacidosis and hypertensive emergency with a newly diagnosed of about 4 weeks and 6 days. Yesterday, her primary team took her off her insulin drip and aggressive sliding scale was instituted in the afternoon once her blood pressures were noted to be quite elevated. The result after 40 units of 70/30, blood sugars in the 140 range this morning. In addition, her blood pressures have been hovering in the 160s on 60 units of Procardia XL. After discussing these findings with the patient and also lab results yesterday including a drug screen positive for marijuana, amphetamines, methamphetamines, cannabinoids, and opiates, we confirmed that the patient is willing to take multiple insulins and is willing to take medications twice a day. She reports she is having some back pain that she attributes to the bed. Denies any cramping or bleeding at this time. PHYSICAL EXAMINATION: VITAL SIGNS: This morning, blood pressure 166/105, heart rate of 105, and respiratory rate around 18. GENERAL: She appears to be in no acute distress. She is alert and oriented, cooperative and pleasant to interact with. LABORATORY DATA: This morning shows sodium of 135, potassium of 3.4, and creatinine of 1.92 down from a peak of 2.5. Most recent blood sugar 141. ASSESSMENT AND PLAN: The patient is a 33-year-old female, with diabetes and chronic hypertension. I have made some adjustments to her medications. She does confirm that she is on Levemir at home as it is provided to her by [employer]. We will be moving her insulin from 70/30 to Levemir and Humalog. The Levemir will be started at 30 units twice a day and Humalog at 10 units before her meals. We did discuss the importance of not taking the Humalog unless she is about to sit down and eat as it is very fast acting. We will also be adjusting her blood pressure medications to a total of 60 mg of Procardia XL at night, 30 in the day and labetalol twice a day. She will likely need further adjusting, but I believe at this point in time the patient is safe to transfer out of the ICU. We will continue to follow with the Primary Team. There is a quantitative beta-hCG pending for tonight to help determine viability. Job ID: [id number]
[2019-01-21] MEDS: Insulin Glargine 30 UNITS in Pre-Filled Syringe 1 EACH SC SCH (08:47)
[2019-01-21] MEDS: Metoclopramide HCl 10 MG/2 ML VIAL IVP PRN (10:03)
[2019-01-21] MEDS: Acetaminophen 500 MG TAB PO PRN (10:04)
[2019-01-21] MEDS: HumaLOG 300 UNITS/3 ML VIAL SC PRN ×2 (12:30→16:37)
[2019-01-21] MEDS: Mirtazapine 15 MG TAB PO SCH (20:31)
[2019-01-21] MEDS: NIFEdipine XL 60 MG TAB PO SCH (20:32)
[2019-01-21] MEDS ORDERED: NIFEdipine XL 30 MG TAB PO SCH (21:00)
[2019-01-21] MEDS ORDERED: Insulin Glargine 30 UNITS in Pre-Filled Syringe 1 EACH SC SCH (21:00)
--- NOTE | 2019-01-21 22:53 | PDOC.EVN ---
Event Note - Event Note Event Note: OBGYN Chart Check: 2250 LABS: BHCG this pm was 585. Last value from admit was 271. This is an appropriate rise for 5 weeks per LMP. BHCG still too low to detect via sono. Rec sono at 6-7 weeks (next 1-2 weeks). DSTICKS: Blood sugars reviewed: still above 120. Rec insulin adjustment per primary team. Will need OBGYN outpatient follow up. No new OBGYN input at this time.
[2019-01-22] MEDS: HumaLOG 300 UNITS/3 ML VIAL SC PRN (05:33)
[2019-01-22 06:30] LABS: Anion Gap 12 mmol/L (10-20); BUN (Urea Nitrogen) 20 mg/dL (7.0-18.7); Calc. Creatinine Clearance 55 mL/min (70-130); Calcium 7.9 mg/dL (7.8-10.44); Carbon Dioxide 21 mmol/L (22-29); Chloride 104 mmol/L (98-107); Estimated GFR-MDRD 34; Glucose 238 mg/dL (70-105); Potassium 3.2 mmol/L (3.5-5.1); Sodium 134 mmol/L (136-145)
--- NOTE | 2019-01-22 07:26 | PRG ---
DATE OF SERVICE: 01/22/2019 TIME: The time is roughly 0652 hours. LOCATION: Bed 4402. In brief, I have just spoken to the patient regarding her beta-hCG that did show an appropriate rise from admission. She asked if that meant the baby was healthy. I stated that it was too early to determine the status of the child and that the hormone level simply reflects normal rise. It is still too early to view with ultrasounds, so I recommended an ultrasound in 1 or 2 weeks, preferably 2 weeks. I did suggest that she follow up either at the Clinic or [facility] or any other provider that she likes. The rest of the care is per the primary management team. 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 Job ID: [id number]
[2019-01-22] MEDS: Famotidine/PF 20 mg/2ml Vial SLOW IVP SCH (08:55)
[2019-01-22] MEDS: HumaLOG 300 UNITS/3 ML VIAL SC SCH ×3 (08:55→17:38)
[2019-01-22] MEDS: NIFEdipine XL 30 MG TAB PO SCH (08:55)
[2019-01-22] MEDS: Bupropion 100 MG SR TAB PO SCH (08:56)
[2019-01-22] MEDS: Labetalol 100 MG TAB PO SCH ×2 (08:56→17:42)
--- NOTE | 2019-01-22 09:39 | DIS ---
DATE OF ADMISSION: 01/19/2019 DATE OF DISCHARGE: 01/22/2019 PRIMARY CARE PROVIDER: Dino Garcia. DIAGNOSES: Diabetic ketoacidosis, resolved; acute kidney injury on top of chronic kidney disease, stage 3, resolved; diabetes mellitus type 2; hypertension; iron deficiency anemia; . DISCHARGE MEDICATIONS: 1. Bupropion 100 mg a day. 2. Omeprazole 40 mg a day. 3. Mirtazapine 7.5 mg at bedtime. 4. Nifedipine XL 30 mg in the morning and 60 in the evening. 5. Labetalol 100 mg p.o. b.i.d. 6. Lantus insulin 30 units subcu twice a day. 7. Humalog 10 units subcu t.i.d. with meals. DIET: Diabetic. ALLERGIES: NO KNOWN DRUG ALLERGIES. PENDING AT TIME OF DISCHARGE: Nothing. HOSPITAL COURSE: [facility] with diabetic ketoacidosis. She presented with nausea and vomiting. She was placed on IMCU, IV fluid hydration, IV insulin per DKA protocol. She was found to be . Dr. Ford Ruiz, WOOD HACKER was consulted. In cooperation with Dr. Ruiz, the patient was placed on Lantus insulin 30 units subcu twice a day and NovoLog 10 units subcu t.i.d. along with labetalol and Procardia for her blood pressure. Her verapamil and hydralazine were discontinued. Pelvic ultrasound showed no signs of . Her followup test showed a higher level of hCG. Her diabetic ketoacidosis resolved rapidly. Her initial creatinine of 2.54 dropped to 2. At this time, she is eating a diet well. She is being discharged for followup with primary care physician, blood pressure controlled, cardiorespiratory exam is normal. She will need follow up with OB in 2 weeks for ultrasound. Her insulin will need adjusting as an outpatient based on her Accu-Cheks, hemoglobin A1c, etc. Job ID: [id number]
[2019-01-22] MEDS: Insulin Glargine 30 UNITS in Pre-Filled Syringe 1 EACH SC SCH (09:51)
[2019-01-22] MEDS: Acetaminophen 500 MG TAB PO PRN (09:54)
[2019-01-22 10:07] LABS: #Eosinphils 0.1 thou/uL (0.0-0.7); #Lymphocytes 2.7 thou/uL (1.20-3.40); #Monocytes 0.9 thou/uL (0.11-0.59); #Neutrophils 9.4 thou/uL (1.40-6.50); %Basophils 0.3 % (0.0-1.0); %Eosinophils 1.1 % (0.0-10.0); %Lymphocytes 20.2 % (21.0-51.0); %Neutrophils 71.4 % (42.0-75.0); Band 4 % (5-11); Elliptocytes SLIGHT = 2-5 cells (100X) (0-1/hpf); Eosinophils 1 % (0-10); Hemoglobin 9.2 g/dL (12.0-16.0); Hypochromia SLIGHT = 6-15 cells (100X) (0-5/hpf); Lymphocytes 16 % (21-51); MDiff Complete? YES; Mean Corpuscular HGB CONC 31.2 g/dL (32.0-36.0); Mean Corpuscular Hemoglobin 22.6 pg (27.0-31.0); Mean Corpuscular Volume 72.4 fL (78.0-98.0); Mean Platelet Volume 8.5 fL (7.4-10.4); Microcytosis SLIGHT = 6-15 cells (100X) (0-5/hpf); Monocytes 10 % (0-10); Neutrophil 68 % (42-75); Platelet Count 567 thou/uL (130-400); Platelet Morphology Comment Appears Increased; Polychromasia SLIGHT = 2-3 cells (100X) (0-2/hpf); RBC Distribution Width 14.5 % (11.5-14.5); Reactive Lymphocytes 1 % (0-10); Red Blood Cell (RBC) Count 4.07 mill/uL (4.20-5.40); Tear Drops SLIGHT = 2-5 cells (100X) (0-1/hpf); White Blood Cell (WBC) Count 13.2 thou/uL (4.8-10.8)
[2019-01-22 16:18] VITALS: BP 135/87; TEMP 98.1
[2019-01-22] MEDS: NIFEdipine XL 60 MG TAB PO SCH (17:43)
--- NOTE | 2019-01-23 07:47 | PQF ---
Jennie Llanos, [place] S[place] MD [id number] CLINICAL DOCUMENTATION CLARIFICATION FORM: POST DISCHARGE Addendum to original discharge summary date: ____ Late entry note date: __ DATE: 01/23/19 ATTN: Dr Capone, [place] Please exercise your independent, professional judgment in responding to the clarification form. Clinical indicators are provided on the bottom of this form for your review In your clinical opinion based on clinical findings below, can you please further clarify status of if : Please check appropriate box(s): [ ] Incidental findings [ ] related to patient's condition [ ] Other condition, please specify [ ] Unable to determine In addition, please specify: Present on Admission (POA): [ ] Yes [ ] No [ ] Unable to determine For continuity of documentation, please document condition throughout progress notes and discharge summary. Thank You. CLINICAL INDICATORS - SIGNS / SYMPTOMS / LABS H&P p1 01/19 Dr Bruner 2-3 ays history of persistent nausea with emesis H&P p1 01/19 Dr Bruner The patient was also discovered with elevated total beta HCG of 271 H&P p1 01/19 Dr Bruner The patient udnerwent vaginal ultrasound imaging showing no evidence of intrauterine Consult p1 01/20 Newly diagnoses in setting of DKA and HTN emergency Consult p1 01/20 presumed intrauterine 4wks 5 days RISK FACTORS H&P p1 01/19 DM type 1 H&P p3 01/19 DKA Consult p2 01/20 33 year-old female TREATMENTS: MAY 27 IV fluids MAY 27 - Insulin OB consult 01/20 Dr Ruiz (This form is maintained as a part of the permanent medical record) 2014 [employer]. All Rights Reserved [email or web address] [not provided] MTDD
== END 2019-01-22 17:54 | disposition home or self-care (01) | DRG 638 ==
LOC: ERS 16:09 → IMCU/EMU 22:13 → T4-A 01-21 11:17
PROVIDERS: ADMIT Internal Medicine; ATTEND Internal Medicine
DX: E10.10 Type 1 diabetes mellitus with ketoacidosis without coma (principal); I16.1 Hypertensive emergency; N17.9 Acute kidney failure, unspecified; E78.5 Hyperlipidemia, unspecified; I12.9 Hypertensive chronic kidney disease with stage 1 through stage 4 chronic kidney disease, or unspecified chronic kidney disease; F31.9 Bipolar disorder, unspecified; E10.43 Type 1 diabetes mellitus with diabetic autonomic (poly)neuropathy; E10.22 Type 1 diabetes mellitus with diabetic chronic kidney disease; K31.84 Gastroparesis; N18.3 Chronic kidney disease, stage 3 (moderate); F17.210 Nicotine dependence, cigarettes, uncomplicated; D63.1 Anemia in chronic kidney disease; D50.9 Iron deficiency anemia, unspecified; Z33.1 Pregnant state, incidental; Z79.899 Other long term (current) drug therapy; Z79.4 Long term (current) use of insulin
CPT/HCPCS: 36415; 36416; 71045; 76856; 80048; 80053; 80306; 81003; 81015; 81025; 82010; 82330; 82803; 83036; 83540; 83550; 83690; 83735; 84702; 85007; 85025; 85027; 93005; 96361; 96365; 96366; 96367; 96375; J1815; J2270; J2550; J2765; J2916; J3490; S0028

== ENCOUNTER 2019-01-30 17:27 | Inpatient (IN) | payer MEDICAID, SELFPAY ==
[2019-01-30 18:42] LABS: #Basophils 0.1 thou/uL (0.0-0.2); #Eosinphils 0.1 thou/uL (0.0-0.7); #Lymphocytes 2.4 thou/uL (1.20-3.40); #Monocytes 0.8 thou/uL (0.11-0.59); %Basophils 0.8 % (0.0-1.0); %Eosinophils 0.5 % (0.0-10.0); %Lymphocytes 15.8 % (21.0-51.0); %Monocytes 4.9 % (0.0-10.0); Hemoglobin 9.8 g/dL (12.0-16.0); Mean Corpuscular HGB CONC 32.4 g/dL (32.0-36.0); Mean Corpuscular Volume 70.9 fL (78.0-98.0); Mean Platelet Volume 8.4 fL (7.4-10.4); Platelet Count 509 thou/uL (130-400); RBC Distribution Width 16.2 % (11.5-14.5); Red Blood Cell (RBC) Count 4.25 mill/uL (4.20-5.40); White Blood Cell (WBC) Count 15.4 thou/uL (4.8-10.8)
[2019-01-30 18:42] LABS: Base Excess-Venous -3.2 mmol/L (-2.0 to 3.0); Bicarbonate (HCO3v) 20.8 mmol/L (22.0-28.0); CO2 Tension (PvCO2) 32.9 mmHg (40.0-50.0); Chloride 106 mmol/L (98-107); Hemoglobin - Calc 11.2 g/dL (12.0-16.0); Potassium 4.2 mmol/L (3.5-5.1); Sodium 136 mmol/L (138-145); T. Carbon Dioxide 21.8 mmol/L (22.0-28.0); vO2 Saturation-calc 87.3 % (60.0-85.0)
[2019-01-30 19:02] LABS: ALT (SGPT) 22 U/L (8-55); AST (SGOT) 9 U/L (5-34); Alkaline Phosphatase 103 U/L (40-110); Anion Gap 14 mmol/L (10-20); BUN (Urea Nitrogen) 37 mg/dL (7.0-18.7); Bilirubin, Total Less than 0.2 mg/dL (0.2-1.2); Calc. Creatinine Clearance 0 mL/min (70-130); Calcium 9.5 mg/dL (7.8-10.44); Carbon Dioxide 22 mmol/L (22-29); Chloride 102 mmol/L (98-107); Estimated GFR-MDRD 25; Globulin 3.7 g/dL (2.4-3.5); Glucose 396 mg/dL (70-105); Lipase 112 U/L (8-78); Magnesium 2.6 mg/dL (1.6-2.6); Phosphorus 3.6 mg/dL (2.3-4.7); Potassium 4.2 mmol/L (3.5-5.1); Protein, Total 7.7 g/dL (6.0-8.3); Sodium 134 mmol/L (136-145)
[2019-01-30] MEDS ORDERED: Ondansetron PF 4 MG/2 ML Vial ONE (19:09)
[2019-01-30 19:54] LABS: Bacteria/HPF None Seen HPF (None Seen); Bilirubin Negative (Negative); Blood, Urine Trace (Negative); Clarity Clear (Clear); Glucose, Urine (Dipstick) Greater than 1000 mg/dL (Negative); Leukocyte Negative Leu/uL (Negative); Nitrite Negative (Negative); Protein, Urine (Dipstick) 100 mg/dL (Neg-Trace); RBC/HPF 0-3 HPF (0-3); Squamous Epithelial 0-3 HPF (0-3); Urobilinogen Normal mg/dL (Less than 2); WBC/HPF 0-3 HPF (0-3)
--- NOTE | 2019-01-30 20:44 | ULT ---
Sonogram right upper quadrant HISTORY: Right upper quadrant pain. FINDINGS: The gallbladder is elongated but not abnormally distended. No gallstones are apparent. Comm on duct is 0.4 cm. Liver unremarkable without focal mass or intrahepatic biliary dilatation. No free fluid. IMPRESSION: Normal exam.
--- NOTE | 2019-01-30 21:22 | ULT ---
Obstetric sonogram transabdominal and transvaginal imaging with duplex evaluation HISTORY: Pelvic pain. Early . FINDINGS: Urinary bladder is incompletely distended. Retroverted uterus. Gestational sac in the endom etrial cavity contains a yolk sac and pole. Heart motion not documented.. Measurements correlate with 5 weeks 6 days gestational age, giving an estimated date of delivery of 09/26/2019. Phy siologic amount of free fluid within the cul-de-sac and left adnexa. Corpus luteum of the left ovary is 2.3 cm. Good color and spectral Doppler flow within each ovary. IMPRESSION: Early gestational sac within the endometrial cavity. 5 weeks 6 days gestational age. No abnormalities are demonstrated.
[2019-01-30 22:36] LABS: Troponin I 0.029 ng/mL (< 0.028)
[2019-01-30] MEDS ORDERED: Aspirin Chewable 81 MG TAB ONE (23:38)
[2019-01-31 01:29] VITALS: BMI 30.9
[2019-01-31 01:36] LABS: Troponin I Less than 0.010 ng/mL (< 0.028)
[2019-01-31] MEDS ORDERED: Dextrose 5% in Water 1,000 ML IV PRN (01:55)
[2019-01-31] MEDS ORDERED: Dextrose 50% Abboject 50 ML SYRINGE IVP PRN (01:55)
[2019-01-31] MEDS ORDERED: HumaLOG 300 UNITS/3 ML VIAL SC PRN (01:55)
[2019-01-31] MEDS ORDERED: Mag-Al 1200 mg/1200 mg/30 ML UDCUP PO PRN (01:56)
[2019-01-31] MEDS ORDERED: Mirtazapine 15 MG TAB PO SCH ×2 (02:00→21:00)
[2019-01-31] MEDS ORDERED: NIFEdipine XL 30 MG TAB PO SCH ×2 (02:00→21:00)
[2019-01-31] MEDS ORDERED: Bupropion 100 MG SR TAB PO SCH (02:00)
[2019-01-31] MEDS: HumaLOG 300 UNITS/3 ML VIAL SC PRN ×2 (02:15→20:28)
[2019-01-31] MEDS ORDERED: Insulin Glargine 35 UNITS in Pre-Filled Syringe 1 EACH SC SCH (02:30)
[2019-01-31] MEDS ORDERED: Labetalol HCl 100 MG/20 ML VIAL SLOW IVP PRN (02:56)
[2019-01-31] MEDS: Sodium Chloride 0.9% 1,000 ML IV SCH ×3 (02:58→22:30)
--- NOTE | 2019-01-31 07:33 | HP ---
PRIMARY CARE PROVIDER: Dino Garcia [place]. CHIEF COMPLAINT: Nausea and vomiting. HISTORY OF PRESENT ILLNESS: This is a 33-year-old female who presented to [facility] Emergency Department complaining of persistent nausea and emesis over the last 24 to 48 hours. The patient was recently admitted to [facility] 01/19/2019 through 01/22/2019 for nausea and vomiting and discovered with intrauterine at approximately 5 weeks gestation. The patient was also treated for mild diabetic ketoacidosis exacerbation, receiving DKA protocol and aggressive IV fluid hydration. The patient was also noted during that admission with acute kidney injury, improved with IV hydration. The patient admits to similar complaints as the most recent admission, but denied any hematemesis, melena, or vaginal bleeding. The patient denied any documented home fever, travel history, or family members with similar symptoms. The patient does admit to some mild lower abdominal cramping, but denied any increased swelling of the lower extremities, recent trauma or injury. In the emergency room, the patient underwent general evaluation, receiving intravenous normal saline x2 L with IV Zofran for nausea. The patient also received aspirin 324 mg. PAST MEDICAL HISTORY: 1. Diabetes mellitus type 1 insulin requiring. 2. Diabetic gastroparesis. 3. Hyperlipidemia. 4. Hypertension. 5. Chronic kidney disease stage 3. 6. Bipolar disorder. 7. Intrauterine approximately 5 weeks' gestation. PAST SURGICAL HISTORY: 1. Status post appendectomy. 2. Status post tonsillectomy. 3. Status post section x3. CURRENT MEDICATIONS: 1. Bupropion extended release 100 mg p.o. at bedtime. 2. Levemir 35 units subcutaneously b.i.d. 3. Mirtazapine 7.5 mg p.o. at bedtime. 4. Nifedipine extended release 60 mg p.o. daily and 30 mg p.o. at bedtime. 5. Humalog 10 units subcutaneously t.i.d. with meals. 6. Labetalol 100 mg p.o. b.i.d. ALLERGIES: NO KNOWN DRUG ALLERGIES. FAMILY HISTORY: Both parents are living. Mother and father with hypertension. SOCIAL HISTORY: . Smokes up to 2 to 3 cigarettes a day. No alcohol or illicit drug use. Children ages 10, 8 and 6 years. Functional of all activities of daily living. Resides in [place], [place]. REVIEW OF SYSTEMS: CONSTITUTIONAL: Negative for weight loss or gain, ability to conduct usual activities. SKIN: Negative for rash, itching. EYES: Negative for double vision, pain. ENT/MOUTH: Negative for nose bleeding, neck stiffness, pain, tenderness. CARDIOVASCULAR: Negative for palpitations, dyspnea on exertion, orthopnea. RESPIRATORY: Negative for shortness of breath, wheezing, cough, hemoptysis, fever or night sweats. GASTROINTESTINAL: Negative for poor appetite, abdominal pain, heartburn, nausea, vomiting, constipation, or diarrhea. GENITOURINARY: Negative for urgency, frequency, dysuria, nocturia. MUSCULOSKELETAL: Negative for pain, swelling. NEUROLOGIC/PSYCHIATRIC: Negative for anxiety, depression. ALLERGY/IMMUNOLOGIC: Negative for skin rash, bleeding tendency. Otherwise negative except as stated per HPI. PHYSICAL EXAMINATION: VITAL SIGNS: On admission, blood pressure 182/104, pulse 108, respiratory rate 16, temperature 99 degrees Fahrenheit, O2 saturation 100% on room air. GENERAL APPEARANCE: This is a 33-year-old female, alert and oriented x3, pleasant, smiling, in no acute distress. HEENT: Pupils are equal, round, reactive to light and accommodation. Extraocular muscles are intact. No scleral icterus. No conjunctival injection. Nares patent. OP is clear. Teeth in fair repair. NECK: Supple. No cervical adenopathy. No thyromegaly. No carotid bruits. No JVD appreciated. Cervical spine with full active and passive range of motion. No meningeal signs noted. CHEST: Lungs are clear to auscultation bilaterally. CARDIOVASCULAR: S1, S2 without noted murmur, rub, or gallop. ABDOMEN: Rounded, soft, mild tenderness to palpation in the bilateral lower quadrants. Bowel sounds are positive in all 4 quadrants. No rebound or guarding and appreciated. EXTREMITIES: Warm and dry with fair turgor. No clubbing, cyanosis, or asymmetric edema appreciated. Pulses palpable distally at the dorsalis pedis, posterior tibial, and popliteal arteries bilaterally. Capillary refill less than 2 seconds. NEUROLOGIC: Cranial nerves 2 through 12 are grossly intact. No focal or lateralizing signs appreciated. PERTINENT LABORATORY AND X-RAY FINDINGS: Sodium 134, potassium 4.2, chloride 102, CO2 of 22, BUN 37, creatinine 2.66, estimated GFR 25, calcium 9.5, phosphorus 3.6, magnesium 2.6. LFTs within normal limits. Troponin I ranged between 0.010 to 0.029. Beta HCG on 01/19/2019 271, 01/21/2019 585, 01/30/2019 10,830. CBC showed a white blood cell count of 15.4, hemoglobin 10, hematocrit 30, MCV 71, platelet count 509 with 78% neutrophils. Venous blood gas dated 01/30/2019 showed a pH 7.41. Urinalysis positive for glucose and protein. Beta-hydroxybutyrate level 0.07. Pelvic ultrasound dated 01/30/2019 showed early gestational sac within the endometrial cavity at approximately 6 weeks' gestational age. Abdominal ultrasound dated 01/30/2019 showed negative findings. EKG dated 01/30/2019, by my interpretation, shows sinus tachycardia with heart rates in the 115s. Attenuated R-waves noted in the precordial leads. Normal axis. No acute ST-T wave changes appreciated. ASSESSMENT AND PLAN: 1. Nausea and vomiting. Suspect multifactorial including intrauterine at approximately 6 weeks' gestation. Continue IV fluids with normal saline at 100 mL/hour. Antiemetics with Zofran. Clear liquids as tolerated. 2. Acute kidney injury on chronic kidney disease stage 3. Avoid nephrotoxic agents and limit contrast exposure. Continue IV fluids and monitor serial creatinine. 3. Diabetes mellitus type 1. Labile glucose. Insulin sliding scale for reflexive coverage. Resume Levemir 35 units subcutaneously b.i.d. ADA diet. 4. Intrauterine at approximately 6 weeks' gestation. Continue general supportive management. Outpatient followup with Obstetrics service. 5. Hypertension. Labile. Resume home regimen of nifedipine extended release 60 mg p.o. q.a.m. and 30 mg p.o. at bedtime. Continue labetalol 100 mg p.o. b.i.d. Serial blood pressure monitoring. 6. Prophylaxis. SCDs while in bed. Pepcid 20 mg p.o. b.i.d. CODE STATUS: Full. Surrogate medical decision maker is the patient's spouse. Job ID: [id number]
[2019-01-31] MEDS: Insulin Glargine 35 UNITS in Pre-Filled Syringe 1 EACH SC SCH ×2 (08:14→20:27)
[2019-01-31] MEDS: HumaLOG 300 UNITS/3 ML VIAL SC SCH ×3 (08:14→16:42)
[2019-01-31] MEDS: Labetalol 100 MG TAB PO SCH ×2 (08:16→20:19)
[2019-01-31 08:20] LABS: ALT (SGPT) 19 U/L (8-55); AST (SGOT) 9 U/L (5-34); Acetaminophen Less than 6.0 mcg/mL (10.0-30.0); Albumin 3.3 g/dL (3.5-5.0); Alcohol Less than 10 mg/dL (Less than 10); Alkaline Phosphatase 89 U/L (40-110); Anion Gap 9 mmol/L (10-20); BUN (Urea Nitrogen) 25 mg/dL (7.0-18.7); Bilirubin, Total 0.2 mg/dL (0.2-1.2); Calc. Creatinine Clearance 54 mL/min (70-130); Calcium 8.7 mg/dL (7.8-10.44); Carbon Dioxide 25 mmol/L (22-29); Chloride 106 mmol/L (98-107); Estimated GFR-MDRD 34; Globulin 3.4 g/dL (2.4-3.5); Glucose 235 mg/dL (70-105); Potassium 3.8 mmol/L (3.5-5.1); Protein, Total 6.7 g/dL (6.0-8.3); Salicylate Less than 8.0 mg/dL (15.0-30.0); Sodium 136 mmol/L (136-145)
[2019-01-31 08:23] LABS: Amphetamine Not Detected (NotDetected); Barbiturates Screen Not Detected (NotDetected); Benzodiazepine Screen Not Detected (NotDetected); Cocaine Metabolite Screen Not Detected (NotDetected); Medtox Control Line Valid? VALID (VALID); Medtox Reader # READER 4; Methadone Not Detected (NotDetected); Methamphetamine Not Detected (NotDetected); Opiate Screen Not Detected (NotDetected); Oxycodone Screen Not Detected (NotDetected); Phencyclidine (PCP) Not Detected (NotDetected); THC/Cannabinoid Screen Not Detected (NotDetected); Tricyclic Screen Not Detected (NotDetected)
[2019-01-31] MEDS ORDERED: NIFEdipine XL 60 MG TAB PO SCH (09:00)
--- NOTE | 2019-01-31 11:09 | CON ---
DATE OF CONSULTATION: 01/31/2019 CONSULTING PHYSICIAN: Dr. Nilesh Bruner. REASON FOR CONSULTATION: Acute kidney injury. REASON FOR ADMISSION: Nausea and vomiting. HISTORY OF PRESENT ILLNESS: A 33-year-old female with history of type 1 diabetes, hyperlipidemia, hypertension, came to the hospital with nausea and vomiting. She is also for 6 weeks. The patient was seen last month for acute kidney injury 2. The patient does have CKD. She is feeling better. She was given IV hydration and creatinine is better. No chest pain or palpitation. PAST MEDICAL HISTORY: Positive for type 1 diabetes, gastroparesis, hyperlipidemia, hypertension, CKD, bipolar disorder. . PAST SURGICAL HISTORY: Appendectomy, tonsillectomy, and . HOME MEDICATIONS: 1. Bupropion. 2. Levemir. 3. Mirtazapine. 4. Nifedipine. 5. Humalog. 6. Labetalol. ALLERGIES: NO KNOWN DRUG ALLERGIES. FAMILY HISTORY: No history of kidney disease. SOCIAL HISTORY: Smokes 2 to 3 cigarettes per day. REVIEW OF SYSTEMS: CONSTITUTIONAL: Negative for weight loss or gain, ability to conduct usual activities. SKIN: Negative for rash, itching. EYES: Negative for double vision, pain. ENT/MOUTH: Negative for nose bleeding, neck stiffness, pain, tenderness. CARDIOVASCULAR: Negative for palpitations, dyspnea on exertion, orthopnea. RESPIRATORY: Negative for shortness of breath, wheezing, cough, hemoptysis, fever or night sweats. GASTROINTESTINAL: Negative for poor appetite, abdominal pain, heartburn, nausea, vomiting, constipation, or diarrhea. GENITOURINARY: Negative for urgency, frequency, dysuria, nocturia. MUSCULOSKELETAL: Negative for pain, swelling. NEUROLOGIC/PSYCHIATRIC: Negative for anxiety, depression. ALLERGY/IMMUNOLOGIC: Negative for skin rash, bleeding tendency. Rest all negative review of systems. PHYSICAL EXAMINATION: GENERAL: This is an obese female, in no apparent distress. VITAL SIGNS: Temperature 98.7, pulse 102, respiratory rate 16, blood pressure 137/74. HEENT: Atraumatic, normocephalic. Oral mucosa moist. NECK: Supple. CV: S1 and S2. Rate and rhythm regular. RESPIRATORY: Clear. GI: Abdomen is soft. MUSCULOSKELETAL: No tenderness. No edema. DERMATOLOGIC: No skin rash. NEUROLOGIC: Alert and awake. PSYCHIATRIC: Mood and affect normal. LABORATORY DATA: Hemoglobin is 9.8. Potassium is 3.8, BUN is 25, and creatinine is 2.05. ASSESSMENT AND PLAN: 1. Acute kidney injury on chronic kidney disease, stage 3. Renal function is slightly better. 2. Edema, controlled. 3. History of diabetes. 4. History of hypertension. 5. History of anemia. 6. . The patient was advised to avoid CELESTE inhibitor and ARBs at this point. The patient was advised to follow up with high-risk monitoring and counseling management. Blood pressure controlled. Renal function is better. I will follow. Thank you for the consult. Job ID: [id number]
--- NOTE | 2019-01-31 12:06 | CON ---
DATE OF CONSULTATION: HISTORY OF PRESENT ILLNESS: The patient is a 33-year-old woman who presents for evaluation of nausea, vomiting, and chest discomfort. The patient was seen in April 2017 with nausea and vomiting, and was found to be in a hypertensive crisis. The patient has a long history of drug and tobacco abuse. The patient also has chronic renal insufficiency. The patient was in her usual state of health when she started having increasing nausea and vomiting. She also reports having midsternal chest discomfort. She states this occurs primarily when she is standing and is relieved by sitting down. The patient states that chest discomfort is often associated when her blood pressure is elevated. The patient denies having any present chest discomfort. PAST MEDICAL HISTORY: 1. Diabetes mellitus. 2. Hypertension. 3. Gastroparesis. 4. Chronic renal insufficiency. 5. Bipolar disorder. PAST SURGICAL HISTORY: Appendectomy and . SOCIAL HISTORY: Former smoker. FAMILY HISTORY: Positive family history of heart disease. ALLERGIES: NONE. PHYSICAL EXAMINATION: GENERAL: Well-developed woman in no acute distress. VITAL SIGNS: Blood pressure is 137/74/ NECK: Showed no jugular distention. LUNGS: Clear to auscultation. HEART: Regular rate and rhythm. Normal S1, S2. 1/6 systolic murmur. ABDOMEN: Distended. EXTREMITIES: Showed no edema. LABORATORY DATA: Sodium 136, potassium 3.8, chloride 106, bicarbonate 25, BUN 25, creatinine 2.0, glucose 235. Troponin 0.01. White blood cell count 15.4, hemoglobin 9.8, hematocrit 30.1, platelets were 509. Her EKG revealed her to have sinus tachycardia with poor R-wave progression. IMPRESSION: 1. Chest pain. 2. Gastroparesis. 3. Dehydration. 4. Diabetes mellitus. 5. Chronic renal failure. 6. Hypertension. This patient presents with nausea, vomiting, and chest discomfort. Her EKG shows no acute ST-T wave changes. Troponin levels are unremarkable. The patient states that she has quit smoking. From a cardiac standpoint, I think it is unlikely she has significant coronary artery disease. With her chronic renal failure and , we will continue to monitor this patient. She needs improved control of her blood pressure. We will follow this patient with you through her hospitalization. Job ID: [id number] MTDD
[2019-01-31 12:17] LABS: Creatinine, Urine 39.47 mg/dL (47-110)
--- NOTE | 2019-01-31 12:56 | PDOC.HOSPP ---
- Subjective Encounter Date: 01/31/19 Encounter Time: 10:00 Subjective: no chest pain or sob or nausea now ate her breakfast no abd pain or vaginal bleeding - Objective Vital Signs & Weight: Vital Signs (12 hours) Temp Pulse Resp BP BP Pulse Ox 01/31/19 11:49 98.5 F 100 20 134/81 98 01/31/19 07:23 98.7 F 102 H 16 137/74 97 01/31/19 04:05 100 16 167/87 H 97 01/31/19 03:00 98.7 F 106 H 16 181/106 H 99 01/31/19 02:13 108 H 01/31/19 01:08 99.0 F 108 H 16 182/104 H 100 Weight Weight 191 lb 12.8 oz I&O: 01/30/19 01/31/19 02/01/19 06:59 06:59 06:59 Intake Total 2057 Output Total 1000 Balance 1057 Result Diagrams: 01/30/19 18:31 01/31/19 07:47 Additional Labs: Accuchecks 01/31/19 01/31/19 01/31/19 11:44 06:15 01:31 POC Glucose 231 H 271 H 482 H 01/30/19 17:32 POC Glucose 440 H Hospitalist ROS - Medication Medications: Active Medications Generic Name Dose Route Start Last Admin Trade Name Freq PRN Reason Stop Dose Admin Insulin Glargine 35 units/ 0.35 mls @ 0 mls/hr 01/31/19 09:00 01/31/19 08:14 Miscellaneous Medication SC 0.35 mls BID MAUREEN Administration Sodium Chloride 1,000 mls @ 100 mls/hr 01/31/19 02:45 01/31/19 11:47 Normal Saline 0.9% IV 1,000 mls .Q10H MAUREEN Administration Insulin Human Lispro 10 units 01/31/19 08:00 01/31/19 11:44 Humalog SC 10 unit TID-WM MAUREEN Administration Insulin Human Lispro 0 units 01/31/19 01:55 01/31/19 02:15 Humalog SC 5 unit .BEDTIME SLIDING SC PRN Administration BEDTIME SLIDING SCALE Protocol Labetalol HCl 100 mg 01/31/19 09:00 01/31/19 08:16 Normodyne PO 100 mg BID MAUREEN Administration Labetalol HCl 10 mg 01/31/19 02:56 01/31/19 03:03 Normodyne SLOW IVP 10 mg Q4H PRN Administration SBP Greater Than 180 Nifedipine 60 mg 01/31/19 09:00 01/31/19 08:16 Procardia Xl PO 60 mg DAILY MAUREEN Administration - Exam General Appearance: awake alert Eye: PERRL, anicteric sclera ENT: no oropharyngeal lesions, moist mucosa Neck: supple, no JVD Heart: RRR, no murmur Respiratory: no wheezes, no rales, no ronchi Gastrointestinal: soft, non-tender, non-distended, normal bowel sounds Extremities: no cyanosis, no edema Neurological: cranial nerve grossly intact, no focal deficits Psychiatric: normal affect, A&O x 3 Hosp A/P (1) Hypertensive urgency Code(s): I10 - ESSENTIAL (PRIMARY) HYPERTENSION Status: Acute (2) Acute worsening of stage 3 chronic kidney disease Code(s): N18.3 - CHRONIC KIDNEY DISEASE, STAGE 3 (MODERATE) Status: Chronic (3) DM type 1 (diabetes mellitus, type 1) Status: Chronic Qualifiers: Diabetes mellitus complication status: with kidney complications Diabetes mellitus complication detail: with chronic kidney disease Chronic kidney disease stage: stage 3 (moderate) Qualified Code(s): E10.22 - Type 1 diabetes mellitus with diabetic chronic kidney disease; N18.3 - Chronic kidney disease, stage 3 (moderate) (4) Obesity Code(s): E66.9 - OBESITY, UNSPECIFIED Status: Chronic Qualifiers: Obesity classification: adult class 1 (BMI 30 - 34.9) (5) Intractable vomiting with nausea Code(s): R11.2 - NAUSEA WITH VOMITING, UNSPECIFIED Status: Resolved (6) Diabetic gastroparesis Code(s): E11.43 - TYPE 2 DIABETES W DIABETIC AUTONOMIC (POLY)NEUROPATHY; K31.84 - GASTROPARESIS Status: Chronic (7) First trimester Code(s): Z34.91 - ENCNTR FOR SUPRVSN OF NORMAL PREG, UNSP, FIRST TRIMESTER Status: Acute - Plan nausea has resolved no current chest pain or abd pain htn is getting controlled dm around 200's on current regimen not sure if her is viable, await Obgyn consultation today's UDS was -ve but was positive for meth, opiates and thc in early part of this month (01/19/2019) gentle iv hydration on labetalol 100mg bid, procardial xl , lantus 35 u bid and bupropion xl to ambulate as tolerated in hallway counselled against smoking, using alcohol or drugs, she is aware of her test being +ve G5, 3 living, 1 miscarriage. All 3 living children were born by , last had overweight baby echo from 04/23/2017 showed ef of 55% with mild lvh last HbA1c was 12 Dietary consultation Will switch to inpatient status as she requires full control of her dm and htn prior to discharge with current and ckd history.
[2019-01-31] MEDS: Bupropion 100 MG SR TAB PO SCH (20:27)
--- NOTE | 2019-01-31 20:42 | CON ---
DATE OF CONSULTATION: 01/31/2019 CONSULTING PHYSICIAN: Dr. Amaya, hospitalist. HISTORY OF PRESENT ILLNESS: A 33-year-old, G5, P3-0-1-3, at 5 to 6 weeks' gestation based on ultrasound during this hospital stay. She was admitted for diabetes and hypertension control as well as nausea and vomiting. She was admitted on the 3rd of this month for mild DKA with nausea and vomiting, and at that time, had a positive test. An ultrasound at that time showed no intrauterine and she was set up for outpatient followup with her OB provider, Dr. Polo. She did not keep that appointment, however. The patient denies any complaints today, although she is very sleepy and a difficult historian. She does specifically say she has no vaginal bleeding, abdominal pain, or other obstetric concerns. PAST MEDICAL HISTORY: Per chart review. 1. Type 1 diabetes mellitus. 2. Diabetic gastroparesis. 3. Hyperlipidemia. 4. Hypertension. 5. Chronic kidney disease, stage 3. 6. Bipolar disorder. PAST SURGICAL HISTORY: 1. Appendectomy. 2. Tonsillectomy. 3. x3. 4. D and C for miscarriage in 2017. CURRENT MEDICATIONS: 1. Bupropion extended-release 100 mg p.o. at bedtime. 2. Levemir 35 units subcutaneously b.i.d. 3. Mirtazapine 7.5 mg p.o. at bedtime. 4. Nifedipine extended-release 60 mg p.o. daily and 30 mg p.o. at bedtime. 5. Humalog 10 units subcu t.i.d. with meals. 6. Labetalol 100 mg p.o. b.i.d. ALLERGIES: NO KNOWN DRUG ALLERGIES. FAMILY HISTORY: Mother and father with hypertension. SOCIAL HISTORY: Positive for tobacco use, 2 to 3 cigarettes per day. Negative for alcohol or drug abuse per report. 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 Her children are age at 10, 8, and 6. She had one miscarriage of twins in 2017, requiring a D and C. She sees Dr. Polo for her obstetric care. REVIEW OF SYSTEMS: Difficult to obtain due to excessive sleepiness, but negative except as stated per HPI. PHYSICAL EXAMINATION: VITAL SIGNS: Blood pressure 134/81, pulse is 100, respirations 20, O2 saturation 98% on room air, temperature 98.5. GENERAL: Sleepy, but arousable. CHEST: Nonlabored. ABDOMEN: Soft, obese, nontender to palpation. PELVIC: Deferred. LABORATORY DATA: Hemoglobin 9.8, hematocrit 30.1, creatinine 2.05, blood sugars range from 93 to 482. Hemoglobin A1c 12.2. Toxicology negative. Protein creatinine ratio of 3.3. IMAGING DATA: Transvaginal ultrasound was performed revealing an early gestational sac with yolk sac and pole, but no cardiac activity noted. Physiologic free fluid in the cul-de-sac. ASSESSMENT AND PLAN: A 33-year-old, G5, P3-0-1-3 with an early intrauterine measuring approximately 5 weeks 6 days. We do not expect to see cardiac activity at this point, and she will need a followup evaluation in about a week for viability. She can do this at Dr. Polo's office next week. I recommend starting in vitamin. I did discuss with the patient that having a hemoglobin A1c as high as puts her at risk for miscarriage as well as for developmental abnormalities, and she voiced understanding. Continue with diabetes and hypertension management per Internal Medicine team. When she is ready for discharge, she can follow up with Dr. Polo. Please let us know if you have any further questions. I instructed the patient to let her nursing team know if she started having any bleeding or other issues. As a note, I brought her sleepiness up to her nurses who assessed vitals and blood sugar. She was noted to have dropped her blood sugar rapidly, which was being addressed with a snack and some juice. Thank you very much for this consultation. Please let me know if I can be of any further assistance. Job ID: [id number] MTDD
[2019-02-01] MEDS ORDERED: cloNIDine 0.1 MG TAB PO PRN (00:18)
[2019-02-01] MEDS ORDERED: Sodium Chloride 0.9% 1,000 ML IV SCH (00:30)
[2019-02-01] MEDS: Labetalol 100 MG TAB PO SCH ×3 (08:38→20:00)
[2019-02-01] MEDS: Prenatal Vitamin 1 TAB PO SCH (08:38)
[2019-02-01] MEDS: NIFEdipine XL 60 MG TAB PO SCH ×2 (08:39→19:59)
[2019-02-01] MEDS: HumaLOG 300 UNITS/3 ML VIAL SC SCH ×3 (08:39→17:19)
[2019-02-01] MEDS: Insulin Glargine 35 UNITS in Pre-Filled Syringe 1 EACH SC SCH (08:39)
--- NOTE | 2019-02-01 10:33 | PRG ---
DATE OF SERVICE: 02/01/2019 SUBJECTIVE: Patient was seen and examined at bedside and overnight events noted. Patient denies any shortness of breath or chest pain or palpitation. No history of nausea or vomiting or diarrhea or fever or chills or cramps. OBJECTIVE: GENERAL: This is a well-built female, in no apparent distress. VITAL SIGNS: Temperature 98.7, pulse 101, respiratory rate 18, blood pressure 163/90. HEENT: Atraumatic, normocephalic. Oral mucosa is moist NECK: Supple. CARDIOVASCULAR: S1, S2 heard. Rate and rhythm regular. RESPIRATORY: Clear to auscultation. GASTROINTESTINAL: Abdomen is soft. MUSCULOSKELETAL: No tenderness. No edema. DERMATOLOGIC: No skin rash. NEUROLOGIC: Alert and awake and oriented X3. No focal neurologic deficits. Moving all the extremities. PSYCHIATRIC: Mood and affect normal. LABORATORY DATA: Not done today. ASSESSMENT AND PLAN: 1. Acute kidney injury on chronic kidney disease stage 3. We will monitor labs. 2. History of hypertension, needs better control, limited in choice of medications due to . 3. Edema. 4. History of diabetes. 5. History of anemia. 6. , patient was counseled to follow with High-risk Team. We will continue to follow. Monitor blood pressure closely. Job ID: [id number]
--- NOTE | 2019-02-01 11:16 | PDOC.HOSPP ---
- Subjective Encounter Date: 02/01/19 Encounter Time: 09:30 Subjective: no sob or chest pain no bleeding per vagina is ambulating in room - Objective Vital Signs & Weight: Vital Signs (12 hours) Temp Pulse Resp BP BP BP Pulse Ox 02/01/19 08:02 98.7 F 101 H 16 163/90 H 99 02/01/19 03:50 99.2 F 111 H 18 173/99 H 100 01/31/19 23:40 104 H 18 171/102 H 99 Weight Admit Weight 191 lb 12.8 oz Weight 191 lb 12.8 oz I&O: 01/31/19 02/01/19 02/02/19 06:59 06:59 06:59 Intake Total 7 Output Total 1000 Balance 1057 Result Diagrams: 01/30/19 18:31 01/31/19 07:47 Additional Labs: Accuchecks 02/01/19 01/31/19 01/31/19 05:42 20:12 15:52 POC Glucose 315 H 321 H 253 H 01/31/19 01/31/19 13:51 11:44 POC Glucose 93 231 H Hospitalist ROS - Medication Medications: Active Medications Generic Name Dose Route Start Last Admin Trade Name Freq PRN Reason Stop Dose Admin Bupropion HCl 100 mg 01/31/19 21:00 01/31/19 20:27 Wellbutrin Sr PO 100 mg HS MAUREEN Administration Insulin Human Lispro 10 units 01/31/19 08:00 02/01/19 08:39 Humalog SC 10 unit TID-WM MAUREEN Administration Labetalol HCl 10 mg 01/31/19 02:56 01/31/19 03:03 Normodyne SLOW IVP 10 mg Q4H PRN Administration SBP Greater Than 180 Nifedipine 60 mg 02/01/19 09:00 02/01/19 08:39 Procardia Xl PO 60 mg BID MAUREEN Administration Multivit/Folic Acid/Iron 1 tab 02/01/19 09:00 02/01/19 08:38 Vitamin PO 1 tab DAILY MAUREEN Administration - Exam General Appearance: awake alert Eye: PERRL, anicteric sclera ENT: no oropharyngeal lesions, moist mucosa Neck: supple, no JVD Heart: RRR, no murmur Respiratory: no wheezes, no rales Gastrointestinal: soft, non-tender, non-distended, normal bowel sounds Extremities: no cyanosis, no edema Neurological: cranial nerve grossly intact, no focal deficits Psychiatric: normal affect, A&O x 3 Hosp A/P (1) Hypertensive urgency Code(s): I10 - ESSENTIAL (PRIMARY) HYPERTENSION Status: Acute (2) Acute worsening of stage 3 chronic kidney disease Code(s): N18.3 - CHRONIC KIDNEY DISEASE, STAGE 3 (MODERATE) Status: Chronic (3) DM type 1 (diabetes mellitus, type 1) Status: Chronic Qualifiers: Diabetes mellitus complication status: with kidney complications Diabetes mellitus complication detail: with chronic kidney disease Chronic kidney disease stage: stage 3 (moderate) Qualified Code(s): E10.22 - Type 1 diabetes mellitus with diabetic chronic kidney disease; N18.3 - Chronic kidney disease, stage 3 (moderate) (4) Obesity Code(s): E66.9 - OBESITY, UNSPECIFIED Status: Chronic Qualifiers: Obesity classification: adult class 1 (BMI 30 - 34.9) (5) Intractable vomiting with nausea Code(s): R11.2 - NAUSEA WITH VOMITING, UNSPECIFIED Status: Resolved (6) Diabetic gastroparesis Code(s): E11.43 - TYPE 2 DIABETES W DIABETIC AUTONOMIC (POLY)NEUROPATHY; K31.84 - GASTROPARESIS Status: Chronic (7) First trimester Code(s): Z34.91 - ENCNTR FOR SUPRVSN OF NORMAL PREG, UNSP, FIRST TRIMESTER Status: Acute - Plan nausea has resolved no current chest pain or abd pain htn is getting controlled but still high, increase labetalol to tid, procardia xl bid dm around 200-300 on current regimen, increase lantus to 45u bid along with humalog 10u tid before meals. current UDS was -ve but was positive for meth, opiates and thc in early part of this month (01/19/2019) continue bupropion xl to ambulate as tolerated in hallway counselled against smoking, using alcohol or drugs, she is aware of her test being +ve G5, 3 living, 1 miscarriage. All 3 living children were borne by , last had overweight baby (at 7month was 9lbs per patient) echo from 04/23/2017 showed ef of 55% with mild lvh last HbA1c was 12 Dietary consultation DC plan in am if her finger stick glucose stays less than 150's and htn is well controlled for . She will need another usg in 1-2 weeks with to see if fetus is viable, given above history.
--- NOTE | 2019-02-01 11:22 | PDOC.EVN ---
Event Note - Event Note Event Note: I spent 20min reviewing the patient outpatient care since her last admission. Pt has admitted to missing her follow up appt and reports she never filled the humolog RX. She reports she has been otherwise taking her medications. I have expressed the importance of outpatient follow up. i have stressed the importance of taking medications as perscribed and have recommened writing meds doses and times to take medications on her sugar log. I have spoken of the importance of personal responsibility. We have reviewed goals for target blood sugars fasting and 2h post prandial (less than 100 fasting and less than 130 post prandial). Pt has expressed understanding that she can go to the pharmacy at [facility] to get her RX. I have spoken with Dr Polo who has asked that she make an appt for next wed at [facility] to follow up with him. Ms Lr nurse has agreed to call today to make that appt before the weekend. Ms lr understands she may be going home tomorrow. My concern with that plan is she will not have access to humolog over the weekend. I have asked the nurse to look into casemanagement providing 3-4days of humolog so if she is otherwise ready to go home tomorrow she will have the coverage she needs until the pharmacy opens and she can fill her rx.
[2019-02-01] MEDS: Bupropion 100 MG SR TAB PO SCH (20:00)
[2019-02-01] MEDS: Insulin Glargine 45 UNITS in Pre-Filled Syringe 1 EACH SC SCH (20:05)
[2019-02-02 05:54] LABS: #Eosinphils 0.1 thou/uL (0.0-0.7); #Lymphocytes 3.1 thou/uL (1.20-3.40); #Monocytes 0.6 thou/uL (0.11-0.59); #Neutrophils 8.9 thou/uL (1.40-6.50); %Basophils 0.3 % (0.0-1.0); %Lymphocytes 24.4 % (21.0-51.0); %Monocytes 4.7 % (0.0-10.0); %Neutrophils 69.6 % (42.0-75.0); Hemoglobin 9.4 g/dL (12.0-16.0); Mean Corpuscular Hemoglobin 23.1 pg (27.0-31.0); Mean Corpuscular Volume 72.2 fL (78.0-98.0); Mean Platelet Volume 8.5 fL (7.4-10.4); Platelet Count 444 thou/uL (130-400); RBC Distribution Width 16.5 % (11.5-14.5); Red Blood Cell (RBC) Count 4.08 mill/uL (4.20-5.40); White Blood Cell (WBC) Count 12.7 thou/uL (4.8-10.8)
[2019-02-02 06:14] LABS: Anion Gap 13 mmol/L (10-20); BUN (Urea Nitrogen) 22 mg/dL (7.0-18.7); Calc. Creatinine Clearance 56 mL/min (70-130); Carbon Dioxide 22 mmol/L (22-29); Chloride 106 mmol/L (98-107); Estimated GFR-MDRD 36; Glucose 101 mg/dL (70-105); Potassium 3.5 mmol/L (3.5-5.1); Sodium 137 mmol/L (136-145)
[2019-02-02] MEDS: HumaLOG 300 UNITS/3 ML VIAL SC SCH ×3 (08:33→16:51)
[2019-02-02] MEDS: NIFEdipine XL 60 MG TAB PO SCH ×2 (08:33→20:59)
[2019-02-02] MEDS: Insulin Glargine 45 UNITS in Pre-Filled Syringe 1 EACH SC SCH ×2 (08:33→20:59)
--- NOTE | 2019-02-02 08:52 | PRG ---
DATE OF SERVICE: SUBJECTIVE: Patient was seen and examined at bedside and overnight events noted. Patient denies any shortness of breath or chest pain or palpitation. No history of nausea or vomiting or diarrhea or fever or chills or cramps. OBJECTIVE: GENERAL: This is a well-built female, in no apparent distress. VITAL SIGNS: Temperature 98.4. Heart rate 90. Respiratory rate 18. Blood pressure 112/80. HEENT: Atraumatic, normocephalic. Oral mucosa is moist NECK: Supple. CARDIOVASCULAR: S1, S2 heard. Rate and rhythm regular. RESPIRATORY: Clear to auscultation. GASTROINTESTINAL: Abdomen is soft. MUSCULOSKELETAL: No tenderness. No edema. DERMATOLOGIC: No skin rash. NEUROLOGIC: Alert and awake and oriented X3. No focal neurologic deficits. Moving all the extremities. PSYCHIATRIC: Mood and affect normal. LABORATORY DATA: Potassium is 3.5, BUN is 22, creatinine is 1.9. ASSESSMENT AND PLAN: 1. Acute kidney injury on chronic kidney disease stage 3, stable. 2. History of hypertension, getting better control. 3. Edema. 4. Diabetes. 5. Anemia. 6. , be cautious about medication choices, especially for blood pressure control. Blood pressure seems to be stable. 7. Substance abuse. The patient was counseled. She was positive. She had positive drug screen last time. Job ID: [id number]
[2019-02-02] MEDS: Prenatal Vitamin 1 TAB PO SCH (10:32)
[2019-02-02] MEDS: Labetalol 100 MG TAB PO SCH ×3 (10:32→21:00)
--- NOTE | 2019-02-02 10:46 | PDOC.HOSPP ---
- Subjective Encounter Date: 02/02/19 Encounter Time: 10:43 Subjective: Doing well. Feels well. No complaints. - Objective Vital Signs & Weight: Vital Signs (12 hours) Temp Pulse Resp BP BP BP Pulse Ox 02/02/19 10:32 98 142/91 H 02/02/19 08:33 98 142/91 H 02/02/19 07:35 99 02/02/19 07:33 98.5 F 98 18 142/91 H 99 02/02/19 04:00 98.4 F 90 18 112/85 96 02/02/19 00:00 98.6 F 98 20 155/98 H 96 Weight Admit Weight 191 lb 12.8 oz Weight 191 lb 12.8 oz Result Diagrams: 02/02/19 05:22 02/02/19 05:22 Additional Labs: Accuchecks 02/02/19 02/02/19 02/01/19 07:05 04:24 19:20 POC Glucose 90 120 H 212 H 02/01/19 02/01/19 15:43 10:53 POC Glucose 199 H 127 H Hospitalist ROS - Medication Medications: Active Medications Generic Name Dose Route Start Last Admin Trade Name Freq PRN Reason Stop Dose Admin Bupropion HCl 100 mg 01/31/19 21:00 02/01/19 20:00 Wellbutrin Sr PO 100 mg HS MAUREEN Administration Insulin Glargine 45 units/ 0.45 mls @ 0 mls/hr 02/01/19 21:00 02/02/19 08:33 Miscellaneous Medication SC 0.45 mls BID MAUREEN Administration Insulin Human Lispro 10 units 01/31/19 08:00 02/02/19 08:33 Humalog SC Not Given TID-WM MAUREEN Labetalol HCl 10 mg 01/31/19 02:56 01/31/19 03:03 Normodyne SLOW IVP 10 mg Q4H PRN Administration SBP Greater Than 180 Labetalol HCl 100 mg 02/01/19 15:00 02/02/19 10:32 Normodyne PO 100 mg TID MAUREEN Administration Nifedipine 60 mg 02/01/19 09:00 02/02/19 08:33 Procardia Xl PO 60 mg BID MAUREEN Administration Multivit/Folic Acid/Iron 1 tab 02/01/19 09:00 02/02/19 10:32 Vitamin PO 1 tab DAILY MAUREEN Administration Sodium Chloride 10 ml 02/02/19 09:00 02/02/19 10:33 Flush - Normal Saline IVF 10 ml Q12HR MAUREEN Administration - Exam General Appearance: NAD, awake alert Neck: supple, symmetric, no JVD, no thyromegaly, no lymphadenopathy, no carotid bruit Heart: RRR, no murmur, no gallops, no rubs, normal peripheral pulses Respiratory: CTAB, no wheezes, no rales, no ronchi, normal chest expansion, no tachypnea, normal percussion Gastrointestinal: soft, non-tender, non-distended, normal bowel sounds, no palpable masses, no hepatomegaly, no splenomegaly, no bruit Extremities: no cyanosis, no clubbing, no edema Skin: normal turgor, no lesions, no rashes Musculoskeletal: normal tone, normal strength, no muscle wasting Psychiatric: normal affect, normal behavior, A&O x 3 Hosp A/P (1) First trimester Code(s): Z34.91 - ENCNTR FOR SUPRVSN OF NORMAL PREG, UNSP, FIRST TRIMESTER Status: Acute (2) Hypertensive urgency Code(s): I10 - ESSENTIAL (PRIMARY) HYPERTENSION Status: Acute (3) Acute worsening of stage 3 chronic kidney disease Code(s): N18.3 - CHRONIC KIDNEY DISEASE, STAGE 3 (MODERATE) Status: Chronic (4) DM type 1 (diabetes mellitus, type 1) Status: Chronic Qualifiers: Diabetes mellitus complication status: with kidney complications Diabetes mellitus complication detail: with chronic kidney disease Chronic kidney disease stage: stage 3 (moderate) Qualified Code(s): E10.22 - Type 1 diabetes mellitus with diabetic chronic kidney disease; N18.3 - Chronic kidney disease, stage 3 (moderate) (5) HTN (hypertension) Code(s): I10 - ESSENTIAL (PRIMARY) HYPERTENSION Status: Chronic Qualifiers: Hypertension type: essential hypertension (6) Obesity Code(s): E66.9 - OBESITY, UNSPECIFIED Status: Chronic Qualifiers: Obesity classification: adult class 1 (BMI 30 - 34.9) (7) Polysubstance abuse Code(s): F19.10 - OTHER PSYCHOACTIVE SUBSTANCE ABUSE, UNCOMPLICATED Status: Chronic - Plan She is doing well. Stable for [place]. However, she will not be able to get meds from the [facility] until tomorrow morning. Will anticipate DC in am. Stable insulin regimen and BP control.
[2019-02-02] MEDS: Bupropion 100 MG SR TAB PO SCH (20:59)
[2019-02-03] MEDS: Acetaminophen 500 MG TAB PO PRN (01:18)
[2019-02-03] MEDS: NIFEdipine XL 60 MG TAB PO SCH ×2 (08:59→20:33)
[2019-02-03] MEDS: Prenatal Vitamin 1 TAB PO SCH (09:00)
[2019-02-03] MEDS: HumaLOG 300 UNITS/3 ML VIAL SC SCH ×3 (09:02→18:57)
[2019-02-03] MEDS: Insulin Glargine 45 UNITS in Pre-Filled Syringe 1 EACH SC SCH (09:04)
[2019-02-03] MEDS: Labetalol 100 MG TAB PO SCH ×3 (10:50→20:33)
--- NOTE | 2019-02-03 11:44 | PRG ---
DATE OF SERVICE: 02/03/2019 SUBJECTIVE: A 33-year-old female is being seen for acute kidney injury and CKD stage 4. The patient denied nausea, vomiting, or chest pain. OBJECTIVE: GENERAL: The patient is awake and alert. VITAL SIGNS: Pulse 85, breathing 16, blood pressure 128/66. GENERAL APPEARANCE AND MENTAL STATUS: Fair. HEAD/NECK: Normocephalic. Atraumatic. EYES: EOMI. No deformity. EARS: Clear. No ulcers. NOSE: Intact. No lesions. MOUTH: Clear. No discharge. THROAT: Clear. No exudate. LUNGS: Clear. No crackles. CARDIAC: S1, S2. No rub. ABDOMEN: Benign. Bowel sounds positive. GENITALIA/RECTUM: Day absent. BACK/EXTREMITIES: Edema 0+. NEUROLOGICAL: Alert and motor intact. SKIN: LYMPHATICS: LABORATORY DATA: Reviewed. ASSESSMENT AND PLAN: 1. Chronic kidney disease, stage 3, stable. 2. Hypertension, stable. 3. Anemia, stable. 4. Medication based on GFR appropriate. 5. No indication for dialysis at this time. Job ID: [id number]
[2019-02-03] MEDS ORDERED: HumaLOG 300 UNITS/3 ML VIAL SC SCH (16:00)
[2019-02-03] MEDS: Bupropion 100 MG SR TAB PO SCH (20:33)
--- NOTE | 2019-02-03 21:07 | PDOC.HOSPP ---
- Subjective Subjective: Feeling ok. No specific complaints. - Objective Vital Signs & Weight: Vital Signs (12 hours) Temp Pulse Resp BP BP BP Pulse Ox 02/03/19 20:33 104 H 144/88 H 02/03/19 20:00 98.0 F 104 H 20 144/88 H 97 02/03/19 16:10 95 143/90 H 02/03/19 16:05 95 143/90 H 02/03/19 12:40 98.7 F 95 14 134/79 02/03/19 10:50 97 130/91 H Weight Admit Weight 191 lb 12.8 oz Weight 191 lb 12.8 oz I&O: 02/02/19 02/03/19 02/04/19 06:59 06:59 06:59 Intake Total 2400 950 Balance 2400 950 Result Diagrams: 02/02/19 05:22 02/02/19 05:22 Additional Labs: Accuchecks 02/03/19 02/03/19 02/03/19 20:41 15:22 11:21 POC Glucose 289 H 241 H 120 H 02/03/19 02/02/19 04:25 22:33 POC Glucose 146 H 328 H Hospitalist ROS - Medication Medications: Active Medications Generic Name Dose Route Start Last Admin Trade Name Freq PRN Reason Stop Dose Admin Acetaminophen 1,000 mg 02/03/19 01:10 02/03/19 01:18 Tylenol PO 1,000 mg Q6H PRN Administration Pain Bupropion HCl 100 mg 01/31/19 21:00 02/03/19 20:33 Wellbutrin Sr PO 100 mg HS MAUREEN Administration Labetalol HCl 10 mg 01/31/19 02:56 01/31/19 03:03 Normodyne SLOW IVP 10 mg Q4H PRN Administration SBP Greater Than 180 Labetalol HCl 100 mg 02/01/19 15:00 02/03/19 20:33 Normodyne PO 100 mg TID MAUREEN Administration Nifedipine 60 mg 02/01/19 09:00 02/03/19 20:33 Procardia Xl PO 60 mg BID MAUREEN Administration Multivit/Folic Acid/Iron 1 tab 02/01/19 09:00 02/03/19 09:00 Vitamin PO 1 tab DAILY MAUREEN Administration Sodium Chloride 10 ml 02/02/19 09:00 11/18/19 20:30 Flush - Normal Saline IVF Not Given Q12HR MAUREEN - Exam General Appearance: NAD, awake alert Heart: RRR, no murmur, no gallops, no rubs, normal peripheral pulses Respiratory: CTAB, no wheezes, no rales, no ronchi, normal chest expansion, no tachypnea, normal percussion Gastrointestinal: soft, non-tender, non-distended, normal bowel sounds, no palpable masses, no hepatomegaly, no splenomegaly, no bruit Extremities: no cyanosis, no clubbing, no edema Musculoskeletal: normal tone Psychiatric: normal affect Hosp A/P (1) First trimester Code(s): Z34.91 - ENCNTR FOR SUPRVSN OF NORMAL PREG, UNSP, FIRST TRIMESTER Status: Acute (2) Hypertensive urgency Code(s): I10 - ESSENTIAL (PRIMARY) HYPERTENSION Status: Acute (3) Acute worsening of stage 3 chronic kidney disease Code(s): N18.3 - CHRONIC KIDNEY DISEASE, STAGE 3 (MODERATE) Status: Chronic (4) DM type 1 (diabetes mellitus, type 1) Status: Chronic Qualifiers: Diabetes mellitus complication status: with kidney complications Diabetes mellitus complication detail: with chronic kidney disease Chronic kidney disease stage: stage 3 (moderate) Qualified Code(s): E10.22 - Type 1 diabetes mellitus with diabetic chronic kidney disease; N18.3 - Chronic kidney disease, stage 3 (moderate) (5) HTN (hypertension) Code(s): I10 - ESSENTIAL (PRIMARY) HYPERTENSION Status: Chronic Qualifiers: Hypertension type: essential hypertension (6) Obesity Code(s): E66.9 - OBESITY, UNSPECIFIED Status: Chronic Qualifiers: Obesity classification: adult class 1 (BMI 30 - 34.9) (7) Polysubstance abuse Code(s): F19.10 - OTHER PSYCHOACTIVE SUBSTANCE ABUSE, UNCOMPLICATED Status: Chronic - Plan She is doing well. Stable for DC. Tried to get her Dc'd today. Could not get the Humalog because of cost. Could get it at [facility], but would have to see a provider there. Provider won't see her because she is . [facility] indicates she needs to see OB. OB won't see her until she gets Medicaid. Will keep her here to see if we can get her on 70/30. She was on it before and it apparently wasn't adequate so she was changed. Don't have much choice now. Will anticipate DC in am.
[2019-02-04 07:41] VITALS: TEMP 98.6
[2019-02-04] MEDS: Prenatal Vitamin 1 TAB PO SCH (08:03)
[2019-02-04] MEDS: Labetalol 100 MG TAB PO SCH ×2 (08:03→15:01)
[2019-02-04] MEDS: HumuLIN 70/30 (300 UNITS/3 ML VIAL) SC SCH ×3 (08:04→15:03)
[2019-02-04] MEDS ORDERED: HumuLIN 70/30 (300 UNITS/3 ML VIAL) SC SCH (09:00)
[2019-02-04] MEDS: NIFEdipine XL 60 MG TAB PO SCH (09:50)
[2019-02-04] MEDS: Acetaminophen 500 MG TAB PO PRN (09:51)
[2019-02-04 13:49] LABS: Anion Gap 15 mmol/L (10-20); BUN (Urea Nitrogen) 25 mg/dL (7.0-18.7); Calc. Creatinine Clearance 53 mL/min (70-130); Calcium 9.5 mg/dL (7.8-10.44); Carbon Dioxide 21 mmol/L (22-29); Chloride 103 mmol/L (98-107); Estimated GFR-MDRD 33; Potassium 3.7 mmol/L (3.5-5.1); Sodium 135 mmol/L (136-145)
[2019-02-04 13:53] LABS: Glucose 56 mg/dL (70-105)
--- NOTE | 2019-02-04 13:56 | PRG ---
DATE OF SERVICE: 02/04/2019 SUBJECTIVE: A 33-year-old female, being seen for acute kidney injury. The patient denied nausea, vomiting, or chest pain. OBJECTIVE: GENERAL: The patient is awake and alert. VITAL SIGNS: Pulse 75, breathing 16, blood pressure 140/89. GENERAL APPEARANCE AND MENTAL STATUS: Fair. HEAD/NECK: Normocephalic. Atraumatic. EYES: EOMI. No deformity. EARS: Clear. No ulcers. NOSE: Intact. No lesions. MOUTH: Clear. No discharge. THROAT: Clear. No exudate. LUNGS: Clear. No crackles. CARDIAC: S1, S2. No rub. ABDOMEN: Benign. Bowel sounds positive. GENITALIA/RECTUM: Day absent. BACK/EXTREMITIES: Edema 0+. NEUROLOGICAL: Alert and motor intact. SKIN: LYMPHATICS: LABORATORY DATA: Hemoglobin 9.4. Creatinine is pending. ASSESSMENT: 1. Acute kidney injury with chronic kidney disease stage 3, multifactorial. Recheck labs. 2. Hypertension, stable. 3. Anemia, stable. 4. Medications based on GFR appropriate. Job ID: [id number]
[2019-02-04] MEDS ORDERED: Labetalol 100 MG TAB PO SCH (16:30)
[2019-02-04 17:36] VITALS: BP 143/84
--- NOTE | 2019-02-05 10:26 | DIS ---
DATE OF ADMISSION: 01/31/2019 DATE OF DISCHARGE: 02/04/2019 DISCHARGE DIAGNOSES: 1. Nausea and vomiting. 2. Labile hypertension. 3. Intrauterine . 4. Diabetes mellitus, poorly controlled. 5. Acute on chronic kidney disease. 6. History of recent polysubstance abuse. CONSULTANTS: Include Nephrology, Cardiology, OB-SECURITY TECH. IMAGING STUDIES: Pelvic ultrasound showing early gestational sac within the endometrial cavity, 5 weeks 6 days' gestational age. Abdominal ultrasound was normal. Echocardiogram, ejection fraction 65% to 70%, moderate concentric LVH, structurally normal aortic valve. No significant stenosis or regurgitation. Mild tricuspid regurgitation. HISTORY OF PRESENT ILLNESS: This patient is a 33-year-old female who had recently been admitted with DKA, at which time, was discovered. She was also positive for polysubstance abuse on tox screen. The patient was readmitted on this occasion reporting nausea and vomiting. She had beta HCG of 10,830 with an appropriate rise from her previous levels. Her GFR was 25 with a creatinine of 2.66. She had some mild sinus tach in the emergency department. HOSPITAL COURSE: The patient was admitted with nausea, vomiting, and some labile blood pressure as high as 182/104 in the emergency department. She also appeared to have mild acute renal injury on chronic stage 3 kidney disease and diabetes that was not well controlled. She was treated symptomatically for the nausea, vomiting, given IV fluids, seen in consultation by Nephrology, Cardiology, and OB. Cardiology and OB had no significant new recommendations. Nephrology continued with IV fluids. Her blood sugars were managed with Lantus and Humalog and the patient was stable with resolution of her nausea, vomiting and control of the blood pressure and felt to be appropriate for discharge. However, the patient could not get her insulin due to cost. She could get it through followup at [facility]. However, [facility] would not approve her short-acting insulin because it was something she had not been prescribed by one of their providers. The patient ended up staying another day hoping to get to the [facility] in the morning, but once this information was learned, she ended up staying another day so that we could try to transition her over to 70/30 insulin, which she had at home. She was told that she could not see the provider at [facility] because she was and would need to see the OB. However, the OB would not see her because she did not have Medicaid and therefore felt like the 70/30 was our best option, although the patient reported that that had been changed in the past because it was not working adequately. She was started on 70/30 insulin and observed overnight. Following morning, blood sugars remained reasonably well controlled. She was given a morning dose, again felt appropriate for discharge. However, she had a mild hypoglycemia in the 50s. She was able to respond with p.o. intake and recommendations on her morning dose were adjusted. Then just immediately prior before leaving, the patient had another spike in her blood pressure. She was given her evening medications a bit early and additional dose of hydralazine, labetalol p.o. and she responded well and ultimately was felt to be appropriate for discharge. VITAL SIGNS: On the day of discharge, she was afebrile, pulse 94, BP 143/84. GENERAL APPEARANCE: Age-appropriate female, in no distress. HEART: Regular rate and rhythm. LUNGS: Clear bilaterally. ABDOMEN: Soft, nontender, and nondistended. EXTREMITIES: No cyanosis, clubbing, or edema. DISPOSITION: The patient is discharged to home. ACTIVITY: As tolerated. DIET: She will stay on a regular diet. DISCHARGE MEDICATIONS: She will be on labetalol 100 mg t.i.d., nifedipine, Procardia XL 60 mg p.o. b.i.d., vitamin 1 p.o. daily, Humulin 70/30 at 40 units b.i.d. She will continue with bupropion, mirtazapine. FOLLOWUP: She is to follow up with Dr. Kelly Neville or Dr. Jeet Polo. She indicates she should be seen at the [facility] in [place]. She is to follow up with Dr. Valdes and she can return to the hospital at anytime should she have a need to do so. Job ID: [id number]
== END 2019-02-04 17:41 | disposition home or self-care (01) | DRG 832 ==
LOC: ERS 17:27 → 2SW 01-31 01:12 → OBSVTOIN 01-31 01:12 → 2NO 01-31 18:07 → T4-A 02-01 14:41
PROVIDERS: ADMIT Family Medicine; ATTEND Family Medicine
DX: O99.411 Diseases of the circulatory system complicating pregnancy, first trimester (principal); N17.9 Acute kidney failure, unspecified; O26.831 Pregnancy related renal disease, first trimester; O16.1 Unspecified maternal hypertension, first trimester; O24.011 Pre-existing type 1 diabetes mellitus, in pregnancy, first trimester; I16.0 Hypertensive urgency; O26.891 Other specified pregnancy related conditions, first trimester; Z3A.01 Less than 8 weeks gestation of pregnancy; E10.43 Type 1 diabetes mellitus with diabetic autonomic (poly)neuropathy; N18.3 Chronic kidney disease, stage 3 (moderate); R11.2 Nausea with vomiting, unspecified; E78.5 Hyperlipidemia, unspecified; F17.210 Nicotine dependence, cigarettes, uncomplicated; I12.9 Hypertensive chronic kidney disease with stage 1 through stage 4 chronic kidney disease, or unspecified chronic kidney disease; E86.0 Dehydration; O99.281 Endocrine, nutritional and metabolic diseases complicating pregnancy, first trimester; K31.84 Gastroparesis; F31.9 Bipolar disorder, unspecified; O99.211 Obesity complicating pregnancy, first trimester; O99.011 Anemia complicating pregnancy, first trimester; D64.9 Anemia, unspecified; F19.10 Other psychoactive substance abuse, uncomplicated
CPT/HCPCS: 36415; 36416; 76705; 76856; 80048; 80053; 80306; 80307; 81003; 81015; 82010; 82330; 82570; 82803; 83690; 83735; 84100; 84156; 84484; 84702; 85025; 93005; 93306; 96361; 96374; J1815; J2405

== ENCOUNTER 2019-02-18 21:02 | Emergency (ER) | payer MEDICAID, OTHER ==
[2019-02-18 21:25] LABS: Bacteria/HPF None Seen HPF (None Seen); Bilirubin Negative (Negative); Blood, Urine Negative (Negative); Clarity Clear (Clear); Glucose, Urine (Dipstick) Normal (Negative); Leukocyte Negative Leu/uL (Negative); Nitrite Negative (Negative); Protein, Urine (Dipstick) 200 mg/dL (Neg-Trace); RBC/HPF 0-3 HPF (0-3); Squamous Epithelial 0-3 HPF (0-3); Urobilinogen Normal mg/dL (Less than 2); WBC/HPF 0-3 HPF (0-3)
[2019-02-18 21:29] LABS: #Basophils 0.1 thou/uL (0.0-0.2); #Eosinphils 0.1 thou/uL (0.0-0.7); #Lymphocytes 2.4 thou/uL (1.20-3.40); #Monocytes 0.8 thou/uL (0.11-0.59); %Basophils 0.3 % (0.0-1.0); %Eosinophils 0.6 % (0.0-10.0); %Monocytes 4.3 % (0.0-10.0); %Neutrophils 80.7 % (42.0-75.0); Mean Corpuscular Hemoglobin 23.6 pg (27.0-31.0); Mean Corpuscular Volume 73.8 fL (78.0-98.0); Mean Platelet Volume 8.3 fL (7.4-10.4); Platelet Count 480 thou/uL (130-400); Red Blood Cell (RBC) Count 4.24 mill/uL (4.20-5.40); White Blood Cell (WBC) Count 17.3 thou/uL (4.8-10.8)
[2019-02-18 22:08] LABS: ALT (SGPT) 32 U/L (8-55); AST (SGOT) 20 U/L (5-34); Albumin 3.5 g/dL (3.5-5.0); Alkaline Phosphatase 84 U/L (40-110); Anion Gap 12 mmol/L (10-20); BUN (Urea Nitrogen) 25 mg/dL (7.0-18.7); Bilirubin, Total Less than 0.2 mg/dL (0.2-1.2); Calc. Creatinine Clearance 0 mL/min (70-130); Calcium 9.1 mg/dL (7.8-10.44); Carbon Dioxide 23 mmol/L (22-29); Chloride 101 mmol/L (98-107); Estimated GFR-MDRD 27; Globulin 3.8 g/dL (2.4-3.5); Glucose 190 mg/dL (70-105); Potassium 3.6 mmol/L (3.5-5.1); Protein, Total 7.3 g/dL (6.0-8.3); Sodium 132 mmol/L (136-145)
[2019-02-18] MEDS ORDERED: hydrALAZINE 20 MG/ML VIAL ONE (23:21)
[2019-02-18] MEDS ORDERED: Acetaminophen 500 MG TAB ONE (23:49)
[2019-02-18] MEDS ORDERED: NIFEdipine XL 30 MG TAB ONE (23:53)
--- NOTE | 2019-02-18 23:59 | ULT ---
EXAM: PELVIC ULTRASOUND: 02/18/19 HISTORY: Pelvic pain. patient. Urinary tract infection. Serum beta HCG 188,475. COMPARISON: 01/30/19. TECHNIQUE: Transabdominal imaging of the pelvis is performed. Ovaries are interrogated with tello scale, color fl ow, Doppler imaging with spectral waveform analysis. FINDINGS: The uterus identified measuring 11.1 x 6.5 x 7.5 cm. Within the endometrium, there is a gestational s ac, yolk sac and pole. Tibes-rump length is 2.17 cm corresponding to a gestational age of 8 wee ks, 6 days. No subchorionic hemorrhage. heart tones with a rate of 171 beats per minute. Left o vary is not appreciated. No fluid in the left adnexa. Right ovary has a normal echotexture measuring 1.9 x 3.3 x 2.4 cm. No fluid in the right adnexa. OVARIAN DOPPLER: Vascular flow to the right ovary. IMPRESSION: Single intrauterine gestation with heart tones. Gestational age by crown-rump length is 8 weeks , 6 days. POS: OFF
== END 2019-02-19 01:06 | disposition home or self-care (01) ==
LOC: ERS 21:02
DX: M54.5 Low back pain (principal); I10 Essential (primary) hypertension; E11.9 Type 2 diabetes mellitus without complications; E78.5 Hyperlipidemia, unspecified; D64.9 Anemia, unspecified; F41.9 Anxiety disorder, unspecified; F31.9 Bipolar disorder, unspecified; Z79.899 Other long term (current) drug therapy; Z79.82 Long term (current) use of aspirin; Z79.4 Long term (current) use of insulin
CPT/HCPCS: 36415; 76856; 80053; 81003; 81015; 84702; 85025; 86900; 86901; 96361; 96374; J0360

== ENCOUNTER 2019-02-28 09:15 | Emergency (ER) | payer MEDICAID, OTHER ==
[2019-02-28] MEDS ORDERED: Acetaminophen 500 MG TAB ONE (09:44)
[2019-02-28 09:48] LABS: Bilirubin Negative (Negative); Blood, Urine Negative (Negative); Clarity Clear (Clear); Glucose, Urine (Dipstick) Normal (Negative); Leukocyte Negative Leu/uL (Negative); Nitrite Negative (Negative); Protein, Urine (Dipstick) 70 mg/dL (Neg-Trace); RBC/HPF 0-3 HPF (0-3); Urobilinogen Normal mg/dL (Less than 2); WBC/HPF 0-3 HPF (0-3)
[2019-02-28 09:50] LABS: Bacteria/HPF Rare-Few HPF (None Seen)
[2019-02-28 10:21] LABS: #Eosinphils 0.1 thou/uL (0.0-0.7); #Lymphocytes 3.2 thou/uL (1.20-3.40); #Monocytes 0.9 thou/uL (0.11-0.59); #Neutrophils 13.2 thou/uL (1.40-6.50); %Basophils 0.2 % (0.0-1.0); %Eosinophils 0.6 % (0.0-10.0); %Lymphocytes 18.2 % (21.0-51.0); %Monocytes 5.1 % (0.0-10.0); Hemoglobin 10.5 g/dL (12.0-16.0); Mean Corpuscular HGB CONC 32.4 g/dL (32.0-36.0); Mean Corpuscular Hemoglobin 24.1 pg (27.0-31.0); Mean Corpuscular Volume 74.4 fL (78.0-98.0); Mean Platelet Volume 8.5 fL (7.4-10.4); Platelet Count 450 thou/uL (130-400); RBC Distribution Width 16.9 % (11.5-14.5); Red Blood Cell (RBC) Count 4.34 mill/uL (4.20-5.40); White Blood Cell (WBC) Count 17.4 thou/uL (4.8-10.8)
[2019-02-28 10:52] LABS: ALT (SGPT) 23 U/L (8-55); AST (SGOT) 17 U/L (5-34); Albumin 3.9 g/dL (3.5-5.0); Alkaline Phosphatase 80 U/L (40-110); Anion Gap 10 mmol/L (10-20); BUN (Urea Nitrogen) 27 mg/dL (7.0-18.7); Bilirubin, Total 0.2 mg/dL (0.2-1.2); Calc. Creatinine Clearance 0 mL/min (70-130); Calcium 9.6 mg/dL (7.8-10.44); Carbon Dioxide 27 mmol/L (22-29); Chloride 101 mmol/L (98-107); Estimated GFR-MDRD 29; Glucose 97 mg/dL (70-105); Potassium 3.9 mmol/L (3.5-5.1); Protein, Total 7.9 g/dL (6.0-8.3); Sodium 134 mmol/L (136-145)
[2019-02-28] MEDS ORDERED: Labetalol 100 MG TAB PO SCH (11:15)
[2019-02-28] MEDS ORDERED: NIFEdipine XL 60 MG TAB PO SCH (11:15)
--- NOTE | 2019-02-28 11:21 | ULT ---
ULTRASOUND PELVIC DOPPLER DUPLEX: DATE: 02/28/2019 HISTORY: 33-year-old female in first trimester presents with pelvic pain. No intrauterine visualized by bedside ultrasound performed by resident physician. TECHNIQUE: Transabdominal transducer used to visualize intrapelvic contents with grayscale, color-flow, and spec tral analysis. Transvaginal ultrasound not performed. FINDINGS: Intrauterine gestational sac. pole crown-rump length: 3.3 cm. 10 weeks 1 day. heart rate: 168 BPM. No subchorionic hemorrhage identified. 2.5 x 2 x 2 cm left ovarian cyst. Otherwise bilateral ovaries normal in size. Blood flow demonstrated in both ovaries. No free fluid in cul-de-sac.. IMPRESSION: 1) live first trimester intrauterine gestation estimated to be 10 weeks 1 day gestational age. 2) 2.5 cm left corpus luteal cyst.
== END 2019-02-28 12:46 | disposition home or self-care (01) ==
LOC: ERS 09:15
DX: O99.611 Diseases of the digestive system complicating pregnancy, first trimester (principal); K59.00 Constipation, unspecified; O10.911 Unspecified pre-existing hypertension complicating pregnancy, first trimester; O99.281 Endocrine, nutritional and metabolic diseases complicating pregnancy, first trimester; E78.5 Hyperlipidemia, unspecified; O99.011 Anemia complicating pregnancy, first trimester; O99.341 Other mental disorders complicating pregnancy, first trimester; F41.9 Anxiety disorder, unspecified; F31.9 Bipolar disorder, unspecified; O24.311 Unspecified pre-existing diabetes mellitus in pregnancy, first trimester; E11.9 Type 2 diabetes mellitus without complications; Z3A.09 9 weeks gestation of pregnancy; Z79.899 Other long term (current) drug therapy
CPT/HCPCS: 76856; 80053; 81003; 81015; 84702; 85025; 87086; 93976; 96360; 96361

== ENCOUNTER 2019-03-17 03:44 | Emergency (ER) | payer MEDICAID, OTHER ==
[2019-03-17] MEDS ORDERED: Promethazine HCl 25 MG/ML VIAL ONE (04:27)
[2019-03-17 04:33] LABS: #Eosinphils 0.1 thou/uL (0.0-0.7); #Lymphocytes 2.3 thou/uL (1.20-3.40); #Monocytes 0.9 thou/uL (0.11-0.59); #Neutrophils 11.7 thou/uL (1.40-6.50); %Basophils 0.2 % (0.0-1.0); %Lymphocytes 15.3 % (21.0-51.0); %Monocytes 5.6 % (0.0-10.0); %Neutrophils 77.9 % (42.0-75.0); Hemoglobin 9.5 g/dL (12.0-16.0); Mean Corpuscular HGB CONC 33.3 g/dL (32.0-36.0); Mean Corpuscular Hemoglobin 24.8 pg (27.0-31.0); Mean Corpuscular Volume 74.3 fL (78.0-98.0); Mean Platelet Volume 8.6 fL (7.4-10.4); Platelet Count 418 thou/uL (130-400); RBC Distribution Width 16.9 % (11.5-14.5); Red Blood Cell (RBC) Count 3.83 mill/uL (4.20-5.40); White Blood Cell (WBC) Count 15.1 thou/uL (4.8-10.8)
[2019-03-17 04:53] LABS: ALT (SGPT) 22 U/L (8-55); AST (SGOT) 16 U/L (5-34); Albumin 3.6 g/dL (3.5-5.0); Alkaline Phosphatase 84 U/L (40-110); Anion Gap 14 mmol/L (10-20); BUN (Urea Nitrogen) 31 mg/dL (7.0-18.7); Bilirubin, Total Less than 0.2 mg/dL (0.2-1.2); Calc. Creatinine Clearance 0 mL/min (70-130); Carbon Dioxide 24 mmol/L (22-29); Chloride 102 mmol/L (98-107); Estimated GFR-MDRD 31; Globulin 3.2 g/dL (2.4-3.5); Glucose 60 mg/dL (70-105); Potassium 4.3 mmol/L (3.5-5.1); Protein, Total 6.8 g/dL (6.0-8.3); Sodium 136 mmol/L (136-145)
[2019-03-17] MEDS ORDERED: Metoprolol Tartrate 5 MG/5 ML VIAL ONE (05:35)
[2019-03-17 06:30] LABS: Bilirubin Negative (Negative); Blood, Urine Trace (Negative); Clarity Clear (Clear); Glucose, Urine (Dipstick) Normal (Negative); Leukocyte Negative Leu/uL (Negative); Nitrite Negative (Negative); Protein, Urine (Dipstick) 100 mg/dL (Neg-Trace); RBC/HPF 0-3 HPF (0-3); Squamous Epithelial 0-3 HPF (0-3); Urobilinogen Normal mg/dL (Less than 2); WBC/HPF 0-3 HPF (0-3)
[2019-03-17 06:31] LABS: Bacteria/HPF 1+ HPF (None Seen)
== END 2019-03-17 07:05 | disposition home or self-care (01) ==
LOC: ERS 03:44
DX: O21.9 Vomiting of pregnancy, unspecified (principal); O24.911 Unspecified diabetes mellitus in pregnancy, first trimester; E11.65 Type 2 diabetes mellitus with hyperglycemia; O10.911 Unspecified pre-existing hypertension complicating pregnancy, first trimester; O99.281 Endocrine, nutritional and metabolic diseases complicating pregnancy, first trimester; E78.5 Hyperlipidemia, unspecified; O99.011 Anemia complicating pregnancy, first trimester; O99.341 Other mental disorders complicating pregnancy, first trimester; F41.9 Anxiety disorder, unspecified; F31.9 Bipolar disorder, unspecified; Z3A.11 11 weeks gestation of pregnancy; Z79.899 Other long term (current) drug therapy
CPT/HCPCS: 36415; 36416; 80053; 81003; 81015; 85025; 96365; 96366; 96375; J2550

== ENCOUNTER 2019-04-16 08:17 | Emergency (ER) | payer MEDICAID, OTHER ==
[2019-04-16] MEDS ORDERED: Promethazine HCl 25 MG/ML VIAL ONE ×2 (08:39→10:27)
[2019-04-16 09:08] LABS: #Basophils 0.1 thou/uL (0.0-0.2); #Eosinphils 0.1 thou/uL (0.0-0.7); #Lymphocytes 2.7 thou/uL (1.20-3.40); #Monocytes 0.9 thou/uL (0.11-0.59); #Neutrophils 14.1 thou/uL (1.40-6.50); %Basophils 0.4 % (0.0-1.0); %Eosinophils 0.8 % (0.0-10.0); %Lymphocytes 15.1 % (21.0-51.0); %Monocytes 4.8 % (0.0-10.0); %Neutrophils 78.9 % (42.0-75.0); Mean Corpuscular HGB CONC 31.4 g/dL (32.0-36.0); Mean Corpuscular Hemoglobin 23.9 pg (27.0-31.0); Mean Corpuscular Volume 76.1 fL (78.0-98.0); Mean Platelet Volume 9.1 fL (7.4-10.4); Platelet Count 402 thou/uL (130-400); RBC Distribution Width 16.3 % (11.5-14.5); Red Blood Cell (RBC) Count 4.16 mill/uL (4.20-5.40); White Blood Cell (WBC) Count 17.9 thou/uL (4.8-10.8)
[2019-04-16 09:29] LABS: ALT (SGPT) 34 U/L (8-55); AST (SGOT) 23 U/L (5-34); Albumin 3.6 g/dL (3.5-5.0); Alkaline Phosphatase 92 U/L (40-110); Anion Gap 14 mmol/L (10-20); BUN (Urea Nitrogen) 30 mg/dL (7.0-18.7); Bilirubin, Total 0.3 mg/dL (0.2-1.2); Calc. Creatinine Clearance 0 mL/min (70-130); Calcium 9.6 mg/dL (7.8-10.44); Carbon Dioxide 25 mmol/L (22-29); Chloride 103 mmol/L (98-107); Estimated GFR-MDRD 29; Globulin 4.1 g/dL (2.4-3.5); Glucose 93 mg/dL (70-105); Lipase 28 U/L (8-78); Potassium 3.6 mmol/L (3.5-5.1); Protein, Total 7.7 g/dL (6.0-8.3); Sodium 138 mmol/L (136-145)
[2019-04-16 09:31] LABS: Bilirubin Negative (Negative); Blood, Urine Trace (Negative); Clarity Clear (Clear); Glucose, Urine (Dipstick) Normal (Negative); Leukocyte 75 Leu/uL (Negative); Nitrite Negative (Negative); Protein, Urine (Dipstick) 70 mg/dL (Neg-Trace); RBC/HPF 0-3 HPF (0-3); Urobilinogen Normal mg/dL (Less than 2); WBC/HPF 0-3 HPF (0-3)
[2019-04-16 09:33] LABS: Bacteria/HPF 1+ HPF (None Seen)
== END 2019-04-16 13:09 | disposition home or self-care (01) ==
LOC: ERS 08:17
DX: O21.0 Mild hyperemesis gravidarum (principal); O10.912 Unspecified pre-existing hypertension complicating pregnancy, second trimester; O99.282 Endocrine, nutritional and metabolic diseases complicating pregnancy, second trimester; E78.5 Hyperlipidemia, unspecified; O99.012 Anemia complicating pregnancy, second trimester; O99.342 Other mental disorders complicating pregnancy, second trimester; O24.112 Pre-existing type 2 diabetes mellitus, in pregnancy, second trimester; E11.9 Type 2 diabetes mellitus without complications; Z3A.16 16 weeks gestation of pregnancy; Z79.899 Other long term (current) drug therapy
CPT/HCPCS: 36416; 80053; 81003; 81015; 83690; 85025; 96365; 96366; J2550

== ENCOUNTER 2019-05-13 15:32 | Outpatient (CLI) | payer OTHER ==
--- NOTE | 2019-05-13 16:29 | ULT ---
Complete obstetrical ultrasound INDICATION: Evaluate anatomy and cervix TECHNIQUE: Grayscale, M-mode Doppler and Doppler images were obtained of the abdomen and pelvis to ev aluate the patient's known . COMPARISON: None. FINDINGS: Number of gestations: Single. Presentation: Cephalic. Placental location: Anterior Previa: No evidence for previa. Cervical length: 3.1 cm BOUCHRA: 11.9 cm. heart rate: 150 bpm. Biparietal diameter: 5.08cm, 21 weeks 3 days, Not calculated.. Head circumference: 18.70 cm, 21 weeks 1 day, Not calculated. Abdominal circumference: 15.94 cm, 21 weeks 1 day, Not calculated. Femoral length: 3.48cm, 21 weeks 0 days, Not calculated. Estimated weight: 395 g +/- 58g 0 lbs. 14 oz. +/- 2 ounces, 98th percentile SURVEY: head: Normal appearing. Cerebellum: Normal appearing. Cisterna magna: Normal appearing. Lateral ventricles: Normal appearing. 4 chamber heart: Normal appearing.. Stomach: Normal appearing. Kidneys: Normal appearing. Cord insertion: Normal appearing. Bladder: Normal appearing. Spine: Normal appearing. Lips and nose: Normal appearing. Extremities: Normal appearing. Three-vessel CORD: Normal appearing. The average gestational age by ultrasound is 21 weeks and 2 dayswith estimated due date of September 20. The estimated dates by clinical data is 19 weeks and 5 dayswith estimated due date of October 02, 2019. IMPRESSION: 1. Single live intrauterine gestation with size and dates as above.
== END 2019-05-13 15:33 | disposition home or self-care (01) ==
LOC: BICULT 15:32
PROVIDERS: ATTEND Family Medicine
DX: O09.892 Supervision of other high risk pregnancies, second trimester (principal); Z3A.21 21 weeks gestation of pregnancy
CPT/HCPCS: 76805

== ENCOUNTER 2019-05-20 16:40 | Inpatient (IN) | payer OTHER ==
[2019-05-20] MEDS ORDERED: hydrALAZINE 20 MG/ML VIAL SLOW IVP PRN ×3 (17:10→19:19)
[2019-05-20 17:41] LABS: #Eosinphils 0.2 thou/uL (0.0-0.7); #Lymphocytes 2.3 thou/uL (1.20-3.40); #Monocytes 0.7 thou/uL (0.11-0.59); #Neutrophils 13.1 thou/uL (1.40-6.50); %Basophils 0.3 % (0.0-1.0); %Eosinophils 0.9 % (0.0-10.0); %Lymphocytes 14.1 % (21.0-51.0); %Monocytes 4.4 % (0.0-10.0); %Neutrophils 80.3 % (42.0-75.0); Mean Corpuscular HGB CONC 34.1 g/dL (32.0-36.0); Mean Corpuscular Hemoglobin 27.1 pg (27.0-31.0); Mean Corpuscular Volume 79.6 fL (78.0-98.0); Mean Platelet Volume 8.5 fL (7.4-10.4); Platelet Count 413 thou/uL (130-400); RBC Distribution Width 14.1 % (11.5-14.5); Red Blood Cell (RBC) Count 3.67 mill/uL (4.20-5.40); White Blood Cell (WBC) Count 16.3 thou/uL (4.8-10.8)
[2019-05-20 18:01] LABS: ALT (SGPT) 23 U/L (8-55); AST (SGOT) 16 U/L (5-34); Albumin 3.5 g/dL (3.5-5.0); Alkaline Phosphatase 95 U/L (40-110); Anion Gap 13 mmol/L (10-20); BUN (Urea Nitrogen) 25 mg/dL (7.0-18.7); Bilirubin, Total 0.2 mg/dL (0.2-1.2); Calc. Creatinine Clearance 0 mL/min (70-130); Calcium 9.3 mg/dL (7.8-10.44); Carbon Dioxide 22 mmol/L (22-29); Chloride 102 mmol/L (98-107); Estimated GFR-MDRD 29; Globulin 3.9 g/dL (2.4-3.5); Glucose 160 mg/dL (70-105); Potassium 3.8 mmol/L (3.5-5.1); Protein, Total 7.4 g/dL (6.0-8.3); Sodium 133 mmol/L (136-145)
[2019-05-20] MEDS ORDERED: Labetalol HCl 100 MG/20 ML VIAL SLOW IVP SCH (18:10)
[2019-05-20 18:45] VITALS: TEMP 99.3; BMI 33.4
[2019-05-20] MEDS ORDERED: Ondansetron PF 4 MG/2 ML Vial ONE (18:54)
--- NOTE | 2019-05-20 19:03 | PDOC.LDHP ---
Labor and Delivery H&P Chief complaint: other (BAH, dizzines, fever) HPI: 33 yo BF presents c/o BAH, fatigue and fever to 101 at home today. PNC with Dr. Polo. Current gestational age (weeks): 20 Due date: 10/02/19 Dating criteria: last menstrual period Grav: 6 Para: 3 OB History Details: H/o C/S x3 Current complications: other (HTN, IRDM, kidney disease) Abnormal US findings: No Past Medical History: HTN, IRDM. kidney disease Current medications: other (Labetalol 300 BID, Nifedipine 60 BID 70/30 50 AM, 45 PM PNV) Previous surgical history: low tranverse CS, appendectomy Allergies/Adverse Reactions: Allergies Allergy/AdvReac Type Severity Reaction Status Date / Time No Known Drug Allergies Allergy Verified 01/31/19 01:22 Social history: none - Physical Exam Abnormal vital signs: 189/90, 193/91 General: resting Heart: RRR Lungs: CTAB Abdomen: gravid Tulsita contractions every: none - Assessment 20 week IUP HTN now with severe BPs IRDM Kidney disease - Plan Plan: admit to L&D, other (admit for BP control DR. Polo notified and will evaluate)
[2019-05-20] MEDS ORDERED: Promethazine HCl 25 MG/ML VIAL IM PRN (19:19)
[2019-05-20] MEDS ORDERED: Docusate 100 MG CAP PO PRN (19:19)
[2019-05-20] MEDS ORDERED: Ondansetron PF 4 MG/2 ML Vial IVP PRN (19:19)
[2019-05-20 19:44] LABS: Hemoglobin A1c 7.5 % (4.0-6.0)
[2019-05-20 20:28] LABS: Amphetamine Not Detected (NotDetected); Barbiturates Screen Not Detected (NotDetected); Benzodiazepine Screen Not Detected (NotDetected); Cocaine Metabolite Screen Not Detected (NotDetected); Medtox Control Line Valid? VALID (VALID); Medtox Reader # READER 4; Methadone Not Detected (NotDetected); Methamphetamine Not Detected (NotDetected); Opiate Screen Not Detected (NotDetected); Oxycodone Screen Not Detected (NotDetected); Phencyclidine (PCP) Not Detected (NotDetected); THC/Cannabinoid Screen Not Detected (NotDetected); Tricyclic Screen Not Detected (NotDetected)
[2019-05-20 20:33] LABS: Creatinine, Urine 77.08 mg/dL (47-110)
--- NOTE | 2019-05-20 21:07 | ULT ---
EXAM: OB ultrasound COMPARISON: 05/13/2019 HISTORY: Chronic hypertension, type 2 diabetes mellitus, uncontrolled. TECHNIQUE: Multiplanar grayscale and color Doppler transabdominal sonographic images are obtained. FINDINGS: There is a single intrauterine gestation in cephalic presentation. Cardiac Doppler demonstr ates heart tones with a heart rate of 155 beats per minute. The placenta is located anteriorly without evidence of placenta previa. There is a normal amount of amniotic fluid with an am niotic fluid index of 16.1 centimeters. Amniotic fluid index was calculated at 11.85 cm on the prior exam. Cervix is difficult to evaluate. Cervix measures proximally 2.9 cm based on transabdomina l imaging biometry measurements: BPD 5.33 cm -- 22 weeks 1 day HC 19.63 cm -- 20 weeks 6 days AC 16.12 cm -- 21 weeks 1 day FL 3.73 cm -- 21 weeks 6 days The estimated gestational age by ultrasound is 21 weeks 5 days with an REANNA on09/25/2019. Gestational ag e by the last menstrual period is 20 weeks 5 days. The estimated weight by ultrasound is 435 g (15 ounces). This represents 88 percentile for feta l weight. There is has been minimal interval growth when compared to prior study A 4 chambered heart is visualized. The visualized portions of the spine, kidneys, urinary bladd er, and cord insertion demonstrate a normal sonographic appearance. The cerebellum and cord insertion are not well evaluated. A three-vessel cord is not visualized, but there is flow on either side of the urinary bladder sugges ting a three-vessel cord.. No anomalies are seen. IMPRESSION: 1. Single intrauterine gestation in cephalic presentation with heart tones documented. Estimat ed gestational age by ultrasound is 21 weeks 5 days with REANNA on 09/25/2019. 2. Estimated weight is 435 g (15 ounces). 3. Amniotic fluid index is 16.1 centimeters.
[2019-05-20] MEDS: Labetalol HCl 100 MG/20 ML VIAL SLOW IVP PRN ×2 (21:25→23:17)
[2019-05-20] MEDS: Lactated Ringer's 1,000 ML IV SCH (21:35)
[2019-05-20 21:58] LABS: Bacteria/HPF None Seen HPF (None Seen); Bilirubin Negative (Negative); Blood, Urine Negative (Negative); Clarity Clear (Clear); Glucose, Urine (Dipstick) 70 mg/dL (Negative); Leukocyte Negative Leu/uL (Negative); Nitrite Negative (Negative); Protein, Urine (Dipstick) 200 mg/dL (Neg-Trace); RBC/HPF 0-3 HPF (0-3); Squamous Epithelial 0-3 HPF (0-3); Urobilinogen Normal mg/dL (Less than 2); WBC/HPF 0-3 HPF (0-3)
[2019-05-20] MEDS ORDERED: Acetaminophen 650 MG/20.3 ML UDCUP PO PRN (23:30)
[2019-05-21] MEDS ORDERED: Dextrose 5% in Water 1,000 ML IV PRN ×2 (00:03→15:51)
[2019-05-21] MEDS ORDERED: Dextrose 50% Abboject 50 ML SYRINGE SLOW IVP PRN ×2 (00:03→15:51)
[2019-05-21] MEDS ORDERED: HUMULIN R 100 UNITS in Sodium Chloride 0.9% 100 ML IVPB SCH (00:03)
[2019-05-21] MEDS ORDERED: Insulin Regular 300 UNITS/3 ML VIAL SC PRN (00:03)
[2019-05-21] MEDS ORDERED: Labetalol 100 MG TAB PO SCH ×2 (01:45→14:00)
[2019-05-21] MEDS: Labetalol 100 MG TAB PO SCH ×2 (01:55→16:18)
[2019-05-21] MEDS: HumaLOG 300 UNITS/3 ML VIAL SC SCH ×5 (01:55→18:51)
[2019-05-21 07:27] LABS: #Eosinphils 0.1 thou/uL (0.0-0.7); #Lymphocytes 2.3 thou/uL (1.20-3.40); #Monocytes 0.8 thou/uL (0.11-0.59); #Neutrophils 12.1 thou/uL (1.40-6.50); %Basophils 0.3 % (0.0-1.0); %Eosinophils 0.6 % (0.0-10.0); %Lymphocytes 14.8 % (21.0-51.0); %Monocytes 5.3 % (0.0-10.0); %Neutrophils 78.9 % (42.0-75.0); Hemoglobin 9.5 g/dL (12.0-16.0); Mean Corpuscular HGB CONC 34.1 g/dL (32.0-36.0); Mean Corpuscular Hemoglobin 27.2 pg (27.0-31.0); Mean Corpuscular Volume 79.9 fL (78.0-98.0); Mean Platelet Volume 8.1 fL (7.4-10.4); Platelet Count 398 thou/uL (130-400); RBC Distribution Width 14.2 % (11.5-14.5); Red Blood Cell (RBC) Count 3.49 mill/uL (4.20-5.40); White Blood Cell (WBC) Count 15.4 thou/uL (4.8-10.8)
[2019-05-21] MEDS ORDERED: NIFEdipine XL 90 MG TAB PO SCH (07:30)
[2019-05-21] MEDS ORDERED: Labetalol HCl 100 MG/20 ML VIAL SLOW IVP SCH (07:30)
[2019-05-21] MEDS: Lactated Ringer's 1,000 ML IV SCH ×3 (07:31→16:18)
[2019-05-21 07:46] LABS: ALT (SGPT) 21 U/L (8-55); AST (SGOT) 15 U/L (5-34); Albumin 3.1 g/dL (3.5-5.0); Alkaline Phosphatase 84 U/L (40-110); Anion Gap 13 mmol/L (10-20); BUN (Urea Nitrogen) 23 mg/dL (7.0-18.7); Bilirubin, Total 0.3 mg/dL (0.2-1.2); Calc. Creatinine Clearance 55 mL/min (70-130); Carbon Dioxide 21 mmol/L (22-29); Chloride 104 mmol/L (98-107); Estimated GFR-MDRD 32; Globulin 3.8 g/dL (2.4-3.5); Glucose 97 mg/dL (70-105); Potassium 4.2 mmol/L (3.5-5.1); Protein, Total 6.9 g/dL (6.0-8.3); Sodium 134 mmol/L (136-145)
[2019-05-21] MEDS ORDERED: Famotidine 20 MG TAB PO SCH (08:00)
[2019-05-21] MEDS ORDERED: Metoclopramide HCl 10 MG/2 ML VIAL IVP PRN ×2 (08:03→15:46)
[2019-05-21] MEDS ORDERED: Acetaminophen 500 MG TAB PO PRN (13:56)
[2019-05-21] MEDS ORDERED: hydrALAZINE 20 MG/ML VIAL SLOW IVP PRN (15:48)
[2019-05-21] MEDS ORDERED: Ondansetron PF 4 MG/2 ML Vial IVP PRN (15:49)
[2019-05-21] MEDS ORDERED: Docusate 100 MG CAP PO PRN (15:49)
[2019-05-21] MEDS: Promethazine HCl 25 MG/ML VIAL IM PRN ×2 (16:57→18:50)
[2019-05-21] MEDS: Famotidine 20 MG TAB PO SCH (18:21)
[2019-05-21] MEDS ORDERED: Insulin Glargine 20 UNITS in Pre-Filled Syringe 1 EACH SC SCH (21:00)
[2019-05-21 23:45] LABS: Urine Total Volume 2200 mL (600-1600)
[2019-05-22] MEDS: Lactated Ringer's 1,000 ML IV SCH ×2 (00:05→08:18)
[2019-05-22 00:06] LABS: Protein - 24 Hr 2794 mg/24 hr (Less than 300); Protein, Urine 127 mg/dL (1-14)
[2019-05-22] MEDS: hydrALAZINE 20 MG/ML VIAL SLOW IVP PRN ×2 (01:45→05:23)
[2019-05-22] MEDS ORDERED: Labetalol 100 MG TAB PO SCH ×2 (02:00→10:00)
[2019-05-22] MEDS ORDERED: NIFEdipine XL 90 MG TAB PO SCH (07:30)
[2019-05-22] MEDS: HumaLOG 300 UNITS/3 ML VIAL SC SCH (07:54)
[2019-05-22] MEDS: Famotidine 20 MG TAB PO SCH (08:11)
[2019-05-22] MEDS ORDERED: Labetalol HCl 100 MG/20 ML VIAL SLOW IVP PRN ×2 (08:45)
[2019-05-22] MEDS ORDERED: Insulin Regular 300 UNITS/3 ML VIAL SC PRN (09:37)
[2019-05-22] MEDS ORDERED: Dextrose 5% in Water 1,000 ML IV PRN (09:37)
[2019-05-22] MEDS ORDERED: Dextrose 50% Abboject 50 ML SYRINGE SLOW IVP PRN (09:37)
[2019-05-22 10:17] VITALS: BP 128/71
--- NOTE | 2019-05-22 14:25 | DIS ---
DATE OF ADMISSION: 05/20/2019 DATE OF DISCHARGE: 05/22/2019 The patient was initially admitted by Dr. Wilman Angel, OB hospitalist for Dr. Jeet Polo, Family Medicine and OB. At Dr. Polo's request, I arranged for transfer to [facility] for care for Maternal- Medicine. Briefly, Ms. Green is a 33-year-old 6, para 3, AB 2, at 21 weeks' gestation with a 435 g infant on ultrasound. She has a long and complex medical history that is highlighted by her poorly-controlled insulin-dependent diabetes, multisubstance abuse history, and stage 3 chronic kidney disease. She has had inconsistent care and presented on the , with blood pressures to 180s systolic over 100s diastolic. She was admitted and received Humalog insulin, Procardia XL 90 mg daily, labetalol 300 mg p.o. t.i.d., and Aldomet 250 mg p.o. t.i.d., as well as intermittent doses of hydralazine or labetalol for severe range blood pressures. 24-hour urine collection revealed approximately 2.8 g proteinuria. Other laboratory indices were remarkable for anemia, normal platelet count, creatinine of greater than 2, and mild hyponatremia likely secondary to hyperglycemia. Secondary to the patient's severe range blood pressures at a yrn-viable gestational age, 435 g infant by sono, and the complications associated with Yazdanism ERDs, it was felt that the patient could best be cared status and Maternal- Medicine consultation available. I reached out to Dr. Margaret Sanchez at [facility], and she accepted transfer. The patient was transferred via ground ambulance, and I gave consent for the care. Job ID: [id number]
[2019-05-22] MEDS ORDERED: Ferrous Sulfate 325 MG TAB PO SCH (17:00)
== END 2019-05-22 11:13 | disposition short-term general hospital (02) | DRG 832 ==
LOC: ERS 16:40 → L&D/OP 16:40 → L&D 19:19 → UNDOADMIN 19:19
PROVIDERS: ADMIT Family Medicine; ATTEND Family Medicine
DX: O24.112 Pre-existing type 2 diabetes mellitus, in pregnancy, second trimester (principal); O10.912 Unspecified pre-existing hypertension complicating pregnancy, second trimester; E87.1 Hypo-osmolality and hyponatremia; Z3A.20 20 weeks gestation of pregnancy; E11.22 Type 2 diabetes mellitus with diabetic chronic kidney disease; O99.282 Endocrine, nutritional and metabolic diseases complicating pregnancy, second trimester; E11.65 Type 2 diabetes mellitus with hyperglycemia; N18.3 Chronic kidney disease, stage 3 (moderate); I12.9 Hypertensive chronic kidney disease with stage 1 through stage 4 chronic kidney disease, or unspecified chronic kidney disease; Z79.4 Long term (current) use of insulin
CPT/HCPCS: 36415; 36416; 76815; 80053; 80306; 81001; 82570; 83036; 84156; 85025; 93005; 93010; J0360; J1815; J2405; J2550; J2765

== ENCOUNTER 2021-07-10 08:38 | Emergency (ER) | payer MEDICAID ==
[2021-07-10] MEDS ORDERED: Heparin 10,000 UNITS/ 10 ML VIAL ONE (09:05)
[2021-07-10 09:22] LABS: #Basophils 0.1 thou/uL (0.0-0.2); #Eosinphils 0.4 thou/uL (0.0-0.7); #Lymphocytes 1.9 thou/uL (1.20-3.40); #Monocytes 1.2 thou/uL (0.11-0.59); %Basophils 0.4 % (0.0-1.0); %Eosinophils 2.2 % (0.0-10.0); %Lymphocytes 10.4 % (21.0-51.0); %Monocytes 6.4 % (0.0-10.0); %Neutrophils 80.6 % (42.0-75.0); Hemoglobin 11.1 g/dL (12.0-16.0); Mean Corpuscular Hemoglobin 29.3 pg (27.0-31.0); Mean Corpuscular Volume 88.7 fL (78.0-98.0); Mean Platelet Volume 8.7 fL (7.4-10.4); Platelet Count 362 thou/uL (130-400); RBC Distribution Width 15.5 % (11.5-14.5); White Blood Cell (WBC) Count 18.6 thou/uL (4.8-10.8)
[2021-07-10] MEDS ORDERED: Nitroglycerin 0.4 MG TAB 1 EACH ONE (09:31)
[2021-07-10 09:34] LABS: BHCG - Serum Negative (NEGATIVE); Pregs Control Background? CLEAR/WHITE (CLR/WHITE); Pregs Control Bar Appear? YES (CONTROL BAR)
[2021-07-10] MEDS ORDERED: Aspirin Chewable 81 MG TAB ONE (10:22)
[2021-07-10 10:30] LABS: SARS-CoV-2 NAA Rapid Test Not Detected (NotDetected)
[2021-07-10 10:35] LABS: Hep B Surf Ag Non-Reactive S/CO (NonReactive)
[2021-07-10 10:38] LABS: ALT (SGPT) 14 U/L (8-55); AST (SGOT) 9 U/L (5-34); Albumin 3.8 g/dL (3.5-5.0); Alkaline Phosphatase 107 U/L (40-110); Anion Gap 19 mmol/L (10-20); BUN (Urea Nitrogen) 94 mg/dL (7.0-18.7); Bilirubin, Total 0.3 mg/dL (0.2-1.2); Calc. Creatinine Clearance 0 mL/min (70-130); Calcium 8.6 mg/dL (7.8-10.44); Carbon Dioxide 16 mmol/L (22-29); Chloride 108 mmol/L (98-107); Globulin 3.3 g/dL (2.4-3.5); Glucose 212 mg/dL (70-105); Potassium 5.3 mmol/L (3.5-5.1); Protein, Total 7.1 g/dL (6.0-8.3); Sodium 138 mmol/L (136-145)
[2021-07-10 10:39] LABS: HBSAB Concentration 18.85 mIU/mL; Hep B Surf AB Reactive (NonReactive)
[2021-07-10] MEDS ORDERED: Acetaminophen 500 MG TAB ONE (14:31)
== END 2021-07-10 15:40 | disposition home or self-care (01) ==
LOC: ERS 08:38
DX: E87.70 Fluid overload, unspecified (principal); E78.5 Hyperlipidemia, unspecified; D64.9 Anemia, unspecified; I12.9 Hypertensive chronic kidney disease with stage 1 through stage 4 chronic kidney disease, or unspecified chronic kidney disease; E11.22 Type 2 diabetes mellitus with diabetic chronic kidney disease; N18.4 Chronic kidney disease, stage 4 (severe); G47.00 Insomnia, unspecified; Z79.899 Other long term (current) drug therapy; Z79.84 Long term (current) use of oral hypoglycemic drugs
CPT/HCPCS: 36415; 71045; 80053; 83880; 84484; 84703; 85025; 86706; 87340; 90935; 93005; G0257; J1644

== ENCOUNTER 2021-08-04 05:39 | Inpatient (IN) | payer MEDICAID, OTHER ==
[2021-08-04] MEDS ORDERED: Haloperidol Lactate 5 MG/ML VIAL ONE (05:51)
[2021-08-04] MEDS ORDERED: hydrALAZINE 20 MG/ML VIAL ONE (05:51)
[2021-08-04 06:21] LABS: #Lymphocytes 1.4 thou/uL (1.20-3.40); #Monocytes 0.2 thou/uL (0.11-0.59); #Neutrophils 16.7 thou/uL (1.40-6.50); %Basophils 0.1 % (0.0-1.0); %Eosinophils 0.1 % (0.0-10.0); %Lymphocytes 7.4 % (21.0-51.0); %Monocytes 1.3 % (0.0-10.0); %Neutrophils 91.1 % (42.0-75.0); Hemoglobin 11.5 g/dL (12.0-16.0); Mean Corpuscular HGB CONC 32.9 g/dL (32.0-36.0); Mean Corpuscular Hemoglobin 28.9 pg (27.0-31.0); Mean Corpuscular Volume 87.7 fL (78.0-98.0); Mean Platelet Volume 9.2 fL (7.4-10.4); Platelet Count 281 thou/uL (130-400); RBC Distribution Width 13.8 % (11.5-14.5); Red Blood Cell (RBC) Count 3.97 mill/uL (4.20-5.40); White Blood Cell (WBC) Count 18.3 thou/uL (4.8-10.8)
[2021-08-04 06:39] LABS: ALT (SGPT) 10 U/L (8-55); AST (SGOT) 13 U/L (5-34); Albumin 4.2 g/dL (3.5-5.0); Alkaline Phosphatase 142 U/L (40-110); Anion Gap 28 mmol/L (10-20); BUN (Urea Nitrogen) 51 mg/dL (7.0-18.7); Bilirubin, Total 0.6 mg/dL (0.2-1.2); Calc. Creatinine Clearance 0 mL/min (70-130); Calcium 9.8 mg/dL (7.8-10.44); Carbon Dioxide 20 mmol/L (22-29); Chloride 93 mmol/L (98-107); Globulin 4.1 g/dL (2.4-3.5); Glucose 530 mg/dL (70-105); Lipase 18 U/L (8-78); Potassium 4.1 mmol/L (3.5-5.1); Protein, Total 8.3 g/dL (6.0-8.3); Sodium 137 mmol/L (136-145)
[2021-08-04] MEDS ORDERED: Metoprolol Tartrate 5 MG/5 ML VIAL ONE (06:46)
[2021-08-04] MEDS ORDERED: Insulin Regular 300 UNITS/3 ML VIAL ONE (06:46)
[2021-08-04] MEDS ORDERED: Morphine 4 MG/ML VIAL ONE (06:46)
[2021-08-04] MEDS ORDERED: INSULIN REGULAR IN 0.9 % NACL 100 UNIT/100 ML BAG ONE (07:05)
[2021-08-04 07:08] LABS: Magnesium 1.9 mg/dL (1.6-2.6)
[2021-08-04 07:57] LABS: Troponin I 0.025 ng/mL (< 0.028)
[2021-08-04 08:05] LABS: Actual Bicarbonate (HCO3v) 18 mEq/L (22-28); Analyzer IN Cardio ER; Base Excess -6.3 mEq/L (-2.0 to +3.0); Calcium, Ionized (venous) 1.07 mmol/L (1.16-1.32); Chloride (VBG) 93 mmol/L (98-106); Potassium (VBG) 3.98 mmol/L (3.70-5.30); pH (venous) 7.37 (7.32-7.43)
[2021-08-04] MEDS ORDERED: hydrALAZINE 20 MG/ML VIAL SLOW IVP PRN (08:30)
[2021-08-04] MEDS ORDERED: Labetalol HCl 100 MG/20 ML VIAL SLOW IVP PRN (08:31)
[2021-08-04] MEDS ORDERED: Dextrose 5 %-0.45 % NaCl 1,000 ML IV PRN (08:45)
[2021-08-04] MEDS ORDERED: Sodium Chloride 0.9% 1,000 ML IV PRN ×4 (08:45)
[2021-08-04] MEDS ORDERED: HUMULIN R 100 UNITS in Sodium Chloride 0.9% 100 ML IVPB SCH (08:45)
[2021-08-04] MEDS ORDERED: D5 1/2 NS w/20 mEq KCL 1,000 ML IV PRN (08:45)
[2021-08-04] MEDS ORDERED: NS 0.9% w/ 20 MEQ KCL 1,000 ML/1,000 ML BAG IV PRN ×2 (08:45)
[2021-08-04] MEDS ORDERED: Dextrose 5% in Water 1,000 ML IV PRN (08:45)
[2021-08-04] MEDS ORDERED: Dextrose 50% Abboject 50 ML SYRINGE SLOW IVP PRN (08:46)
[2021-08-04] MEDS ORDERED: Electrolyte Replacement Protocol 1 EACH FS PRN (08:47)
[2021-08-04] MEDS ORDERED: Electrolyte Replacement Protocol FS PRN (09:00)
[2021-08-04] MEDS ORDERED: NIFEdipine XL 60 MG TAB PO SCH (09:30)
[2021-08-04] MEDS ORDERED: Labetalol HCl 100 MG TAB PO SCH (09:30)
[2021-08-04 09:53] LABS: Anion Gap 27 mmol/L (10-20); BUN (Urea Nitrogen) 55 mg/dL (7.0-18.7); Calc. Creatinine Clearance 0 mL/min (70-130); Calcium 10.1 mg/dL (7.8-10.44); Carbon Dioxide 18 mmol/L (22-29); Chloride 98 mmol/L (98-107); Glucose 344 mg/dL (70-105); Potassium 4.8 mmol/L (3.5-5.1); Sodium 138 mmol/L (136-145)
[2021-08-04] MEDS: Metoclopramide HCl 10 MG/2 ML VIAL IVP SCH ×3 (10:25→23:10)
[2021-08-04] MEDS: Dextrose 5 %-0.45 % NaCl 1,000 ML IV SCH ×2 (10:25→21:00)
[2021-08-04 10:41] VITALS: BMI 30.7
[2021-08-04] MEDS ORDERED: Ondansetron ODT 4 MG TAB PO PRN (10:53)
[2021-08-04] MEDS ORDERED: HYDROcodone/Acetaminophen 5/325 mg Tablet PO PRN (10:53)
[2021-08-04] MEDS ORDERED: Acetaminophen 325 MG TAB PO PRN (10:53)
[2021-08-04] MEDS ORDERED: Senokot S 8.6-50 MG TAB PO PRN (10:53)
[2021-08-04] MEDS ORDERED: Morphine 2 MG/ML VIAL SLOW IVP PRN (10:56)
[2021-08-04 11:21] LABS: Troponin I 0.017 ng/mL (< 0.028)
[2021-08-04] MEDS: Ondansetron PF 4 MG/2 ML Vial IVP PRN ×2 (11:27→21:00)
[2021-08-04] MEDS ORDERED: Nicotine 14 MG PATCH TD PRN (12:00)
[2021-08-04] MEDS ORDERED: Iopamidol 370 76% 100 ML VIAL ONE (13:27)
[2021-08-04 14:03] LABS: Anion Gap 26 mmol/L (10-20); BUN (Urea Nitrogen) 58 mg/dL (7.0-18.7); Calc. Creatinine Clearance 11 mL/min (70-130); Calcium 9.8 mg/dL (7.8-10.44); Carbon Dioxide 19 mmol/L (22-29); Chloride 97 mmol/L (98-107); Glucose 236 mg/dL (70-105); Potassium 4.6 mmol/L (3.5-5.1); Sodium 137 mmol/L (136-145)
[2021-08-04 14:04] LABS: Troponin I 0.029 ng/mL (< 0.028)
[2021-08-04 15:31] LABS: SARS-CoV-2 PCR by NAA Not Detected (NotDetected)
[2021-08-04] MEDS: Heparin 5,000 UNITS/ML VIAL SC SCH (21:06)
[2021-08-04] MEDS: Labetalol HCl 100 MG TAB PO SCH (21:07)
[2021-08-04] MEDS: NIFEdipine XL 60 MG TAB PO SCH (21:07)
[2021-08-04] MEDS ORDERED: Activase 2 MG VIAL CATH SCH (22:15)
[2021-08-04 23:37] LABS: Calcium 9.2 mg/dL (7.8-10.44); Chloride 95 mmol/L (98-107); Potassium 3.4 mmol/L (3.5-5.1); Sodium 137 mmol/L (136-145)
[2021-08-04 23:38] LABS: Glucose 156 mg/dL (70-105)
[2021-08-04 23:39] LABS: Anion Gap 23 mmol/L (10-20); Carbon Dioxide 22 mmol/L (22-29)
[2021-08-04 23:41] LABS: Calc. Creatinine Clearance 11 mL/min (70-130)
[2021-08-04 23:42] LABS: BUN (Urea Nitrogen) 59 mg/dL (7.0-18.7)
[2021-08-05 00:10] LABS: Hep B Surf Ag Non-Reactive S/CO (NonReactive)
[2021-08-05 00:26] LABS: HBSAB Concentration 18.41 mIU/mL; Hep B Surf AB Reactive (NonReactive)
[2021-08-05 01:16] LABS: Amphetamine Not Detected (NotDetected); Barbiturates Screen Not Detected (NotDetected); Benzodiazepine Screen Not Detected (NotDetected); Cocaine Metabolite Screen Detected (NotDetected); Methadone Not Detected (NotDetected); Methamphetamine Not Detected (NotDetected); Opiate Screen Detected (NotDetected); Oxycodone Screen Not Detected (NotDetected); Phencyclidine (PCP) Not Detected (NotDetected); THC/Cannabinoid Screen Not Detected (NotDetected); Tricyclic Screen Not Detected (NotDetected)
[2021-08-05 04:08] LABS: Hemoglobin 11.4 g/dL (12.0-16.0); Mean Corpuscular HGB CONC 31.7 g/dL (32.0-36.0); Mean Corpuscular Hemoglobin 28.5 pg (27.0-31.0); Platelet Count 269 thou/uL (130-400); RBC Distribution Width 14.2 % (11.5-14.5); Red Blood Cell (RBC) Count 4.01 mill/uL (4.20-5.40); White Blood Cell (WBC) Count 27.1 thou/uL (4.8-10.8)
[2021-08-05] MEDS: Metoclopramide HCl 10 MG/2 ML VIAL IVP SCH ×4 (04:13→22:05)
[2021-08-05 04:17] LABS: Anion Gap 24 mmol/L (10-20); BUN (Urea Nitrogen) 46 mg/dL (7.0-18.7); Calc. Creatinine Clearance 13 mL/min (70-130); Carbon Dioxide 16 mmol/L (22-29); Chloride 95 mmol/L (98-107); Glucose 216 mg/dL (70-105); Potassium 3.8 mmol/L (3.5-5.1); Sodium 131 mmol/L (136-145)
[2021-08-05 04:55] LABS: Band 6 % (5-11); Lymphocytes 3 % (21-51); MDiff Complete? YES; Monocytes 4 % (0-10); Neutrophil 87 % (42-75)
[2021-08-05] MEDS: Dextrose 5 %-0.45 % NaCl 1,000 ML IV SCH ×2 (07:28→16:48)
[2021-08-05] MEDS ORDERED: VANCOMYCIN 1.75 GM/500 ML BAG 1.75 GM in Premix Bag 1 BAG IVPB SCH (10:45)
[2021-08-05] MEDS ORDERED: Vancomycin Diaylsis Sliding Scale (Wt 71-99) FS SCH (11:45)
[2021-08-05 13:24] LABS: Anion Gap 13 mmol/L (10-20); BUN (Urea Nitrogen) 12 mg/dL (7.0-18.7); Calc. Creatinine Clearance 33 mL/min (70-130); Calcium 7.9 mg/dL (7.8-10.44); Carbon Dioxide 27 mmol/L (22-29); Chloride 101 mmol/L (98-107); Glucose 141 mg/dL (70-105); Potassium 3.1 mmol/L (3.5-5.1); Sodium 138 mmol/L (136-145)
[2021-08-05] MEDS: Heparin 5,000 UNITS/ML VIAL SC SCH ×2 (13:57→21:55)
[2021-08-05] MEDS: NIFEdipine XL 60 MG TAB PO SCH ×2 (13:57→21:54)
[2021-08-05] MEDS: Labetalol HCl 100 MG TAB PO SCH ×2 (13:57→21:54)
[2021-08-05] MEDS ORDERED: Dextrose 5% in Water 1,000 ML IV PRN (14:00)
[2021-08-05] MEDS ORDERED: Dextrose 50% Abboject 50 ML SYRINGE IVP PRN (14:00)
[2021-08-05] MEDS ORDERED: HumaLOG 300 UNITS/3 ML VIAL SC PRN (14:00)
[2021-08-05] MEDS ORDERED: Insulin Glargine 30 UNITS/0.3 ML VIAL SC SCH (14:00)
[2021-08-05] MEDS ORDERED: Potassium Chloride 20 MEQ TAB PO SCH (14:45)
[2021-08-05] MEDS: Metoclopramide HCl 10 MG TAB PO SCH ×2 (15:11→21:55)
[2021-08-05] MEDS: HumaLOG 300 UNITS/3 ML VIAL SC PRN (16:24)
[2021-08-05] MEDS ORDERED: ALPRAZolam 0.25 MG TAB PO SCH (16:45)
[2021-08-05] MEDS ORDERED: Vancomycin HCl 1.75 GM in Sodium Chloride 0.9% 500 ML IVPB SCH (17:00)
[2021-08-05] MEDS: Gabapentin 300 MG CAP PO SCH (21:54)
[2021-08-05] MEDS: Carvedilol 25 MG TAB PO SCH (21:55)
[2021-08-05] MEDS: Insulin Glargine 30 UNITS/0.3 ML VIAL SC SCH (22:08)
[2021-08-06 04:20] LABS: Anion Gap 15 mmol/L (10-20); BUN (Urea Nitrogen) 19 mg/dL (7.0-18.7); Calc. Creatinine Clearance 19 mL/min (70-130); Calcium 7.7 mg/dL (7.8-10.44); Carbon Dioxide 22 mmol/L (22-29); Chloride 103 mmol/L (98-107); Glucose 235 mg/dL (70-105); Potassium 4.2 mmol/L (3.5-5.1); Sodium 136 mmol/L (136-145)
[2021-08-06] MEDS: Metoclopramide HCl 10 MG/2 ML VIAL IVP SCH ×4 (05:29→21:52)
[2021-08-06 05:46] LABS: #Eosinphils 0.1 thou/uL (0.0-0.7); #Lymphocytes 2.7 thou/uL (1.20-3.40); #Monocytes 0.7 thou/uL (0.11-0.59); #Neutrophils 8.7 thou/uL (1.40-6.50); %Basophils 0.2 % (0.0-1.0); %Eosinophils 0.5 % (0.0-10.0); %Lymphocytes 22.4 % (21.0-51.0); Hemoglobin 8.5 g/dL (12.0-16.0); Mean Corpuscular HGB CONC 32.9 g/dL (32.0-36.0); Mean Corpuscular Hemoglobin 29.7 pg (27.0-31.0); Mean Corpuscular Volume 90.5 fL (78.0-98.0); Platelet Count 208 thou/uL (130-400); RBC Distribution Width 13.8 % (11.5-14.5); RBC Morphology Normal; Red Blood Cell (RBC) Count 2.87 mill/uL (4.20-5.40); White Blood Cell (WBC) Count 12.3 thou/uL (4.8-10.8)
[2021-08-06] MEDS: HumaLOG 300 UNITS/3 ML VIAL SC PRN ×2 (07:12→11:43)
[2021-08-06 07:42] LABS: Vancomycin, Random 31.9 ug/mL (See Comment)
[2021-08-06] MEDS: Gabapentin 300 MG CAP PO SCH ×2 (08:45→20:54)
[2021-08-06] MEDS: Carvedilol 25 MG TAB PO SCH (08:45)
[2021-08-06] MEDS: Labetalol HCl 100 MG TAB PO SCH (08:46)
[2021-08-06] MEDS: Heparin 5,000 UNITS/ML VIAL SC SCH ×2 (08:46→21:03)
[2021-08-06] MEDS: Metoclopramide HCl 10 MG TAB PO SCH ×3 (08:46→20:54)
[2021-08-06] MEDS: Insulin Glargine 30 UNITS/0.3 ML VIAL SC SCH ×2 (08:46→21:00)
[2021-08-06] MEDS: NIFEdipine XL 60 MG TAB PO SCH ×3 (08:47→20:56)
[2021-08-06] MEDS ORDERED: ALPRAZolam 0.25 MG TAB PO SCH (11:45)
[2021-08-06] MEDS ORDERED: Heparin 10,000 UNITS/ 10 ML VIAL ONE (12:42)
[2021-08-06 17:10] LABS: Hemoglobin 7.8 g/dL (12.0-16.0)
[2021-08-06 20:56] VITALS: BP 145/87
[2021-08-06] MEDS ORDERED: Labetalol HCl 100 MG TAB PO SCH (21:00)
[2021-08-07 03:50] LABS: #Eosinphils 0.2 thou/uL (0.0-0.7); #Lymphocytes 2.2 thou/uL (1.20-3.40); #Monocytes 0.7 thou/uL (0.11-0.59); #Neutrophils 5.2 thou/uL (1.40-6.50); %Basophils 0.3 % (0.0-1.0); %Eosinophils 2.6 % (0.0-10.0); %Lymphocytes 26.3 % (21.0-51.0); %Monocytes 8.4 % (0.0-10.0); %Neutrophils 62.4 % (42.0-75.0); Hemoglobin 8.3 g/dL (12.0-16.0); Mean Corpuscular HGB CONC 32.7 g/dL (32.0-36.0); Mean Corpuscular Hemoglobin 29.5 pg (27.0-31.0); Mean Corpuscular Volume 90.3 fL (78.0-98.0); Platelet Count 198 thou/uL (130-400); RBC Distribution Width 13.4 % (11.5-14.5); Red Blood Cell (RBC) Count 2.81 mill/uL (4.20-5.40); White Blood Cell (WBC) Count 8.4 thou/uL (4.8-10.8)
[2021-08-07 04:04] LABS: Anion Gap 13 mmol/L (10-20); BUN (Urea Nitrogen) 13 mg/dL (7.0-18.7); Calc. Creatinine Clearance 27 mL/min (70-130); Calcium 7.9 mg/dL (7.8-10.44); Carbon Dioxide 26 mmol/L (22-29); Chloride 102 mmol/L (98-107); Glucose 234 mg/dL (70-105); Potassium 3.8 mmol/L (3.5-5.1); Sodium 137 mmol/L (136-145)
[2021-08-07] MEDS: Metoclopramide HCl 10 MG/2 ML VIAL IVP SCH ×2 (04:31→08:45)
[2021-08-07] MEDS: HumaLOG 300 UNITS/3 ML VIAL SC PRN (06:07)
[2021-08-07] MEDS: Heparin 5,000 UNITS/ML VIAL SC SCH (08:42)
[2021-08-07] MEDS: Gabapentin 300 MG CAP PO SCH (08:42)
[2021-08-07] MEDS: Insulin Glargine 30 UNITS/0.3 ML VIAL SC SCH (08:42)
[2021-08-07] MEDS: Metoclopramide HCl 10 MG TAB PO SCH (08:44)
[2021-08-07] MEDS: NIFEdipine XL 60 MG TAB PO SCH ×2 (08:45)
[2021-08-07] MEDS ORDERED: Labetalol HCl 100 MG TAB PO SCH (09:00)
[2021-08-07 09:18] VITALS: TEMP 98.2
== END 2021-08-07 13:43 | disposition home or self-care (01) | DRG 637 ==
LOC: ERS 05:39 → IMCU/EMU 07:25
PROVIDERS: ADMIT Internal Medicine; ATTEND Internal Medicine
PROC: 5A1D70Z Performance of Urinary Filtration, Intermittent, Less than 6 Hours Per Day (ICD-10-PCS; principal; 2021-08-04)
DX: E10.10 Type 1 diabetes mellitus with ketoacidosis without coma (principal); N18.6 End stage renal disease; I12.0 Hypertensive chronic kidney disease with stage 5 chronic kidney disease or end stage renal disease; Z20.822 Contact with and (suspected) exposure to COVID-19; E78.5 Hyperlipidemia, unspecified; K31.84 Gastroparesis; I16.0 Hypertensive urgency; D63.1 Anemia in chronic kidney disease; G47.33 Obstructive sleep apnea (adult) (pediatric); F41.9 Anxiety disorder, unspecified; F31.9 Bipolar disorder, unspecified; F17.210 Nicotine dependence, cigarettes, uncomplicated; E10.43 Type 1 diabetes mellitus with diabetic autonomic (poly)neuropathy; E10.22 Type 1 diabetes mellitus with diabetic chronic kidney disease; D72.829 Elevated white blood cell count, unspecified; E55.9 Vitamin D deficiency, unspecified; Z98.51 Tubal ligation status; Z90.49 Acquired absence of other specified parts of digestive tract; Z88.5 Allergy status to narcotic agent; Z79.899 Other long term (current) drug therapy; Z79.4 Long term (current) use of insulin; Z99.2 Dependence on renal dialysis
CPT/HCPCS: 36415; 36416; 74177; 80048; 80053; 80202; 80306; 82010; 82306; 82805; 83605; 83690; 83735; 84100; 84484; 85025; 85652; 86140; 86706; 87040; 87340; 90935; 93005; 96374; 96375; G0257; J0360; J1630; J1644; J1815; J2270; J2405; J2765; J3370; J3490; J7030; J7042; Q9967; U0003; U0005

== ENCOUNTER 2021-09-30 01:05 | Inpatient (IN) | payer OTHER ==
[2021-09-30 01:57] LABS: #Basophils 0.1 thou/uL (0.0-0.2); #Eosinphils 0.6 thou/uL (0.0-0.7); #Lymphocytes 2.6 thou/uL (1.20-3.40); #Monocytes 0.7 thou/uL (0.11-0.59); #Neutrophils 10.8 thou/uL (1.40-6.50); %Basophils 0.4 % (0.0-1.0); %Lymphocytes 17.3 % (21.0-51.0); %Neutrophils 73.2 % (42.0-75.0); Mean Corpuscular HGB CONC 32.4 g/dL (32.0-36.0); Mean Corpuscular Hemoglobin 29.1 pg (27.0-31.0); Mean Corpuscular Volume 89.9 fL (78.0-98.0); Mean Platelet Volume 8.6 fL (7.4-10.4); Platelet Count 371 thou/uL (130-400); RBC Distribution Width 12.9 % (11.5-14.5); Red Blood Cell (RBC) Count 3.42 mill/uL (4.20-5.40); White Blood Cell (WBC) Count 14.7 thou/uL (4.8-10.8)
[2021-09-30] MEDS ORDERED: Acetaminophen 500 MG TAB ONE (01:59)
[2021-09-30] MEDS ORDERED: Labetalol HCl 100 MG/20 ML VIAL ONE (02:14)
[2021-09-30 02:21] LABS: ALT (SGPT) 15 U/L (8-55); AST (SGOT) 13 U/L (5-34); Albumin 3.8 g/dL (3.5-5.0); Alkaline Phosphatase 119 U/L (40-110); Anion Gap 23 mmol/L (10-20); BUN (Urea Nitrogen) 61 mg/dL (7.0-18.7); Bilirubin, Total 0.3 mg/dL (0.2-1.2); Calc. Creatinine Clearance 0 mL/min (70-130); Calcium 9.1 mg/dL (7.8-10.44); Carbon Dioxide 17 mmol/L (22-29); Chloride 95 mmol/L (98-107); Estimated GFR 4; Globulin 3.7 g/dL (2.4-3.5); Potassium 5.2 mmol/L (3.5-5.1); Protein, Total 7.5 g/dL (6.0-8.3); Sodium 130 mmol/L (136-145)
[2021-09-30 02:28] LABS: Glucose 594 mg/dL (70-105)
[2021-09-30] MEDS ORDERED: INSULIN REGULAR IN 0.9 % NACL 100 UNIT/100 ML BAG ONE (02:42)
[2021-09-30 03:15] LABS: Acetaminophen Less than 10.0 mcg/mL (10.0-30.0); Alcohol Less than 10 mg/dL (Less than 10); Salicylate Less than 8.0 mg/dL (15.0-30.0)
[2021-09-30] MEDS ORDERED: Dextrose 5% in Water 1,000 ML IV PRN (03:35)
[2021-09-30] MEDS ORDERED: Dextrose 50% Abboject 50 ML SYRINGE SLOW IVP PRN (03:35)
[2021-09-30] MEDS ORDERED: HumaLOG 300 UNITS/3 ML VIAL SC PRN (03:35)
[2021-09-30] MEDS ORDERED: hydrALAZINE 20 MG/ML VIAL SLOW IVP PRN ×2 (03:36→03:53)
[2021-09-30] MEDS ORDERED: Vancomycin Diaylsis Sliding Scale (Wt 71-99) FS SCH (04:00)
[2021-09-30] MEDS ORDERED: Cefepime 1 GM in Sodium Chloride 0.9% 100 ML IVPB SCH (04:00)
[2021-09-30 04:02] LABS: #Basophils 0.1 thou/uL (0.0-0.2); #Eosinphils 0.6 thou/uL (0.0-0.7); #Lymphocytes 2.8 thou/uL (1.20-3.40); #Monocytes 1.1 thou/uL (0.11-0.59); #Neutrophils 11.7 thou/uL (1.40-6.50); %Basophils 0.3 % (0.0-1.0); %Eosinophils 3.6 % (0.0-10.0); %Lymphocytes 17.4 % (21.0-51.0); %Monocytes 6.6 % (0.0-10.0); %Neutrophils 72.1 % (42.0-75.0); Hemoglobin 9.8 g/dL (12.0-16.0); Mean Corpuscular HGB CONC 33.2 g/dL (32.0-36.0); Mean Corpuscular Hemoglobin 29.8 pg (27.0-31.0); Mean Corpuscular Volume 89.8 fL (78.0-98.0); Mean Platelet Volume 8.3 fL (7.4-10.4); Platelet Count 357 thou/uL (130-400); RBC Distribution Width 12.9 % (11.5-14.5); Red Blood Cell (RBC) Count 3.28 mill/uL (4.20-5.40); White Blood Cell (WBC) Count 16.2 thou/uL (4.8-10.8)
[2021-09-30 04:07] VITALS: BMI 33.6
[2021-09-30] MEDS ORDERED: VANCOMYCIN 2 GRAM/500 ML BAG 2 GM in Premix Bag 1 BAG IVPB SCH (05:00)
[2021-09-30 05:31] LABS: SARS-CoV-2 NAA Rapid Test Not Detected (NotDetected)
[2021-09-30 05:53] LABS: Magnesium 2.1 mg/dL (1.6-2.6)
[2021-09-30] MEDS ORDERED: Lantus 1000 UNITS/10 ML VIAL SC SCH (09:00)
[2021-09-30] MEDS ORDERED: NIFEdipine XL 90 MG TAB PO SCH (09:00)
[2021-09-30] MEDS: Heparin 5,000 UNITS/ML VIAL SC SCH ×2 (09:47→20:22)
[2021-09-30] MEDS: Labetalol HCl 100 MG TAB PO SCH ×2 (09:47→20:22)
[2021-09-30] MEDS: Insulin Glargine 30 UNITS/0.3 ML VIAL SC SCH ×2 (09:47→20:22)
[2021-09-30] MEDS: NIFEdipine XL 60 MG TAB PO SCH ×2 (09:47→20:21)
[2021-09-30] MEDS ORDERED: Heparin 10,000 UNITS/ 10 ML VIAL ONE (13:11)
[2021-09-30] MEDS: HumaLOG 300 UNITS/3 ML VIAL SC PRN (17:27)
[2021-09-30] MEDS: Cefepime 0.5 GM, Admixture Fee 1 EACH in Sodium Chloride 0.9% 100 ML IVPB SCH (17:49)
[2021-09-30] MEDS ORDERED: Labetalol HCl 100 MG/20 ML VIAL SLOW IVP PRN (18:45)
[2021-09-30] MEDS: Acetaminophen 325 MG TAB PO PRN (20:24)
[2021-10-01 04:16] VITALS: TEMP 97.8
[2021-10-01 04:42] LABS: Anion Gap 19 mmol/L (10-20); BUN (Urea Nitrogen) 46 mg/dL (7.0-18.7); Calc. Creatinine Clearance 16 mL/min (70-130); Carbon Dioxide 21 mmol/L (22-29); Chloride 98 mmol/L (98-107); Estimated GFR 7; Glucose 480 mg/dL (70-105); Sodium 134 mmol/L (136-145)
[2021-10-01 04:45] LABS: #Eosinphils 0.6 thou/uL (0.0-0.7); #Lymphocytes 2.4 thou/uL (1.20-3.40); #Monocytes 0.7 thou/uL (0.11-0.59); #Neutrophils 7.5 thou/uL (1.40-6.50); %Basophils 0.4 % (0.0-1.0); %Eosinophils 5.2 % (0.0-10.0); %Lymphocytes 21.1 % (21.0-51.0); %Neutrophils 67.2 % (42.0-75.0); Hemoglobin 9.5 g/dL (12.0-16.0); Mean Corpuscular HGB CONC 32.8 g/dL (32.0-36.0); Mean Corpuscular Hemoglobin 29.6 pg (27.0-31.0); Mean Corpuscular Volume 90.2 fL (78.0-98.0); Mean Platelet Volume 8.7 fL (7.4-10.4); Platelet Count 352 thou/uL (130-400); RBC Distribution Width 12.9 % (11.5-14.5); Red Blood Cell (RBC) Count 3.19 mill/uL (4.20-5.40); White Blood Cell (WBC) Count 11.2 thou/uL (4.8-10.8)
[2021-10-01] MEDS: Acetaminophen 325 MG TAB PO PRN (05:07)
[2021-10-01] MEDS: HumaLOG 300 UNITS/3 ML VIAL SC PRN (05:08)
[2021-10-01 07:23] LABS: Vancomycin, Random Less than 1.1 ug/mL (See Comment)
[2021-10-01] MEDS ORDERED: Lisinopril 20 MG TAB PO SCH (09:00)
[2021-10-01] MEDS: Labetalol HCl 100 MG TAB PO SCH (09:04)
[2021-10-01] MEDS: NIFEdipine XL 60 MG TAB PO SCH (09:04)
[2021-10-01] MEDS: Insulin Glargine 30 UNITS/0.3 ML VIAL SC SCH (09:06)
[2021-10-01] MEDS: Heparin 5,000 UNITS/ML VIAL SC SCH (09:06)
[2021-10-01] MEDS ORDERED: Heparin 10,000 UNITS/ 10 ML VIAL ONE (13:14)
[2021-10-01] MEDS ORDERED: VANCOMYCIN 1.25 GM/250 ML BAG 1.25 GM in Premix Bag 1 BAG IVPB SCH (17:00)
[2021-10-01] MEDS: Cefepime 0.5 GM, Admixture Fee 1 EACH in Sodium Chloride 0.9% 100 ML IVPB SCH (17:27)
[2021-10-01] MEDS ORDERED: Insulin Glargine 30 UNITS/0.3 ML VIAL SC SCH (21:00)
== END 2021-10-01 18:48 | disposition home or self-care (01) | DRG 640 ==
LOC: ERS 01:05 → IMCU/EMU 02:59
PROVIDERS: ADMIT Internal Medicine; ATTEND Internal Medicine
PROC: 5A1D70Z Performance of Urinary Filtration, Intermittent, Less than 6 Hours Per Day (ICD-10-PCS; principal; 2021-09-30)
DX: E87.70 Fluid overload, unspecified (principal); Z20.822 Contact with and (suspected) exposure to COVID-19; J96.01 Acute respiratory failure with hypoxia; N18.6 End stage renal disease; I11.0 Hypertensive heart disease with heart failure; E87.2 Acidosis; I16.0 Hypertensive urgency; E78.5 Hyperlipidemia, unspecified; Z99.2 Dependence on renal dialysis; E10.22 Type 1 diabetes mellitus with diabetic chronic kidney disease; I50.9 Heart failure, unspecified; D50.9 Iron deficiency anemia, unspecified; F19.10 Other psychoactive substance abuse, uncomplicated; E10.43 Type 1 diabetes mellitus with diabetic autonomic (poly)neuropathy; K31.84 Gastroparesis; F41.9 Anxiety disorder, unspecified; F31.9 Bipolar disorder, unspecified; F17.210 Nicotine dependence, cigarettes, uncomplicated; E10.65 Type 1 diabetes mellitus with hyperglycemia; E87.5 Hyperkalemia; D63.1 Anemia in chronic kidney disease; F14.10 Cocaine abuse, uncomplicated; Z98.51 Tubal ligation status; Z88.5 Allergy status to narcotic agent; Z90.49 Acquired absence of other specified parts of digestive tract; Z90.89 Acquired absence of other organs; Z79.899 Other long term (current) drug therapy; Z82.49 Family history of ischemic heart disease and other diseases of the circulatory system; Z83.3 Family history of diabetes mellitus; Z91.14 Patient's other noncompliance with medication regimen; Z91.15 Patient's noncompliance with renal dialysis
CPT/HCPCS: 36415; 36416; 71045; 80048; 80053; 80202; 80307; 82010; 83735; 83880; 85025; 87040; 90935; 93005; 96365; 96375; G0257; J0360; J0692; J1644; J1815; J3490; J7620; U0002

== ENCOUNTER 2021-10-09 10:14 | Emergency (ER) | payer OTHER ==
[2021-10-09] MEDS ORDERED: Ondansetron PF 4 MG/2 ML Vial ONE (10:59)
[2021-10-09] MEDS ORDERED: Metoclopramide HCl 10 MG/2 ML VIAL ONE (11:00)
[2021-10-09 11:02] LABS: BHCG - Serum Negative (NEGATIVE); Pregs Control Background? CLEAR/WHITE (CLR/WHITE); Pregs Control Bar Appear? YES (CONTROL BAR)
[2021-10-09 11:05] LABS: #Eosinphils 0.1 thou/uL (0.0-0.7); #Lymphocytes 2.4 thou/uL (1.20-3.40); #Monocytes 0.8 thou/uL (0.11-0.59); #Neutrophils 15.3 thou/uL (1.40-6.50); %Basophils 0.2 % (0.0-1.0); %Eosinophils 0.7 % (0.0-10.0); %Lymphocytes 12.9 % (21.0-51.0); %Neutrophils 82.2 % (42.0-75.0); Hemoglobin 12.2 g/dL (12.0-16.0); Mean Corpuscular HGB CONC 32.7 g/dL (32.0-36.0); Mean Corpuscular Hemoglobin 29.8 pg (27.0-31.0); Mean Corpuscular Volume 91.2 fL (78.0-98.0); Mean Platelet Volume 8.6 fL (7.4-10.4); Platelet Count 353 thou/uL (130-400); RBC Distribution Width 13.2 % (11.5-14.5); Red Blood Cell (RBC) Count 4.07 mill/uL (4.20-5.40); White Blood Cell (WBC) Count 18.6 thou/uL (4.8-10.8)
[2021-10-09] MEDS ORDERED: Ondansetron ODT 8 MG TAB ONE (11:14)
[2021-10-09 11:15] LABS: ALT (SGPT) 26 U/L (8-55); AST (SGOT) 20 U/L (5-34); Albumin 4.3 g/dL (3.5-5.0); Alkaline Phosphatase 141 U/L (40-110); Anion Gap 23 mmol/L (10-20); BUN (Urea Nitrogen) 33 mg/dL (7.0-18.7); Bilirubin, Total 0.4 mg/dL (0.2-1.2); Calc. Creatinine Clearance 0 mL/min (70-130); Calcium 10.7 mg/dL (7.8-10.44); Carbon Dioxide 27 mmol/L (22-29); Chloride 94 mmol/L (98-107); Estimated GFR 9; Globulin 4.2 g/dL (2.4-3.5); Glucose 294 mg/dL (70-105); Lipase 30 U/L (8-78); Potassium 4.9 mmol/L (3.5-5.1); Protein, Total 8.5 g/dL (6.0-8.3); Sodium 139 mmol/L (136-145)
[2021-10-09 12:24] LABS: Actual Bicarbonate (HCO3v) 26 mEq/L (22-28); Analyzer IN Cardio ER; Base Excess 1.7 mEq/L (-2.0 to +3.0); Calcium, Ionized (venous) 1.13 mmol/L (1.16-1.32); Chloride (VBG) 96 mmol/L (98-106); Hemoglobin (Hb) 14.4 g/dL (11.7-15.5); Potassium (VBG) 4.78 mmol/L (3.70-5.30); Sodium 137.9 mmol/L (133-146); pH (venous) 7.42 (7.32-7.43)
[2021-10-09] MEDS ORDERED: Acetaminophen 500 MG TAB ONE (12:56)
[2021-10-09 13:18] LABS: Bacteria/HPF None Seen HPF (None Seen); Bilirubin Negative (Negative); Blood, Urine Trace (Negative); Clarity Clear (Clear); Glucose, Urine (Dipstick) >=1000 mg/dL (Negative); Ketone, Urine 10 mg/dL (Negative); Leukocyte Negative Leu/uL (Negative); Nitrite Negative (Negative); Protein, Urine (Dipstick) 600 mg/dL (Neg-Trace); RBC/HPF 0-3 HPF (0-3); Specific Gravity, Urine 1.008 (1.002-1.036); Urobilinogen Normal mg/dL (Less than 2); WBC/HPF 0-3 HPF (0-3); pH, Urine 8.5 (5.0-9.0)
[2021-10-09] MEDS ORDERED: Labetalol HCl 100 MG/20 ML VIAL ONE (14:05)
[2021-10-09] MEDS ORDERED: Iopamidol-370 76% 500 ML 1 ML ONE (14:49)
== END 2021-10-09 15:46 | disposition home or self-care (01) ==
LOC: ERS 10:14
DX: I16.9 Hypertensive crisis, unspecified (principal); K42.9 Umbilical hernia without obstruction or gangrene; I12.0 Hypertensive chronic kidney disease with stage 5 chronic kidney disease or end stage renal disease; E11.22 Type 2 diabetes mellitus with diabetic chronic kidney disease; N18.6 End stage renal disease; E11.43 Type 2 diabetes mellitus with diabetic autonomic (poly)neuropathy; K31.84 Gastroparesis; D64.9 Anemia, unspecified; E78.5 Hyperlipidemia, unspecified; F17.210 Nicotine dependence, cigarettes, uncomplicated; Z99.2 Dependence on renal dialysis
CPT/HCPCS: 36415; 36416; 74177; 80053; 81003; 81015; 82010; 82805; 83690; 84703; 85025; 93005; J2405; J2765; Q0162

== ENCOUNTER 2021-10-10 04:15 | Emergency (ER) | payer OTHER ==
[2021-10-10] MEDS ORDERED: Metoclopramide HCl 10 MG/2 ML VIAL ONE (04:55)
[2021-10-10 05:25] LABS: #Basophils 0.1 thou/uL (0.0-0.2); #Eosinphils 0.1 thou/uL (0.0-0.7); #Lymphocytes 2.7 thou/uL (1.20-3.40); #Neutrophils 11.3 thou/uL (1.40-6.50); %Basophils 0.3 % (0.0-1.0); %Eosinophils 0.4 % (0.0-10.0); %Lymphocytes 17.7 % (21.0-51.0); %Monocytes 6.7 % (0.0-10.0); %Neutrophils 74.8 % (42.0-75.0); Mean Corpuscular HGB CONC 34.1 g/dL (32.0-36.0); Mean Corpuscular Hemoglobin 31.3 pg (27.0-31.0); Mean Corpuscular Volume 91.9 fL (78.0-98.0); Mean Platelet Volume 8.7 fL (7.4-10.4); Platelet Count 303 thou/uL (130-400); Red Blood Cell (RBC) Count 3.52 mill/uL (4.20-5.40)
[2021-10-10 06:14] LABS: Albumin 3.8 g/dL (3.5-5.0); Anion Gap 23 mmol/L (10-20); BUN (Urea Nitrogen) 46 mg/dL (7.0-18.7); Calc. Creatinine Clearance 0 mL/min (70-130); Carbon Dioxide 22 mmol/L (22-29); Chloride 96 mmol/L (98-107); Potassium 5.3 mmol/L (3.5-5.1); Sodium 136 mmol/L (136-145)
[2021-10-10 06:15] LABS: ALT (SGPT) 24 U/L (8-55); AST (SGOT) 30 U/L (5-34); Alkaline Phosphatase 121 U/L (40-110); Bilirubin, Total 0.4 mg/dL (0.2-1.2); Calcium 9.3 mg/dL (7.8-10.44); Estimated GFR 7; Globulin 3.5 g/dL (2.4-3.5); Glucose 192 mg/dL (70-105); Protein, Total 7.3 g/dL (6.0-8.3)
[2021-10-10] MEDS ORDERED: Acetaminophen 500 MG TAB ONE (06:40)
== END 2021-10-10 06:45 | disposition home or self-care (01) ==
LOC: ERS 04:15
DX: E11.43 Type 2 diabetes mellitus with diabetic autonomic (poly)neuropathy (principal); K31.84 Gastroparesis; E11.22 Type 2 diabetes mellitus with diabetic chronic kidney disease; I12.9 Hypertensive chronic kidney disease with stage 1 through stage 4 chronic kidney disease, or unspecified chronic kidney disease; N18.4 Chronic kidney disease, stage 4 (severe); D63.1 Anemia in chronic kidney disease; E78.5 Hyperlipidemia, unspecified; F17.210 Nicotine dependence, cigarettes, uncomplicated; Z99.2 Dependence on renal dialysis
CPT/HCPCS: 36415; 36416; 74177; 80053; 81003; 81015; 82010; 82805; 83690; 84703; 85025; 93005; 96361; 96374; 96375; 96376; J2405; J2765; Q0162; Q9967

== ENCOUNTER 2021-11-25 20:23 | Emergency (ER) | payer OTHER ==
[2021-11-25] MEDS ORDERED: Metoclopramide HCl 10 MG TAB ONE (20:50)
[2021-11-25 21:05] LABS: #Basophils 0.1 thou/uL (0.0-0.2); #Eosinphils 0.1 thou/uL (0.0-0.7); #Lymphocytes 2.5 thou/uL (1.20-3.40); #Monocytes 0.8 thou/uL (0.11-0.59); #Neutrophils 9.8 thou/uL (1.40-6.50); %Basophils 0.6 % (0.0-1.0); %Eosinophils 0.7 % (0.0-10.0); %Lymphocytes 18.5 % (21.0-51.0); %Monocytes 6.3 % (0.0-10.0); %Neutrophils 73.9 % (42.0-75.0); Hemoglobin 13.4 g/dL (12.0-16.0); Mean Corpuscular HGB CONC 32.5 g/dL (32.0-36.0); Mean Corpuscular Hemoglobin 28.6 pg (27.0-31.0); Mean Corpuscular Volume 87.9 fL (78.0-98.0); Mean Platelet Volume 8.3 fL (7.4-10.4); Platelet Count 368 thou/uL (130-400); RBC Distribution Width 14.4 % (11.5-14.5); Red Blood Cell (RBC) Count 4.67 mill/uL (4.20-5.40); White Blood Cell (WBC) Count 13.2 thou/uL (4.8-10.8)
[2021-11-25 21:37] LABS: ALT (SGPT) 10 U/L (8-55); AST (SGOT) 21 U/L (5-34); Albumin 4.7 g/dL (3.5-5.0); Alkaline Phosphatase 131 U/L (40-110); Anion Gap 24 mmol/L (10-20); BUN (Urea Nitrogen) 45 mg/dL (7.0-18.7); Bilirubin, Total 0.5 mg/dL (0.2-1.2); Calc. Creatinine Clearance 0 mL/min (70-130); Calcium 10.6 mg/dL (7.8-10.44); Carbon Dioxide 26 mmol/L (22-29); Chloride 91 mmol/L (98-107); Estimated GFR 6; Globulin 4.1 g/dL (2.4-3.5); Glucose 184 mg/dL (70-105); Lipase 24 U/L (8-78); Potassium 5.4 mmol/L (3.5-5.1); Protein, Total 8.8 g/dL (6.0-8.3); Sodium 136 mmol/L (136-145)
[2021-11-25 21:47] LABS: CKMB 2.2 ng/mL (0-6.6)
[2021-11-25 22:09] LABS: Bacteria/HPF None Seen HPF (None Seen); Bilirubin Negative (Negative); Blood, Urine 1+ (Negative); Clarity Clear (Clear); Glucose, Urine (Dipstick) >=1000 mg/dL (Negative); Ketone, Urine Negative (Negative); Leukocyte Negative Leu/uL (Negative); Nitrite Negative (Negative); Protein, Urine (Dipstick) 600 mg/dL (Neg-Trace); RBC/HPF 0-3 HPF (0-3); Urobilinogen Normal mg/dL (Less than 2); WBC/HPF 0-3 HPF (0-3)
[2021-11-25] MEDS ORDERED: Metoclopramide HCl 10 MG/2 ML VIAL ONE (23:14)
[2021-11-26 01:01] LABS: CKMB 1.9 ng/mL (0-6.6)
== END 2021-11-26 01:15 | disposition home or self-care (01) ==
LOC: ERS 20:23
DX: E11.43 Type 2 diabetes mellitus with diabetic autonomic (poly)neuropathy (principal); K31.84 Gastroparesis; E11.22 Type 2 diabetes mellitus with diabetic chronic kidney disease; I12.9 Hypertensive chronic kidney disease with stage 1 through stage 4 chronic kidney disease, or unspecified chronic kidney disease; N18.4 Chronic kidney disease, stage 4 (severe); D63.1 Anemia in chronic kidney disease; E78.5 Hyperlipidemia, unspecified; F17.210 Nicotine dependence, cigarettes, uncomplicated; Z79.4 Long term (current) use of insulin
CPT/HCPCS: 36415; 71045; 80053; 81003; 81015; 82553; 83605; 83690; 84484; 85025; 93005; 96374; J2765

== ENCOUNTER 2021-12-16 12:27 | Emergency (ER) | payer OTHER ==
[2021-12-16 13:24] LABS: #Basophils 0.1 thou/uL (0.0-0.2); #Eosinphils 0.1 thou/uL (0.0-0.7); #Lymphocytes 1.6 thou/uL (1.20-3.40); #Monocytes 0.6 thou/uL (0.11-0.59); #Neutrophils 9.4 thou/uL (1.40-6.50); %Basophils 0.5 % (0.0-1.0); %Eosinophils 0.5 % (0.0-10.0); %Lymphocytes 13.7 % (21.0-51.0); %Monocytes 4.9 % (0.0-10.0); %Neutrophils 80.5 % (42.0-75.0); Hemoglobin 13.6 g/dL (12.0-16.0); Mean Corpuscular HGB CONC 31.6 g/dL (32.0-36.0); Mean Corpuscular Hemoglobin 28.6 pg (27.0-31.0); Mean Corpuscular Volume 90.6 fL (78.0-98.0); Mean Platelet Volume 8.7 fL (7.4-10.4); Platelet Count 308 thou/uL (130-400); RBC Distribution Width 14.6 % (11.5-14.5); Red Blood Cell (RBC) Count 4.77 mill/uL (4.20-5.40); White Blood Cell (WBC) Count 11.7 thou/uL (4.8-10.8)
[2021-12-16 13:47] LABS: BHCG - Serum Negative (NEGATIVE); Pregs Control Background? CLEAR/WHITE (CLR/WHITE); Pregs Control Bar Appear? YES (CONTROL BAR)
[2021-12-16] MEDS ORDERED: Pantoprazole 40 MG VIAL ONE (13:57)
[2021-12-16] MEDS ORDERED: Metoclopramide HCl 10 MG/2 ML VIAL ONE ×2 (13:57)
[2021-12-16 14:06] LABS: ALT (SGPT) 12 U/L (8-55); AST (SGOT) 12 U/L (5-34); Albumin 4.7 g/dL (3.5-5.0); Alkaline Phosphatase 104 U/L (40-110); Anion Gap 18 mmol/L (10-20); BUN (Urea Nitrogen) 31 mg/dL (7.0-18.7); Bilirubin, Total 0.6 mg/dL (0.2-1.2); Calc. Creatinine Clearance 0 mL/min (70-130); Calcium 10.8 mg/dL (7.8-10.44); Carbon Dioxide 32 mmol/L (22-29); Chloride 92 mmol/L (98-107); Estimated GFR 6; Globulin 4.1 g/dL (2.4-3.5); Glucose 208 mg/dL (70-105); Lipase 25 U/L (8-78); Potassium 4.2 mmol/L (3.5-5.1); Protein, Total 8.8 g/dL (6.0-8.3); Sodium 138 mmol/L (136-145)
[2021-12-16 14:06] LABS: Actual Bicarbonate (HCO3v) 27 mEq/L (22-28); Analyzer IN Cardio ER; Base Excess 1.8 mEq/L (-2.0 to +3.0); Calcium, Ionized (venous) 1.12 mmol/L (1.16-1.32); Chloride (VBG) 94 mmol/L (98-106); Hemoglobin (Hb) 13.9 g/dL (11.7-15.5); Potassium (VBG) 4.79 mmol/L (3.70-5.30); Sodium 130.2 mmol/L (133-146)
[2021-12-16] MEDS ORDERED: Fentanyl 100 MCG/2 ML VIAL ONE ×2 (15:08→17:43)
[2021-12-16] MEDS ORDERED: NIFEdipine XL 60 MG TAB PO SCH (16:30)
[2021-12-16] MEDS ORDERED: Labetalol HCl 100 MG TAB PO SCH (16:45)
[2021-12-16] MEDS ORDERED: Labetalol HCl 100 MG TAB ONE (17:00)
[2021-12-16] MEDS ORDERED: NIFEdipine XL 30 MG TAB ONE (17:02)
[2021-12-16] MEDS ORDERED: Ondansetron PF 4 MG/2 ML Vial ONE (17:43)
== END 2021-12-16 18:05 | disposition home or self-care (01) ==
LOC: ERS 12:27
DX: E86.0 Dehydration (principal); E11.43 Type 2 diabetes mellitus with diabetic autonomic (poly)neuropathy; K31.84 Gastroparesis; E11.22 Type 2 diabetes mellitus with diabetic chronic kidney disease; I12.0 Hypertensive chronic kidney disease with stage 5 chronic kidney disease or end stage renal disease; D63.1 Anemia in chronic kidney disease; N18.6 End stage renal disease; E78.5 Hyperlipidemia, unspecified; Z99.2 Dependence on renal dialysis; Z79.4 Long term (current) use of insulin; Z79.899 Other long term (current) drug therapy
CPT/HCPCS: 36415; 74176; 80053; 82010; 82805; 83605; 83690; 84484; 84703; 85025; 93005; 96374; 96375; 96376; C9113; J2405; J2765; J3010

== ENCOUNTER 2022-01-20 13:48 | Emergency (ER) | payer OTHER ==
[2022-01-20 14:27] LABS: #Eosinphils 0.3 thou/uL (0.0-0.7); #Lymphocytes 1.7 thou/uL (1.20-3.40); #Monocytes 0.6 thou/uL (0.11-0.59); #Neutrophils 7.9 thou/uL (1.40-6.50); %Basophils 0.2 % (0.0-1.0); %Eosinophils 2.5 % (0.0-10.0); %Lymphocytes 15.9 % (21.0-51.0); %Monocytes 6.1 % (0.0-10.0); %Neutrophils 75.2 % (42.0-75.0); Hemoglobin 10.8 g/dL (12.0-16.0); Mean Corpuscular HGB CONC 33.2 g/dL (32.0-36.0); Mean Corpuscular Hemoglobin 29.3 pg (27.0-31.0); Mean Corpuscular Volume 88.4 fl (78.0-98.0); Mean Platelet Volume 8.2 fL (7.4-10.4); Platelet Count 275 thou/uL (130-400); RBC Distribution Width 14.5 % (11.5-14.5); Red Blood Cell (RBC) Count 3.69 mill/uL (4.20-5.40); White Blood Cell (WBC) Count 10.5 thou/uL (4.8-10.8)
[2022-01-20] MEDS ORDERED: Lidocaine 1% MPF 2 ML VIAL ONE (14:33)
[2022-01-20 14:35] LABS: BHCG - Serum Negative (NEGATIVE); Pregs Control Background? CLEAR/WHITE (CLR/WHITE); Pregs Control Bar Appear? YES (CONTROL BAR)
[2022-01-20 14:37] LABS: Actual Bicarbonate (HCO3v) 29 mEq/L (22-28); Analyzer IN Cardio ER; Base Excess 4.9 mEq/L (-2.0 to +3.0); Calcium, Ionized (venous) 1.06 mmol/L (1.16-1.32); Chloride (VBG) 96 mmol/L (98-106); Hemoglobin (Hb) 11.8 g/dL (11.7-15.5); Potassium (VBG) 4.28 mmol/L (3.70-5.30); pH (venous) 7.47 (7.32-7.43)
[2022-01-20] MEDS ORDERED: Metoclopramide HCl 10 MG/2 ML VIAL ONE (14:38)
[2022-01-20] MEDS ORDERED: Morphine 4 MG/ML VIAL ONE (14:38)
[2022-01-20 14:47] LABS: ALT (SGPT) 21 U/L (8-55); AST (SGOT) 15 U/L (5-34); Albumin 3.9 g/dL (3.5-5.0); Alkaline Phosphatase 91 U/L (40-110); Anion Gap 15 mmol/L (10-20); BUN (Urea Nitrogen) 29 mg/dL (7.0-18.7); Bilirubin, Total 0.5 mg/dL (0.2-1.2); CK (CPK) 137 U/L (29-168); Calc. Creatinine Clearance 0 mL/min (70-130); Carbon Dioxide 29 mmol/L (22-29); Chloride 97 mmol/L (98-107); Estimated GFR 6; Globulin 3.3 g/dL (2.4-3.5); Glucose 119 mg/dL (70-105); Lipase 14 U/L (8-78); Potassium 4.3 mmol/L (3.5-5.1); Protein, Total 7.2 g/dL (6.0-8.3); Sodium 137 mmol/L (136-145)
== END 2022-01-20 15:44 | disposition home or self-care (01) ==
LOC: ERS 13:48
DX: R11.2 Nausea with vomiting, unspecified (principal); L02.414 Cutaneous abscess of left upper limb; I10 Essential (primary) hypertension; E11.22 Type 2 diabetes mellitus with diabetic chronic kidney disease; N18.5 Chronic kidney disease, stage 5; E78.5 Hyperlipidemia, unspecified; F17.210 Nicotine dependence, cigarettes, uncomplicated; Z79.4 Long term (current) use of insulin; Z79.899 Other long term (current) drug therapy; Z99.2 Dependence on renal dialysis
CPT/HCPCS: 10060; 74176; 80053; 82550; 82805; 83605; 83690; 84703; 85025; 93005; 96374; 96375; J2270; J2765

== ENCOUNTER 2022-01-27 19:57 | Inpatient (IN) | payer OTHER ==
[2022-01-27] MEDS ORDERED: Calcium Chloride 1 GM/10 ML Abboject SYRINGE ONE (20:02)
[2022-01-27] MEDS ORDERED: Nitroglycerin 0.4 MG TAB 1 EACH ONE ×5 (20:02→20:09)
[2022-01-27] MEDS ORDERED: Aspirin Chewable 81 MG TAB ONE (20:15)
[2022-01-27] MEDS ORDERED: CALCIUM GLUC 1GM/NS 50ML BAG ONE (20:17)
[2022-01-27] MEDS ORDERED: Morphine 4 MG/ML VIAL ONE ×2 (20:19→21:29)
[2022-01-27 20:30] LABS: #Lymphocytes 1.6 thou/uL (1.20-3.40); #Monocytes 0.8 thou/uL (0.11-0.59); #Neutrophils 13.4 thou/uL (1.40-6.50); %Basophils 0.2 % (0.0-1.0); %Eosinophils 0.2 % (0.0-10.0); %Monocytes 4.7 % (0.0-10.0); %Neutrophils 84.8 % (42.0-75.0); Hemoglobin 12.3 g/dL (12.0-16.0); Mean Corpuscular HGB CONC 31.9 g/dL (32.0-36.0); Mean Corpuscular Hemoglobin 28.2 pg (27.0-31.0); Mean Corpuscular Volume 88.4 fl (78.0-98.0); Mean Platelet Volume 8.8 fL (7.4-10.4); Platelet Count 325 10x3/uL (130-400); Red Blood Cell (RBC) Count 4.38 mill/uL (4.20-5.40); White Blood Cell (WBC) Count 15.8 10x3/uL (4.8-10.8)
[2022-01-27 20:45] LABS: ALT (SGPT) 16 U/L (8-55); AST (SGOT) 16 U/L (5-34); Alkaline Phosphatase 88 U/L (40-110); Anion Gap 20 mmol/L (10-20); BUN (Urea Nitrogen) 28 mg/dL (7.0-18.7); Bilirubin, Total 0.6 mg/dL (0.2-1.2); Calc. Creatinine Clearance 0 mL/min (70-130); Calcium 10.5 mg/dL (7.8-10.44); Carbon Dioxide 28 mmol/L (22-29); Chloride 91 mmol/L (98-107); Estimated GFR 5; Globulin 3.4 g/dL (2.4-3.5); Glucose 165 mg/dL (70-105); Lipase 15 U/L (8-78); Magnesium 2.1 mg/dL (1.6-2.6); Potassium 4.2 mmol/L (3.5-5.1); Protein, Total 7.4 g/dL (6.0-8.3); Sodium 135 mmol/L (136-145)
[2022-01-27] MEDS ORDERED: niCARdipine 25 MG/10 ML VIAL ONE ×2 (20:48→23:13)
[2022-01-27 22:55] LABS: SARS-CoV-2 NAA Rapid Test Not Detected (NotDetected)
[2022-01-27] MEDS ORDERED: FENTANYL 50 MCG/ML 1 ML VIAL ONE (23:10)
[2022-01-27] MEDS ORDERED: Pantoprazole 40 MG VIAL ONE (23:10)
[2022-01-27] MEDS ORDERED: Acetaminophen 325 MG TAB PO PRN (23:42)
[2022-01-27] MEDS ORDERED: Ondansetron ODT 4 MG TAB PO PRN (23:42)
[2022-01-27] MEDS ORDERED: Ondansetron PF 4 MG/2 ML Vial IVP PRN (23:42)
[2022-01-27] MEDS ORDERED: Acetaminophen 650 MG Suppository PR PRN (23:42)
[2022-01-28] MEDS ORDERED: HumaLOG 300 UNITS/3 ML VIAL SC PRN ×2 (00:23)
[2022-01-28] MEDS ORDERED: Dextrose 50% Abboject 50 ML SYRINGE SLOW IVP PRN (00:23)
[2022-01-28] MEDS ORDERED: Dextrose 5% in Water 1,000 ML IV PRN (00:23)
[2022-01-28] MEDS: niCARdipine 25 MG in Sodium Chloride 0.9% 250 ML 250 ML IVPB SCH ×3 (00:29→05:57)
[2022-01-28] MEDS: Metoclopramide HCl 10 MG/2 ML VIAL IVP PRN ×3 (00:30→16:36)
[2022-01-28] MEDS: FENTANYL 50 MCG/ML 1 ML VIAL SLOW IVP PRN ×2 (00:30→08:18)
[2022-01-28 03:04] LABS: #Monocytes 0.9 thou/uL (0.11-0.59); %Basophils 0.2 % (0.0-1.0); %Eosinophils 0.3 % (0.0-10.0); %Lymphocytes 11.9 % (21.0-51.0); %Monocytes 5.5 % (0.0-10.0); %Neutrophils 82.2 % (42.0-75.0); Hemoglobin 11.6 g/dL (12.0-16.0); Mean Corpuscular HGB CONC 32.7 g/dL (32.0-36.0); Mean Corpuscular Hemoglobin 29.2 pg (27.0-31.0); Mean Corpuscular Volume 89.4 fl (78.0-98.0); Mean Platelet Volume 8.9 fL (7.4-10.4); Platelet Count 317 10x3/uL (130-400); Red Blood Cell (RBC) Count 3.96 mill/uL (4.20-5.40)
[2022-01-28 03:23] LABS: Anion Gap 21 mmol/L (10-20); BUN (Urea Nitrogen) 30 mg/dL (7.0-18.7); Calc. Creatinine Clearance 9 mL/min (70-130); Calcium 10.1 mg/dL (7.8-10.44); Carbon Dioxide 27 mmol/L (22-29); Chloride 93 mmol/L (98-107); Estimated GFR 4; Glucose 143 mg/dL (70-105); Potassium 4.1 mmol/L (3.5-5.1); Sodium 137 mmol/L (136-145)
[2022-01-28 03:27] LABS: Troponin I 0.154 ng/mL (< 0.028)
[2022-01-28] MEDS: Labetalol HCl 100 MG TAB PO SCH ×2 (08:01→21:08)
[2022-01-28] MEDS: NIFEdipine XL 60 MG TAB PO SCH ×2 (08:02→21:19)
[2022-01-28] MEDS: Lisinopril 20 MG TAB PO SCH ×2 (08:02→21:07)
[2022-01-28] MEDS ORDERED: Iopamidol-370 76% 500 ML 1 ML ONE (11:00)
[2022-01-28 11:03] VITALS: BMI 27.0
[2022-01-28] MEDS: Labetalol HCl 100 MG/20 ML VIAL SLOW IVP PRN ×2 (11:35→14:46)
[2022-01-28] MEDS ORDERED: Heparin 10,000 UNITS/ 10 ML VIAL ONE (12:17)
[2022-01-28] MEDS: hydrALAZINE 20 MG/ML VIAL SLOW IVP PRN (16:36)
[2022-01-28] MEDS ORDERED: Mag-Al 1200 mg/1200 mg/30 ML UDCUP PO SCH (17:15)
[2022-01-28] MEDS: Metoclopramide HCl 10 MG/2 ML VIAL IVP SCH ×2 (17:32→23:34)
[2022-01-28] MEDS ORDERED: Ondansetron ODT 4 MG TAB PO PRN (19:47)
[2022-01-28] MEDS ORDERED: Mag-Al Plus 1200 MG/1200 MG/120 MG/30 ML UDCUP PO PRN (20:13)
[2022-01-28] MEDS: Gabapentin 300 MG CAP PO SCH (21:06)
[2022-01-28] MEDS: Pantoprazole 40 MG VIAL IVP SCH (21:18)
[2022-01-28] MEDS: Sulfameth/Trimethoprim DS 800-160mg TAB PO SCH (21:18)
[2022-01-28] MEDS: Heparin 5,000 UNITS/ML VIAL SC SCH (21:36)
[2022-01-28] MEDS: Insulin Glargine 30 UNITS/0.3 ML VIAL SC SCH (21:42)
[2022-01-29] MEDS: Metoclopramide HCl 10 MG/2 ML VIAL IVP SCH ×3 (06:37→17:58)
[2022-01-29 08:24] LABS: #Basophils 0.1 thou/uL (0.0-0.2); #Eosinphils 0.1 thou/uL (0.0-0.7); #Lymphocytes 2.7 thou/uL (1.20-3.40); #Monocytes 0.7 thou/uL (0.11-0.59); #Neutrophils 7.5 thou/uL (1.40-6.50); %Basophils 0.7 % (0.0-1.0); %Eosinophils 1.3 % (0.0-10.0); %Lymphocytes 24.4 % (21.0-51.0); %Monocytes 6.6 % (0.0-10.0); Hemoglobin 11.8 g/dL (12.0-16.0); Mean Corpuscular HGB CONC 31.5 g/dL (32.0-36.0); Mean Corpuscular Hemoglobin 28.4 pg (27.0-31.0); Mean Corpuscular Volume 90.4 fl (78.0-98.0); Mean Platelet Volume 8.6 fL (7.4-10.4); Platelet Count 350 10x3/uL (130-400); RBC Distribution Width 14.9 % (11.5-14.5); Red Blood Cell (RBC) Count 4.14 mill/uL (4.20-5.40); White Blood Cell (WBC) Count 11.2 10x3/uL (4.8-10.8)
[2022-01-29] MEDS: Heparin 5,000 UNITS/ML VIAL SC SCH ×2 (08:33→20:16)
[2022-01-29] MEDS: Gabapentin 300 MG CAP PO SCH ×3 (08:33→20:15)
[2022-01-29] MEDS: Insulin Glargine 30 UNITS/0.3 ML VIAL SC SCH ×2 (08:34→20:15)
[2022-01-29] MEDS: Labetalol HCl 100 MG TAB PO SCH ×2 (08:37→20:23)
[2022-01-29] MEDS: NIFEdipine XL 60 MG TAB PO SCH ×2 (08:38→20:14)
[2022-01-29] MEDS: Pantoprazole 40 MG VIAL IVP SCH ×2 (08:38→20:15)
[2022-01-29] MEDS: Lisinopril 20 MG TAB PO SCH ×2 (08:38→20:15)
[2022-01-29] MEDS: Sulfameth/Trimethoprim DS 800-160mg TAB PO SCH (08:39)
[2022-01-29 08:42] LABS: Anion Gap 17 mmol/L (10-20); BUN (Urea Nitrogen) 16 mg/dL (7.0-18.7); Calc. Creatinine Clearance 15 mL/min (70-130); Calcium 9.7 mg/dL (7.8-10.44); Carbon Dioxide 29 mmol/L (22-29); Chloride 95 mmol/L (98-107); Estimated GFR 8; Glucose 90 mg/dL (70-105); Potassium 3.7 mmol/L (3.5-5.1); Sodium 137 mmol/L (136-145)
[2022-01-29] MEDS ORDERED: Pantoprazole 40 MG VIAL IVP SCH (09:00)
[2022-01-30] MEDS: Metoclopramide HCl 10 MG/2 ML VIAL IVP SCH ×3 (00:11→11:52)
[2022-01-30] MEDS: hydrALAZINE 20 MG/ML VIAL SLOW IVP PRN (04:19)
[2022-01-30 07:33] LABS: Anion Gap 13 mmol/L (10-20); BUN (Urea Nitrogen) 25 mg/dL (7.0-18.7); Calc. Creatinine Clearance 12 mL/min (70-130); Calcium 8.9 mg/dL (7.8-10.44); Carbon Dioxide 23 mmol/L (22-29); Chloride 105 mmol/L (98-107); Estimated GFR 6; Glucose 153 mg/dL (70-105); Phosphorus 5.2 mg/dL (2.3-4.7); Potassium 3.9 mmol/L (3.5-5.1); Sodium 137 mmol/L (136-145)
[2022-01-30 07:35] LABS: #Basophils 0.1 thou/uL (0.0-0.2); #Eosinphils 0.2 thou/uL (0.0-0.7); #Lymphocytes 2.7 thou/uL (1.20-3.40); #Monocytes 0.7 thou/uL (0.11-0.59); #Neutrophils 6.3 thou/uL (1.40-6.50); %Basophils 0.8 % (0.0-1.0); %Eosinophils 1.9 % (0.0-10.0); %Monocytes 7.1 % (0.0-10.0); %Neutrophils 63.2 % (42.0-75.0); Hemoglobin 9.8 g/dL (12.0-16.0); Mean Corpuscular HGB CONC 31.6 g/dL (32.0-36.0); Mean Corpuscular Volume 91.8 fl (78.0-98.0); Mean Platelet Volume 8.5 fL (7.4-10.4); Platelet Count 310 10x3/uL (130-400); RBC Distribution Width 15.1 % (11.5-14.5); Red Blood Cell (RBC) Count 3.36 mill/uL (4.20-5.40)
[2022-01-30] MEDS ORDERED: fentaNYL PF 100 MCG/2 ML SYRINGE ONE (08:28)
[2022-01-30] MEDS ORDERED: PROPOFOL 200 MG/20 ML VIAL ONE (08:37)
[2022-01-30] MEDS ORDERED: Sulfameth/Trimethoprim DS 800-160mg TAB PO SCH (09:00)
[2022-01-30] MEDS: Gabapentin 300 MG CAP PO SCH ×2 (09:42→14:21)
[2022-01-30] MEDS: Lisinopril 20 MG TAB PO SCH (09:42)
[2022-01-30] MEDS: Labetalol HCl 100 MG TAB PO SCH (09:42)
[2022-01-30] MEDS: NIFEdipine XL 60 MG TAB PO SCH (09:43)
[2022-01-30] MEDS: Pantoprazole 40 MG VIAL IVP SCH (09:43)
[2022-01-30] MEDS: Insulin Glargine 30 UNITS/0.3 ML VIAL SC SCH (09:44)
[2022-01-30] MEDS: Heparin 5,000 UNITS/ML VIAL SC SCH (09:44)
[2022-01-30 11:49] VITALS: BP 156/85; TEMP 97.6
[2022-01-30] MEDS ORDERED: Atorvastatin Calcium 20 MG TAB PO SCH (21:00)
== END 2022-01-30 15:32 | disposition home or self-care (01) | DRG 73 ==
LOC: ERS 19:57 → CCU 23:02 → 2SW 01-28 23:17
PROVIDERS: ADMIT Family Medicine; ATTEND Family Medicine
PROC: 5A1D70Z Performance of Urinary Filtration, Intermittent, Less than 6 Hours Per Day (ICD-10-PCS; 2022-01-28)
PROC: 0DJ08ZZ Inspection of Upper Intestinal Tract, Via Natural or Artificial Opening Endoscopic (ICD-10-PCS; principal; 2022-01-30)
DX: E10.43 Type 1 diabetes mellitus with diabetic autonomic (poly)neuropathy (principal); N18.6 End stage renal disease; I16.1 Hypertensive emergency; I24.8 Other forms of acute ischemic heart disease; K22.10 Ulcer of esophagus without bleeding; I43 Cardiomyopathy in diseases classified elsewhere; I12.0 Hypertensive chronic kidney disease with stage 5 chronic kidney disease or end stage renal disease; Z20.822 Contact with and (suspected) exposure to COVID-19; K31.84 Gastroparesis; E10.22 Type 1 diabetes mellitus with diabetic chronic kidney disease; K21.00 Gastro-esophageal reflux disease with esophagitis, without bleeding; R11.2 Nausea with vomiting, unspecified; F12.10 Cannabis abuse, uncomplicated; D63.1 Anemia in chronic kidney disease; F17.210 Nicotine dependence, cigarettes, uncomplicated; R07.89 Other chest pain; F31.9 Bipolar disorder, unspecified; E10.65 Type 1 diabetes mellitus with hyperglycemia; R13.10 Dysphagia, unspecified; Z99.2 Dependence on renal dialysis; Z88.6 Allergy status to analgesic agent; Z79.899 Other long term (current) drug therapy; Z79.4 Long term (current) use of insulin; Z90.49 Acquired absence of other specified parts of digestive tract; Z98.51 Tubal ligation status
CPT/HCPCS: 36415; 36416; 71045; 71275; 74174; 74176; 80048; 80053; 82553; 83690; 83735; 83880; 83970; 84100; 84443; 84484; 85025; 90935; 93005; 93306; C9113; G0257; J0360; J0610; J1644; J1815; J2270; J2550; J2704; J2765; J3010; J7050; Q9967; U0002

== ENCOUNTER 2022-03-20 13:29 | Inpatient (IN) | payer OTHER ==
[~2022-03-20 13:29] MED LIST changes: -ISOVUE-370 76%-LOCM 1 ML ONE; +Iopamidol-370 76% 500 ML 1 ML ONE
[2022-03-20] MEDS ORDERED: Morphine 4 MG/ML VIAL ONE (13:50)
[2022-03-20 14:16] LABS: #Eosinphils 0.1 thou/uL (0.0-0.7); #Lymphocytes 1.1 thou/uL (1.20-3.40); #Monocytes 0.3 thou/uL (0.11-0.59); %Basophils 0.1 % (0.0-1.0); %Eosinophils 0.6 % (0.0-10.0); %Lymphocytes 10.5 % (21.0-51.0); %Monocytes 3.1 % (0.0-10.0); %Neutrophils 85.8 % (42.0-75.0); Hemoglobin 11.6 g/dL (12.0-16.0); Mean Corpuscular HGB CONC 32.9 g/dL (32.0-36.0); Mean Corpuscular Hemoglobin 29.9 pg (27.0-31.0); Mean Platelet Volume 8.8 fL (7.4-10.4); Platelet Count 290 10x3/uL (130-400); Red Blood Cell (RBC) Count 3.86 mill/uL (4.20-5.40); White Blood Cell (WBC) Count 10.5 10x3/uL (4.8-10.8)
[2022-03-20 14:29] LABS: Actual Bicarbonate (HCO3v) 24 mEq/L (22-28); Analyzer IN Cardio ER; Base Excess -1.4 mEq/L (-2.0 to +3.0); Chloride (VBG) 95 mmol/L (98-106); Hemoglobin (Hb) 12.6 g/dL (11.7-15.5); Sodium 133.8 mmol/L (133-146); pH (venous) 7.38 (7.32-7.43)
[2022-03-20 14:40] LABS: Acetaminophen Less than 10.0 mcg/mL (10.0-30.0); Alcohol Less than 10 mg/dL (Less than 10); Salicylate Less than 8.0 mg/dL (15.0-30.0)
[2022-03-20 14:41] LABS: ALT (SGPT) 40 U/L (8-55); AST (SGOT) 20 U/L (5-34); Alkaline Phosphatase 90 U/L (40-110); Anion Gap 22 mmol/L (10-20); BUN (Urea Nitrogen) 54 mg/dL (7.0-18.7); Bilirubin, Total 0.8 mg/dL (0.2-1.2); Calc. Creatinine Clearance 0 mL/min (70-130); Calcium 9.7 mg/dL (7.8-10.44); Carbon Dioxide 24 mmol/L (22-29); Chloride 94 mmol/L (98-107); Estimated GFR 5; Glucose 186 mg/dL (70-105); Lipase 19 U/L (8-78); Magnesium 2.2 mg/dL (1.6-2.6); Potassium 4.4 mmol/L (3.5-5.1); Sodium 136 mmol/L (136-145)
[2022-03-20] MEDS ORDERED: Labetalol HCl 100 MG/20 ML VIAL ONE ×2 (14:47→14:50)
[2022-03-20] MEDS ORDERED: Nitroglycerin 2% Ointment 1 INCH/1 GM Packet ONE (14:47)
[2022-03-20] MEDS ORDERED: niCARdipine 25 MG/10 ML VIAL ONE (15:28)
[2022-03-20] MEDS ORDERED: Fentanyl 100 MCG/2 ML VIAL ONE (15:41)
[2022-03-20] MEDS ORDERED: Ondansetron PF 4 MG/2 ML Vial IVP PRN (16:50)
[2022-03-20] MEDS ORDERED: Dextrose 5% in Water 1,000 ML IV PRN (16:56)
[2022-03-20] MEDS ORDERED: Dextrose 50% Abboject 50 ML SYRINGE SLOW IVP PRN (16:56)
[2022-03-20] MEDS ORDERED: Ondansetron PF 4 MG/2 ML Vial ONE (17:07)
[2022-03-20] MEDS ORDERED: Cefepime 1 GM VIAL ONE (17:12)
[2022-03-20] MEDS ORDERED: Ipratropium/Albuterol 3 ML NEB NEB PRN (17:20)
[2022-03-20 17:58] LABS: Troponin I 0.066 ng/mL (< 0.028)
[2022-03-20] MEDS ORDERED: Vancomycin Diaylsis Sliding Scale (Wt 71-99) FS SCH (18:00)
[2022-03-20] MEDS ORDERED: HOLD VANCOMYCIN FOR LEVEL >25 IVP SCH (18:00)
[2022-03-20] MEDS ORDERED: VANCOMYCIN 2 GRAM/500 ML BAG 2 GM in Premix Bag 1 BAG IVPB SCH (18:00)
[2022-03-20] MEDS: Ipratropium/Albuterol 3 ML NEB NEB SCH (18:25)
[2022-03-20] MEDS: Acetaminophen 325 MG TAB PO PRN (19:57)
[2022-03-20] MEDS: niCARdipine 25 MG in Sodium Chloride 0.9% 250 ML 250 ML IVPB SCH ×2 (20:14→22:08)
[2022-03-20] MEDS: NIFEdipine XL 60 MG TAB PO SCH (20:14)
[2022-03-20] MEDS: Lisinopril 20 MG TAB PO SCH (20:14)
[2022-03-20] MEDS: Metoclopramide 10 MG/10 ML UDCUP PO SCH (20:15)
[2022-03-20] MEDS ORDERED: Famotidine 20 MG TAB PO SCH (21:00)
[2022-03-20 22:08] LABS: Troponin I 0.108 ng/mL (< 0.028)
[2022-03-20 22:10] LABS: SARS-CoV-2 NAA Rapid Test Not Detected (NotDetected)
[2022-03-20] MEDS ORDERED: Acetaminophen 500 MG TAB PO SCH (23:30)
[2022-03-20] MEDS: niCARdipine 50 MG in Sodium Chloride 0.9% 250 ML 230 ML IV SCH (23:56)
[2022-03-21] MEDS: Ipratropium/Albuterol 3 ML NEB NEB SCH ×4 (00:24→18:23)
[2022-03-21 03:56] LABS: #Basophils 0.1 thou/uL (0.0-0.2); #Eosinphils 0.2 thou/uL (0.0-0.7); #Lymphocytes 1.6 thou/uL (1.20-3.40); #Monocytes 0.6 thou/uL (0.11-0.59); #Neutrophils 6.7 thou/uL (1.40-6.50); %Basophils 0.6 % (0.0-1.0); %Eosinophils 1.8 % (0.0-10.0); %Lymphocytes 17.8 % (21.0-51.0); %Monocytes 6.7 % (0.0-10.0); Hemoglobin 10.4 g/dL (12.0-16.0); Mean Corpuscular HGB CONC 34.2 g/dL (32.0-36.0); Mean Corpuscular Hemoglobin 31.1 pg (27.0-31.0); Mean Platelet Volume 9.2 fL (7.4-10.4); Platelet Count 252 10x3/uL (130-400); RBC Distribution Width 15.1 % (11.5-14.5); Red Blood Cell (RBC) Count 3.33 mill/uL (4.20-5.40); White Blood Cell (WBC) Count 9.1 10x3/uL (4.8-10.8)
[2022-03-21 04:24] LABS: Anion Gap 19 mmol/L (10-20); BUN (Urea Nitrogen) 60 mg/dL (7.0-18.7); Calc. Creatinine Clearance 10 mL/min (70-130); Calcium 8.9 mg/dL (7.8-10.44); Carbon Dioxide 23 mmol/L (22-29); Chloride 97 mmol/L (98-107); Estimated GFR 5; Glucose 101 mg/dL (70-105); Sodium 135 mmol/L (136-145)
[2022-03-21] MEDS: niCARdipine 50 MG in Sodium Chloride 0.9% 250 ML 230 ML IV SCH (06:29)
[2022-03-21] MEDS ORDERED: FLU VACC QS2022-23(6MOS UP)/PF 60 MCG/0.5 ML SYRINGE IM ONE (09:00)
[2022-03-21] MEDS: Metoclopramide 10 MG/10 ML UDCUP PO SCH ×4 (09:28→20:30)
[2022-03-21] MEDS: Lisinopril 20 MG TAB PO SCH ×2 (09:29→20:30)
[2022-03-21] MEDS: Labetalol HCl 100 MG TAB PO SCH ×2 (09:29→20:29)
[2022-03-21] MEDS: NIFEdipine XL 60 MG TAB PO SCH ×2 (09:29→20:30)
[2022-03-21] MEDS: Pantoprazole 40 MG VIAL IVP SCH (09:30)
[2022-03-21] MEDS ORDERED: Heparin 10,000 UNITS/ 10 ML VIAL ONE (10:13)
[2022-03-21 10:17] VITALS: BMI 29.3
[2022-03-21 10:22] LABS: HBSAg Index 0.39 S/CO (0-0.99); Hep B Core Total Ab Non-Reactive (NonReactive); Hep B Core Total Index 0.14 S/CO (0-0.79); Hep B Surf Ag Non-Reactive S/CO (NonReactive); Hep C IgG Ab Non-Reactive (NonReactive); Hep C Index 0.07 S/CO (0-0.79)
[2022-03-21] MEDS: Acetaminophen 325 MG TAB PO PRN (10:50)
[2022-03-21 11:01] LABS: Vancomycin, Random 39.9 ug/mL (See Comment)
[2022-03-21] MEDS: HumaLOG 300 UNITS/3 ML VIAL SC PRN ×2 (11:03→20:29)
[2022-03-21 11:13] LABS: Amphetamine Not Detected (NotDetected); Barbiturates Screen Not Detected (NotDetected); Benzodiazepine Screen Not Detected (NotDetected); Cocaine Metabolite Screen Detected (NotDetected); Methadone Not Detected (NotDetected); Methamphetamine Not Detected (NotDetected); Opiate Screen Detected (NotDetected); Oxycodone Screen Not Detected (NotDetected); Phencyclidine (PCP) Not Detected (NotDetected); THC/Cannabinoid Screen Not Detected (NotDetected); Tricyclic Screen Not Detected (NotDetected)
[2022-03-21 11:16] LABS: Hep B Surf AB Indeterminate (NonReactive)
[2022-03-21 11:17] LABS: HBSAB Concentration 10.78 mIU/mL
[2022-03-21] MEDS ORDERED: Fluconazole 100 MG TAB PO SCH (13:15)
[2022-03-21] MEDS ORDERED: Nystatin Powder 15 GM BOT TOP PRN (13:15)
[2022-03-21] MEDS ORDERED: Labetalol HCl 100 MG TAB PO SCH (15:00)
[2022-03-21] MEDS: Cefepime 1 GM in Sodium Chloride 0.9% 100 ML IVPB SCH (17:24)
[2022-03-21] MEDS ORDERED: Melatonin 3 MG TAB PO SCH (20:00)
[2022-03-21] MEDS: Heparin 5,000 UNITS/ML VIAL SC SCH (20:29)
[2022-03-21] MEDS ORDERED: diphenhydrAMINE 50 MG/ML VIAL IVP SCH (21:30)
[2022-03-21] MEDS ORDERED: hydrALAZINE 20 MG/ML VIAL SLOW IVP PRN (23:11)
[2022-03-22] MEDS: Ipratropium/Albuterol 3 ML NEB NEB SCH ×3 (00:31→13:06)
[2022-03-22] MEDS: Acetaminophen 325 MG TAB PO PRN (02:12)
[2022-03-22] MEDS: niCARdipine 50 MG in Sodium Chloride 0.9% 250 ML 230 ML IV SCH (04:43)
[2022-03-22] MEDS: Lisinopril 20 MG TAB PO SCH (08:11)
[2022-03-22] MEDS: Metoclopramide 10 MG/10 ML UDCUP PO SCH ×3 (08:11→17:18)
[2022-03-22] MEDS: NIFEdipine XL 60 MG TAB PO SCH (08:12)
[2022-03-22] MEDS: Pantoprazole 40 MG VIAL IVP SCH (08:12)
[2022-03-22] MEDS: Labetalol HCl 100 MG TAB PO SCH (08:12)
[2022-03-22] MEDS: Heparin 5,000 UNITS/ML VIAL SC SCH (08:13)
[2022-03-22 08:23] VITALS: BP 172/94
[2022-03-22] MEDS ORDERED: Minoxidil 2.5 MG TAB PO SCH ×3 (09:00→21:00)
[2022-03-22] MEDS ORDERED: Lidocaine 1% (PF) 30 ML VIAL ONE (09:18)
[2022-03-22] MEDS ORDERED: Lidocaine 1% (PF) 30 ML VIAL SC SCH (09:45)
[2022-03-22] MEDS ORDERED: Lorazepam 1 MG TAB PO PRN (10:09)
[2022-03-22] MEDS: HumaLOG 300 UNITS/3 ML VIAL SC PRN ×2 (10:35→17:21)
[2022-03-22] MEDS: Cefepime 1 GM in Sodium Chloride 0.9% 100 ML IVPB SCH ×2 (17:18→18:48)
[2022-03-22 17:26] VITALS: TEMP 98.7
== END 2022-03-22 18:00 | disposition left against medical advice (07) | DRG 280 ==
LOC: SUATTDRO 13:29 → ERS 13:29 → CCU 15:40
PROVIDERS: ADMIT Internal Medicine; ATTEND Internal Medicine
PROC: 5A1D70Z Performance of Urinary Filtration, Intermittent, Less than 6 Hours Per Day (ICD-10-PCS; principal; 2022-03-21)
PROC: 0JPT3XZ Removal of Tunneled Vascular Access Device from Trunk Subcutaneous Tissue and Fascia, Percutaneous Approach (ICD-10-PCS; 2022-03-22)
DX: I16.1 Hypertensive emergency (principal); J18.9 Pneumonia, unspecified organism; I21.A1 Myocardial infarction type 2; J96.01 Acute respiratory failure with hypoxia; N18.6 End stage renal disease; I43 Cardiomyopathy in diseases classified elsewhere; I13.2 Hypertensive heart and chronic kidney disease with heart failure and with stage 5 chronic kidney disease, or end stage renal disease; I50.9 Heart failure, unspecified; E11.22 Type 2 diabetes mellitus with diabetic chronic kidney disease; D63.1 Anemia in chronic kidney disease; G47.00 Insomnia, unspecified; F41.9 Anxiety disorder, unspecified; F31.9 Bipolar disorder, unspecified; E11.43 Type 2 diabetes mellitus with diabetic autonomic (poly)neuropathy; K31.84 Gastroparesis; F12.10 Cannabis abuse, uncomplicated; E11.65 Type 2 diabetes mellitus with hyperglycemia; F17.210 Nicotine dependence, cigarettes, uncomplicated; Z90.49 Acquired absence of other specified parts of digestive tract; Z88.5 Allergy status to narcotic agent; Z98.51 Tubal ligation status; Z79.899 Other long term (current) drug therapy; Z79.4 Long term (current) use of insulin; Z91.14 Patient's other noncompliance with medication regimen; Z23 Encounter for immunization
CPT/HCPCS: 36416; 36556; 71045; 71275; 74174; 80048; 80053; 80202; 80306; 80307; 82553; 82805; 83605; 83690; 83735; 83880; 84484; 85025; 86704; 90471; 90686; 90935; 93005; 93306; 94640; 94760; 96365; 96374; 96375; C9113; G0008; G0257; J0360; J0692; J1200; J1644; J1815; J2001; J2270; J2405; J3010; J3370; J3490; J7050; J7620; Q9967

== ENCOUNTER 2022-03-31 23:09 | Emergency (ER) | payer OTHER ==
[2022-03-31] MEDS ORDERED: diphenhydrAMINE 50 MG/ML VIAL ONE (23:44)
[2022-03-31] MEDS ORDERED: Metoclopramide HCl 10 MG/2 ML VIAL ONE (23:44)
[2022-04-01 00:29] LABS: #Basophils 0.1 thou/uL (0.0-0.2); #Eosinphils 0.2 thou/uL (0.0-0.7); #Lymphocytes 1.7 thou/uL (1.20-3.40); #Monocytes 0.8 thou/uL (0.11-0.59); #Neutrophils 8.3 thou/uL (1.40-6.50); %Basophils 0.5 % (0.0-1.0); %Eosinophils 1.5 % (0.0-10.0); %Lymphocytes 15.5 % (21.0-51.0); %Monocytes 7.5 % (0.0-10.0); %Neutrophils 75.1 % (42.0-75.0); Hemoglobin 10.9 g/dL (12.0-16.0); Mean Corpuscular HGB CONC 32.9 g/dL (32.0-36.0); Mean Corpuscular Hemoglobin 29.5 pg (27.0-31.0); Mean Corpuscular Volume 89.6 fl (78.0-98.0); Mean Platelet Volume 8.8 fL (7.4-10.4); Platelet Count 354 10x3/uL (130-400); RBC Distribution Width 14.8 % (11.5-14.5); Red Blood Cell (RBC) Count 3.71 mill/uL (4.20-5.40); White Blood Cell (WBC) Count 11.1 10x3/uL (4.8-10.8)
[2022-04-01 00:50] LABS: ALT (SGPT) 62 U/L (8-55); AST (SGOT) 26 U/L (5-34); Albumin 3.8 g/dL (3.5-5.0); Alkaline Phosphatase 71 U/L (40-110); Anion Gap 18 mmol/L (10-20); BUN (Urea Nitrogen) 28 mg/dL (7.0-18.7); Bilirubin, Total 0.6 mg/dL (0.2-1.2); Calc. Creatinine Clearance 0 mL/min (70-130); Calcium 9.7 mg/dL (7.8-10.44); Carbon Dioxide 26 mmol/L (22-29); Chloride 97 mmol/L (98-107); Estimated GFR 6; Globulin 3.2 g/dL (2.4-3.5); Glucose 104 mg/dL (70-105); Lipase 12 U/L (8-78); Potassium 4.1 mmol/L (3.5-5.1); Sodium 137 mmol/L (136-145)
[2022-04-01] MEDS ORDERED: Lidocaine Viscous Sol 2% 15 ml UD Cup ONE (02:11)
[2022-04-01] MEDS ORDERED: Labetalol HCl 100 MG/20 ML VIAL ONE (02:11)
[2022-04-01] MEDS ORDERED: Mag-Al 1200 mg/1200 mg/30 ML UDCUP ONE (02:11)
== END 2022-04-01 03:22 | disposition home or self-care (01) ==
LOC: ERS 23:09
DX: R10.816 Epigastric abdominal tenderness (principal); D72.829 Elevated white blood cell count, unspecified; E11.22 Type 2 diabetes mellitus with diabetic chronic kidney disease; I12.9 Hypertensive chronic kidney disease with stage 1 through stage 4 chronic kidney disease, or unspecified chronic kidney disease; N18.5 Chronic kidney disease, stage 5; E78.5 Hyperlipidemia, unspecified; F17.210 Nicotine dependence, cigarettes, uncomplicated; Z79.899 Other long term (current) drug therapy; Z79.4 Long term (current) use of insulin
CPT/HCPCS: 36415; 74022; 80053; 83690; 85025; 93005; 96365; 96375; J1200; J2765

== ENCOUNTER 2022-04-05 09:28 | Emergency (ER) | payer OTHER ==
[2022-04-05 10:05] LABS: #Eosinphils 0.2 thou/uL (0.0-0.7); #Lymphocytes 1.5 thou/uL (1.20-3.40); #Monocytes 0.6 thou/uL (0.11-0.59); #Neutrophils 7.3 thou/uL (1.40-6.50); %Basophils 0.4 % (0.0-1.0); %Lymphocytes 15.3 % (21.0-51.0); %Monocytes 6.3 % (0.0-10.0); Hemoglobin 10.1 g/dL (12.0-16.0); Mean Corpuscular HGB CONC 32.8 g/dL (32.0-36.0); Mean Corpuscular Hemoglobin 29.6 pg (27.0-31.0); Mean Corpuscular Volume 90.5 fl (78.0-98.0); Mean Platelet Volume 8.7 fL (7.4-10.4); Platelet Count 298 10x3/uL (130-400); RBC Distribution Width 14.5 % (11.5-14.5); Red Blood Cell (RBC) Count 3.42 mill/uL (4.20-5.40); White Blood Cell (WBC) Count 9.5 10x3/uL (4.8-10.8)
[2022-04-05 10:18] LABS: Actual Bicarbonate (HCO3v) 34 mEq/L (22-28); Analyzer IN Cardio ER; Base Excess 9.4 mEq/L (-2.0 to +3.0); Calcium, Ionized (venous) 1.09 mmol/L (1.16-1.32); Chloride (VBG) 94 mmol/L (98-106); Hemoglobin (Hb) 10.8 g/dL (11.7-15.5); Sodium 134.1 mmol/L (133-146); pH (venous) 7.47 (7.32-7.43)
[2022-04-05] MEDS ORDERED: Metoclopramide HCl 10 MG/2 ML VIAL ONE (10:18)
[2022-04-05 10:24] LABS: ALT (SGPT) 27 U/L (8-55); AST (SGOT) 19 U/L (5-34); Albumin 3.8 g/dL (3.5-5.0); Alkaline Phosphatase 69 U/L (40-110); Anion Gap 14 mmol/L (10-20); BUN (Urea Nitrogen) 19 mg/dL (7.0-18.7); Bilirubin, Total 0.5 mg/dL (0.2-1.2); Calc. Creatinine Clearance 0 mL/min (70-130); Calcium 9.7 mg/dL (7.8-10.44); Carbon Dioxide 32 mmol/L (22-29); Chloride 95 mmol/L (98-107); Estimated GFR 8; Globulin 2.8 g/dL (2.4-3.5); Glucose 206 mg/dL (70-105); Potassium 3.8 mmol/L (3.5-5.1); Protein, Total 6.6 g/dL (6.0-8.3); Sodium 137 mmol/L (136-145)
[2022-04-05] MEDS ORDERED: Morphine 2 MG/ML VIAL ONE ×2 (10:30→11:58)
[2022-04-05] MEDS ORDERED: hydrALAZINE 20 MG/ML VIAL ONE (10:32)
== END 2022-04-05 13:34 | disposition home or self-care (01) ==
LOC: ERS 09:28
DX: K31.84 Gastroparesis (principal); R10.9 Unspecified abdominal pain; E11.22 Type 2 diabetes mellitus with diabetic chronic kidney disease; N18.5 Chronic kidney disease, stage 5; I12.0 Hypertensive chronic kidney disease with stage 5 chronic kidney disease or end stage renal disease; E78.5 Hyperlipidemia, unspecified; F17.210 Nicotine dependence, cigarettes, uncomplicated; Z79.899 Other long term (current) drug therapy; Z79.4 Long term (current) use of insulin
CPT/HCPCS: 36415; 80053; 82010; 82805; 85025; 96374; 96375; 96376; J0360; J2272; J2765

== ENCOUNTER 2023-02-13 11:25 | Inpatient (IN) | payer OTHER ==
[~2023-02-13 11:25] MED LIST changes: +Heparin 10,000 UNITS/ 10 ML VIAL ONE; -Iopamidol-370 76% 500 ML 1 ML ONE
[2023-02-13 13:10] LABS: #Eosinphils 0.1 thou/uL (0.0-0.7); #Monocytes 0.6 thou/uL (0.11-0.59); #Neutrophils 5.3 thou/uL (1.40-6.50); %Basophils 0.3 % (0.0-1.0); %Eosinophils 1.7 % (0.0-10.0); %Lymphocytes 14.5 % (21.0-51.0); %Monocytes 8.6 % (0.0-10.0); %Neutrophils 74.2 % (42.0-75.0); Hematocrit 35.9 % (36.0-47.0); Hemoglobin 11.4 g/dL (12.0-16.0); Mean Corpuscular HGB CONC 31.8 g/dL (32.0-36.0); Mean Corpuscular Hemoglobin 26.9 pg (27.0-31.0); Mean Corpuscular Volume 84.7 fl (78.0-98.0); Mean Platelet Volume 11.9 fL (7.4-10.4); Platelet Count 250 10x3/uL (130-400); RBC Distribution Width 14.6 % (11.5-14.5); Red Blood Cell (RBC) Count 4.24 mill/uL (4.20-5.40); White Blood Cell (WBC) Count 7.1 10x3/uL (4.8-10.8)
[2023-02-13 13:30] LABS: ALT (SGPT) 14 U/L (8-55); AST (SGOT) 15 U/L (5-34); Albumin 3.6 g/dL (3.5-5.0); Alkaline Phosphatase 89 U/L (40-110); Anion Gap 29 mmol/L (10-20); BUN (Urea Nitrogen) 123 mg/dL (7.0-18.7); Bilirubin, Total 0.7 mg/dL (0.2-1.2); Calc. Creatinine Clearance 0 mL/min (70-130); Calcium 9.2 mg/dL (7.8-10.44); Carbon Dioxide 19 mmol/L (22-29); Chloride 93 mmol/L (98-107); Estimated GFR 4; Globulin 3.9 g/dL (2.4-3.5); Glucose 247 mg/dL (70-105); Protein, Total 7.5 g/dL (6.0-8.3); Sodium 134 mmol/L (136-145)
[2023-02-13] MEDS ORDERED: Calcium Gluc 4.6 MEQ/10 ML (100 MG/ML) ONE (14:01)
[2023-02-13] MEDS ORDERED: Insulin Regular 300 UNITS/3 ML VIAL ONE (14:02)
[2023-02-13] MEDS ORDERED: Dextrose 10% in Water 250 ML ONE (14:02)
[2023-02-13] MEDS ORDERED: Glucagon 1 MG/ML KIT IM PRN (15:16)
[2023-02-13] MEDS ORDERED: Ondansetron ODT 4 MG TAB PO PRN (15:16)
[2023-02-13] MEDS ORDERED: Acetaminophen 650 MG Suppository PR PRN (15:16)
[2023-02-13] MEDS ORDERED: Dextrose 50% Abboject 50 ML SYRINGE SLOW IVP PRN (15:16)
[2023-02-13] MEDS ORDERED: Ondansetron PF 4 MG/2 ML Vial IVP PRN (15:16)
[2023-02-13] MEDS ORDERED: HumaLOG 300 UNITS/3 ML VIAL SC PRN (15:16)
[2023-02-13] MEDS ORDERED: Dextrose 5% in Water 1,000 ML IV PRN (15:16)
[2023-02-13 16:43] VITALS: BMI 31.4
[2023-02-13] MEDS ORDERED: Lisinopril 20 MG TAB PO SCH (22:30)
[2023-02-13] MEDS ORDERED: Isosorbide Mononitrate 60 MG ER.TAB PO SCH (22:30)
[2023-02-13] MEDS: Heparin 5,000 UNITS/ML VIAL SC SCH (22:39)
[2023-02-13] MEDS: Acetaminophen 325 MG TAB PO PRN (22:39)
[2023-02-13] MEDS: Melatonin 3 MG TAB PO PRN (23:06)
[2023-02-14 01:02] LABS: Anion Gap 21 mmol/L (10-20); BUN (Urea Nitrogen) 58 mg/dL (7.0-18.7); Calc. Creatinine Clearance 17 mL/min (70-130); Calcium 8.7 mg/dL (7.8-10.44); Carbon Dioxide 24 mmol/L (22-29); Chloride 95 mmol/L (98-107); Estimated GFR 8; Glucose 201 mg/dL (70-105); Potassium 4.8 mmol/L (3.5-5.1); Sodium 135 mmol/L (136-145)
[2023-02-14 04:52] LABS: #Eosinphils 0.2 thou/uL (0.0-0.7); #Monocytes 0.6 thou/uL (0.11-0.59); #Neutrophils 3.3 thou/uL (1.40-6.50); %Basophils 0.6 % (0.0-1.0); %Eosinophils 2.8 % (0.0-10.0); %Lymphocytes 23.5 % (21.0-51.0); %Monocytes 11.3 % (0.0-10.0); %Neutrophils 61.6 % (42.0-75.0); Hematocrit 33.8 % (36.0-47.0); Hemoglobin 10.3 g/dL (12.0-16.0); Mean Corpuscular HGB CONC 30.5 g/dL (32.0-36.0); Mean Corpuscular Hemoglobin 27.1 pg (27.0-31.0); Mean Platelet Volume 11.3 fL (7.4-10.4); Platelet Count 225 10x3/uL (130-400); RBC Distribution Width 14.6 % (11.5-14.5); White Blood Cell (WBC) Count 5.3 10x3/uL (4.8-10.8)
[2023-02-14 05:00] LABS: Mean Corpuscular Volume 88.9 fl (78.0-98.0)
[2023-02-14 05:23] LABS: ALT (SGPT) 10 U/L (8-55); AST (SGOT) 13 U/L (5-34); Albumin 3.2 g/dL (3.5-5.0); Alkaline Phosphatase 78 U/L (40-110); Anion Gap 20 mmol/L (10-20); BUN (Urea Nitrogen) 63 mg/dL (7.0-18.7); Bilirubin, Total 0.5 mg/dL (0.2-1.2); Calc. Creatinine Clearance 16 mL/min (70-130); Calcium 8.9 mg/dL (7.8-10.44); Carbon Dioxide 23 mmol/L (22-29); Chloride 97 mmol/L (98-107); Estimated GFR 7; Globulin 3.1 g/dL (2.4-3.5); Glucose 214 mg/dL (70-105); Magnesium 2.2 mg/dL (1.6-2.6); Phosphorus 7.5 mg/dL (2.3-4.7); Potassium 5.1 mmol/L (3.5-5.1); Protein, Total 6.3 g/dL (6.0-8.3); Sodium 135 mmol/L (136-145)
[2023-02-14] MEDS: HumaLOG 300 UNITS/3 ML VIAL SC PRN ×3 (06:42→17:16)
[2023-02-14] MEDS ORDERED: Heparin 10,000 UNITS/ 10 ML VIAL ONE (08:48)
[2023-02-14] MEDS: Labetalol HCl 100 MG TAB PO SCH ×2 (09:13→20:10)
[2023-02-14] MEDS: Isosorbide Mononitrate 60 MG ER.TAB PO SCH ×2 (09:13→20:11)
[2023-02-14] MEDS: Heparin 5,000 UNITS/ML VIAL SC SCH ×2 (09:13→20:10)
[2023-02-14] MEDS: Lisinopril 20 MG TAB PO SCH ×2 (09:13→22:07)
[2023-02-14] MEDS ORDERED: Calcium Carbonate 500 MG ChewTAB PO PRN (11:47)
[2023-02-14] MEDS ORDERED: Moisturizing Cream (Eucerin) 113 GM JAR TOP PRN (11:47)
[2023-02-14] MEDS ORDERED: Sodium Chloride 0.65% Nasal 44 ML BOT EA NARE PRN (11:47)
[2023-02-14] MEDS ORDERED: Artificial Tear Sol 15 ML BOT EA EYE PRN (11:47)
[2023-02-14] MEDS ORDERED: Albumin 25% 25 GM/100 ML BOT IVPB SCH (12:00)
[2023-02-14] MEDS ORDERED: Gabapentin 300 MG CAP PO PRN (12:27)
[2023-02-14] MEDS ORDERED: Gabapentin 100 MG CAP PO PRN (13:15)
[2023-02-14] MEDS: Acetaminophen 325 MG TAB PO PRN ×2 (14:03→20:10)
[2023-02-14] MEDS: cefTRIAXone\\ROCEPHIN 2 GM in Sodium Chloride 0.9% 100 ML IVPB SCH (16:51)
[2023-02-14] MEDS: Albumin 25% 25 GM/100 ML BOT IVPB SCH ×6 (16:51→22:07)
[2023-02-14 19:40] LABS: INR-International Normal Ratio 1.1; PTT 33.7 sec (22.9-36.1); Prothrombin Time 14.4 sec (12.0-14.7)
[2023-02-14] MEDS: Melatonin 3 MG TAB PO PRN (20:11)
[2023-02-14] MEDS ORDERED: diphenhydrAMINE 25 MG CAP PO SCH (23:00)
[2023-02-15] MEDS ORDERED: Nitroglycerin 2% Ointment 1 INCH/1 GM Packet TOP SCH (03:15)
[2023-02-15] MEDS: Acetaminophen 325 MG TAB PO PRN ×2 (03:24→17:34)
[2023-02-15 04:25] LABS: Hemoglobin A1c 8.3 % (4.0-6.0)
[2023-02-15] MEDS ORDERED: Labetalol HCl 100 MG/20 ML VIAL SLOW IVP SCH (04:45)
[2023-02-15 04:50] LABS: Troponin I 0.068 ng/mL (< 0.028)
[2023-02-15 04:59] LABS: HIV (1/2) Antibody/Antigen Non-Reactive (NonReactive); HIV 1/2 INDEX 0.37 S/CO (<1.00); Hep C IgG Ab Non-Reactive S/CO (NonReactive); Hep C Index 0.08 S/CO (0-0.79)
[2023-02-15 07:59] LABS: ALT (SGPT) 10 U/L (8-55); AST (SGOT) 15 U/L (5-34); Alkaline Phosphatase 66 U/L (40-110); Anion Gap 19 mmol/L (10-20); BUN (Urea Nitrogen) 38 mg/dL (7.0-18.7); Bilirubin, Total 0.6 mg/dL (0.2-1.2); Calc. Creatinine Clearance 22 mL/min (70-130); Calcium 9.6 mg/dL (7.8-10.44); Carbon Dioxide 26 mmol/L (22-29); Chloride 97 mmol/L (98-107); Estimated GFR 11; Glucose 138 mg/dL (70-105); Potassium 4.7 mmol/L (3.5-5.1); Sodium 137 mmol/L (136-145)
[2023-02-15 08:01] LABS: #Eosinphils 0.1 thou/uL (0.0-0.7); #Monocytes 0.5 thou/uL (0.11-0.59); #Neutrophils 3.3 thou/uL (1.40-6.50); %Basophils 0.6 % (0.0-1.0); %Eosinophils 2.7 % (0.0-10.0); %Lymphocytes 24.6 % (21.0-51.0); %Monocytes 8.8 % (0.0-10.0); %Neutrophils 63.1 % (42.0-75.0); Hematocrit 32.7 % (36.0-47.0); Hemoglobin 10.2 g/dL (12.0-16.0); Mean Corpuscular HGB CONC 31.2 g/dL (32.0-36.0); Mean Corpuscular Hemoglobin 27.1 pg (27.0-31.0); Mean Corpuscular Volume 86.7 fl (78.0-98.0); Mean Platelet Volume 11.7 fL (7.4-10.4); Platelet Count 224 10x3/uL (130-400); RBC Distribution Width 14.5 % (11.5-14.5); Red Blood Cell (RBC) Count 3.77 mill/uL (4.20-5.40); White Blood Cell (WBC) Count 5.2 10x3/uL (4.8-10.8)
[2023-02-15] MEDS: Heparin 5,000 UNITS/ML VIAL SC SCH ×2 (08:40→20:46)
[2023-02-15] MEDS: Isosorbide Mononitrate 60 MG ER.TAB PO SCH ×2 (08:40→20:47)
[2023-02-15] MEDS: cloNIDine 0.3mg/24 Hour PATCH TD SCH (08:40)
[2023-02-15] MEDS: Lisinopril 20 MG TAB PO SCH ×2 (08:41→20:47)
[2023-02-15] MEDS: Labetalol HCl 100 MG TAB PO SCH ×2 (08:41→20:47)
[2023-02-15] MEDS: cefTRIAXone\\ROCEPHIN 2 GM in Sodium Chloride 0.9% 100 ML IVPB SCH (11:04)
[2023-02-15] MEDS: HumaLOG 300 UNITS/3 ML VIAL SC PRN ×2 (11:16→17:35)
[2023-02-15] MEDS ORDERED: Sodium Bicarbonate 2.5 MEQ/5 ML VIAL ONE (13:38)
[2023-02-15] MEDS ORDERED: Lidocaine 1% PF 5 ML VIAL ONE (13:38)
[2023-02-15 16:32] LABS: WBC/Nucleated-Auto (BF) 437 /cu.mm
[2023-02-15] MEDS ORDERED: hydrALAZINE 20 MG/ML VIAL SLOW IVP PRN ×2 (16:39→16:41)
[2023-02-15] MEDS ORDERED: Labetalol HCl 100 MG/20 ML VIAL SLOW IVP PRN (16:39)
[2023-02-15] MEDS ORDERED: hydrALAZINE 25 MG TAB PO SCH ×2 (16:41→21:00)
[2023-02-15] MEDS ORDERED: NIFEdipine XL 60 MG ER.TAB PO SCH (17:15)
[2023-02-15 18:32] LABS: BF Color Yellow; Body Fluid Source Ascites Body Fluid; Clarity Clear (Clear); RBC Count-Automated (BF) 12 /cu.mm; Tube # EDTA
[2023-02-15 18:33] LABS: BF Segmented Neutrophils 19 %; Cell Count Non Hematic 73 %; Lymphocytes 8 %
[2023-02-15] MEDS: Melatonin 3 MG TAB PO PRN (20:47)
[2023-02-15] MEDS: NIFEdipine XL 60 MG ER.TAB PO SCH (20:48)
[2023-02-15] MEDS ORDERED: ALPRAZolam 0.25 MG TAB PO SCH (22:45)
[2023-02-16 03:40] LABS: #Eosinphils 0.2 thou/uL (0.0-0.7); #Monocytes 0.5 thou/uL (0.11-0.59); #Neutrophils 3.9 thou/uL (1.40-6.50); %Basophils 0.5 % (0.0-1.0); %Eosinophils 3.4 % (0.0-10.0); %Lymphocytes 22.9 % (21.0-51.0); %Monocytes 8.5 % (0.0-10.0); %Neutrophils 64.5 % (42.0-75.0); Hematocrit 32.4 % (36.0-47.0); Hemoglobin 10.1 g/dL (12.0-16.0); Mean Corpuscular HGB CONC 31.2 g/dL (32.0-36.0); Mean Corpuscular Hemoglobin 27.2 pg (27.0-31.0); Mean Corpuscular Volume 87.1 fl (78.0-98.0); Mean Platelet Volume 11.4 fL (7.4-10.4); Platelet Count 233 10x3/uL (130-400); RBC Distribution Width 14.4 % (11.5-14.5); Red Blood Cell (RBC) Count 3.72 mill/uL (4.20-5.40); White Blood Cell (WBC) Count 6.1 10x3/uL (4.8-10.8)
[2023-02-16 04:15] LABS: ALT (SGPT) 11 U/L (8-55); AST (SGOT) 13 U/L (5-34); Albumin 3.3 g/dL (3.5-5.0); Alkaline Phosphatase 70 U/L (40-110); Anion Gap 18 mmol/L (10-20); BUN (Urea Nitrogen) 57 mg/dL (7.0-18.7); Bilirubin, Total 0.4 mg/dL (0.2-1.2); Calc. Creatinine Clearance 17 mL/min (70-130); Calcium 8.9 mg/dL (7.8-10.44); Carbon Dioxide 25 mmol/L (22-29); Chloride 98 mmol/L (98-107); Estimated GFR 8; Globulin 2.7 g/dL (2.4-3.5); Glucose 161 mg/dL (70-105); Sodium 136 mmol/L (136-145)
[2023-02-16 06:14] LABS: Hep B Surface AG-Rflx Sendout Negative (Negative); Hepatitis B Core Total Negative (Negative); Hepatitis B Surface AB-Sendout Reactive (.)
[2023-02-16 08:17] VITALS: BP 152/84; TEMP 98.1
[2023-02-16] MEDS: Isosorbide Mononitrate 60 MG ER.TAB PO SCH (09:05)
[2023-02-16] MEDS: Heparin 5,000 UNITS/ML VIAL SC SCH (09:06)
[2023-02-16] MEDS: NIFEdipine XL 60 MG ER.TAB PO SCH (09:06)
[2023-02-16] MEDS: Lisinopril 20 MG TAB PO SCH (09:06)
[2023-02-16] MEDS: Labetalol HCl 100 MG TAB PO SCH (09:06)
[2023-02-16] MEDS: cloNIDine 0.3mg/24 Hour PATCH TD SCH (09:11)
[2023-02-16 12:19] LABS: ANA Symphony (Qualitative) Negative (Negative); ANA Symphony (Quantitative) 0.2 Ratio (< 0.7 Negative); dsDNA IgG Antibody 0.9 IU/mL (<10 Negative)
[2023-02-16] MEDS ORDERED: Albumin 25% 25 GM/100 ML BOT IVPB SCH ×2 (13:00)
[2023-02-16 15:14] LABS: Alpha-1-Antitrypsin 172 mg/dL (100-188)
[2023-02-21] MEDS ORDERED: cloNIDine 0.1mg/24 Hour PATCH TD SCH (09:00)
== END 2023-02-16 09:58 | disposition home or self-care (01) | DRG 640 ==
LOC: ERS 11:25 → 2NO 14:23
PROVIDERS: ADMIT Internal Medicine; ATTEND Internal Medicine Critical Care Medicine
PROC: 5A1D70Z Performance of Urinary Filtration, Intermittent, Less than 6 Hours Per Day (ICD-10-PCS; 2023-02-13)
PROC: 30233J1 Transfusion of Nonautologous Serum Albumin into Peripheral Vein, Percutaneous Approach (ICD-10-PCS; 2023-02-14)
PROC: 5A1D70Z Performance of Urinary Filtration, Intermittent, Less than 6 Hours Per Day (ICD-10-PCS; 2023-02-14)
PROC: 0W9G3ZZ Drainage of Peritoneal Cavity, Percutaneous Approach (ICD-10-PCS; principal; 2023-02-15)
DX: E87.5 Hyperkalemia (principal); J96.01 Acute respiratory failure with hypoxia; N18.6 End stage renal disease; R18.8 Other ascites; I50.32 Chronic diastolic (congestive) heart failure; I13.2 Hypertensive heart and chronic kidney disease with heart failure and with stage 5 chronic kidney disease, or end stage renal disease; E87.20 Acidosis, unspecified; E87.70 Fluid overload, unspecified; E11.22 Type 2 diabetes mellitus with diabetic chronic kidney disease; F17.210 Nicotine dependence, cigarettes, uncomplicated; F31.9 Bipolar disorder, unspecified; D63.1 Anemia in chronic kidney disease; K74.60 Unspecified cirrhosis of liver; E88.09 Other disorders of plasma-protein metabolism, not elsewhere classified; Z99.2 Dependence on renal dialysis; Z88.6 Allergy status to analgesic agent; Z79.899 Other long term (current) drug therapy; Z79.4 Long term (current) use of insulin; Z98.890 Other specified postprocedural states; Z90.49 Acquired absence of other specified parts of digestive tract; Z98.51 Tubal ligation status; Z90.89 Acquired absence of other organs; Z82.49 Family history of ischemic heart disease and other diseases of the circulatory system; Z71.6 Tobacco abuse counseling; Z83.3 Family history of diabetes mellitus
CPT/HCPCS: 36415; 36416; 49083; 71045; 76705; 80053; 82042; 82103; 83036; 83540; 83735; 83880; 84100; 84157; 84484; 85025; 85060; 85610; 85730; 86038; 86225; 86704; 86706; 86803; 87070; 87205; 87340; 87389; 88112; 88305; 89051; 90935; 93005; 93010; 96365; 96375; G0257; J0360; J0612; J0696; J1644; J1815; J3490; P9047

== ENCOUNTER 2023-04-07 01:23 | Inpatient (IN) | payer OTHER ==
[2023-04-07] MEDS ORDERED: Nitroglycerin 50 MG/250 ML BOT 250 ML ONE (01:31)
[2023-04-07] MEDS ORDERED: Sodium Chloride 0.9% 100 ML ONE (01:31)
[2023-04-07] MEDS ORDERED: Labetalol HCl 100 MG/20 ML VIAL ONE (02:38)
[2023-04-07 02:58] LABS: #Eosinphils 0.2 thou/uL (0.0-0.7); #Monocytes 0.6 thou/uL (0.11-0.59); #Neutrophils 5.3 thou/uL (1.40-6.50); %Basophils 0.4 % (0.0-1.0); %Eosinophils 2.5 % (0.0-10.0); %Lymphocytes 18.8 % (21.0-51.0); %Monocytes 8.1 % (0.0-10.0); %Neutrophils 70.1 % (42.0-75.0); Hemoglobin 10.8 g/dL (12.0-16.0); Mean Corpuscular HGB CONC 30.9 g/dL (32.0-36.0); Mean Corpuscular Hemoglobin 27.6 pg (27.0-31.0); Mean Corpuscular Volume 89.5 fl (78.0-98.0); Mean Platelet Volume 11.4 fL (7.4-10.4); Platelet Count 202 10x3/uL (130-400); RBC Distribution Width 15.8 % (11.5-14.5); Red Blood Cell (RBC) Count 3.91 mill/uL (4.20-5.40); White Blood Cell (WBC) Count 7.6 10x3/uL (4.8-10.8)
[2023-04-07 03:09] LABS: BHCG - Serum Negative (NEGATIVE); Pregs Control Background? CLEAR/WHITE (CLR/WHITE); Pregs Control Bar Appear? YES (CONTROL BAR)
[2023-04-07 03:11] LABS: INR-International Normal Ratio 1.2; PTT 31.7 sec (22.9-36.1)
[2023-04-07] MEDS ORDERED: Morphine 4 MG/ML VIAL ONE (03:15)
[2023-04-07 03:16] LABS: Acetaminophen Less than 10 mcg/mL (10.0-30.0); Alcohol 35.2 mg/dL (Less than 10); Salicylate Less than 8.0 mg/dL (15.0-30.0)
[2023-04-07] MEDS ORDERED: Ondansetron PF 4 MG/2 ML Vial ONE (03:16)
[2023-04-07 03:17] LABS: ALT (SGPT) 12 U/L (8-55); AST (SGOT) 12 U/L (5-34); Albumin 3.1 g/dL (3.5-5.0); Alkaline Phosphatase 67 U/L (40-110); Anion Gap 22 mmol/L (10-20); BUN (Urea Nitrogen) 53 mg/dL (7.0-18.7); Bilirubin, Total 0.5 mg/dL (0.2-1.2); Calc. Creatinine Clearance 0 mL/min (70-130); Calcium 8.9 mg/dL (7.8-10.44); Carbon Dioxide 22 mmol/L (22-29); Chloride 87 mmol/L (98-107); Estimated GFR 7; Potassium 4.7 mmol/L (3.5-5.1); Protein, Total 6.1 g/dL (6.0-8.3); Sodium 126 mmol/L (136-145)
[2023-04-07 03:21] LABS: SARS-CoV-2 NAA Rapid Test Not Detected (NotDetected)
[2023-04-07 03:42] LABS: Critical Call Chemistry NUR.KB14 @0340; Glucose 736 mg/dL (70-105)
[2023-04-07] MEDS ORDERED: INSULIN REGULAR IN 0.9 % NACL 100 UNITS/100 ML BAG ONE (03:51)
[2023-04-07 04:39] LABS: Phosphorus 7.5 mg/dL (2.3-4.7)
[2023-04-07 04:40] LABS: Magnesium 2.1 mg/dL (1.6-2.6)
[2023-04-07] MEDS ORDERED: fentaNYL 50 mcg/mL 1 mL Vial ONE (04:45)
[2023-04-07] MEDS ORDERED: Nitroglycerin 50 MG/250 ML BOT 250 ML IVPB SCH (05:00)
[2023-04-07] MEDS ORDERED: NIFEdipine XL 60 MG ER.TAB PO SCH (05:00)
[2023-04-07 05:28] LABS: Actual Bicarbonate (HCO3v) 24.7 mEq/L (22-28); Base Excess 0.3 mEq/L (-2.0 to +3.0); Calcium, Ionized (venous) 1.19 mmol/L (1.16-1.32); Chloride (VBG) 97 mmol/L (98-106); Hematocrit-VBG 36 % (36.0-47.0); Hemoglobin (Hb) 12.2 g/dL (11.7-15.5); Potassium (VBG) 4.77 mmol/L (3.70-5.30); Sodium 139 mmol/L (133-146); pH (venous) 7.419 (7.32-7.43)
[2023-04-07 06:01] LABS: Troponin I 0.109 ng/mL (< 0.028)
[2023-04-07] MEDS ORDERED: Dextrose 5% in Water 1,000 ML IV PRN (06:50)
[2023-04-07] MEDS ORDERED: Glucagon 1 MG/ML KIT IM PRN (06:50)
[2023-04-07] MEDS ORDERED: Dextrose 50% Abboject 50 ML SYRINGE SLOW IVP PRN (06:50)
[2023-04-07] MEDS: Acetaminophen 325 MG TAB PO PRN ×2 (07:50→16:37)
[2023-04-07] MEDS: Famotidine 20 MG TAB PO SCH (07:50)
[2023-04-07 08:50] LABS: HBSAg Index 0.43 S/CO (0-0.99); Hep B Surf Ag Non-Reactive S/CO (NonReactive)
[2023-04-07 09:36] LABS: HBSAB Concentration 25.86 mIU/mL; Hep B Surf AB Reactive (NonReactive)
[2023-04-07] MEDS ORDERED: Heparin 10,000 UNITS/ 10 ML VIAL ONE (11:17)
[2023-04-07] MEDS: Labetalol HCl 100 MG/20 ML VIAL SLOW IVP PRN ×2 (11:29→16:42)
[2023-04-07] MEDS: HumaLOG 300 UNITS/3 ML VIAL SC PRN ×3 (11:30→22:05)
[2023-04-07] MEDS: Sevelamer Carbonate 800 MG TAB PO SCH ×2 (11:30→16:38)
[2023-04-07 11:40] LABS: Anion Gap 16 mmol/L (10-20); BUN (Urea Nitrogen) 35 mg/dL (7.0-18.7); Calc. Creatinine Clearance 23 mL/min (70-130); Calcium 9.2 mg/dL (7.8-10.44); Carbon Dioxide 27 mmol/L (22-29); Chloride 97 mmol/L (98-107); Estimated GFR 13; Glucose 318 mg/dL (70-105); Phosphorus 4.8 mg/dL (2.3-4.7); Potassium 4.1 mmol/L (3.5-5.1); Sodium 136 mmol/L (136-145)
[2023-04-07] MEDS ORDERED: cloNIDine 0.3mg/24 Hour PATCH TD SCH (12:00)
[2023-04-07] MEDS ORDERED: HYDROmorphone 0.5 MG/0.5 ML SYRINGE SLOW IVP SCH (12:30)
[2023-04-07] MEDS ORDERED: diphenhydrAMINE 50 MG/ML VIAL ONE (14:28)
[2023-04-07] MEDS: hydrOXYzine 25 MG TAB PO PRN (15:15)
[2023-04-07] MEDS: Isosorbide Mononitrate 60 MG ER.TAB PO SCH (19:22)
[2023-04-07] MEDS: Labetalol HCl 100 MG TAB PO SCH (19:22)
[2023-04-07] MEDS: Lisinopril 20 MG TAB PO SCH (19:23)
[2023-04-07] MEDS: NIFEdipine XL 60 MG ER.TAB PO SCH (19:23)
[2023-04-07] MEDS ORDERED: Gabapentin 300 MG CAP PO SCH (20:15)
[2023-04-07] MEDS: hydrALAZINE 20 MG/ML VIAL SLOW IVP PRN (20:33)
[2023-04-07] MEDS ORDERED: hydrALAZINE 20 MG/ML VIAL SLOW IVP SCH (21:30)
[2023-04-07] MEDS ORDERED: Lidocaine 4% Patch TD SCH (21:45)
[2023-04-08 04:20] LABS: #Eosinphils 0.2 thou/uL (0.0-0.7); #Monocytes 0.6 thou/uL (0.11-0.59); #Neutrophils 5.7 thou/uL (1.40-6.50); %Basophils 0.3 % (0.0-1.0); %Eosinophils 2.7 % (0.0-10.0); %Lymphocytes 16.9 % (21.0-51.0); %Monocytes 7.4 % (0.0-10.0); %Neutrophils 72.4 % (42.0-75.0); Hematocrit 35.5 % (36.0-47.0); Hemoglobin 11.2 g/dL (12.0-16.0); Mean Corpuscular HGB CONC 31.5 g/dL (32.0-36.0); Mean Corpuscular Hemoglobin 27.8 pg (27.0-31.0); Mean Corpuscular Volume 88.1 fl (78.0-98.0); Mean Platelet Volume 10.8 fL (7.4-10.4); Platelet Count 203 10x3/uL (130-400); RBC Distribution Width 15.7 % (11.5-14.5); Red Blood Cell (RBC) Count 4.03 mill/uL (4.20-5.40); White Blood Cell (WBC) Count 7.9 10x3/uL (4.8-10.8)
[2023-04-08 04:34] LABS: Anion Gap 16 mmol/L (10-20); BUN (Urea Nitrogen) 37 mg/dL (7.0-18.7); Calc. Creatinine Clearance 19 mL/min (70-130); Calcium 9.1 mg/dL (7.8-10.44); Carbon Dioxide 27 mmol/L (22-29); Chloride 98 mmol/L (98-107); Estimated GFR 10; Glucose 150 mg/dL (70-105); Potassium 4.3 mmol/L (3.5-5.1); Sodium 137 mmol/L (136-145)
[2023-04-08] MEDS: HumaLOG 300 UNITS/3 ML VIAL SC PRN ×4 (06:29→21:27)
[2023-04-08] MEDS: Sevelamer Carbonate 800 MG TAB PO SCH ×3 (09:31→17:48)
[2023-04-08] MEDS: Gabapentin 300 MG CAP PO SCH (09:32)
[2023-04-08] MEDS: Famotidine 20 MG TAB PO SCH (09:32)
[2023-04-08] MEDS: NIFEdipine XL 60 MG ER.TAB PO SCH ×2 (09:33→21:23)
[2023-04-08] MEDS: Labetalol HCl 100 MG TAB PO SCH ×2 (09:33→21:20)
[2023-04-08] MEDS: Isosorbide Mononitrate 60 MG ER.TAB PO SCH ×2 (09:34→21:23)
[2023-04-08] MEDS: Lisinopril 20 MG TAB PO SCH ×2 (09:34→21:24)
[2023-04-08] MEDS ORDERED: Transdermal Patch Removal TOP SCH (09:45)
[2023-04-08] MEDS ORDERED: Insulin Glargine 30 UNITS/0.3 ML VIAL SC SCH (11:30)
[2023-04-08] MEDS: hydrALAZINE 20 MG/ML VIAL SLOW IVP PRN (17:53)
[2023-04-08] MEDS: Metoclopramide HCl 10 MG TAB PO SCH (21:24)
[2023-04-08] MEDS: QUEtiapine 25 MG TAB PO SCH (21:25)
[2023-04-09] MEDS: Labetalol HCl 100 MG/20 ML VIAL SLOW IVP PRN (00:01)
[2023-04-09] MEDS: hydrALAZINE 20 MG/ML VIAL SLOW IVP PRN (01:23)
[2023-04-09 04:41] LABS: #Eosinphils 0.2 thou/uL (0.0-0.7); #Monocytes 0.6 thou/uL (0.11-0.59); %Basophils 0.2 % (0.0-1.0); %Eosinophils 2.7 % (0.0-10.0); %Lymphocytes 18.5 % (21.0-51.0); %Neutrophils 71.4 % (42.0-75.0); Hematocrit 35.3 % (36.0-47.0); Mean Corpuscular HGB CONC 31.2 g/dL (32.0-36.0); Mean Corpuscular Volume 86.7 fl (78.0-98.0); Mean Platelet Volume 10.5 fL (7.4-10.4); Platelet Count 207 10x3/uL (130-400); RBC Distribution Width 15.9 % (11.5-14.5); Red Blood Cell (RBC) Count 4.07 mill/uL (4.20-5.40); White Blood Cell (WBC) Count 8.4 10x3/uL (4.8-10.8)
[2023-04-09 04:58] LABS: Anion Gap 16 mmol/L (10-20); BUN (Urea Nitrogen) 60 mg/dL (7.0-18.7); Calc. Creatinine Clearance 14 mL/min (70-130); Calcium 9.4 mg/dL (7.8-10.44); Carbon Dioxide 26 mmol/L (22-29); Chloride 97 mmol/L (98-107); Estimated GFR 8; Glucose 242 mg/dL (70-105); Potassium 4.8 mmol/L (3.5-5.1); Sodium 134 mmol/L (136-145)
[2023-04-09] MEDS: hydrOXYzine 25 MG TAB PO PRN (07:55)
[2023-04-09] MEDS: Labetalol HCl 100 MG TAB PO SCH ×2 (10:01→21:07)
[2023-04-09] MEDS: Gabapentin 300 MG CAP PO SCH (10:01)
[2023-04-09] MEDS: Lisinopril 20 MG TAB PO SCH ×2 (10:01→21:08)
[2023-04-09] MEDS: Isosorbide Mononitrate 60 MG ER.TAB PO SCH ×2 (10:01→21:06)
[2023-04-09] MEDS: NIFEdipine XL 60 MG ER.TAB PO SCH ×2 (10:02→21:06)
[2023-04-09] MEDS: Insulin Glargine 30 UNITS/0.3 ML VIAL SC SCH (10:02)
[2023-04-09] MEDS: Metoclopramide HCl 10 MG TAB PO SCH ×2 (10:02→21:07)
[2023-04-09] MEDS: Sevelamer Carbonate 800 MG TAB PO SCH ×3 (10:02→16:50)
[2023-04-09] MEDS: Famotidine 20 MG TAB PO SCH (10:02)
[2023-04-09] MEDS: HumaLOG 300 UNITS/3 ML VIAL SC PRN ×4 (10:04→21:09)
[2023-04-09] MEDS ORDERED: cloNIDine 0.3mg/24 Hour PATCH TD SCH (10:30)
[2023-04-09] MEDS ORDERED: Magnevist 469MG/ML 20 ML VIAL ONE (11:29)
[2023-04-09] MEDS ORDERED: Lidocaine 1% PF 5 ML VIAL ONE (14:51)
[2023-04-09] MEDS ORDERED: Sodium Bicarbonate 0.5 MEQ/ML SDV 10 ML ONE (14:51)
[2023-04-09] MEDS: HYDROcodone/Acetaminophen 7.5/325 mg Tablet PO PRN (16:50)
[2023-04-09 19:01] LABS: Iron 87 ug/dL (50-170); Iron Binding Capacity, Total 226 mcg/dL (265-497)
[2023-04-09] MEDS: QUEtiapine 25 MG TAB PO SCH (21:08)
[2023-04-10 04:25] LABS: #Eosinphils 0.3 thou/uL (0.0-0.7); #Monocytes 0.8 thou/uL (0.11-0.59); #Neutrophils 6.8 thou/uL (1.40-6.50); %Basophils 0.2 % (0.0-1.0); %Eosinophils 3.3 % (0.0-10.0); %Lymphocytes 16.2 % (21.0-51.0); %Monocytes 7.9 % (0.0-10.0); %Neutrophils 72.1 % (42.0-75.0); Hematocrit 34.3 % (36.0-47.0); Hemoglobin 10.7 g/dL (12.0-16.0); Mean Corpuscular HGB CONC 31.2 g/dL (32.0-36.0); Mean Corpuscular Hemoglobin 27.5 pg (27.0-31.0); Mean Corpuscular Volume 88.2 fl (78.0-98.0); Mean Platelet Volume 11.2 fL (7.4-10.4); Platelet Count 218 10x3/uL (130-400); RBC Distribution Width 15.8 % (11.5-14.5); Red Blood Cell (RBC) Count 3.89 mill/uL (4.20-5.40); White Blood Cell (WBC) Count 9.5 10x3/uL (4.8-10.8)
[2023-04-10 04:41] LABS: Albumin 3.3 g/dL (3.5-5.0); Anion Gap 20 mmol/L (10-20); BUN (Urea Nitrogen) 80 mg/dL (7.0-18.7); Calc. Creatinine Clearance 11 mL/min (70-130); Calcium 9.8 mg/dL (7.8-10.44); Carbon Dioxide 24 mmol/L (22-29); Chloride 99 mmol/L (98-107); Estimated GFR 6; Glucose 201 mg/dL (70-105); Potassium 5.3 mmol/L (3.5-5.1); Sodium 138 mmol/L (136-145)
[2023-04-10] MEDS: Isosorbide Mononitrate 60 MG ER.TAB PO SCH ×2 (08:50→20:07)
[2023-04-10] MEDS: Lisinopril 20 MG TAB PO SCH ×2 (08:51→20:06)
[2023-04-10] MEDS: Famotidine 20 MG TAB PO SCH (08:51)
[2023-04-10] MEDS: Sevelamer Carbonate 800 MG TAB PO SCH ×3 (08:51→18:13)
[2023-04-10] MEDS: Labetalol HCl 100 MG TAB PO SCH ×2 (08:51→20:07)
[2023-04-10] MEDS: NIFEdipine XL 60 MG ER.TAB PO SCH ×2 (08:52→20:07)
[2023-04-10] MEDS: Gabapentin 300 MG CAP PO SCH (08:52)
[2023-04-10] MEDS: Metoclopramide HCl 10 MG TAB PO SCH ×2 (08:52→20:06)
[2023-04-10] MEDS: Insulin Glargine 30 UNITS/0.3 ML VIAL SC SCH (08:53)
[2023-04-10] MEDS: HYDROcodone/Acetaminophen 7.5/325 mg Tablet PO PRN ×2 (08:59→18:17)
[2023-04-10] MEDS ORDERED: Lidocaine 1% PF 5 ML VIAL ONE (09:19)
[2023-04-10] MEDS ORDERED: Sodium Bicarbonate 0.5 MEQ/ML SDV 10 ML ONE (09:19)
[2023-04-10] MEDS ORDERED: Heparin 10,000 UNITS/ 10 ML VIAL ONE (12:23)
[2023-04-10 12:43] LABS: RBC Count-Automated (BF) 1126 /cu.mm; WBC/Nucleated-Auto (BF) 284 /cu.mm
[2023-04-10 12:50] LABS: BF Color Yellow; Body Fluid Source Ascites Body Fluid; Clarity Hazy (Clear); Tube # EDTA
[2023-04-10 14:05] LABS: BF Segmented Neutrophils 24 %; Cell Count Non Hematic 56 %; Lymphocytes 19 %
[2023-04-10 14:54] LABS: EliA Vaculitis New Method **** NEW METHOD ****; Mitochondrial Ab 0.8 U/mL (<4 Negative)
[2023-04-10] MEDS ORDERED: HYDROcodone/Acetaminophen 5/325 mg Tablet PO SCH (19:45)
[2023-04-10] MEDS: QUEtiapine 25 MG TAB PO SCH (20:07)
[2023-04-10] MEDS ORDERED: Lidocaine 4% Patch TD SCH (20:15)
[2023-04-10] MEDS ORDERED: cefTRIAXone\\ROCEPHIN 1 GM in Sodium Chloride 0.9% 100 ML IVPB SCH (22:00)
[2023-04-10] MEDS ORDERED: Morphine 2 MG/ML VIAL SLOW IVP SCH (22:00)
[2023-04-10] MEDS ORDERED: cefTRIAXone\\ROCEPHIN 2 GM in Sodium Chloride 0.9% 100 ML IVPB SCH (22:00)
[2023-04-10 22:05] LABS: #Eosinphils 0.2 thou/uL (0.0-0.7); #Monocytes 0.6 thou/uL (0.11-0.59); #Neutrophils 16.4 thou/uL (1.40-6.50); %Basophils 0.2 % (0.0-1.0); %Lymphocytes 3.7 % (21.0-51.0); %Monocytes 3.2 % (0.0-10.0); %Neutrophils 91.4 % (42.0-75.0); Hematocrit 34.4 % (36.0-47.0); Mean Corpuscular Hemoglobin 27.6 pg (27.0-31.0); Mean Corpuscular Volume 86.4 fl (78.0-98.0); Platelet Count 217 10x3/uL (130-400); RBC Distribution Width 15.8 % (11.5-14.5); Red Blood Cell (RBC) Count 3.98 mill/uL (4.20-5.40); White Blood Cell (WBC) Count 17.9 10x3/uL (4.8-10.8)
[2023-04-10 22:26] LABS: ALT (SGPT) 13 U/L (8-55); AST (SGOT) 14 U/L (5-34); Albumin 3.5 g/dL (3.5-5.0); Alkaline Phosphatase 69 U/L (40-110); Anion Gap 17 mmol/L (10-20); BUN (Urea Nitrogen) 43 mg/dL (7.0-18.7); Bilirubin, Total 0.6 mg/dL (0.2-1.2); Calc. Creatinine Clearance 17 mL/min (70-130); Calcium 9.3 mg/dL (7.8-10.44); Carbon Dioxide 25 mmol/L (22-29); Chloride 99 mmol/L (98-107); Estimated GFR 10; Globulin 3.1 g/dL (2.4-3.5); Glucose 183 mg/dL (70-105); Potassium 4.8 mmol/L (3.5-5.1); Protein, Total 6.6 g/dL (6.0-8.3); Sodium 136 mmol/L (136-145)
[2023-04-10] MEDS ORDERED: VANCOMYCIN IVPB PRN (23:29)
[2023-04-10] MEDS ORDERED: Vancomycin Diaylsis Sliding Scale (Wt 71-99) FS SCH (23:45)
[2023-04-10] MEDS ORDERED: Vancomycin (BATCH) 1.5 GM in Premix 1 BAG IVPB SCH (23:59)
[2023-04-11] MEDS: HYDROcodone/Acetaminophen 7.5/325 mg Tablet PO PRN ×2 (00:33→08:45)
[2023-04-11 05:14] LABS: #Eosinphils 0.2 thou/uL (0.0-0.7); #Monocytes 0.8 thou/uL (0.11-0.59); #Neutrophils 12.8 thou/uL (1.40-6.50); %Basophils 0.2 % (0.0-1.0); %Eosinophils 1.4 % (0.0-10.0); %Lymphocytes 5.9 % (21.0-51.0); %Monocytes 5.1 % (0.0-10.0); %Neutrophils 86.9 % (42.0-75.0); Hematocrit 35.7 % (36.0-47.0); Hemoglobin 11.1 g/dL (12.0-16.0); Mean Corpuscular HGB CONC 31.1 g/dL (32.0-36.0); Mean Corpuscular Hemoglobin 27.5 pg (27.0-31.0); Mean Corpuscular Volume 88.4 fl (78.0-98.0); Mean Platelet Volume 11.4 fL (7.4-10.4); Platelet Count 209 10x3/uL (130-400); Red Blood Cell (RBC) Count 4.04 mill/uL (4.20-5.40); White Blood Cell (WBC) Count 14.7 10x3/uL (4.8-10.8)
[2023-04-11 06:17] LABS: ALT (SGPT) 10 U/L (8-55); AST (SGOT) 12 U/L (5-34); Albumin 3.2 g/dL (3.5-5.0); Alkaline Phosphatase 65 U/L (40-110); Anion Gap 18 mmol/L (10-20); BUN (Urea Nitrogen) 50 mg/dL (7.0-18.7); Bilirubin, Total 0.6 mg/dL (0.2-1.2); Calc. Creatinine Clearance 15 mL/min (70-130); Calcium 9.3 mg/dL (7.8-10.44); Carbon Dioxide 26 mmol/L (22-29); Chloride 100 mmol/L (98-107); Estimated GFR 9; Glucose 83 mg/dL (70-105); Phosphorus 4.8 mg/dL (2.3-4.7); Potassium 4.9 mmol/L (3.5-5.1); Protein, Total 6.2 g/dL (6.0-8.3); Sodium 139 mmol/L (136-145)
[2023-04-11] MEDS ORDERED: Transdermal Patch Removal TOP SCH (08:15)
[2023-04-11] MEDS: Ondansetron ODT 4 MG TAB PO PRN ×2 (08:30→16:47)
[2023-04-11] MEDS: NIFEdipine XL 60 MG ER.TAB PO SCH ×2 (08:45→21:23)
[2023-04-11] MEDS: Metoclopramide HCl 10 MG TAB PO SCH ×2 (08:45→21:22)
[2023-04-11] MEDS: Lisinopril 20 MG TAB PO SCH ×2 (08:45→21:22)
[2023-04-11] MEDS: Isosorbide Mononitrate 60 MG ER.TAB PO SCH ×2 (08:45→21:22)
[2023-04-11] MEDS ORDERED: Vancomycin 1 GM in Premix 1 BAG IVPB SCH (09:00)
[2023-04-11] MEDS: Morphine 2 MG/ML VIAL SLOW IVP PRN ×3 (15:05→22:32)
[2023-04-11] MEDS: Labetalol HCl 100 MG TAB PO SCH ×2 (15:11→21:22)
[2023-04-11] MEDS: Gabapentin 300 MG CAP PO SCH (15:12)
[2023-04-11] MEDS: Famotidine 20 MG TAB PO SCH (15:12)
[2023-04-11] MEDS: Sevelamer Carbonate 800 MG TAB PO SCH ×2 (15:13→17:35)
[2023-04-11] MEDS: Insulin Glargine 30 UNITS/0.3 ML VIAL SC SCH (15:14)
[2023-04-11] MEDS ORDERED: Prochlorperazine Edisylate 10 MG in Sodium Chloride 0.9% 50 ML IVPB PRN (17:36)
[2023-04-11 20:37] LABS: Hep C PCR-Quant HCV Not Detected IU/mL (.)
[2023-04-11] MEDS: QUEtiapine 25 MG TAB PO SCH (21:23)
[2023-04-11] MEDS: hydrALAZINE 20 MG/ML VIAL SLOW IVP PRN (23:36)
[2023-04-11] MEDS: Heparin 5,000 UNITS/ML VIAL SC SCH (23:39)
[2023-04-12] MEDS: Labetalol HCl 100 MG/20 ML VIAL SLOW IVP PRN (01:29)
[2023-04-12 04:48] LABS: #Eosinphils 0.2 thou/uL (0.0-0.7); #Monocytes 1.1 thou/uL (0.11-0.59); %Basophils 0.2 % (0.0-1.0); %Eosinophils 1.2 % (0.0-10.0); %Lymphocytes 5.9 % (21.0-51.0); %Monocytes 6.3 % (0.0-10.0); %Neutrophils 85.8 % (42.0-75.0); Hematocrit 38.1 % (36.0-47.0); Hemoglobin 11.7 g/dL (12.0-16.0); Mean Corpuscular HGB CONC 30.7 g/dL (32.0-36.0); Mean Corpuscular Hemoglobin 26.8 pg (27.0-31.0); Mean Corpuscular Volume 87.4 fl (78.0-98.0); Platelet Count 255 10x3/uL (130-400); RBC Distribution Width 16.2 % (11.5-14.5); Red Blood Cell (RBC) Count 4.36 mill/uL (4.20-5.40); White Blood Cell (WBC) Count 17.4 10x3/uL (4.8-10.8)
[2023-04-12 05:19] LABS: Anion Gap 21 mmol/L (10-20); BUN (Urea Nitrogen) 68 mg/dL (7.0-18.7); Calc. Creatinine Clearance 12 mL/min (70-130); Calcium 9.9 mg/dL (7.8-10.44); Carbon Dioxide 24 mmol/L (22-29); Chloride 97 mmol/L (98-107); Estimated GFR 7; Glucose 121 mg/dL (70-105); Sodium 135 mmol/L (136-145)
[2023-04-12 05:22] LABS: Critical Call Chemistry NUR.IS2@0521; Potassium 6.7 mmol/L (3.5-5.1)
[2023-04-12] MEDS ORDERED: Calcium Gluc 4.6 MEQ/10 ML (100 MG/ML) SLOW IVP SCH (05:26)
[2023-04-12] MEDS ORDERED: Insulin Regular 300 UNITS/3 ML VIAL IVP SCH (05:30)
[2023-04-12] MEDS ORDERED: Dextrose 50% Abboject 50 ML SYRINGE SLOW IVP SCH (05:30)
[2023-04-12] MEDS: hydrALAZINE 20 MG/ML VIAL SLOW IVP PRN (06:18)
[2023-04-12 06:41] LABS: Anion Gap 19 mmol/L (10-20); BUN (Urea Nitrogen) 71 mg/dL (7.0-18.7); Calc. Creatinine Clearance 12 mL/min (70-130); Calcium 9.9 mg/dL (7.8-10.44); Carbon Dioxide 23 mmol/L (22-29); Chloride 98 mmol/L (98-107); Estimated GFR 7; Glucose 127 mg/dL (70-105); Sodium 133 mmol/L (136-145)
[2023-04-12 06:45] LABS: Potassium 6.7 mmol/L (3.5-5.1)
[2023-04-12] MEDS ORDERED: Heparin 10,000 UNITS/ 10 ML VIAL ONE (08:47)
[2023-04-12] MEDS ORDERED: NIFEdipine XL 30 MG ER.TAB PO SCH (10:00)
[2023-04-12] MEDS ORDERED: NIFEdipine XL 60 MG ER.TAB PO SCH (10:00)
[2023-04-12] MEDS: HYDROcodone/Acetaminophen 7.5/325 mg Tablet PO PRN ×2 (14:37→21:52)
[2023-04-12] MEDS: Labetalol HCl 100 MG TAB PO SCH (14:39)
[2023-04-12] MEDS: Sevelamer Carbonate 800 MG TAB PO SCH ×3 (14:42→21:27)
[2023-04-12] MEDS: Lisinopril 20 MG TAB PO SCH (14:44)
[2023-04-12] MEDS: Metoclopramide HCl 10 MG TAB PO SCH (14:44)
[2023-04-12] MEDS: Gabapentin 300 MG CAP PO SCH (14:45)
[2023-04-12] MEDS: hydrOXYzine 25 MG TAB PO PRN (14:46)
[2023-04-12] MEDS: Insulin Glargine 30 UNITS/0.3 ML VIAL SC SCH (14:48)
[2023-04-12] MEDS: Heparin 5,000 UNITS/ML VIAL SC SCH ×2 (14:48→21:52)
[2023-04-12] MEDS: Isosorbide Mononitrate 60 MG ER.TAB PO SCH (15:01)
[2023-04-12] MEDS ORDERED: Vancomycin 250 MG, Admixture Fee 1 EACH in Sodium Chloride 0.9% 100 ML IVPB SCH (17:00)
[2023-04-12] MEDS ORDERED: Vancomycin 250 MG in Sodium Chloride 0.9% 100 ML IVPB SCH (17:00)
[2023-04-12] MEDS: HumaLOG 300 UNITS/3 ML VIAL SC PRN (23:12)
[2023-04-13] MEDS: Labetalol HCl 100 MG TAB PO SCH ×3 (00:29→22:12)
[2023-04-13] MEDS: hydrALAZINE 25 MG TAB PO SCH ×3 (00:29→22:12)
[2023-04-13] MEDS: Isosorbide Mononitrate 60 MG ER.TAB PO SCH ×3 (00:30→22:13)
[2023-04-13] MEDS: QUEtiapine 25 MG TAB PO SCH ×2 (00:30→22:13)
[2023-04-13] MEDS: Metoclopramide HCl 10 MG TAB PO SCH ×3 (00:30→22:13)
[2023-04-13] MEDS: Lisinopril 20 MG TAB PO SCH ×3 (00:31→22:12)
[2023-04-13] MEDS: NIFEdipine XL 60 MG ER.TAB PO SCH ×3 (00:33→11:26)
[2023-04-13 04:13] LABS: #Eosinphils 0.3 thou/uL (0.0-0.7); #Monocytes 1.1 thou/uL (0.11-0.59); #Neutrophils 9.7 thou/uL (1.40-6.50); %Basophils 0.3 % (0.0-1.0); %Eosinophils 2.1 % (0.0-10.0); %Lymphocytes 8.3 % (21.0-51.0); %Monocytes 8.7 % (0.0-10.0); Hematocrit 35.1 % (36.0-47.0); Hemoglobin 10.7 g/dL (12.0-16.0); Mean Corpuscular HGB CONC 30.5 g/dL (32.0-36.0); Mean Corpuscular Hemoglobin 26.9 pg (27.0-31.0); Mean Corpuscular Volume 88.2 fl (78.0-98.0); Mean Platelet Volume 11.2 fL (7.4-10.4); Platelet Count 249 10x3/uL (130-400); RBC Distribution Width 15.9 % (11.5-14.5); Red Blood Cell (RBC) Count 3.98 mill/uL (4.20-5.40); White Blood Cell (WBC) Count 12.1 10x3/uL (4.8-10.8)
[2023-04-13] MEDS: HumaLOG 300 UNITS/3 ML VIAL SC PRN ×3 (06:38→22:09)
[2023-04-13 07:02] LABS: Albumin 2.9 g/dL (3.5-5.0); Anion Gap 15 mmol/L (10-20); BUN (Urea Nitrogen) 48 mg/dL (7.0-18.7); BUN/Creatinine Ratio 8.29; Calc. Creatinine Clearance 16 mL/min (70-130); Calcium 9.4 mg/dL (7.8-10.44); Carbon Dioxide 28 mmol/L (22-29); Chloride 97 mmol/L (98-107); Estimated GFR 9; Glucose 348 mg/dL (70-105); Phosphorus 6.3 mg/dL (2.3-4.7); Potassium 5.4 mmol/L (3.5-5.1); Sodium 135 mmol/L (136-145)
[2023-04-13] MEDS ORDERED: Sodium Polystyrene Sulfonate 15 GM (60 mL) BOT PO SCH (07:09)
[2023-04-13] MEDS ORDERED: fentaNYL 50 mcg/mL 1 mL Vial ONE (09:05)
[2023-04-13] MEDS ORDERED: Lidocaine 1% PF 5 ML VIAL ONE (09:05)
[2023-04-13] MEDS ORDERED: PROPOFOL 20 ML ONE (09:05)
[2023-04-13] MEDS ORDERED: Bupivacaine 0.25% HCL 30 ML VIAL ONE (09:11)
[2023-04-13] MEDS ORDERED: EPINEPHrine 1 MG/ML VIAL ONE (09:11)
[2023-04-13] MEDS ORDERED: Ondansetron PF 4 MG/2 ML Vial ONE (09:22)
[2023-04-13] MEDS ORDERED: PHENYLEPHRINE-NS 100 MCG/ML 10 ML SYRINGE ONE (09:31)
[2023-04-13] MEDS: Gabapentin 300 MG CAP PO SCH (11:10)
[2023-04-13] MEDS: Sevelamer Carbonate 800 MG TAB PO SCH ×3 (11:10→18:06)
[2023-04-13] MEDS: Insulin Glargine 30 UNITS/0.3 ML VIAL SC SCH (11:12)
[2023-04-13] MEDS: HYDROcodone/Acetaminophen 7.5/325 mg Tablet PO PRN ×3 (11:23→22:07)
[2023-04-13] MEDS: Heparin 5,000 UNITS/ML VIAL SC SCH ×2 (11:24→22:15)
[2023-04-13] MEDS ORDERED: NIFEdipine XL 90 MG ER.TAB PO SCH (11:30)
[2023-04-13] MEDS ORDERED: Vancomycin 250 MG, Admixture Fee 1 EACH in Sodium Chloride 0.9% 100 ML IVPB SCH (17:00)
[2023-04-13 18:53] LABS: Anion Gap 17 mmol/L (10-20); BUN (Urea Nitrogen) 57 mg/dL (7.0-18.7); Calc. Creatinine Clearance 14 mL/min (70-130); Calcium 9.3 mg/dL (7.8-10.44); Carbon Dioxide 29 mmol/L (22-29); Chloride 98 mmol/L (98-107); Estimated GFR 8; Glucose 244 mg/dL (70-105); Potassium 5.5 mmol/L (3.5-5.1); Sodium 138 mmol/L (136-145)
[2023-04-13] MEDS ORDERED: LOKELMA 10 GM PACKET PO SCH (19:30)
[2023-04-13] MEDS: NIFEdipine XL 90 MG ER.TAB PO SCH (22:13)
[2023-04-14] MEDS: HYDROcodone/Acetaminophen 7.5/325 mg Tablet PO PRN ×4 (03:37→19:30)
[2023-04-14] MEDS: HumaLOG 300 UNITS/3 ML VIAL SC PRN ×3 (05:44→22:13)
[2023-04-14 07:04] LABS: #Eosinphils 0.4 thou/uL (0.0-0.7); #Neutrophils 6.3 thou/uL (1.40-6.50); %Basophils 0.2 % (0.0-1.0); %Eosinophils 4.9 % (0.0-10.0); %Lymphocytes 11.8 % (21.0-51.0); %Monocytes 10.8 % (0.0-10.0); %Neutrophils 71.7 % (42.0-75.0); Hematocrit 34.3 % (36.0-47.0); Hemoglobin 10.4 g/dL (12.0-16.0); Mean Corpuscular HGB CONC 30.3 g/dL (32.0-36.0); Mean Corpuscular Hemoglobin 27.2 pg (27.0-31.0); Mean Corpuscular Volume 89.6 fl (78.0-98.0); Mean Platelet Volume 11.7 fL (7.4-10.4); Platelet Count 266 10x3/uL (130-400); RBC Distribution Width 15.9 % (11.5-14.5); Red Blood Cell (RBC) Count 3.83 mill/uL (4.20-5.40); White Blood Cell (WBC) Count 8.8 10x3/uL (4.8-10.8)
[2023-04-14 07:43] LABS: Vancomycin, Random 12.1 ug/mL (See Comment)
[2023-04-14 08:03] LABS: Albumin 3.1 g/dL (3.5-5.0); Anion Gap 18 mmol/L (10-20); BUN (Urea Nitrogen) 64 mg/dL (7.0-18.7); BUN/Creatinine Ratio 9.04; Calc. Creatinine Clearance 14 mL/min (70-130); Calcium 9.2 mg/dL (7.8-10.44); Carbon Dioxide 25 mmol/L (22-29); Chloride 97 mmol/L (98-107); Estimated GFR 7; Glucose 207 mg/dL (70-105); Phosphorus 7.6 mg/dL (2.3-4.7); Potassium 5.4 mmol/L (3.5-5.1); Sodium 135 mmol/L (136-145)
[2023-04-14] MEDS ORDERED: Heparin 10,000 UNITS/ 10 ML VIAL ONE (08:46)
[2023-04-14] MEDS: Gabapentin 300 MG CAP PO SCH (08:50)
[2023-04-14] MEDS: Sevelamer Carbonate 800 MG TAB PO SCH ×3 (08:51→16:07)
[2023-04-14] MEDS: Metoclopramide HCl 10 MG TAB PO SCH ×2 (08:52→20:23)
[2023-04-14] MEDS: Labetalol HCl 100 MG TAB PO SCH ×2 (08:52→20:22)
[2023-04-14] MEDS: NIFEdipine XL 90 MG ER.TAB PO SCH ×2 (08:52→20:21)
[2023-04-14] MEDS: Lisinopril 20 MG TAB PO SCH (08:52)
[2023-04-14] MEDS: hydrALAZINE 25 MG TAB PO SCH ×2 (08:52→20:22)
[2023-04-14] MEDS: Isosorbide Mononitrate 60 MG ER.TAB PO SCH ×2 (08:52→20:21)
[2023-04-14] MEDS: Heparin 5,000 UNITS/ML VIAL SC SCH ×2 (08:56→20:25)
[2023-04-14] MEDS: Insulin Glargine 30 UNITS/0.3 ML VIAL SC SCH (08:58)
[2023-04-14] MEDS ORDERED: Morphine 2 MG/ML VIAL SLOW IVP PRN (09:02)
[2023-04-14] MEDS ORDERED: Polyethylene Glycol 3350 17 GM Packet PO PRN (09:02)
[2023-04-14 13:40] VITALS: BMI 28.7
[2023-04-14] MEDS ORDERED: Vancomycin 1 GM in Premix 1 BAG IVPB SCH (17:00)
[2023-04-14] MEDS: Senokot S 8.6-50 MG TAB PO SCH (20:23)
[2023-04-14] MEDS: QUEtiapine 25 MG TAB PO SCH (20:24)
[2023-04-15] MEDS: HYDROcodone/Acetaminophen 7.5/325 mg Tablet PO PRN ×2 (05:21→15:16)
[2023-04-15] MEDS: HumaLOG 300 UNITS/3 ML VIAL SC PRN ×2 (05:22→13:29)
[2023-04-15] MEDS ORDERED: NIFEdipine XL 60 MG ER.TAB PO SCH (06:38)
[2023-04-15] MEDS ORDERED: hydrALAZINE 25 MG TAB PO SCH (06:38)
[2023-04-15 07:35] LABS: #Eosinphils 0.3 thou/uL (0.0-0.7); #Neutrophils 4.8 thou/uL (1.40-6.50); %Basophils 0.5 % (0.0-1.0); %Eosinophils 4.6 % (0.0-10.0); %Monocytes 13.5 % (0.0-10.0); Hematocrit 35.1 % (36.0-47.0); Hemoglobin 10.7 g/dL (12.0-16.0); Mean Corpuscular HGB CONC 30.5 g/dL (32.0-36.0); Mean Corpuscular Hemoglobin 26.8 pg (27.0-31.0); Mean Corpuscular Volume 87.8 fl (78.0-98.0); Platelet Count 302 10x3/uL (130-400); RBC Distribution Width 15.5 % (11.5-14.5); White Blood Cell (WBC) Count 7.3 10x3/uL (4.8-10.8)
[2023-04-15 07:55] VITALS: TEMP 98.2
[2023-04-15] MEDS: Labetalol HCl 100 MG TAB PO SCH (09:05)
[2023-04-15] MEDS: Senokot S 8.6-50 MG TAB PO SCH (09:05)
[2023-04-15] MEDS: Isosorbide Mononitrate 60 MG ER.TAB PO SCH (09:06)
[2023-04-15] MEDS: Metoclopramide HCl 10 MG TAB PO SCH (09:06)
[2023-04-15] MEDS: Sevelamer Carbonate 800 MG TAB PO SCH ×2 (09:07→13:28)
[2023-04-15] MEDS: Gabapentin 300 MG CAP PO SCH (09:07)
[2023-04-15] MEDS: Insulin Glargine 30 UNITS/0.3 ML VIAL SC SCH (09:08)
[2023-04-15] MEDS: Heparin 5,000 UNITS/ML VIAL SC SCH (09:08)
[2023-04-15 13:05] LABS: Anion Gap 15 mmol/L (10-20); BUN (Urea Nitrogen) 41 mg/dL (7.0-18.7); Calc. Creatinine Clearance 18 mL/min (70-130); Calcium 9.1 mg/dL (7.8-10.44); Carbon Dioxide 28 mmol/L (22-29); Chloride 97 mmol/L (98-107); Estimated GFR 10; Glucose 159 mg/dL (70-105); Potassium 4.4 mmol/L (3.5-5.1); Sodium 136 mmol/L (136-145)
[2023-04-15 15:29] VITALS: BP 123/81
== END 2023-04-15 15:46 | disposition home or self-care (01) | DRG 280 ==
LOC: ERS 01:23 → ERHOLD 03:42 → CCU 07:00 → SJJU 04-08 04:49
PROVIDERS: ADMIT Student in an Organized Health Care Education/Training Program; ATTEND Family Medicine
PROC: 0W9G3ZZ Drainage of Peritoneal Cavity, Percutaneous Approach (ICD-10-PCS; principal; 2023-04-07)
PROC: 5A1D70Z Performance of Urinary Filtration, Intermittent, Less than 6 Hours Per Day (ICD-10-PCS; 2023-04-07)
PROC: 0W9G3ZZ Drainage of Peritoneal Cavity, Percutaneous Approach (ICD-10-PCS; 2023-04-10)
PROC: 5A1D70Z Performance of Urinary Filtration, Intermittent, Less than 6 Hours Per Day (ICD-10-PCS; 2023-04-10)
PROC: 5A1D70Z Performance of Urinary Filtration, Intermittent, Less than 6 Hours Per Day (ICD-10-PCS; 2023-04-12)
PROC: 0JB80ZX Excision of Abdomen Subcutaneous Tissue and Fascia, Open Approach, Diagnostic (ICD-10-PCS; 2023-04-13)
PROC: 5A1D70Z Performance of Urinary Filtration, Intermittent, Less than 6 Hours Per Day (ICD-10-PCS; 2023-04-14)
DX: I13.2 Hypertensive heart and chronic kidney disease with heart failure and with stage 5 chronic kidney disease, or end stage renal disease (principal); I21.A1 Myocardial infarction type 2; E11.10 Type 2 diabetes mellitus with ketoacidosis without coma; I50.33 Acute on chronic diastolic (congestive) heart failure; J96.01 Acute respiratory failure with hypoxia; N18.6 End stage renal disease; E87.1 Hypo-osmolality and hyponatremia; I16.1 Hypertensive emergency; K74.60 Unspecified cirrhosis of liver; E11.22 Type 2 diabetes mellitus with diabetic chronic kidney disease; I42.5 Other restrictive cardiomyopathy; E78.5 Hyperlipidemia, unspecified; F31.9 Bipolar disorder, unspecified; F17.210 Nicotine dependence, cigarettes, uncomplicated; B19.20 Unspecified viral hepatitis C without hepatic coma; E83.39 Other disorders of phosphorus metabolism; G47.00 Insomnia, unspecified; D63.1 Anemia in chronic kidney disease; E88.09 Other disorders of plasma-protein metabolism, not elsewhere classified; I07.1 Rheumatic tricuspid insufficiency; Z11.52 Encounter for screening for COVID-19; R16.0 Hepatomegaly, not elsewhere classified; F41.9 Anxiety disorder, unspecified; E87.5 Hyperkalemia; Z90.49 Acquired absence of other specified parts of digestive tract; Z98.890 Other specified postprocedural states; Z88.8 Allergy status to other drugs, medicaments and biological substances; Z79.4 Long term (current) use of insulin; Z79.899 Other long term (current) drug therapy; Z98.51 Tubal ligation status; Z91.148 Patient's other noncompliance with medication regimen for other reason; Z99.2 Dependence on renal dialysis
CPT/HCPCS: 36415; 36416; 49083; 71045; 71250; 74183; 76705; 80048; 80053; 80069; 80202; 80307; 82010; 82042; 82728; 82805; 83516; 83540; 83550; 83605; 83735; 83880; 84100; 84145; 84157; 84484; 84703; 85025; 85060; 85610; 85730; 86015; 86706; 87040; 87340; 87522; 88112; 88305; 89051; 90935; 93005; 93306; 97139; A9579; G0257; J0171; J0360; J0612; J0665; J0696; J0780; J1170; J1644; J1815; J2270; J2272; J2405; J2704; J3010; J3370; J3370-JW; J3490; J7999; Q0162

== ENCOUNTER 2023-05-14 07:23 | Day surgery (SDC) | payer OTHER ==
[2023-05-14 08:11] LABS: #Eosinphils 0.2 thou/uL (0.0-0.7); #Monocytes 0.7 thou/uL (0.11-0.59); %Basophils 0.3 % (0.0-1.0); %Lymphocytes 11.6 % (21.0-51.0); %Monocytes 7.6 % (0.0-10.0); %Neutrophils 78.2 % (42.0-75.0); Hemoglobin 11.5 g/dL (12.0-16.0); Mean Corpuscular HGB CONC 31.1 g/dL (32.0-36.0); Mean Platelet Volume 10.1 fL (7.4-10.4); Platelet Count 258 10x3/uL (130-400); RBC Distribution Width 16.2 % (11.5-14.5); Red Blood Cell (RBC) Count 4.11 mill/uL (4.20-5.40)
[2023-05-14] MEDS ORDERED: Sodium Bicarbonate 2.5 MEQ/5 ML SDV ONE (08:17)
[2023-05-14] MEDS ORDERED: Lidocaine 1% PF 5 ML VIAL ONE (08:17)
[2023-05-14] MEDS ORDERED: Albumin 25% 0 ML ONE (08:18)
[2023-05-14 08:26] LABS: INR-International Normal Ratio 1.1
[2023-05-14 08:41] LABS: PTT 29.6 sec (22.9-36.1)
== END 2023-05-14 10:00 | disposition home or self-care (01) ==
LOC: ULT 07:23
PROVIDERS: ATTEND Physician Assistant Medical
PROC: 0W9G3ZZ Drainage of Peritoneal Cavity, Percutaneous Approach (ICD-10-PCS; principal; 2023-05-14)
DX: K74.60 Unspecified cirrhosis of liver (principal); R18.8 Other ascites; I12.0 Hypertensive chronic kidney disease with stage 5 chronic kidney disease or end stage renal disease; N18.6 End stage renal disease; K31.84 Gastroparesis; D64.9 Anemia, unspecified; K21.00 Gastro-esophageal reflux disease with esophagitis, without bleeding; F19.11 Other psychoactive substance abuse, in remission; Z88.5 Allergy status to narcotic agent
CPT/HCPCS: 49083; 85025; 85610; 85730; P9047

== ENCOUNTER 2023-05-14 10:27 | Emergency (ER) | payer OTHER | END 2023-05-14 12:56 | disposition home or self-care (01) | LOC: ERS 10:27 | DX: E11.621 Type 2 diabetes mellitus with foot ulcer (principal); L97.519 Non-pressure chronic ulcer of other part of right foot with unspecified severity; I12.9 Hypertensive chronic kidney disease with stage 1 through stage 4 chronic kidney disease, or unspecified chronic kidney disease; E11.22 Type 2 diabetes mellitus with diabetic chronic kidney disease; N18.9 Chronic kidney disease, unspecified; Z99.2 Dependence on renal dialysis | CPT/HCPCS: 99282 ==

== ENCOUNTER 2023-05-22 20:35 | Emergency (ER) | payer OTHER | END 2023-05-22 23:33 | disposition home or self-care (01) | LOC: ERS 20:35 | DX: B35.1 Tinea unguium (principal); E11.621 Type 2 diabetes mellitus with foot ulcer; L97.519 Non-pressure chronic ulcer of other part of right foot with unspecified severity; I13.0 Hypertensive heart and chronic kidney disease with heart failure and stage 1 through stage 4 chronic kidney disease, or unspecified chronic kidney disease; E11.22 Type 2 diabetes mellitus with diabetic chronic kidney disease; N18.9 Chronic kidney disease, unspecified; I50.9 Heart failure, unspecified; F17.210 Nicotine dependence, cigarettes, uncomplicated; Z99.2 Dependence on renal dialysis ==